=== PATIENT | female | born 1975 | race Caucasian/White ===

== ENCOUNTER 2016-09-06 11:06 | Inpatient (IN) | payer OTHER ==
[2016-09-06] MEDS ORDERED: LORazepam 2 MG/ML SYRINGE IV STA ×2 (11:22→14:00)
[2016-09-06] MEDS ORDERED: SODIUM CHLORIDE 0.9% 500 ML IV STA (11:22)
[2016-09-06 11:51] LABS: Anisocytosis Slight; Basophils % (A) 0 %; CH 38.4; CHCM 36.6; Eosinophils % (A) 0 %; HCT 31.4 % (34.0-46.0); HDW 2.92; HGB 11.4 gm/dL (11.4-16.0); Luc # (Auto) 0.18; Luc % (Auto) 2; Lymphocytes # (A) 0.7 k/uL (1.0-4.8); Lymphocytes % (A) 8 %; MCH 38.1 pg (25.0-35.0); MCHC 36.3 g/dL (31.0-37.0); MCV 104.9 fL (80.0-100.0); Macrocytosis Moderate; Mean Platelet Volume 8.6; Monocytes # (A) 0.4 k/uL (0-1.0); Monocytes % (A) 5 %; Neutrophils # (A) 7.7 k/uL (1.3-7.7); Neutrophils % (A) 85 %; RBC 2.99 m/uL (3.80-5.40); WBC 9.1 k/uL (3.8-10.6)
[2016-09-06 11:54] LABS: ALT 62 U/L (9-52); AST 155 U/L (14-36); Alcohol <10 mg/dL; Alkaline Phosphatase 138 U/L (38-126); Anion Gap 11 mmol/L; Blood Urea Nitrogen 8 mg/dL (7-17); Calcium 8.8 mg/dL (8.4-10.2); Carbon Dioxide 24 mmol/L (22-30); Chloride 96 mmol/L (98-107); Glucose 100 mg/dL (74-99); Non-African American GFR(MDRD) >60 (>60 ml/min/1.73 sqM); Sodium 131 mmol/L (137-145); Total Bilirubin 1.7 mg/dL (0.2-1.3); Total Protein 6.5 g/dL (6.3-8.2)
[2016-09-06 12:01] LABS: Appearance,Urine Cloudy (Clear); Bacteria,Urine Rare /hpf; Bilirubin,Urine Negative (Negative); Glucose,Urine (UA) Negative (Negative); Ketones,Urine 1+ (Negative); Leukocyte Esterase,Urine Trace (Negative); Mucus,Urine Occasional /hpf; Nitrite,Urine Negative (Negative); PH, Urine 8.5 (5.0-8.0); Particle Count 8775; Protein,Urine 2+ (Negative); Specific Gravity,Urine 1.018 (1.001-1.035); Squamous Epithelial Cell,Urine 13 /hpf (0-4); UA Billing (MACRO vs. MICRO) MICRO; WBC,Urine 8 /hpf (0-5)
[2016-09-06 12:03] LABS: Manual Review Performed
[2016-09-06 12:17] LABS: Potassium 2.8 mmol/L (3.5-5.1)
[2016-09-06] MEDS ORDERED: POTASSIUM CHLORIDE ER 20 MEQ TAB.ER PO STA (12:17)
--- NOTE | 2016-09-06 12:18 | XR ---
EXAMINATION TYPE: XR chest 2V DATE OF EXAM ORDERED: 09/06/2016 HISTORY: Pain. REFERENCE: None. FINDINGS: The lungs are clear. Pleural spaces are clear. Heart size is normal. IMPRESSION: NORMAL CHEST.
--- NOTE | 2016-09-06 12:34 | ED ---
Seizure HPI - General Source: patient, family, EMS, RN notes reviewed Mode of arrival: EMS Limitations: no limitations <Davidson Velasco - Last Filed: 09/06/16 13:06> <Manuel Serna - Last Filed: 09/06/16 13:43> - General Chief Complaint: Seizure Stated Complaint: Seizure, alcohol withdrawls Time Seen by Provider: 09/06/16 11:17 - History of Present Illness Initial Comments: This a 41-year-old female presents emergency Department chief complaint: Withdrawal, seizure. Patient reportedly had 2 seizures last 2 days. Patient states that she used to drink 1/5 daily. Family states that she stopped drinking 2 days ago. Patient is trying to detox at home by herself. Patient also states that she is out of her pain medication. Patient states that she does have a mild headache at this time. Patient seems to be slightly confused she states that she has been seen people another things at this time. Patient has a suicidal homicidal ideations. She is complaining of abdominal pain and states that she has known liver disease. Patient's had some nausea vomiting no diarrhea no constipation time. Patient has no chest pain or shortness breath ( Davidson Velasco) - Related Data Home Medications Medication Instructions Recorded Confirmed ALPRAZolam [Xanax] 1 mg PO TID 09/06/16 09/06/16 HYDROcodone/APAP 10-325MG [[place] 1 tab PO Q4HR PRN 09/06/16 09/06/16 10-325] Methocarbamol [Robaxin] 750 mg PO TID 09/06/16 09/06/16 Morphine Sulfate ER [Ms Contin 15 mg PO Q12HR 09/06/16 09/06/16 15Mg] Omeprazole 20 mg PO DAILY 09/06/16 09/06/16 Polyethylene Glycol 3350 [Miralax] 17 gm PO DAILY 09/06/16 09/06/16 Allergies Allergy/AdvReac Type Severity Reaction Status Date / Time No Known Allergies Allergy Verified 09/06/16 11:28 Review of Systems ROS Other: All systems not noted in ROS Statement are negative. <Davidson Velasco - Last Filed: 09/06/16 13:06> ROS Other: All systems not noted in ROS Statement are negative. <Manuel Serna - Last Filed: 09/06/16 13:43> ROS Statement: Those systems with pertinent positive or pertinent negative responses have been documented in the HPI. Past Medical History Past Medical History: Seizure Disorder Additional Past Medical History / Comment(s): Alcohol dependence, History of Any Multi-Drug Resistant Organisms: None Reported Past Surgical History: No Surgical Hx Reported Past Psychological History: Anxiety, Bipolar, Depression Smoking Status: Current every day smoker Past Alcohol Use History: Daily Past Drug Use History: None Reported <Davidson Velasco - Last Filed: 09/06/16 13:06> General Exam Limitations: no limitations General appearance: alert, in no apparent distress Head exam: Present: atraumatic, normocephalic, normal inspection Neck exam: Present: normal inspection, full ROM. Absent: tenderness, meningismus, lymphadenopathy Respiratory exam: Present: normal lung sounds bilaterally. Absent: respiratory distress, wheezes, rales, rhonchi, stridor Cardiovascular Exam: Present: normal rhythm, tachycardia, normal heart sounds. Absent: systolic murmur, diastolic murmur, rubs, gallop, clicks GI/Abdominal exam: Present: soft, tenderness (Mid abdominal tenderness), normal bowel sounds. Absent: distended, guarding, rebound, rigid Neurological exam: Present: alert, oriented X3, CN II-XII intact Skin exam: Present: warm, dry, intact, normal color. Absent: rash <Davidson Velasco - Last Filed: 09/06/16 13:06> Course <Davidson Velasco - Last Filed: 09/06/16 13:06> <Manuel Serna - Last Filed: 09/06/16 13:43> Vital Signs 09/06/16 09/06/16 11:07 13:13 Temperature 99.5 F 100.6 F H Pulse Rate 115 H 110 H Respiratory 22 18 Rate Blood Pressure 147/85 131/85 O2 Sat by Pulse 95 99 Oximetry - Reevaluation(s) Reevaluation #1: 09/06/16 13:42 I did personally do a [id number] evaluation the patient did discuss the findings with her and her family. Patient will be admitted for treatment of acute pancreatitis and alcohol withdrawal. Her last regular within the last 2 days per her family. I did discuss the case with the hospitalist. (Manuel Serna ) Medical Decision Making - Lab Data Result diagrams: 09/06/16 11:20 09/06/16 11:20 <Davidson Velasco - Last Filed: 09/06/16 13:06> - Lab Data Result diagrams: 09/06/16 11:20 09/06/16 11:20 <Manuel Serna - Last Filed: 09/06/16 13:43> - Lab Data Lab Results 09/06/16 09/06/16 09/06/16 Range/Units 10:55 10:55 11:20 WBC (3.8-10.6) k/uL RBC (3.80-5.40) m/uL Hgb (11.4-16.0) gm/dL Hct (34.0-46.0) % MCV (80.0-100.0) fL MCH (25.0-35.0) pg MCHC (31.0-37.0) g/dL RDW (11.5-15.5) % Plt Count (150-450) k/uL Neutrophils % % Lymphocytes % % Monocytes % % Eosinophils % % Basophils % % Neutrophils # (1.3-7.7) k/uL Lymphocytes # (1.0-4.8) k/uL Monocytes # (0-1.0) k/uL Eosinophils # (0-0.7) k/uL Basophils # (0-0.2) k/uL Manual Slide Review Anisocytosis Macrocytosis Sodium 131 L (137-145) mmol/L Potassium 2.8 L* (3.5-5.1) mmol/L Chloride 96 L (98-107) mmol/L Carbon Dioxide 24 (22-30) mmol/L Anion Gap 11 mmol/L BUN 8 (7-17) mg/dL Creatinine 0.73 (0.52-1.04) mg/dL Est GFR (MDRD) Af Amer >60 (>60 ml/min/1.73 sqM) Est GFR (MDRD) Non-Af >60 (>60 ml/min/1.73 sqM) Glucose 100 H (74-99) mg/dL Calcium 8.8 (8.4-10.2) mg/dL Total Bilirubin 1.7 H (0.2-1.3) mg/dL AST 155 H (14-36) U/L ALT 62 H (9-52) U/L Alkaline Phosphatase 138 H (38-126) U/L Total Protein 6.5 (6.3-8.2) g/dL Albumin 4.0 (3.5-5.0) g/dL Lipase 3753 H (23-300) U/L Urine Color Yellow Urine Appearance Cloudy H (Clear) Urine pH 8.5 H (5.0-8.0) Ur Specific [place] 1.018 (1.001-1.035) Urine Protein 2+ H (Negative) Urine Glucose (UA) Negative (Negative) Urine Ketones 1+ H (Negative) Urine Blood Negative (Negative) Urine Nitrite Negative (Negative) Urine Bilirubin Negative (Negative) Urine Urobilinogen 2.0 (<2.0) mg/dL Ur Leukocyte Esterase Trace H (Negative) Urine WBC 8 H (0-5) /hpf Ur Squamous Epith Cells 13 H (0-4) /hpf Urine Bacteria Rare H (None) /hpf Hyaline Casts 7 H (0-2) /lpf Urine Mucus Occasional H (None) /hpf Urine Opiates Screen Not Detected (NotDetected) Ur Oxycodone Screen Not Detected (NotDetected) Urine Methadone Screen Not Detected (NotDetected) Ur Propoxyphene Screen Not Detected (NotDetected) Ur Barbiturates Screen Not Detected (NotDetected) U Tricyclic Antidepress Not Detected (NotDetected) Ur Phencyclidine Scrn Not Detected (NotDetected) Ur Amphetamines Screen Not Detected (NotDetected) U Methamphetamines Scrn Not Detected (NotDetected) U Benzodiazepines Scrn Detected H (NotDetected) Urine Cocaine Screen Not Detected (NotDetected) U Marijuana (THC) Screen Detected H (NotDetected) Serum Alcohol <10 mg/dL 09/06/16 Range/Units 11:20 WBC 9.1 (3.8-10.6) k/uL RBC 2.99 L (3.80-5.40) m/uL Hgb 11.4 (11.4-16.0) gm/dL Hct 31.4 L (34.0-46.0) % MCV 104.9 H (80.0-100.0) fL MCH 38.1 H (25.0-35.0) pg MCHC 36.3 (31.0-37.0) g/dL RDW 18.0 H (11.5-15.5) % Plt Count 90 L (150-450) k/uL Neutrophils % 85 % Lymphocytes % 8 % Monocytes % 5 % Eosinophils % 0 % Basophils % 0 % Neutrophils # 7.7 (1.3-7.7) k/uL Lymphocytes # 0.7 L (1.0-4.8) k/uL Monocytes # 0.4 (0-1.0) k/uL Eosinophils # 0.0 (0-0.7) k/uL Basophils # 0.0 (0-0.2) k/uL Manual Slide Review Performed Anisocytosis Slight Macrocytosis Moderate Sodium (137-145) mmol/L Potassium (3.5-5.1) mmol/L Chloride (98-107) mmol/L Carbon Dioxide (22-30) mmol/L Anion Gap mmol/L BUN (7-17) mg/dL Creatinine (0.52-1.04) mg/dL Est GFR (MDRD) Af Amer (>60 ml/min/1.73 sqM) Est GFR (MDRD) Non-Af (>60 ml/min/1.73 sqM) Glucose (74-99) mg/dL Calcium (8.4-10.2) mg/dL Total Bilirubin (0.2-1.3) mg/dL AST (14-36) U/L ALT (9-52) U/L Alkaline Phosphatase (38-126) U/L Total Protein (6.3-8.2) g/dL Albumin (3.5-5.0) g/dL Lipase (23-300) U/L Urine Color Urine Appearance (Clear) Urine pH (5.0-8.0) Ur Specific [place] (1.001-1.035) Urine Protein (Negative) Urine Glucose (UA) (Negative) Urine Ketones (Negative) Urine Blood (Negative) Urine Nitrite (Negative) Urine Bilirubin (Negative) Urine Urobilinogen (<2.0) mg/dL Ur Leukocyte Esterase (Negative) Urine WBC (0-5) /hpf Ur Squamous Epith Cells (0-4) /hpf Urine Bacteria (None) /hpf Hyaline Casts (0-2) /lpf Urine Mucus (None) /hpf Urine Opiates Screen (NotDetected) Ur Oxycodone Screen (NotDetected) Urine Methadone Screen (NotDetected) Ur Propoxyphene Screen (NotDetected) Ur Barbiturates Screen (NotDetected) U Tricyclic Antidepress (NotDetected) Ur Phencyclidine Scrn (NotDetected) Ur Amphetamines Screen (NotDetected) U Methamphetamines Scrn (NotDetected) U Benzodiazepines Scrn (NotDetected) Urine Cocaine Screen (NotDetected) U Marijuana (THC) Screen (NotDetected) Serum Alcohol mg/dL Disposition <Davidson Velasco - Last Filed: 09/06/16 13:06> <Manuel Serna - Last Filed: 09/06/16 13:43> Clinical Impression: Hypokalemia, Alcohol withdrawal seizure, Acute pancreatitis Disposition: ADMITTED IP TO THIS [facility] Condition: Fair Referrals: Nonstaff,Physician [Primary Care Provider] - 1-2 days Addendum entered and electronically signed by Davidson Velasco PA-C 09/06/16 13: 07: EKG performed at 12:44 sinus tachycardia with a rate of 109 GA interval 148 QRS duration 84 QT/QTC 364/490 Addendum entered and electronically signed by Davidson Velasco PA-C 09/06/16 13: 20: Patient has no suicidal or homicidal ideations
[2016-09-06] MEDS ORDERED: SODIUM CHLORIDE 0.9% 1,000 ML with MVI, ADULT NO.4 WITH VIT K 10 ML, THIAMINE 100 MG, F... IV ONE ×4 (12:45)
--- NOTE | 2016-09-06 12:54 | CT ---
EXAMINATION TYPE: CT brain wo con DATE OF EXAM: 09/06/2016 COMPARISON: NONE HISTORY: Confused/seizure/alcohol withdrawls CT DLP: 935.[address] of the brain was performed. The ventricles, basal cisterns and sulci overlying the cerebral convexities demonstrate a normal appe arance. There is no evidence for intracranial hemorrhage or sulcal effacement. No mass effects are seen. Osseous calvarium is intact. If symptoms persist consider MRI as clinically warranted. IMPRESSION: 1. No acute intracranial process is seen at this time.
[2016-09-06] MEDS ORDERED: ONDANSETRON 4 MG/2 ML VIAL IVP PRN (13:08)
[2016-09-06] MEDS ORDERED: MORPHINE SULFATE 4 MG/ML SYRINGE IV PRN (13:08)
[2016-09-06] MEDS ORDERED: NALOXONE 0.4 MG/ML 1 ML VIAL IV PRN (13:08)
[2016-09-06] MEDS: LORazepam 2 MG/ML SYRINGE IV PRN ×6 (13:21→23:19)
[2016-09-06] MEDS ORDERED: ZIPRASIDONE 20 MG VIAL IM STA (13:59)
[2016-09-06] MEDS ORDERED: ACETAMINOPHEN IV (For NPO) 1,000 MG in EMPTY BAG 1 BAG IVPB STA (14:29)
[2016-09-06] MEDS: NICOTINE 21MG/24HR PATCH TRANSDERM SCH (14:39)
[2016-09-06] MEDS ORDERED: HALOPERIDOL LACTATE 5 MG/ML 1 ML VIAL IVP PRN (14:44)
[2016-09-06] MEDS ORDERED: HALOPERIDOL LACTATE 5 MG/ML 1 ML VIAL IM PRN (14:45)
[2016-09-06] MEDS ORDERED: HALOPERIDOL LACTATE 5 MG/ML 1 ML VIAL IM STA (14:46)
[2016-09-06] MEDS: THIAMINE 100 MG TAB PO SCH (20:11)
[2016-09-06] MEDS: MORPHINE SULFATE ER 15 MG TABLET PO SCH (21:18)
[2016-09-06] MEDS: METHOCARBAMOL 750 MG TAB PO SCH (21:20)
[2016-09-06] MEDS ORDERED: POTASSIUM CHLORIDE ORAL LIQUID 40 MEQ/30 ML CUP PO ONE (22:45)
[2016-09-06] MEDS ORDERED: Potassium Replacement Protocol 1 EACH MISC MISCELLANE PRN (22:46)
[2016-09-06] MEDS: HYDROcodone/APAP 10-325MG 1 EACH TAB PO PRN (23:18)
--- NOTE | 2016-09-06 23:27 | P.CNNES ---
History of Present Illness Consult date: 09/06/16 History of Present Illness: The patient is a 41-year-old woman with history of alcohol abuse. She states she has been drinking a fifth a day for 15-20 years. She states that 2 weeks ago she decided to stop drinking. She has been going through withdrawal symptoms last 2 weeks. She states she's had about 4 seizures during that timeframe. She did not come to the emergency room to today when her boyfriend called EMS. Today she had a seizure and presented to the emergency room still slightly post ictal. Kaitlin the pain patient is trying to detox herself at home by herself. 3 in the emergency room reports that she had 2 seizures in the last 2 days and that she stopped drinking 2 days ago. She was admitted to the hospital with alcohol withdrawal seizure hypokalemia and acute pancreatitis. 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, lynn disorder, carsinoid syndrome, enlarge liver History of Any Multi-Drug Resistant Organisms: None Reported Past Surgical History: No Surgical Hx Reported Smoking Status: Current every day smoker - Past Family History Father Family Medical History: No Reported History Medications and Allergies Home Medications Medication Instructions Recorded Confirmed Type ALPRAZolam [Xanax] 1 mg PO TID 09/06/16 09/06/16 History HYDROcodone/APAP 10-325MG [[place] 1 tab PO Q4HR PRN 09/06/16 09/06/16 History 10-325] Methocarbamol [Robaxin] 750 mg PO TID 09/06/16 09/06/16 History Morphine Sulfate ER [Ms Contin 15 mg PO Q12HR 09/06/16 09/06/16 History 15Mg] Omeprazole 20 mg PO DAILY 09/06/16 09/06/16 History Polyethylene Glycol 3350 [Miralax] 17 gm PO DAILY 09/06/16 09/06/16 History Allergies Allergy/AdvReac Type Severity Reaction Status Date / Time No Known Allergies Allergy Verified 09/06/16 11:28 Physical Examination - Vital Signs Vital Signs: Vital Signs Temp Pulse Pulse Resp BP BP Pulse Ox 09/06/16 16:55 99.1 F 72 16 102/68 95 09/06/16 16:01 110 H 18 155/76 99 09/06/16 15:40 101.3 F H 115 H 18 171/89 98 09/06/16 15:07 122 H 18 166/93 98 09/06/16 14:25 101.9 F H 117 H 18 174/77 98 09/06/16 13:13 100.6 F H 110 H 18 131/85 99 09/06/16 11:07 99.5 F 115 H 22 147/85 95 Intake and Output 09/06/16 09/06/16 09/07/16 14:59 22:59 06:59 Other: Voiding Method Diaper # Voids 1 Weight 65.771 kg Patient Weight 09/07/16 06:59 Weight 65.771 kg - Constitutional General appearance: average body habitus, disheveled - EENT EENT: PERRL, hearing intact, vision intact - Respiratory Respiratory: lungs clear - Cardiovascular Cardiovascular: regular rate - Neurologic Mental status she was drowsy but able to answer questions slowly. There was no a aphasia or dysarthria. Cranial nerve examination: PERRL, EOMI, VFF, face symmetric, tongue midline Speech examination: intact Detailed motor examination: grossly full strength in all extremities Motor examination - right side: 5/5: biceps, triceps, wrist flexion, wrist extension, air operations manager, hip flexors, knee extensors, dorsiflexion, toe extension (EHL) , plantarflexion Motor examination - left side: 5/5: biceps, triceps, wrist flexion, wrist extension, air operations manager, hip flexors, knee extensors, dorsiflexion, toe extension (EHL) , plantarflexion - Psychiatric Psychiatric: cooperative Results - Laboratory Findings CBC and BMP: 09/06/16 11:20 09/06/16 22:00 Abnormal Lab Findings: Abnormal Labs 09/06/16 09/06/16 09/06/16 10:55 10:55 11:20 RBC Hct MCV MCH RDW Plt Count Lymphocytes # Sodium 131 L Potassium 2.8 L* Chloride 96 L Glucose 100 H Total Bilirubin 1.7 H AST 155 H ALT 62 H Alkaline Phosphatase 138 H Lipase 3753 H Urine Appearance Cloudy H Urine pH 8.5 H Urine Protein 2+ H Urine Ketones 1+ H Ur Leukocyte Esterase Trace H Urine WBC 8 H Ur Squamous Epith Cells 13 H Urine Bacteria Rare H Hyaline Casts 7 H Urine Mucus Occasional H U Benzodiazepines Scrn Detected H U Marijuana (THC) Screen Detected H 09/06/16 09/06/16 11:20 22:00 RBC 2.99 L Hct 31.4 L MCV 104.9 H MCH 38.1 H RDW 18.0 H Plt Count 90 L Lymphocytes # 0.7 L Sodium Potassium 2.6 L* Chloride Glucose Total Bilirubin AST ALT Alkaline Phosphatase Lipase Urine Appearance Urine pH Urine Protein Urine Ketones Ur Leukocyte Esterase Urine WBC Ur Squamous Epith Cells Urine Bacteria Hyaline Casts Urine Mucus U Benzodiazepines Scrn U Marijuana (THC) Screen Assessment and Plan (1) Alcohol withdrawal seizure Status: Acute Code(s): F10.239 - ALCOHOL DEPENDENCE WITH WITHDRAWAL, UNSPECIFIED; R56.9 - UNSPECIFIED CONVULSIONS (2) Acute pancreatitis Status: Acute Code(s): K85.90 - ACUTE PANCREATITIS WITHOUT NECROSIS OR INFECTION, UNSP (3) Hypokalemia Status: Acute Code(s): E87.6 - HYPOKALEMIA Plan: The patient is a 41-year-old woman who is admitted to the hospital with alcohol withdrawal seizure. He had a CT of the brain which did not show any acute intracranial process. He is admitted with acute pancreatitis and hypokalemia. Seizure precautions are in place and patient will be on alcohol withdrawal protocol. She was made aware of the [place] law regarding driving and seizures and told she cannot operate a motorized vehicle until spell free for 6 months.
[2016-09-07] MEDS: POTASSIUM CHLORIDE 20 MEQ, LIDOCAINE 2% INJ 20 MG in SODIUM CHLORIDE 0.9% 100 ML IVPB SCH ×2 (00:31→03:59)
[2016-09-07] MEDS: SODIUM CHLORIDE 0.9% 1,000 ML IV SCH ×3 (00:32→18:09)
[2016-09-07] MEDS: LORazepam 2 MG/ML SYRINGE IV PRN ×14 (02:30→18:08)
[2016-09-07 03:31] LABS: Anisocytosis Slight; Basophils % (A) 0 %; CH 38.6; CHCM 35.3; Eosinophils % (A) 1 %; HCT 30.4 % (34.0-46.0); HDW 2.91; HGB 10.5 gm/dL (11.4-16.0); Luc # (Auto) 0.15; Luc % (Auto) 2; Lymphocytes # (A) 1.8 k/uL (1.0-4.8); Lymphocytes % (A) 28 %; MCH 37.8 pg (25.0-35.0); MCHC 34.6 g/dL (31.0-37.0); MCV 109.3 fL (80.0-100.0); Macrocytosis Marked; Mean Platelet Volume 8.5; Monocytes # (A) 0.3 k/uL (0-1.0); Monocytes % (A) 4 %; Neutrophils # (A) 4.3 k/uL (1.3-7.7); Neutrophils % (A) 65 %; RBC 2.78 m/uL (3.80-5.40); RDW 17.9 % (11.5-15.5); WBC 6.6 k/uL (3.8-10.6); WBC (Perox) 6.69
[2016-09-07 03:49] LABS: ALT 57 U/L (9-52); AST 110 U/L (14-36); Alkaline Phosphatase 111 U/L (38-126); Anion Gap 9 mmol/L; Blood Urea Nitrogen 5 mg/dL (7-17); Calcium 8.4 mg/dL (8.4-10.2); Carbon Dioxide 23 mmol/L (22-30); Chloride 103 mmol/L (98-107); Glucose 111 mg/dL (74-99); Magnesium 1.3 mg/dL (1.6-2.3); Non-African American GFR(MDRD) >60 (>60 ml/min/1.73 sqM); Potassium 3.2 mmol/L (3.5-5.1); Sodium 135 mmol/L (137-145); Total Bilirubin 1.2 mg/dL (0.2-1.3); Total Protein 5.8 g/dL (6.3-8.2)
[2016-09-07] MEDS: HYDROcodone/APAP 10-325MG 1 EACH TAB PO PRN ×4 (03:50→16:47)
[2016-09-07] MEDS ORDERED: Magnesium Replacement Protocol 1 EACH MISC MISCELLANE PRN (06:38)
[2016-09-07] MEDS: MORPHINE SULFATE ER 15 MG TABLET PO SCH (08:12)
[2016-09-07] MEDS: NICOTINE 21MG/24HR PATCH TRANSDERM SCH (08:14)
[2016-09-07] MEDS: METHOCARBAMOL 750 MG TAB PO SCH ×2 (08:14→15:03)
[2016-09-07] MEDS: MAGNESIUM SULFATE-D5W PMX 1 GM in DEXTROSE/WATER 1 100ML.BAG IVPB SCH ×2 (08:21→09:25)
--- NOTE | 2016-09-07 08:42 | HP ---
DATE OF SERVICE: 09/06/2016 CHIEF COMPLAINT: Change in mental status and alcohol intoxication and seizures. HISTORY OF PRESENT ILLNESS: This 41-year-old woman with a past medical history significant for EtOH, fibromyalgia, rheumatoid arthritis, history of alcohol dependence, anxiety, bipolar depression, being followed by no primary physician in the outpatient setting so apparently drinking heavily according to the history. The patient apparently drinks at least a fifth, last drink was about 2 days ago. The patient was complaining of seizures, possibly withdrawal seizure. The patient is confused. The patient is combative. further evaluation and treatment. The patient has received and Geodon and Ativan with minimal change in the restlessness. The patient will be closely monitored. A detailed history cannot be taken from the patient because the patient is confused. Most of the history is taken and my discussion with the staff and review of the chart at this time. PAST MEDICAL HISTORY: History of fibromyalgia, rheumatoid arthritis, seizure disorder. Medications are: 1. Omeprazole 20 mg p.o. daily. 2. Robaxin 750 p.o. t.i.d. 3. Hydrocodone 10 mg q.4 p.r.n. 4. MiraLAX 17 grams daily. 5. MS Contin 15 mg b.i.d. 6. Xanax 1 mg t.i.d. Allergies are none. Family history, social, review of systems could not be taken. Otherwise, the patient has significant history of alcohol and history of smoking. PHYSICAL EXAM: The patient is conscious, combative, disoriented. Pulse 115, blood pressure 171/89, respirations 18, temperature 101.3, pulse ox 98% on room air. HEENT: Conjunctivae normal. NECK: No jugular venous distention. CARDIOVASCULAR: S1 and S2 muffled. RESPIRATORY: Breath sounds diminished at the bases. Bilateral scattered rhonchi and crackles. ABDOMEN: Soft, nontender. No mass palpable. LEGS: No edema, no swelling. NERVOUS SYSTEM: Higher function as mentioned. Moves all 4 limbs. No focal deficits. LYMPHATICS: No lymphadenopathy of the neck, axillae or groin. SKIN: No ulcers, rashes, bleeding. LABS: WBC 9.1, hemoglobin 11.4 and MCV 104.9. Sodium 139, potassium 2.8. AST and ALT noted. ASSESSMENT: 1. Change in mental status, acute delirium tremens. 2. History of EtOH and EtOH withdrawal. 3. Possible alcohol withdrawal seizures. 5. History of nicotine dependence. 6. Urinary tract infection. 7. Hyponatremia. 8. Hypokalemia. 9. Increased AST, ALT with alcoholic hepatitis. 10. Fibromyalgia. 11. Seizure disorder. 12. Anxiety, bipolar depression. RECOMMENDATIONS AND DISCUSSION: This 41-year-old woman who presented with multiple complex medical issues, will monitor the patient closely. Continue the current medications. Continue symptomatic treatment. Otherwise, at this time I would recommend empiric antibiotics. I will follow the cultures. Otherwise, [facility] protocol, Giulia p.r.n., psych consultation. CAT scan of the brain showed no acute abnormality. Chest x-ray showed normal chest also. Further recommendations to follow. Repeat labs have been ordered. See orders for further details. Continue to monitor. I will also recommend neurology consultation as well because of seizures as well. Once again, overall prognosis extremely guarded because of multiple complex medical issues, which I discussed at length. Further recommendations to follow. MTDD
[2016-09-07] MEDS ORDERED: POLYETHYLENE GLYCOL 3350 17 GM POWD.PACK PO SCH (09:00)
[2016-09-07] MEDS ORDERED: PANTOPRAZOLE 40 MG TABLET PO SCH (09:00)
[2016-09-07] MEDS: THIAMINE 100 MG TAB PO SCH ×2 (11:51→18:08)
[2016-09-07] MEDS ORDERED: POTASSIUM CHLORIDE ER 20 MEQ TAB.ER PO SCH (12:15)
[2016-09-07 12:39] LABS: Amylase 287 U/L (30-110)
--- NOTE | 2016-09-07 15:07 | PN ---
DATE OF SERVICE: 09/07/16 This 41-year-old woman was admitted with alcohol intoxication and seizures, also had a tongue injury also. No chest pain. No palpitations. No fever. The patient still has feature of DTs. The patient is jittery and tremulous. Past medical history reviewed. REVIEW OF SYSTEMS: Cardiovascular: No angina. Respiratory: As mentioned earlier. : No dysuria. Nervous system: No numbness. Weakness. Current medications are reviewed and include: 1. [place] 10 mg q4h prn. 2. Rocephin 1 gm daily. 3. Haldol 0.5 b.i.d. 4. Ativan 1 mg q8 prn. 5. Robaxin 750 mg po t.i.d. 6. Magnesium. 7. Morphine sulfate 4 mg. 8. MS Contin 15 mg b.i.d. 9. Protonix. 10. K-Dur. 11. Vitamin B1. PHYSICAL EXAMINATION: The patient is alert and oriented times three. Pulse 119. Blood pressure 125/98. Respiratory rate 18. Temperature 98.8. Pulse ox 98 % on room air. HEENT: Conjunctivae normal. NECK: No JVD. Cardiovascular: S1, S2 muffled. Respiratory: Breath sounds diminished at the bases. A few scattered rhonchi. Abdomen soft. Nontender. No mass palpable. Legs, no edema. No swelling. Nervous system: Diffusely weak and tremulous also. Labs: At this time shows WBC 6.6, hemoglobin 10.5. Potassium 3.2. Other labs are noted. ASSESSMENT: 1. Change in mental status, acute delirium tremens. 2. Alcohol withdrawal syndrome. 3. History of ETOH. 4. History of alcohol withdrawal seizures. 5. History of nicotine dependence. 6. Urinary tract infection. 7. Hyponatremia. 8. Hypokalemia. 9. Increase AST/ALT. 10. Alcoholic hepatitis. 11. Fibromyalgia. 12. History of seizure disorder. 13. Anxiety/bipolar depression. 14. Mild acute pancreatitis. RECOMMENDATIONS AND DISCUSSION: Recommend to continue the current medications. Continue with monitoring and symptomatic treatment. Further recommendations to follow. MTDD
[2016-09-07 16:51] VITALS: BP 144/100; PULSE 119; RESP 20; TEMP 97.5
--- NOTE | 2016-09-08 12:11 | EEG ---
DATE OF EE09/07/2016 REFERRING PHYSICIAN: Dr. Dao CONSULTING INTERPRETING PHYSICIAN: Dr. Dheeraj Woodruff ELECTROENCEPHALOGRAPHIC EXAMINATION REPORT: INDICATIONS FOR EXAMINATION: This patient is a 41-year-old female being evaluated for alcohol withdrawal seizures. Patient had two seizures on admission in the ER. AGE: 41 EEG FINDINGS: A routine 21-channel, awake digital EEG recording was accomplished utilizing the 10- 20 International System with bipolar and referential montages. The background activity in the most alert, resting state consists of a low to medium amplitude, fairly well developed and well sustained 7-8 Hz activity over the posterior head regions. This posterior rhythm attenuates to eye opening. There is a small amount of low amplitude 18-20 Hz beta activity seen maximally over the anterior head regions. Muscle and movement artifact was observed on a few occasions during the tracing. Hyperventilation was not performed. Photic stimulation of flash frequencies of 2 to 30 Hz produced a good symmetrical occipital driving response. No epileptiform discharges were seen. IMPRESSION: This EEG is within normal limits for the patient's age. The EEG failed to reveal any focal, lateralized, or epileptiform abnormalities. Clinical correlation is recommended. MTDD
== END 2016-09-07 19:30 | disposition left against medical advice (07) | DRG 100 ==
LOC: EC 11:06 → 6SEL 13:43 → 4MS4W 09-07 16:16
PROVIDERS: ADMIT Hospitalist; ATTEND Hospitalist
DX: G40.909 Epilepsy, unspecified, not intractable, without status epilepticus (principal); K85.90 Acute pancreatitis without necrosis or infection, unspecified; F10.231 Alcohol dependence with withdrawal delirium; K70.10 Alcoholic hepatitis without ascites; N39.0 Urinary tract infection, site not specified; E87.1 Hypo-osmolality and hyponatremia; M06.9 Rheumatoid arthritis, unspecified; M79.7 Fibromyalgia; R45.850 Homicidal ideations; Z79.899 Other long term (current) drug therapy; F41.9 Anxiety disorder, unspecified; F31.9 Bipolar disorder, unspecified; F17.200 Nicotine dependence, unspecified, uncomplicated; E87.6 Hypokalemia
CPT/HCPCS: 36415; 70450; 71020; 80053; 80306; 80320; 81001; 82150; 83690; 83735; 84132; 85025; 87040; 87086; 93005; 95816; 96365; 96366; 96372; 96375; 96376; 99285

== ENCOUNTER 2016-09-14 23:09 | Inpatient (IN) | payer OTHER ==
[2016-09-14] MEDS ORDERED: LORazepam 2 MG/ML SYRINGE IV PRN (23:56)
[2016-09-14] MEDS ORDERED: SODIUM CHLORIDE 0.9% 1,000 ML IV ONE (23:58)
--- NOTE | 2016-09-15 00:01 | ED ---
Alcohol HPI - General Chief Complaint: Alcohol Stated Complaint: poss seizure/detox-revisit Time Seen by Provider: 09/14/16 23:17 Source: patient, RN notes reviewed Mode of arrival: wheelchair Limitations: no limitations - History of Present Illness Initial Comments: Patient is a 41-year-old female presents to the emergency room for evaluation of alcohol intoxication. Patient states that she's been drinking daily for the past 10 months. Patient states she drinks a fifth of rum per day. Patient states she is here for detox. Patient states she was admitted a few days ago but left AGAINST MEDICAL ADVICE. Patient states that she had a fifth of rum earlier today. Patient denies headache, dizziness, nausea, vomiting, abdominal pain, fevers, chills, chest pain, shortness of breath. Patient states she has a history of seizures while withdrawing from alcohol. - Related Data Home Medications Medication Instructions Recorded Confirmed ALPRAZolam [Xanax] 1 mg PO TID 09/06/16 09/14/16 HYDROcodone/APAP 10-325MG [[place] 1 tab PO Q4HR PRN 09/06/16 09/14/16 10-325] Methocarbamol [Robaxin] 750 mg PO TID 09/06/16 09/14/16 Morphine Sulfate ER [Ms Contin 15 mg PO Q12HR 09/06/16 09/14/16 15Mg] Omeprazole 20 mg PO DAILY 09/06/16 09/14/16 Polyethylene Glycol 3350 [Miralax] 17 gm PO DAILY 09/06/16 09/14/16 Allergies Allergy/AdvReac Type Severity Reaction Status Date / Time No Known Allergies Allergy Verified 09/14/16 23:15 Review of Systems ROS Statement: Those systems with pertinent positive or pertinent negative responses have been documented in the HPI. ROS Other: All systems not noted in ROS Statement are negative. 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 Limitations: no limitations General appearance: alert, appears intoxicated Head exam: Present: atraumatic, normocephalic, normal inspection Eye exam: Present: normal appearance ENT exam: Present: normal exam Neck exam: Present: normal inspection Respiratory exam: Present: normal lung sounds bilaterally. Absent: respiratory distress Cardiovascular Exam: Present: normal rhythm, tachycardia, normal heart sounds GI/Abdominal exam: Present: soft, normal bowel sounds. Absent: distended, tenderness, guarding, rebound, rigid Extremities exam: Present: normal inspection Back exam: Present: normal inspection Neurological exam: Present: alert, oriented X3, CN II-XII intact, normal gait Psychiatric exam: Present: normal affect, normal mood Skin exam: Present: warm, dry, intact, normal color. Absent: rash Course Vital Signs 09/14/16 09/15/16 09/15/16 23:11 01:44 02:36 Temperature 98.5 F 97.8 F 97.8 F Pulse Rate 120 H 107 H 107 H Respiratory 20 18 18 Rate Blood Pressure 153/97 147/92 147/92 O2 Sat by Pulse 98 98 98 Oximetry Medical Decision Making - Medical Decision Making patient is a 41-year-old female presents to emergency room for evaluation of alcohol intoxication. Patient's serum alcohol level 275. Patient does state she has a history of seizures from alcohol withdrawal. Patient appeared to have a pseudoseizure while she was here. The patient was not post ictal and appeared to answer questions while having her seizure and immediately after having her "seizure". Patient does appear to have acute pancreatitis at this time. [facility]. - Lab Data Result diagrams: 09/15/16 00:00 09/15/16 00:00 Lab Results 09/15/16 09/15/16 09/15/16 Range/Units 00:00 00:00 00:00 WBC 3.8 (3.8-10.6) k/uL RBC 3.29 L (3.80-5.40) m/uL Hgb 12.3 (11.4-16.0) gm/dL Hct 36.4 (34.0-46.0) % MCV 110.5 H (80.0-100.0) fL MCH 37.4 H (25.0-35.0) pg MCHC 33.8 (31.0-37.0) g/dL RDW 17.3 H (11.5-15.5) % Plt Count 475 H D (150-450) k/uL Neutrophils % (Manual) 48.0 % Lymphocytes % (Manual) 40.0 % Monocytes % (Manual) 12.0 % Neutrophils # (Manual) 1.8 (1.3-7.7) k/uL Lymphocytes # (Manual) 1.5 (1.0-4.8) k/uL Monocytes # (Manual) 0.5 (0-1.0) k/uL Nucleated RBCs 0 (0-0) /100 WBC Manual Slide Review Performed Polychromasia Present Anisocytosis Slight Macrocytosis Marked Sodium 140 (137-145) mmol/L Potassium 4.3 (3.5-5.1) mmol/L Chloride 105 (98-107) mmol/L Carbon Dioxide 20 L (22-30) mmol/L Anion Gap 15 mmol/L BUN 5 L (7-17) mg/dL Creatinine 0.60 (0.52-1.04) mg/dL Est GFR (MDRD) Af Amer >60 (>60 ml/min/1.73 sqM) Est GFR (MDRD) Non-Af >60 (>60 ml/min/1.73 sqM) Glucose 105 H (74-99) mg/dL Calcium 8.7 (8.4-10.2) mg/dL Magnesium 2.0 (1.6-2.3) mg/dL Total Bilirubin 0.6 (0.2-1.3) mg/dL AST 421 H (14-36) U/L ALT 237 H (9-52) U/L Alkaline Phosphatase 168 H (38-126) U/L Total Protein 6.6 (6.3-8.2) g/dL Albumin 3.9 (3.5-5.0) g/dL Amylase 686 H* (30-110) U/L Lipase 1148 H (23-300) U/L Urine Color Light Yellow Urine Appearance Clear (Clear) Urine pH 5.5 (5.0-8.0) Ur Specific [place] 1.004 (1.001-1.035) Urine Protein Negative (Negative) Urine Glucose (UA) Negative (Negative) Urine Ketones 1+ H (Negative) Urine Blood Negative (Negative) Urine Nitrite Negative (Negative) Urine Bilirubin Negative (Negative) Urine Urobilinogen <2.0 (<2.0) mg/dL Ur Leukocyte Esterase Negative (Negative) Urine HCG, Qual (Not Detectd) Urine Opiates Screen Detected H (NotDetected) Ur Oxycodone Screen Not Detected (NotDetected) Urine Methadone Screen Not Detected (NotDetected) Ur Propoxyphene Screen Not Detected (NotDetected) Ur Barbiturates Screen Not Detected (NotDetected) U Tricyclic Antidepress Not Detected (NotDetected) Ur Phencyclidine Scrn Not Detected (NotDetected) Ur Amphetamines Screen Not Detected (NotDetected) U Methamphetamines Scrn Not Detected (NotDetected) U Benzodiazepines Scrn Not Detected (NotDetected) Urine Cocaine Screen Not Detected (NotDetected) U Marijuana (THC) Screen Not Detected (NotDetected) Serum Alcohol 275 mg/dL 09/15/16 Range/Units 00:00 WBC (3.8-10.6) k/uL RBC (3.80-5.40) m/uL Hgb (11.4-16.0) gm/dL Hct (34.0-46.0) % MCV (80.0-100.0) fL MCH (25.0-35.0) pg MCHC (31.0-37.0) g/dL RDW (11.5-15.5) % Plt Count (150-450) k/uL Neutrophils % (Manual) % Lymphocytes % (Manual) % Monocytes % (Manual) % Neutrophils # (Manual) (1.3-7.7) k/uL Lymphocytes # (Manual) (1.0-4.8) k/uL Monocytes # (Manual) (0-1.0) k/uL Nucleated RBCs (0-0) /100 WBC Manual Slide Review Polychromasia Anisocytosis Macrocytosis Sodium (137-145) mmol/L Potassium (3.5-5.1) mmol/L Chloride (98-107) mmol/L Carbon Dioxide (22-30) mmol/L Anion Gap mmol/L BUN (7-17) mg/dL Creatinine (0.52-1.04) mg/dL Est GFR (MDRD) Af Amer (>60 ml/min/1.73 sqM) Est GFR (MDRD) Non-Af (>60 ml/min/1.73 sqM) Glucose (74-99) mg/dL Calcium (8.4-10.2) mg/dL Magnesium (1.6-2.3) mg/dL Total Bilirubin (0.2-1.3) mg/dL AST (14-36) U/L ALT (9-52) U/L Alkaline Phosphatase (38-126) U/L Total Protein (6.3-8.2) g/dL Albumin (3.5-5.0) g/dL Amylase (30-110) U/L Lipase (23-300) U/L Urine Color Urine Appearance (Clear) Urine pH (5.0-8.0) Ur Specific [place] (1.001-1.035) Urine Protein (Negative) Urine Glucose (UA) (Negative) Urine Ketones (Negative) Urine Blood (Negative) Urine Nitrite (Negative) Urine Bilirubin (Negative) Urine Urobilinogen (<2.0) mg/dL Ur Leukocyte Esterase (Negative) Urine HCG, Qual Not Detected (Not Detectd) Urine Opiates Screen (NotDetected) Ur Oxycodone Screen (NotDetected) Urine Methadone Screen (NotDetected) Ur Propoxyphene Screen (NotDetected) Ur Barbiturates Screen (NotDetected) U Tricyclic Antidepress (NotDetected) Ur Phencyclidine Scrn (NotDetected) Ur Amphetamines Screen (NotDetected) U Methamphetamines Scrn (NotDetected) U Benzodiazepines Scrn (NotDetected) Urine Cocaine Screen (NotDetected) U Marijuana (THC) Screen (NotDetected) Serum Alcohol mg/dL Disposition Clinical Impression: Acute pancreatitis, Alcoholic intoxication Disposition: ADMITTED IP TO THIS [facility] Condition: Stable Decision Date: 09/15/16
[2016-09-15 00:15] LABS: Anisocytosis Slight; CH 38.6; HCT 36.4 % (34.0-46.0); HDW 2.74; HGB 12.3 gm/dL (11.4-16.0); MCH 37.4 pg (25.0-35.0); MCHC 33.8 g/dL (31.0-37.0); MCV 110.5 fL (80.0-100.0); Macrocytosis Marked; Mean Platelet Volume 7.3; RBC 3.29 m/uL (3.80-5.40); RDW 17.3 % (11.5-15.5); WBC 3.8 k/uL (3.8-10.6); WBC (Perox) 4.08
[2016-09-15 00:24] LABS: Appearance,Urine Clear (Clear); Bilirubin,Urine Negative (Negative); Glucose,Urine (UA) Negative (Negative); Ketones,Urine 1+ (Negative); Leukocyte Esterase,Urine Negative (Negative); Nitrite,Urine Negative (Negative); PH, Urine 5.5 (5.0-8.0); Protein,Urine Negative (Negative); Specific Gravity,Urine 1.004 (1.001-1.035); UA Billing (MACRO vs. MICRO) CHEM; Urobilinogen,Urine <2.0 mg/dL (<2.0)
[2016-09-15 00:28] LABS: ALT 237 U/L (9-52); AST 421 U/L (14-36); Alkaline Phosphatase 168 U/L (38-126); Anion Gap 15 mmol/L; Blood Urea Nitrogen 5 mg/dL (7-17); Calcium 8.7 mg/dL (8.4-10.2); Carbon Dioxide 20 mmol/L (22-30); Chloride 105 mmol/L (98-107); Glucose 105 mg/dL (74-99); Non-African American GFR(MDRD) >60 (>60 ml/min/1.73 sqM); Potassium 4.3 mmol/L (3.5-5.1); Sodium 140 mmol/L (137-145); Total Bilirubin 0.6 mg/dL (0.2-1.3); Total Protein 6.6 g/dL (6.3-8.2)
[2016-09-15 00:31] LABS: Amylase 686 U/L (30-110)
[2016-09-15 00:32] LABS: Alcohol 275 mg/dL
[2016-09-15 00:42] LABS: Add Differential Manual Differential
[2016-09-15 00:52] LABS: Manual Review Performed; Nucleated Red Blood Cells 0 /100 WBC (0-0); Polychromasia Present; Total Cells Counted 100
[2016-09-15] MEDS ORDERED: ONDANSETRON 4 MG/2 ML VIAL IVP STA (01:03)
[2016-09-15] MEDS ORDERED: THIAMINE 100 MG/ML 2 ML VIAL IM STA (01:07)
[2016-09-15] MEDS ORDERED: LORazepam 2 MG/ML SYRINGE IV PRN ×2 (01:07)
[2016-09-15] MEDS ORDERED: NALOXONE 0.4 MG/ML 1 ML VIAL IV PRN (01:08)
[2016-09-15] MEDS ORDERED: ONDANSETRON 4 MG/2 ML VIAL IVP PRN (01:08)
[2016-09-15] MEDS: SODIUM CHLORIDE 0.9% 1,000 ML IV SCH ×3 (01:31→17:14)
[2016-09-15] MEDS ORDERED: MORPHINE SULFATE 2 MG/ML SYRINGE IVP ONE (01:34)
[2016-09-15] MEDS: LORazepam 2 MG/ML SYRINGE IV PRN ×6 (03:06→13:43)
[2016-09-15] MEDS: HYDROmorphone 1 MG/ML 1 ML SYRINGE IVP PRN ×5 (04:26→23:47)
[2016-09-15] MEDS: NICOTINE 21MG/24HR PATCH TRANSDERM SCH ×2 (05:12→07:45)
[2016-09-15 10:14] LABS: ALT 202 U/L (9-52); AST 325 U/L (14-36); Alkaline Phosphatase 131 U/L (38-126); Anion Gap 10 mmol/L; Blood Urea Nitrogen 3 mg/dL (7-17); Calcium 7.7 mg/dL (8.4-10.2); Carbon Dioxide 21 mmol/L (22-30); Chloride 108 mmol/L (98-107); Glucose 58 mg/dL (74-99); Non-African American GFR(MDRD) >60 (>60 ml/min/1.73 sqM); Potassium 4.1 mmol/L (3.5-5.1); Sodium 139 mmol/L (137-145); Total Bilirubin 0.8 mg/dL (0.2-1.3); Total Protein 5.6 g/dL (6.3-8.2)
[2016-09-15 10:17] LABS: Amylase 399 U/L (30-110)
[2016-09-15 10:26] LABS: Anisocytosis Slight; Basophils % (A) 0 %; CH 38.2; CHCM 33.6; Eosinophils % (A) 0 %; HCT 34.1 % (34.0-46.0); Luc # (Auto) 0.08; Luc % (Auto) 2; Lymphocytes # (A) 1.3 k/uL (1.0-4.8); Lymphocytes % (A) 33 %; MCH 36.6 pg (25.0-35.0); MCHC 32.2 g/dL (31.0-37.0); MCV 113.9 fL (80.0-100.0); Macrocytosis Marked; Mean Platelet Volume 7.6; Monocytes # (A) 0.3 k/uL (0-1.0); Monocytes % (A) 8 %; Neutrophils # (A) 2.2 k/uL (1.3-7.7); Neutrophils % (A) 57 %; RBC 2.99 m/uL (3.80-5.40); RDW 17.4 % (11.5-15.5); WBC 3.8 k/uL (3.8-10.6); WBC (Perox) 4.05
[2016-09-15 11:44] VITALS: BMI 21.1
[2016-09-15] MEDS: THIAMINE 100 MG TAB PO SCH (17:14)
[2016-09-15] MEDS: PANTOPRAZOLE 40 MG/10 ML VIAL IVP SCH (23:47)
[2016-09-16] MEDS: LORazepam 2 MG/ML SYRINGE IV PRN (01:57)
[2016-09-16] MEDS: SODIUM CHLORIDE 0.9% 1,000 ML IV SCH ×4 (02:11→17:02)
[2016-09-16] MEDS: HYDROmorphone 1 MG/ML 1 ML SYRINGE IVP PRN ×7 (02:55→22:57)
[2016-09-16] MEDS: HEPARIN SODIUM,PORCINE 5,000 UNIT/ML 1 ML VIAL SQ SCH ×2 (07:50→22:16)
[2016-09-16] MEDS: PANTOPRAZOLE 40 MG/10 ML VIAL IVP SCH (07:50)
[2016-09-16] MEDS: NICOTINE 21MG/24HR PATCH TRANSDERM SCH (07:51)
[2016-09-16 09:05] LABS: Anisocytosis Slight; Basophils % (A) 1 %; CH 37.9; CHCM 33.5; Eosinophils % (A) 0 %; HCT 38.3 % (34.0-46.0); HDW 2.72; HGB 12.7 gm/dL (11.4-16.0); Luc # (Auto) 0.06; Luc % (Auto) 1; Lymphocytes # (A) 1.7 k/uL (1.0-4.8); Lymphocytes % (A) 39 %; MCH 37.6 pg (25.0-35.0); MCHC 33.2 g/dL (31.0-37.0); MCV 113.1 fL (80.0-100.0); Macrocytosis Marked; Mean Platelet Volume 6.6; Monocytes # (A) 0.2 k/uL (0-1.0); Monocytes % (A) 6 %; Neutrophils # (A) 2.2 k/uL (1.3-7.7); Neutrophils % (A) 53 %; RBC 3.39 m/uL (3.80-5.40); WBC 4.2 k/uL (3.8-10.6); WBC (Perox) 4.34
[2016-09-16 09:15] LABS: Amylase 149 U/L (30-110); Anion Gap 10 mmol/L; Blood Urea Nitrogen 2 mg/dL (7-17); Calcium 8.5 mg/dL (8.4-10.2); Carbon Dioxide 25 mmol/L (22-30); Chloride 104 mmol/L (98-107); Glucose 58 mg/dL (74-99); Non-African American GFR(MDRD) >60 (>60 ml/min/1.73 sqM); Potassium 4.5 mmol/L (3.5-5.1); Sodium 139 mmol/L (137-145)
--- NOTE | 2016-09-16 12:19 | HP ---
DATE OF ADMISSION: 09/15/16 CHIEF COMPLAINT: Possible seizure and alcohol intoxication. HISTORY OF PRESENT ILLNESS: This 41-year-old woman with past medical history of multiple medical problems including significant alcohol intake, history of rheumatoid arthritis, fibromyalgia, seizure disorder and anxiety disorder, is being followed by primary care physician elsewhere, was recently admitted to [facility] with complaints of features of delirium tremens and the patient left the hospital AGAINST MEDICAL ADVICE and apparently the patient is drinking again and was drinking a fifth of Rum a day. The patient also complaining of tiredness, weakness, and was admitted for possible seizures and being closely monitored. CIWA protocol has been initiated. There is no history of fever, rigors or chills. No history of headaches. Past medical history of fibromyalgia, seizure disorder, history of rheumatoid arthritis, anxiety, bipolar, ETOH. Medications prior to admission are: Home medications are: 1. Miralax 17 gm daily. 2. Omeprazole 20 mg daily. 3. MS Contin 15 mg b.i.d. 4. Robaxin 750 mg po t.i.d. 6. Xanax 1 mg t.i.d. ALLERGIES: NONE. FAMILY HISTORY: No history of heart disease or strokes in the family. SOCIAL HISTORY: History of smoking and alcohol as mentioned earlier. REVIEW OF SYSTEMS: HEENT: No diminished vision. No diminished hearing. Cardiovascular system: No angina or palpitations. Respiratory: As mentioned earlier. GI: As mentioned earlier. : No dysuria. Nervous system: No numbness or weakness. Allergy/Immunology: No asthma or hayfever. Musculoskeletal: As mentioned earlier. Hematology/oncology: No history of anemia. Endocrine: No history of diabetes or hypothyroidism. Constitutional : As mentioned earlier. Dermatology: Negative. Rheumatology: Negative. Psychiatry: As mentioned earlier. PHYSICAL EXAMINATION: Alert and oriented times three. Pulse 107. Blood pressure 138/80. Respiratory rate 20, temperature 98.7. Pulse ox 97% on room air. HEENT: Conjunctivae normal. NECK: No JVD. Cardiovascular: S1, S2 normal. Respiratory: Breath sounds diminished at the bases. Scattered rhonchi and no crackles. Abdomen is soft. Nontender. No mass palpable. Legs : No edema. No swelling. Nervous system: No focal deficits. LABS: WBC 3.8, hemoglobin 11. LFTs noted. ASSESSMENT: 1. Alcohol intoxication, acute. 2. Acute delirium tremens. 3. cute pancreatitis secondary to alcohol. 4. Acute alcoholic hepatitis. 5. History of noncompliance. 6. Increased MCV. 7. History of fibromyalgia. 8. History of seizure disorder. 9. History of rheumatoid arthritis. 10. History of degenerative joint disease. 11. Anxiety, bipolar depression. 12. History of continued ongoing nicotine dependence. RECOMMENDATIONS AND DISCUSSION: In this 41 -year-old woman who presented with multiple complex medical issues, we will monitor the patient closely. CIWA protocol. Proton pump inhibitors. Otherwise, pain medications. Deep venous thrombosis prophylaxis. Guarded prognosis because of multiple medical problems. Further recommendations to follow. See orders for further details. MTDD
[2016-09-16] MEDS: THIAMINE 100 MG TAB PO SCH ×2 (12:36→16:05)
[2016-09-17] MEDS: HYDROmorphone 1 MG/ML 1 ML SYRINGE IVP PRN ×3 (02:18→09:20)
[2016-09-17 07:53] VITALS: BP 140/105; PULSE 72; RESP 16; TEMP 97.4
[2016-09-17] MEDS: PANTOPRAZOLE 40 MG/10 ML VIAL IVP SCH (08:26)
[2016-09-17] MEDS: HEPARIN SODIUM,PORCINE 5,000 UNIT/ML 1 ML VIAL SQ SCH (08:26)
[2016-09-17] MEDS: SODIUM CHLORIDE 0.9% 1,000 ML IV SCH (08:27)
[2016-09-17] MEDS: NICOTINE 21MG/24HR PATCH TRANSDERM SCH (09:15)
[2016-09-17] MEDS: THIAMINE 100 MG TAB PO SCH (12:49)
--- NOTE | 2016-09-17 13:08 | PN ---
DATE OF SERVICE: 09/16/16 This 41-year-old woman who was admitted with alcohol intoxication and possible alcoholic seizures is being closely monitored. No chest pain. No palpitations. The patient also has acute pancreatitis. No fever. No cough. PHYSICAL EXAMINATION: On exam, alert and oriented times three. Pulse 73. Blood pressure 149/56. Respiratory rate 16. Temperature 98.1. Pulse ox 97% on room air. HEENT: Conjunctivae normal. NECK: No JVD. CARDIOVASCULAR: S1, S2 muffled. RESPIRATORY: Breath sounds diminished at the bases. No rhonchi and no crackles. ABDOMEN: Soft. Mild diffuse discomfort. LEGS: No edema. No swelling. NERVOUS SYSTEM: No focal deficits. LABS: WBC 4.9, hemoglobin 12.7. Otherwise, amylase 114. Lipase 489. ASSESSMENT: 1. Acute alcohol intoxication. 2. Acute delirium tremens. 3. Acute pancreatitis secondary to alcohol. 4. Acute alcoholic hepatitis. 5. History of noncompliance. RECOMMENDATIONS AND DISCUSSION: Continue the current medications, continue symptomatic treatment. Continue to monitor. Otherwise, advance diet. Repeat labs in the morning. Guarded prognosis. Further recommendations to follow. MTDD
--- NOTE | 2016-09-17 15:51 | P.DS ---
Providers Date of admission: 09/15/16 01:48 Attending physician: Omer Dao Primary care physician: Physician Nonstaff Hospital Course: This 41-year-old woman was admitted with alcohol intoxication also features of acute pancreatitis patient was treated symptomatically. Improved significantly. On exam this is stable cardio S1 and S2 normal abdomen soft no system no focal deficit. Patient be discharged recommended the patient to follow up closely with the primary physician. attend aa. Alcohol rehab. Assessment 1. Acute alcohol intoxication 2. Acute delirium tremens Acute pancreatitis secondary to alcohol Patient Condition at Discharge: Stable Plan - Discharge Summary New Discharge Prescriptions: New Famotidine [Pepcid] 20 mg PO DAILY #30 tablet Folic Acid 1 mg PO DAILY #30 tablet LORazepam [Ativan] 1 mg PO TID PRN #40 tab PRN Reason: Anxiety Multivitamins, Thera [Multivitamin] 1 tab PO DAILY #30 tablet Nicotine 21Mg/24Hr Patch [Habitrol] 1 patch TRANSDERM DAILY #30 patch Thiamine [Vitamin B-1] 100 mg PO DAILY #30 tablet Continue HYDROcodone/APAP 10-325MG [[place] 10-325] 1 tab PO Q4HR PRN PRN Reason: Pain Polyethylene Glycol 3350 [Miralax] 17 gm PO DAILY Morphine Sulfate ER [Ms Contin] 15 mg PO Q12HR ALPRAZolam [Xanax] 1 mg PO TID Methocarbamol [Robaxin] 750 mg PO TID Omeprazole 20 mg PO DAILY Discharge Medication List ALPRAZolam [Xanax] 1 mg PO TID 09/06/16 [History] HYDROcodone/APAP 10-325MG [[place] 10-325] 1 tab PO Q4HR PRN 09/06/16 [History] Methocarbamol [Robaxin] 750 mg PO TID 09/06/16 [History] Morphine Sulfate ER [Ms Contin] 15 mg PO Q12HR 09/06/16 [History] Omeprazole 20 mg PO DAILY 09/06/16 [History] Polyethylene Glycol 3350 [Miralax] 17 gm PO DAILY 09/06/16 [History] Famotidine [Pepcid] 20 mg PO DAILY #30 tablet 09/17/16 [Rx] Folic Acid 1 mg PO DAILY #30 tablet 09/17/16 [Rx] LORazepam [Ativan] 1 mg PO TID PRN #40 tab 09/17/16 [Rx] Multivitamins, Thera [Multivitamin] 1 tab PO DAILY #30 tablet 09/17/16 [Rx] Nicotine 21Mg/24Hr Patch [Habitrol] 1 patch TRANSDERM DAILY #30 patch 09/17/16 [ Rx] Thiamine [Vitamin B-1] 100 mg PO DAILY #30 tablet 09/17/16 [Rx] Follow up Appointment(s)/Referral(s): [facility], [NON-STAFF] - Nonstaff,Physician [Primary Care Provider] - 1-2 days Ambulatory/Diagnostic Orders: Complete Blood Count w/diff [LAB.AMB] Location: Determined By Patient Patient Instructions/Handouts: How to Stop Smoking (DC), Pancreatitis (DC), Abuse of Alcohol (DC) Activity/Diet/Wound Care/Special Instructions: diet reg no etoh act limited till f/u to attend rehab and aa Discharge Disposition: HOME SELF-CARE
== END 2016-09-17 14:00 | disposition home or self-care (01) | DRG 896 ==
LOC: EC 23:09 → 4MS4W 09-15 01:48
PROVIDERS: ADMIT Hospitalist; ATTEND Hospitalist
DX: F10.231 Alcohol dependence with withdrawal delirium (principal); K85.20 Alcohol induced acute pancreatitis without necrosis or infection; K70.10 Alcoholic hepatitis without ascites; F17.200 Nicotine dependence, unspecified, uncomplicated; F31.9 Bipolar disorder, unspecified; F41.9 Anxiety disorder, unspecified; M06.9 Rheumatoid arthritis, unspecified; M79.7 Fibromyalgia; Y90.8 Blood alcohol level of 240 mg/100 ml or more; Z79.899 Other long term (current) drug therapy; Z91.19 Patient's noncompliance with other medical treatment and regimen
CPT/HCPCS: 36415; 80048; 80053; 80306; 80320; 81003; 81025; 82150; 83690; 83735; 85025; 87086; 96361; 96374; 96375; 99285

== ENCOUNTER → 2016-10-03 | Outpatient (CLI) | payer OTHER | END | disposition home or self-care (01) | LOC: LAB 14:47 | PROVIDERS: ATTEND Hospitalist | DX: Z53.9 Procedure and treatment not carried out, unspecified reason (principal) ==

== ENCOUNTER → 2016-10-03 | Outpatient (CLI) | payer OTHER ==
[2016-10-03 15:54] LABS: Basophils # (A) 0.1 k/uL (0-0.2); Basophils % (A) 1 %; CH 36.1; CHCM 33.3; Eosinophils % (A) 0 %; HCT 38.3 % (34.0-46.0); HDW 2.69; HGB 12.8 gm/dL (11.4-16.0); Luc # (Auto) 0.22; Luc % (Auto) 4; Lymphocytes # (A) 2.2 k/uL (1.0-4.8); Lymphocytes % (A) 37 %; MCH 36.4 pg (25.0-35.0); MCHC 33.4 g/dL (31.0-37.0); MCV 108.7 fL (80.0-100.0); Macrocytosis Marked; Mean Platelet Volume 6.9; Monocytes # (A) 0.3 k/uL (0-1.0); Monocytes % (A) 5 %; Neutrophils # (A) 3.2 k/uL (1.3-7.7); Neutrophils % (A) 53 %; RBC 3.53 m/uL (3.80-5.40); RDW 15.8 % (11.5-15.5); WBC 6.1 k/uL (3.8-10.6); WBC (Perox) 6.25
[2016-10-03 16:42] LABS: Manual Review Performed; RBC Morphology Normal
--- NOTE | 2016-10-03 16:43 | CT ---
EXAMINATION TYPE: CT ChestAbdPelvis wo/w con DATE OF EXAM: 10/03/2016 INDICATION: Generalized chest and Abdominal pain COMPARISON: NONE CT DLP: 1000.2 mGycm CONTRAST: Performed with Oral Contrast and with IV Contrast, patient injected with 100 mL of Omnipaque 300. TECHNIQUE: Axial images at 5 mm thick sections. Reconstructed images in the coronal plane. Delayed images through the kidneys. FINDINGS: CT CHEST: Portion of the thyroid visualized is normal. There is a 0.7 cm nodule in the anterior right middle lobe. Series 7 image 37. No enlarged mediastinal or hilar adenopathy is evident. The ascending aorta diameter at the level of the main pulmonary artery is 3.2 cm. The main pulmonary artery diameter at the bifurcation is 2.[address] ABDOMEN: Liver: Normal Spleen: Normal Pancreas: Normal Adrenal glands: The adrenal glands are normal. Gallbladder: Normal Kidneys: No masses are evident. No hydronephrosis is present. No cysts are present. Delayed images were obtained through the kidneys, which remain unremarkable. Aorta: Vascular calcification is within the aorta. Inferior vena cava: Normal. CT PELVIS: Loops of bowel within the abdomen and pelvis are normal. There are loops of bowel which are incom pletely distended or lack oral contrast limiting their evaluation. Appendix: Not visualized. No suspicious inflammatory changes are identified. Urinary bladder: Normal. Genitourinary structures: Uterus and ovaries are unremarkable. Couple small follicles are on the righ t ovary the largest measures 1.1 cm. Osseous structures: No suspicious lytic or sclerotic lesions. IMPRESSIONS: 1. No suspicious changes to account for patient's pain
[2016-10-03 16:50] LABS: ALT 47 U/L (9-52); AST 26 U/L (14-36); Alkaline Phosphatase 83 U/L (38-126); Amylase 62 U/L (30-110); Anion Gap 12 mmol/L; Blood Urea Nitrogen 13 mg/dL (7-17); Calcium 9.7 mg/dL (8.4-10.2); Carbon Dioxide 20 mmol/L (22-30); Chloride 105 mmol/L (98-107); Glucose 84 mg/dL (74-99); Non-African American GFR(MDRD) >60 (>60 ml/min/1.73 sqM); Potassium 4.2 mmol/L (3.5-5.1); Sodium 137 mmol/L (137-145); Total Bilirubin 0.4 mg/dL (0.2-1.3); Total Protein 6.5 g/dL (6.3-8.2)
== END | disposition home or self-care (01) ==
LOC: RADCTMAIN 13:33
PROVIDERS: ATTEND Internal Medicine
DX: E34.0 Carcinoid syndrome (principal)
CPT/HCPCS: 80053; 82150; 83690; 85025; 71270; 74178; Q9967

== ENCOUNTER 2017-07-23 20:14 | Emergency (ER) | payer OTHER ==
[2017-07-23 20:44] VITALS: PULSE 87; RESP 18
--- NOTE | 2017-07-23 22:05 | ED ---
Alcohol HPI - General Chief Complaint: Alcohol Stated Complaint: detox Time Seen by Provider: 07/23/17 21:38 Source: patient, RN notes reviewed Mode of arrival: ambulatory Limitations: no limitations - History of Present Illness Initial Comments: This is a 42-year-old female who presented to the emergency department with chief complaint of alcohol withdrawal. Patient states that she has been binge drinking for the past 9 days. She states that her last drink was a few hours ago. She states that she tried to stop drinking last night and when she woke up this morning she was nauseous and her heart was racing. She states that she started to drink again. Patient states that she wants to stop drinking. She denies fevers or chills, chest pain or shortness of breath, abdominal pain, vomiting, headache or dizziness. Patient states that she has been hospitalized before from complications of alcohol withdrawal. She states she is not at that point now but she feels it coming on. - Related Data Home Medications Medication Instructions Recorded Confirmed ALPRAZolam [Xanax] 1 mg PO TID 09/06/16 07/23/17 HYDROcodone/APAP 10-325MG [Noti 1 tab PO Q4HR PRN 09/06/16 07/23/17 10-325] Methocarbamol [Robaxin] 750 mg PO TID 09/06/16 07/23/17 Morphine Sulfate ER [Ms Contin] 15 mg PO Q12HR 09/06/16 07/23/17 Omeprazole 20 mg PO DAILY 09/06/16 07/23/17 Polyethylene Glycol 3350 [Miralax] 17 gm PO DAILY 09/06/16 07/23/17 Hydroxychloroquine Sulfate 200 mg PO BID 07/23/17 07/23/17 [Plaquenil] Previous Rx's Medication Instructions Recorded Famotidine [Pepcid] 20 mg PO DAILY #30 tablet 09/17/16 Folic Acid 1 mg PO DAILY #30 tablet 09/17/16 Multivitamins, Thera [Multivitamin] 1 tab PO DAILY #30 tablet 09/17/16 Nicotine 21Mg/24Hr Patch [Habitrol] 1 patch TRANSDERM DAILY #30 patch 09/17/16 Thiamine [Vitamin B-1] 100 mg PO DAILY #30 tablet 09/17/16 chlordiazePOXIDE HCl [Librium] 25 mg PO BID #6 capsule 07/23/17 Allergies Allergy/AdvReac Type Severity Reaction Status Date / Time NSAIDS (Non-Steroidal Allergy Unknown Verified 07/23/17 21:50 Anti-Inflamma quetiapine [From Seroquel] Allergy Unknown Verified 07/23/17 21:50 Review of Systems ROS Statement: Those systems with pertinent positive or pertinent negative responses have been documented in the HPI. ROS Other: All systems not noted in ROS Statement are negative. 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, lynn disorder, carsinoid syndrome, enlarge liver History of Any Multi-Drug Resistant Organisms: None Reported Past Surgical History: No Surgical Hx Reported Additional Past Surgical History / Comment(s): Left hand surgery Past Anesthesia/Blood Transfusion Reactions: No Reported Reaction Past Psychological History: Anxiety, Bipolar, Depression Smoking Status: Current every day smoker Past Alcohol Use History: Abuse, Daily, Heavy Past Drug Use History: None Reported - Past Family History Father Family Medical History: No Reported History General Exam - General Exam Comments Initial Comments: General: Awake and alert, well-developed; in no apparent distress. Lying comfortably on ED stretcher, with at bedside. HEENT: Head atraumatic, normocephalic. Pupils are equal, round and reactive to light. Extraocular movements intact. Oropharynx moist without erythema or exudate. Neck: Supple. Normal ROM. Cardiovascular: Regular rate and rhythm. No murmurs, rubs or gallops. Chest symmetrical. Respiratory: Lungs clear to auscultation bilaterally. No wheezes, rales or rhonchi. Normal respiratory effort with no use of accessory muscles. Abdomen: Soft, non-tender, non-distended. No rigidity, rebound or guarding. Normal bowel sounds in all 4 quadrants. Musculoskeletal: Normal ROM, no tenderness bilateral upper and lower extremities. Ambulating normally. Skin: [place], warm and dry without rashes or lesions. Neurological: Alert and oriented x3. CN II-XII grossly intact. Speech is fluent and answers are appropriate. No focal neuro deficits. Psychiatric: Normal mood and affect. No overt signs of depression or anxiety noted. Limitations: no limitations Course Vital Signs 07/23/17 20:43 Temperature 98.2 F Pulse Rate 87 Respiratory 18 Rate Blood Pressure 152/102 O2 Sat by Pulse 96 Oximetry Medical Decision Making - Medical Decision Making This is a 42-year-old female who presents to the emergency department with chief complaint of alcohol withdrawal. Patient has been binge drinking for the past 9 days. She states that she wants to stop drinking. Her last drink was 1- 3 hours ago. Patient states that when she stopped drinking last evening and woke up this morning and felt nauseous and her heart was racing. On examination , patient is awake and alert. She does not appear to be in any acute distress. Speech is clear and answers are appropriate. No tremors or psychomotor agitation noted. Recommended prescription for Librium and outpatient detox follow-up. Patient is in agreement with this plan. Return parameters were discussed. Patient will be discharged home at this time. All questions answered. Disposition Clinical Impression: Alcohol abuse Disposition: HOME SELF-CARE Condition: Fair Instructions: Abuse of Alcohol (ED), Alcohol Withdrawal (ED) Additional Instructions: Please follow-up with outpatient detox center. Please take medications as prescribed. Please follow up with primary care provider within 1-2 days. Return to emergency department if symptoms should worsen or any concerns arise. Prescriptions: chlordiazePOXIDE HCl [Librium] 25 mg PO BID #6 capsule Is patient prescribed a controlled substance at d/c from ED?: Yes When asked, does pt state using other controlled substances?: Yes If prescribed controlled substance>3 days was MAPS reviewed?: Prescribed <3 Days Referrals: Yogesh Sun MD [Primary Care Provider] - 1-2 days Time of Disposition: 22:05
[2017-07-23 22:16] VITALS: BP 144/79; TEMP 97
== END 2017-07-23 22:16 | disposition home or self-care (01) ==
LOC: SUPCPDRO 20:14 → EC 20:14
DX: F10.10 Alcohol abuse, uncomplicated (principal); R11.0 Nausea; M79.7 Fibromyalgia; R06.9 Unspecified abnormalities of breathing; G40.909 Epilepsy, unspecified, not intractable, without status epilepticus; F31.9 Bipolar disorder, unspecified; F41.9 Anxiety disorder, unspecified; F17.200 Nicotine dependence, unspecified, uncomplicated; Z79.891 Long term (current) use of opiate analgesic; Z79.899 Other long term (current) drug therapy; Z88.6 Allergy status to analgesic agent; Z88.8 Allergy status to other drugs, medicaments and biological substances
CPT/HCPCS: 99284

== ENCOUNTER 2017-12-29 09:31 | Inpatient (IN) | payer OTHER ==
[2017-12-29] MEDS ORDERED: SODIUM CHLORIDE 0.9% 1,000 ML IV STA (10:17)
[2017-12-29] MEDS ORDERED: SODIUM CHLORIDE 0.9% 1,000 ML with MVI, ADULT NO.4 WITH VIT K 10 ML, THIAMINE 100 MG, F... IV ONE ×4 (10:20)
[2017-12-29] MEDS ORDERED: ONDANSETRON 4 MG/2 ML VIAL IVP STA (10:20)
[2017-12-29 10:44] LABS: Basophils % (A) 0 %; Eosinophils # (A) 0.1 k/uL (0-0.7); Eosinophils % (A) 1 %; HCT 38.1 % (34.0-46.0); HGB 13.2 gm/dL (11.4-16.0); Lymphocytes # (A) 0.9 k/uL (1.0-4.8); Lymphocytes % (A) 22 %; MCH 35.8 pg (25.0-35.0); MCHC 34.6 g/dL (31.0-37.0); MCV 103.5 fL (80.0-100.0); Macrocytosis Slight; Mean Platelet Volume 7.6; Monocytes # (A) 0.2 k/uL (0-1.0); Monocytes % (A) 4 %; Neutrophils # (A) 2.9 k/uL (1.3-7.7); Neutrophils % (A) 71 %; Platelet Count 103 k/uL (150-450); RBC 3.68 m/uL (3.80-5.40); RDW 14.4 % (11.5-15.5); WBC 4.1 k/uL (3.8-10.6)
[2017-12-29 10:54] LABS: ALT 261 U/L (9-52); AST 452 U/L (14-36); Albumin 4.4 g/dL (3.5-5.0); Alkaline Phosphatase 177 U/L (38-126); Amylase 209 U/L (30-110); Anion Gap 27 mmol/L; Blood Urea Nitrogen 16 mg/dL (7-17); Calcium 8.5 mg/dL (8.4-10.2); Chloride 95 mmol/L (98-107); Magnesium 2.2 mg/dL (1.6-2.3); Potassium 4.9 mmol/L (3.5-5.1); Sodium 129 mmol/L (137-145); Total Bilirubin 1.6 mg/dL (0.2-1.3); Total Protein 7.6 g/dL (6.3-8.2)
[2017-12-29 11:01] LABS: Lipase 2819 U/L (23-300)
[2017-12-29] MEDS: ACETAMINOPHEN TAB 325 MG TAB PO STA ×2 (11:07→11:08)
[2017-12-29 11:09] LABS: Alcohol 283 mg/dL; Carbon Dioxide 7 mmol/L (22-30); Glucose 48 mg/dL (74-99)
[2017-12-29] MEDS ORDERED: DEXTROSE 50%-WATER 50 ML SYRINGE IVP STA (11:11)
--- NOTE | 2017-12-29 11:25 | CT ---
EXAMINATION TYPE: CT brain wo con DATE OF EXAM: 12/29/2017 COMPARISON: Previous study dated 09/06/2016. HISTORY: seizure CT DLP: 872.7 mGycm Automated exposure control for dose reduction was used. FINDINGS: Central structures are midline. There is no evidence of hydrocephalus. No acute focal lesion, mass ef fect or midline shift is seen. I do not see evidence of intracranial blood. Visualized portions of the paranasal sinuses and mastoids are clear. The bony calvarium is intact. IMPRESSION: NO ACUTE INTRACRANIAL ABNORMALITY.
--- NOTE | 2017-12-29 11:27 | XR ---
EXAMINATION TYPE: XR chest 2V DATE OF EXAM: 12/29/2017 HISTORY: cough. REFERENCE: Previous study dated 09/06/2016. FINDINGS: Lung volumes are prominent. The lungs are clear. Pleural space are clear. The heart is not enlarged. IMPRESSION: PLEASE CORRELATE FOR COPD.
--- NOTE | 2017-12-29 11:27 | XR ---
EXAMINATION TYPE: XR KUB , 2 VIEWS DATE OF EXAM ORDERED: 12/29/2017 HISTORY: Pain. COMPARISON: None. FINDINGS: The lung bases are clear. Within the abdomen, the abdominal gas pattern is within normal limits. There is no evidence of obstru ction or free air. There are phleboliths within the pelvis. IMPRESSION: NO ACUTE INTRA-ABDOMINAL ABNORMALITY.
--- NOTE | 2017-12-29 11:34 | ED ---
Seizure HPI - General Chief Complaint: Seizure Stated Complaint: vomiting Time Seen by Provider: 12/29/17 09:50 Source: patient, RN notes reviewed Mode of arrival: wheelchair Limitations: no limitations - History of Present Illness Initial Comments: This is a 42-year-old female history of alcoholism history of pancreatitis in the past who presents with complaints of having seizures every day for the past 2 weeks she feels bloated in her abdomen he states she's having swelling to her fingers and toes. She states she's not been eating well. She's been having palpitations and just generally doesn't feel well. She does admit to drinking alcohol daily. She states she is only been drinking about a 68 ounce cup full every day. Denies any fevers chills sweats no cough or phlegm production. She is a smoker. MD Complaint: seizure, other - Related Data Home Medications Medication Instructions Recorded Confirmed Acetaminophen Tab [Tylenol Tab] 325 mg PO Q4H PRN 12/29/17 12/29/17 Previous Rx's Medication Instructions Recorded Multivitamins, Thera [Multivitamin] 1 tab PO DAILY #30 tablet 09/17/16 Allergies Allergy/AdvReac Type Severity Reaction Status Date / Time NSAIDS (Non-Steroidal Allergy Unknown Verified 12/29/17 10:43 Anti-Inflamma quetiapine [From Seroquel] Allergy Unknown Verified 12/29/17 10:43 Review of Systems ROS Statement: Those systems with pertinent positive or pertinent negative responses have been documented in the HPI. ROS Other: All systems not noted in ROS Statement are negative. 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, lynn disorder, carsinoid syndrome, enlarge liver History of Any Multi-Drug Resistant Organisms: None Reported Past Surgical History: No Surgical Hx Reported Additional Past Surgical History / Comment(s): Left hand surgery Past Anesthesia/Blood Transfusion Reactions: No Reported Reaction Past Psychological History: Anxiety, Bipolar, Depression Smoking Status: Current every day smoker Past Alcohol Use History: Abuse, Daily, Heavy Past Drug Use History: None Reported - Past Family History Father Family Medical History: No Reported History General Exam - General Exam Comments Initial Comments: This a well-developed asthenic appearing female who does have the smell of alcohol and cigarettes on her breath Limitations: no limitations General appearance: alert, in no apparent distress Head exam: Present: atraumatic, normocephalic, normal inspection Eye exam: Present: normal appearance, PERRL, EOMI. Absent: scleral icterus, conjunctival injection, periorbital swelling ENT exam: Present: mucous membranes dry Neck exam: Present: normal inspection. Absent: tenderness, meningismus, lymphadenopathy Respiratory exam: Present: normal lung sounds bilaterally. Absent: respiratory distress, wheezes, rales, rhonchi, stridor Cardiovascular Exam: Present: regular rate, normal rhythm, normal heart sounds. Absent: systolic murmur, diastolic murmur, rubs, gallop, clicks GI/Abdominal exam: Present: soft, tenderness (Mild tenderness palpation of the entire abdomen no guarding or rebound), normal bowel sounds, organomegaly ( Hepatomegaly). Absent: distended, guarding, rebound, rigid Rectal exam: Present: deferred Extremities exam: Present: normal inspection, full ROM, normal capillary refill , other (No obvious edema seen at this time.). Absent: tenderness, pedal edema , joint swelling, calf tenderness Back exam: Present: normal inspection Neurological exam: Present: alert, oriented X3, CN II-XII intact Psychiatric exam: Present: normal affect, normal mood Skin exam: Present: warm, dry, intact, normal color. Absent: rash Course Vital Signs 12/29/17 12/29/17 12/29/17 09:40 10:14 11:23 Temperature 97.8 F Pulse Rate 72 73 73 Respiratory 16 16 16 Rate Blood Pressure 130/91 128/91 104/76 O2 Sat by Pulse 97 97 98 Oximetry - Reevaluation(s) Reevaluation #1: 12/29/17 12:17 Patient have recurring nausea vomiting. Additional medication was ordered. 12/29/17 12:17 We did discuss smoking cessation and the benefits thereof as well as the risks of smoking her conversations lasting 3.1 minutes Medical Decision Making - Medical Decision Making I did a long discussion regarding the findings with the patient and her . Patient will be admitted for treatment of acute pancreatitis alcohol intoxication with withdrawal H Elizabeth nausea vomiting likely secondary to alcoholic gastritis - Lab Data Result diagrams: 12/29/17 10:20 12/29/17 10:20 Lab Results 11/17/18 11/17/18 11/17/18 Range/Units 10:20 10:20 10:55 WBC 4.1 (3.8-10.6) k/uL RBC 3.68 L (3.80-5.40) m/uL Hgb 13.2 (11.4-16.0) gm/dL Hct 38.1 (34.0-46.0) % MCV 103.5 H (80.0-100.0) fL MCH 35.8 H (25.0-35.0) pg MCHC 34.6 (31.0-37.0) g/dL RDW 14.4 (11.5-15.5) % Plt Count 103 L (150-450) k/uL Neutrophils % 71 % Lymphocytes % 22 % Monocytes % 4 % Eosinophils % 1 % Basophils % 0 % Neutrophils # 2.9 (1.3-7.7) k/uL Lymphocytes # 0.9 L (1.0-4.8) k/uL Monocytes # 0.2 (0-1.0) k/uL Eosinophils # 0.1 (0-0.7) k/uL Basophils # 0.0 (0-0.2) k/uL Macrocytosis Slight Sodium 129 L (137-145) mmol/L Potassium 4.9 (3.5-5.1) mmol/L Chloride 95 L (98-107) mmol/L Carbon Dioxide 7 L* (22-30) mmol/L Anion Gap 27 mmol/L BUN 16 (7-17) mg/dL Creatinine 0.88 (0.52-1.04) mg/dL Est GFR (CKD-EPI)AfAm >90 (>60 ml/min/1.73 sqM) Est GFR (CKD-EPI)NonAf 82 (>60 ml/min/1.73 sqM) Glucose 48 L* (74-99) mg/dL Calcium 8.5 (8.4-10.2) mg/dL Magnesium 2.2 (1.6-2.3) mg/dL Total Bilirubin 1.6 H (0.2-1.3) mg/dL AST 452 H (14-36) U/L ALT 261 H (9-52) U/L Alkaline Phosphatase 177 H (38-126) U/L Total Protein 7.6 (6.3-8.2) g/dL Albumin 4.4 (3.5-5.0) g/dL Amylase 209 H (30-110) U/L Lipase 2819 H (23-300) U/L Urine Color Yellow Urine Appearance Cloudy H (Clear) Urine pH 6.0 (5.0-8.0) Ur Specific [place] 1.022 (1.001-1.035) Urine Protein 1+ H (Negative) Urine Glucose (UA) Negative (Negative) Urine Ketones 3+ H (Negative) Urine Blood Negative (Negative) Urine Nitrite Negative (Negative) Urine Bilirubin Negative (Negative) Urine Urobilinogen <2.0 (<2.0) mg/dL Ur Leukocyte Esterase Negative (Negative) Urine RBC 2 (0-5) /hpf Urine WBC 6 H (0-5) /hpf Ur Squamous Epith Cells 22 H (0-4) /hpf Urine Bacteria Few H (None) /hpf Hyaline Casts 2 (0-2) /lpf Urine Mucus Rare H (None) /hpf Urine Opiates Screen Not Detected (NotDetected) Ur Oxycodone Screen Not Detected (NotDetected) Urine Methadone Screen Not Detected (NotDetected) Ur Propoxyphene Screen Not Detected (NotDetected) Ur Barbiturates Screen Not Detected (NotDetected) U Tricyclic Antidepress Not Detected (NotDetected) Ur Phencyclidine Scrn Not Detected (NotDetected) Ur Amphetamines Screen Not Detected (NotDetected) U Methamphetamines Scrn Not Detected (NotDetected) U Benzodiazepines Scrn Not Detected (NotDetected) Urine Cocaine Screen Not Detected (NotDetected) U Marijuana (THC) Screen Not Detected (NotDetected) Serum Alcohol 283 H* mg/dL - Radiology Data Radiology results: report reviewed (Imaging was reviewed no evidence of findings.), image reviewed Disposition Clinical Impression: Alcohol withdrawal seizure, Acute pancreatitis, Alcoholic intoxication, Dehydration, Alcoholic gastritis, Intractable vomiting with nausea, Tobacco abuse Disposition: ADMITTED IP TO THIS [facility] Condition: Serious Referrals: None,Stated [Primary Care Provider] - 1-2 days
[2017-12-29 11:44] LABS: Appearance,Urine Cloudy (Clear); Bacteria,Urine Few /hpf; Bilirubin,Urine Negative (Negative); Blood,Urine Negative (Negative); Color,Urine Yellow; Glucose,Urine (UA) Negative (Negative); Hyaline Casts,Urine 2 /lpf (0-2); Ketones,Urine 3+ (Negative); Leukocyte Esterase,Urine Negative (Negative); Mucus,Urine Rare /hpf; Nitrite,Urine Negative (Negative); Protein,Urine 1+ (Negative); RBC,Urine 2 /hpf (0-5); Specific Gravity,Urine 1.022 (1.001-1.035); Squamous Epithelial Cell,Urine 22 /hpf (0-4); Urobilinogen,Urine <2.0 mg/dL (<2.0); WBC,Urine 6 /hpf (0-5)
[2017-12-29 11:56] LABS: Amphetamine Screen,Urine Not Detected (NotDetected); Barbiturate Screen,Urine Not Detected (NotDetected); Benzodiazepines Screen,Urine Not Detected (NotDetected); Cocaine Screen,Urine Not Detected (NotDetected); Methadone Screen, Urine Not Detected (NotDetected); Opiate Screen,Urine Not Detected (NotDetected); Oxycodone Screen, Urine Not Detected (NotDetected); Phencyclidine Screen,Urine Not Detected (NotDetected); Tricyclic Antidepressant,Urine Not Detected (NotDetected); Urn Cannabinoid Scrn Not Detected (NotDetected)
[2017-12-29] MEDS ORDERED: LORazepam 2 MG/ML INJ IV STA (12:02)
[2017-12-29] MEDS ORDERED: METOCLOPRAMIDE 5 MG/ML 2 ML VIAL IVP STA (12:03)
[2017-12-29] MEDS ORDERED: NALOXONE 0.4 MG/ML 1 ML VIAL IV PRN (12:19)
[2017-12-29] MEDS ORDERED: LORazepam 2 MG/ML INJ IV PRN ×2 (12:23)
[2017-12-29] MEDS ORDERED: THIAMINE 100 MG/ML 2 ML VIAL IM STA (12:23)
--- NOTE | 2017-12-29 12:24 | ED ---
Medical Decision Making - Lab Data Result diagrams: 12/29/17 10:20 12/29/17 10:20 Lab Results 12/29/17 12/29/17 12/29/17 Range/Units 10:20 10:20 10:55 WBC 4.1 (3.8-10.6) k/uL RBC 3.68 L (3.80-5.40) m/uL Hgb 13.2 (11.4-16.0) gm/dL Hct 38.1 (34.0-46.0) % MCV 103.5 H (80.0-100.0) fL MCH 35.8 H (25.0-35.0) pg MCHC 34.6 (31.0-37.0) g/dL RDW 14.4 (11.5-15.5) % Plt Count 103 L (150-450) k/uL Neutrophils % 71 % Lymphocytes % 22 % Monocytes % 4 % Eosinophils % 1 % Basophils % 0 % Neutrophils # 2.9 (1.3-7.7) k/uL Lymphocytes # 0.9 L (1.0-4.8) k/uL Monocytes # 0.2 (0-1.0) k/uL Eosinophils # 0.1 (0-0.7) k/uL Basophils # 0.0 (0-0.2) k/uL Macrocytosis Slight Sodium 129 L (137-145) mmol/L Potassium 4.9 (3.5-5.1) mmol/L Chloride 95 L (98-107) mmol/L Carbon Dioxide 7 L* (22-30) mmol/L Anion Gap 27 mmol/L BUN 16 (7-17) mg/dL Creatinine 0.88 (0.52-1.04) mg/dL Est GFR (CKD-EPI)AfAm >90 (>60 ml/min/1.73 sqM) Est GFR (CKD-EPI)NonAf 82 (>60 ml/min/1.73 sqM) Glucose 48 L* (74-99) mg/dL Calcium 8.5 (8.4-10.2) mg/dL Magnesium 2.2 (1.6-2.3) mg/dL Total Bilirubin 1.6 H (0.2-1.3) mg/dL AST 452 H (14-36) U/L ALT 261 H (9-52) U/L Alkaline Phosphatase 177 H (38-126) U/L Total Protein 7.6 (6.3-8.2) g/dL Albumin 4.4 (3.5-5.0) g/dL Amylase 209 H (30-110) U/L Lipase 2819 H (23-300) U/L Urine Color Yellow Urine Appearance Cloudy H (Clear) Urine pH 6.0 (5.0-8.0) Ur Specific [place] 1.022 (1.001-1.035) Urine Protein 1+ H (Negative) Urine Glucose (UA) Negative (Negative) Urine Ketones 3+ H (Negative) Urine Blood Negative (Negative) Urine Nitrite Negative (Negative) Urine Bilirubin Negative (Negative) Urine Urobilinogen <2.0 (<2.0) mg/dL Ur Leukocyte Esterase Negative (Negative) Urine RBC 2 (0-5) /hpf Urine WBC 6 H (0-5) /hpf Ur Squamous Epith Cells 22 H (0-4) /hpf Urine Bacteria Few H (None) /hpf Hyaline Casts 2 (0-2) /lpf Urine Mucus Rare H (None) /hpf Urine Opiates Screen Not Detected (NotDetected) Ur Oxycodone Screen Not Detected (NotDetected) Urine Methadone Screen Not Detected (NotDetected) Ur Propoxyphene Screen Not Detected (NotDetected) Ur Barbiturates Screen Not Detected (NotDetected) U Tricyclic Antidepress Not Detected (NotDetected) Ur Phencyclidine Scrn Not Detected (NotDetected) Ur Amphetamines Screen Not Detected (NotDetected) U Methamphetamines Scrn Not Detected (NotDetected) U Benzodiazepines Scrn Not Detected (NotDetected) Urine Cocaine Screen Not Detected (NotDetected) U Marijuana (THC) Screen Not Detected (NotDetected) Serum Alcohol 283 H* mg/dL Disposition Clinical Impression: Alcohol withdrawal seizure, Acute pancreatitis, Alcoholic intoxication, Dehydration, Alcoholic gastritis, Intractable vomiting with nausea, Tobacco abuse, Multiple episodes of hypoglycemia Disposition: ADMITTED IP TO THIS [facility] Condition: Serious Referrals: None,Stated [Primary Care Provider] - 1-2 days
[2017-12-29 16:06] VITALS: BMI 25.8
[2017-12-29] MEDS: THIAMINE 100 MG TAB PO SCH (16:24)
[2017-12-29] MEDS: LORazepam 2 MG/ML INJ IV PRN (16:32)
[2017-12-29] MEDS: SODIUM CHLORIDE 0.9% 1,000 ML IV SCH ×2 (16:34→22:06)
[2017-12-29] MEDS ORDERED: HYDROcodone/APAP 7.5-325MG 1 EACH TAB PO PRN (16:49)
[2017-12-29 17:27] LABS: Glucose,Whole Blood 60 mg/dL (75-99)
[2017-12-29 17:54] LABS: Glucose,Whole Blood 70 mg/dL (75-99)
--- NOTE | 2017-12-29 18:22 | US ---
EXAMINATION TYPE: US abdomen complete DATE OF EXAM: 12/29/2017 COMPARISON: NONE CLINICAL HISTORY: lft elevation. EXAM MEASUREMENTS: Liver Length: 19.5 cm Gallbladder Wall: 0.2 cm CBD: 0.6 cm Spleen: 9.9 cm Right Kidney: 12.2 x 5.2 x 5.5 cm Left Kidney: 11.8 x 4.8 x 4.6 cm Pancreas: small in size, wnl as seen Liver: hepatomegaly, coarsened echotexture. Gallbladder: wnl Evidence for sonographic Vizcaino's sign: no CBD: wnl Spleen: wnl Right Kidney: wnl Left Kidney: wnl Upper IVC: wnl Abd Aorta: Obscured by overlying bowel gas The intrahepatic portion of the IVC and proximal abdominal aorta are within normal limits. There is no evidence of cholelithiasis. Common bile duct is unremarkable. The visualized portions of the dill creas are homogenous. The spleen is unremarkable. Kidneys are symmetric and free of hydronephrosis. No renal lesions are seen. IMPRESSION: Coarsened echotexture of the liver could relate to hepatic steatosis or other hepatocellu lar disease. Correlate with liver function tests. No focal hepatic masses seen. No sonographic eviden ce of acute cholecystitis.
[2017-12-29 20:35] LABS: Glucose,Whole Blood 71 mg/dL (75-99)
[2017-12-29] MEDS: ONDANSETRON 4 MG/2 ML VIAL IVP PRN (20:47)
[2017-12-29] MEDS: MORPHINE SULFATE 2 MG/ML SYRINGE IVP PRN (23:10)
[2017-12-30] MEDS: LORazepam 2 MG/ML INJ IV PRN ×5 (00:10→12:37)
[2017-12-30 02:24] LABS: Glucose,Whole Blood 212 mg/dL (75-99)
[2017-12-30] MEDS: MORPHINE SULFATE 2 MG/ML SYRINGE IVP PRN ×3 (02:56→11:00)
[2017-12-30] MEDS: ONDANSETRON 4 MG/2 ML VIAL IVP PRN (05:10)
[2017-12-30] MEDS: SODIUM CHLORIDE 0.9% 1,000 ML IV SCH ×2 (05:45→12:38)
[2017-12-30 06:35] LABS: Glucose,Whole Blood 107 mg/dL (75-99)
[2017-12-30 07:17] LABS: Basophils % (A) 0 %; Eosinophils % (A) 1 %; HCT 34.8 % (34.0-46.0); Lymphocytes # (A) 0.9 k/uL (1.0-4.8); Lymphocytes % (A) 25 %; MCH 35.3 pg (25.0-35.0); MCHC 34.5 g/dL (31.0-37.0); MCV 102.5 fL (80.0-100.0); Macrocytosis Slight; Mean Platelet Volume 7.4; Monocytes # (A) 0.2 k/uL (0-1.0); Monocytes % (A) 6 %; Neutrophils # (A) 2.5 k/uL (1.3-7.7); Neutrophils % (A) 67 %; RBC 3.39 m/uL (3.80-5.40); RDW 14.8 % (11.5-15.5); WBC 3.8 k/uL (3.8-10.6)
[2017-12-30 07:24] LABS: ALT 207 U/L (9-52); AST 225 U/L (14-36); Albumin 3.9 g/dL (3.5-5.0); Alkaline Phosphatase 154 U/L (38-126); Anion Gap 14 mmol/L; Blood Urea Nitrogen 8 mg/dL (7-17); Calcium 8.8 mg/dL (8.4-10.2); Carbon Dioxide 20 mmol/L (22-30); Chloride 102 mmol/L (98-107); Glucose 101 mg/dL (74-99); Potassium 3.9 mmol/L (3.5-5.1); Sodium 136 mmol/L (137-145); Total Bilirubin 1.9 mg/dL (0.2-1.3); Total Protein 6.6 g/dL (6.3-8.2)
[2017-12-30 07:39] LABS: Platelet Count 74 k/uL (150-450)
[2017-12-30 07:53] VITALS: TEMP 98.2
--- NOTE | 2017-12-30 08:17 | HP ---
HISTORY AND PHYSICAL SUBJECTIVE: This is a 42-year-old white female with alcohol withdrawal, seizure, acute pancreatitis due to alcohol intoxication, dehydration, gastritis, nausea, vomiting, and hypoglycemia. Serum alcohol is 283 on admission, liver enzymes are high at 452, 261, and alkaline phosphatase 177. Amylase 209, lipase 2819, sodium 129, potassium 4.9, platelets 48. PAST MEDICAL HISTORY: Alcoholism, bipolar, carcinoid syndrome, disorder. PAST SURGICAL HISTORY: Left hand surgery, anxiety and bipolar depression. ALLERGIES: NSAIDS, SEROQUEL. PHYSICAL EXAMINATION: Cardiovascular S1-S2. Lungs transmitted upper sounds. GI soft. Hematology negative Homans. She is thin, cachectic. Neurologic: She has a moderate tremor in extremities in her arms. Pulse rate is 70s. Respiratory 16 to 18, blood pressure is 104 to 130s over 70s. O2 97 to 98% on room air. HEENT: She is thin cachectic. Lungs clear. Back nontender. ASSESSMENT: 1. Alcohol withdrawal seizure. 2. Acute pancreatitis. 3. Alcohol intoxication. 4. Dehydration. 5. Alcoholic gastritis. 6. Irretractable nausea, vomiting. 7. Nicotine addiction. 8. EKG revealed sinus rhythm. Continue with alcohol CIWA protocol. Clear liquid diet. Dehydration and alcoholic gastritis, nausea, vomiting, nicotine addiction. Please see further orders. MMODL / IJN: [id number] /
[2017-12-30] MEDS: THIAMINE 100 MG TAB PO SCH (11:01)
[2017-12-30 11:06] VITALS: BP 135/80; PULSE 85; RESP 16
[2017-12-30 12:05] LABS: Glucose,Whole Blood 141 mg/dL (75-99)
--- NOTE | 2017-12-30 14:48 | P.GSCN ---
History of Present Illness Consult date: 12/30/17 History of present illness: CHIEF COMPLAINT: Abdominal pain HISTORY OF PRESENT ILLNESS: The patient is a 42-year-old female with known history of alcohol abuse. She was admitted with elevated lipase over 5600. She reports having similar attacks in the past from pancreatitis alcohol induced. She reports recent moderate drinking hence alcohol induced pancreatitis. She reports that her moderate epigastric sharp abdominal pain is moderately improved from yesterday. She is resting comfortably. PAST MEDICAL HISTORY: See list. PAST SURGICAL HISTORY: See list. MEDICATIONS: See list. ALLERGIES: See list. SOCIAL HISTORY: Illicit drug use. Tobacco abuse FAMILY HISTORY: No reports of Crohn's disease or inflammatory bowel disease REVIEW OF ORGAN SYSTEMS: CONSTITUTIONAL: No fevers or chills HEENT: No troubles with vision or hearing. No reports of dysphagia. ENDOCRINE: No reports of thyroid disorders. No diabetes. CARDIOVASCULAR: No heart attack. No chest pain. RESPIRATORY: No shortness of breath or pneumonia. GASTROINTESTINAL: No reports of recent blood in stools. NEURO: No reports of stroke. His seizure disorder. Has fibromyalgia PSYCH: Has anxiety, depression, bipolar disorder HEMATOLOGIC: No easy bruising or bleeding LYMPHATIC: The patient denies any lumps and bumps around the neck. GENITOURINARY: Denies any blood in urine or increased urinary frequency. MUSCULOSKELETAL: Has back pain, stiffness or joint arthritis. SKIN: No skin cancer or rash. PHYSICAL EXAM: VITAL SIGNS: Vital Signs Temp 98.2 F 12/30/17 07:52 Pulse 85 12/30/17 11:05 Resp 16 12/30/17 11:05 BP 135/80 12/30/17 11:05 Pulse Ox 98 12/30/17 11:05 Intake & Output 12/29/17 12/30/17 12/30/17 18:59 06:59 18:59 Weight 74.843 kg 68.8 kg Other: Voiding Method Toilet Toilet # Voids 2 GENERAL: Well-developed in no acute distress. HEENT: No sclera icterus. Extraocular movements grossly intact. Moist buccal mucosa. Head is atraumatic, normocephalic. Hears conversational speech. No nasal drainage. NECK: Supple without lymphadenopathy. CHEST: Non-labored respirations and equal bilateral excursions. CARDIOVASCULAR: Regular rate with regular rhythm. Palpable 2+ radial pulses. ABDOMEN: Soft. Nondistended. No peritonitis. Minimal epigastric tenderness to deep palpation. MUSCULOSKELETAL: No clubbing, cyanosis or edema. NEUROLOGIC: No focal or lateralizing signs. Cranial nerves II through XII grossly intact. PSYCH: Appropriate affect. Alert and oriented to person, place and time. SKIN: Well perfused. Good skin turgor. LABS: Reviewed ASSESSMENT: 1. Elevated lipase for acute pancreatitis 2. History of alcoholism PLAN: 1. Abdominal pain has improved. No surgical intervention 2. Ultrasound of the abdomen also negative for acute gallstones 3. Alcohol abstinence education advised Thank you for this kind consultation. 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, kairi disorder, carsinoid syndrome, enlarge liver History of Any Multi-Drug Resistant Organisms: None Reported Past Surgical History: No Surgical Hx Reported Additional Past Surgical History / Comment(s): Left hand surgery Past Anesthesia/Blood Transfusion Reactions: No Reported Reaction Past Psychological History: Anxiety, Bipolar, Depression Smoking Status: Current every day smoker Past Alcohol Use History: Abuse, Daily, Heavy Past Drug Use History: None Reported - Past Family History Father Family Medical History: No Reported History Medications and Allergies Home Medications Medication Instructions Recorded Confirmed Type Multivitamins, Thera [Multivitamin] 1 tab PO DAILY #30 tablet 09/17/16 12/29/17 Rx Acetaminophen Tab [Tylenol Tab] 325 mg PO Q4H PRN 12/29/17 12/29/17 History Allergies Allergy/AdvReac Type Severity Reaction Status Date / Time NSAIDS (Non-Steroidal Allergy Unknown Verified 12/29/17 10:43 Anti-Inflamma quetiapine [From Seroquel] Allergy Unknown Verified 12/29/17 10:43 Surgical - Exam Vital Signs Temp Pulse Resp BP Pulse Ox 97.8 F 72 16 130/91 97 12/29/17 09:40 12/29/17 09:40 12/29/17 09:40 12/29/17 09:40 12/29/17 09:40 Results - Labs 12/30/17 06:13 12/30/17 06:13 Abnormal Lab Results - Last 24 Hours (Table) 12/29/17 12/29/17 12/29/17 Range/Units 17:24 17:52 18:40 RBC (3.80-5.40) m/uL MCV (80.0-100.0) fL MCH (25.0-35.0) pg Plt Count (150-450) k/uL Lymphocytes # (1.0-4.8) k/uL Sodium (137-145) mmol/L Carbon Dioxide (22-30) mmol/L Glucose (74-99) mg/dL POC Glucose (mg/dL) 60 L 70 L (75-99) mg/dL Total Bilirubin (0.2-1.3) mg/dL AST (14-36) U/L ALT (9-52) U/L Alkaline Phosphatase (38-126) U/L Lipase 5641 H (23-300) U/L 12/29/17 12/30/17 12/30/17 Range/Units 20:32 02:10 06:13 RBC 3.39 L (3.80-5.40) m/uL MCV 102.5 H (80.0-100.0) fL MCH 35.3 H (25.0-35.0) pg Plt Count 74 L (150-450) k/uL Lymphocytes # 0.9 L (1.0-4.8) k/uL Sodium (137-145) mmol/L Carbon Dioxide (22-30) mmol/L Glucose (74-99) mg/dL POC Glucose (mg/dL) 71 L 212 H (75-99) mg/dL Total Bilirubin (0.2-1.3) mg/dL AST (14-36) U/L ALT (9-52) U/L Alkaline Phosphatase (38-126) U/L Lipase (23-300) U/L 12/30/17 12/30/17 12/30/17 Range/Units 06:13 06:25 11:45 RBC (3.80-5.40) m/uL MCV (80.0-100.0) fL MCH (25.0-35.0) pg Plt Count (150-450) k/uL Lymphocytes # (1.0-4.8) k/uL Sodium 136 L (137-145) mmol/L Carbon Dioxide 20 L (22-30) mmol/L Glucose 101 H (74-99) mg/dL POC Glucose (mg/dL) 107 H 141 H (75-99) mg/dL Total Bilirubin 1.9 H (0.2-1.3) mg/dL AST 225 H (14-36) U/L ALT 207 H (9-52) U/L Alkaline Phosphatase 154 H (38-126) U/L Lipase (23-300) U/L Diabetes panel 12/30/17 Range/Units 06:13 Sodium 136 L (137-145) mmol/L Potassium 3.9 (3.5-5.1) mmol/L Chloride 102 (98-107) mmol/L Carbon Dioxide 20 L (22-30) mmol/L BUN 8 (7-17) mg/dL Creatinine 0.59 (0.52-1.04) mg/dL Glucose 101 H (74-99) mg/dL Calcium 8.8 (8.4-10.2) mg/dL AST 225 H (14-36) U/L ALT 207 H (9-52) U/L Alkaline Phosphatase 154 H (38-126) U/L Total Protein 6.6 (6.3-8.2) g/dL Albumin 3.9 (3.5-5.0) g/dL Calcium panel 12/30/17 Range/Units 06:13 Calcium 8.8 (8.4-10.2) mg/dL Albumin 3.9 (3.5-5.0) g/dL Pituitary panel 12/30/17 Range/Units 06:13 Sodium 136 L (137-145) mmol/L Potassium 3.9 (3.5-5.1) mmol/L Chloride 102 (98-107) mmol/L Carbon Dioxide 20 L (22-30) mmol/L BUN 8 (7-17) mg/dL Creatinine 0.59 (0.52-1.04) mg/dL Glucose 101 H (74-99) mg/dL Calcium 8.8 (8.4-10.2) mg/dL Adrenal panel 12/30/17 Range/Units 06:13 Sodium 136 L (137-145) mmol/L Potassium 3.9 (3.5-5.1) mmol/L Chloride 102 (98-107) mmol/L Carbon Dioxide 20 L (22-30) mmol/L BUN 8 (7-17) mg/dL Creatinine 0.59 (0.52-1.04) mg/dL Glucose 101 H (74-99) mg/dL Calcium 8.8 (8.4-10.2) mg/dL Total Bilirubin 1.9 H (0.2-1.3) mg/dL AST 225 H (14-36) U/L ALT 207 H (9-52) U/L Alkaline Phosphatase 154 H (38-126) U/L Total Protein 6.6 (6.3-8.2) g/dL Albumin 3.9 (3.5-5.0) g/dL - Imaging US - abdomen: report reviewed, image reviewed (No evidence of cholecystitis or gallstones) Assessment and Plan (1) Pancreatitis, alcoholic, acute Current Visit: Yes Status: Acute Code(s): K85.20 - ALCOHOL INDUCED ACUTE PANCREATITIS WITHOUT NECROSIS OR INFCT SNOMED Code(s): 271359938 (2) Elevated lipase Current Visit: Yes Status: Acute Code(s): R74.8 - ABNORMAL LEVELS OF OTHER SERUM ENZYMES SNOMED Code(s): 502028699 (3) Dehydration Current Visit: Yes Status: Acute Code(s): E86.0 - DEHYDRATION SNOMED Code( s): 02792174 (4) Intractable vomiting with nausea Current Visit: Yes Status: Acute Code(s): R11.2 - NAUSEA WITH VOMITING, UNSPECIFIED SNOMED Code(s): 989564131 (5) Tobacco abuse Current Visit: Yes Status: Acute Code(s): Z72.0 - TOBACCO USE SNOMED Code( s): 925375317
== END 2017-12-30 14:55 | disposition left against medical advice (07) | DRG 439 ==
LOC: EC 09:31 → 3SCARD 12:20
PROVIDERS: ADMIT Family Medicine; ATTEND Family Medicine
DX: K85.20 Alcohol induced acute pancreatitis without necrosis or infection (principal); F10.239 Alcohol dependence with withdrawal, unspecified; R64 Cachexia; E16.2 Hypoglycemia, unspecified; E86.0 Dehydration; F10.229 Alcohol dependence with intoxication, unspecified; F17.200 Nicotine dependence, unspecified, uncomplicated; F31.9 Bipolar disorder, unspecified; G40.909 Epilepsy, unspecified, not intractable, without status epilepticus; K29.20 Alcoholic gastritis without bleeding; M06.9 Rheumatoid arthritis, unspecified; M79.7 Fibromyalgia; Y90.8 Blood alcohol level of 240 mg/100 ml or more; Z68.23 Body mass index [BMI] 23.0-23.9, adult; Z88.6 Allergy status to analgesic agent; Z88.8 Allergy status to other drugs, medicaments and biological substances; F41.9 Anxiety disorder, unspecified; Z79.899 Other long term (current) drug therapy
CPT/HCPCS: 36415; 70450; 71046; 74018; 76700; 80053; 80306; 80320; 81001; 82140; 82150; 83690; 83735; 85025; 93005

== ENCOUNTER 2018-05-17 23:39 | Inpatient (IN) | payer OTHER ==
--- NOTE | 2018-05-18 00:11 | ED ---
General Adult HPI - General Chief complaint: Recheck/Abnormal Lab/Rx Stated complaint: Abdominal Pain Time Seen by Provider: 05/18/18 00:02 Source: patient, EMS Mode of arrival: EMS - History of Present Illness Initial comments: Rebecca is a 43-year-old female with a history of alcohol abuse recurrent episodes of pancreatitis who was transferred to our facility from an outside facility after resenting there for evaluation of chest and abdominal pain. Evaluation at outside facility revealed multiple significant lab abnormalities including hyponatremia, hypokalemia, hypomagnesemia, elevated bilirubin but normal lipase. Due to their limited diagnostic capability she was transferred to our facility for further evaluation. Patient reports she just hasn't been feeling well lately. She reports her last alcoholic drink was approximately 10 days ago. She reports that she is just feeling run down and feels like she is getting more yellow. She does report pain in her right upper quadrant which is been present for a couple of days but is worsening. - Related Data Home Medications Medication Instructions Recorded Confirmed ALPRAZolam [Xanax] 1 mg PO DIRECTED PRN 03/01/18 03/01/18 Ascorbic Acid [Vitamin C] 500 mg PO DAILY 03/01/18 03/01/18 Cholecalciferol [Vitamin D3] 1,000 unit PO DAILY 03/01/18 03/01/18 DULoxetine HCL [Cymbalta] 60 mg PO DAILY 03/01/18 03/01/18 Ferrous Sulfate [Iron] 325 mg PO DAILY 03/01/18 03/01/18 Folic Acid 0.4 mg PO DAILY 03/01/18 03/01/18 Gabapentin [Neurontin] 400 mg PO TID 03/01/18 03/01/18 HYDROcodone/APAP 10-325MG [[place] 1 tab PO DIRECTED PRN 03/01/18 03/01/18 10-325] Multivitamin,Therapeutic [Thera] 1 tab PO DAILY 03/01/18 03/01/18 Vitamin B Complex 1 cap PO DAILY 03/01/18 03/01/18 Zinc 50 mg PO DAILY 03/01/18 03/01/18 Previous Rx's Medication Instructions Recorded Cephalexin [Keflex] 500 mg PO Q12HR #6 cap 03/04/18 Pantoprazole Sodium [Protonix] 40 mg PO BID #60 tablet. 03/04/18 Allergies Allergy/AdvReac Type Severity Reaction Status Date / Time ibuprofen [From Motrin] Allergy Unknown Verified 03/01/18 18:51 NSAIDS (Non-Steroidal Allergy Unknown Verified 03/01/18 18:51 Anti-Inflamma quetiapine [From Seroquel] Allergy Unknown Verified 03/01/18 18:51 Review of Systems ROS Statement: Those systems with pertinent positive or pertinent negative responses have been documented in the HPI. ROS Other: All systems not noted in ROS Statement are negative. 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, carsinoid syndrome, enlarge liver Last Myocardial Infarction Date:: 01/2017 History of Any Multi-Drug Resistant Organisms: None Reported Past Surgical History: No Surgical Hx Reported Additional Past Surgical History / Comment(s): Left hand surgery Past Anesthesia/Blood Transfusion Reactions: No Reported Reaction Past Psychological History: Anxiety, Bipolar, Depression Smoking Status: Current every day smoker Past Alcohol Use History: Abuse, Daily, Heavy Past Drug Use History: None Reported - Past Family History Father Family Medical History: No Reported History General Exam - General Exam Comments Initial Comments: Physical Exam GENERAL: Chronically ill-appearing jaundiced female HENT: Normocephalic, Atraumatic. EYES: PERRL, EOMI Scleral icterus PULMONARY: Unlabored respirations CARDIOVASCULAR: Tachycardic, regular Warm and well perfused extremities ABDOMEN: Distended, ascities noted RUQ tenderness SKIN: Jaundice : Deferred NEUROLOGIC: Patient is alert and oriented x3. Moving all extremities spontaneously MUSCULOSKELETAL: Normal extremities with adequate strength and full range of motion. No lower extremity swelling or edema. No calf tenderness. PSYCHIATRIC: Normal psychiatric evaluation. Limitations: no limitations Course Vital Signs 05/17/18 23:54 Temperature 97.9 F Pulse Rate 104 H Respiratory 18 Rate Blood Pressure 98/69 O2 Sat by Pulse 99 Oximetry Medical Decision Making - Medical Decision Making Patient care was discussed with transferring physicians is a chronically ill 43-year-old alcoholic female presenting with worsening hyperbilirubinemia and jaundice [place] in our hospital patient continues to complain of mild abdominal pain worse in the right upper quadrant Ultrasound was ordered of the abdomen Ultrasound reveals a normal gallbladder and dilated common bile duct with no evidence of stone Patient's electrolytes are improving from previous at outside hospital Urinalysis is suggestive of urinary tract infection and Rocephin was ordered Patient is admitted to the hospital with gastroenterology consult for hyperbilirubinemia and alcoholic liver disease - Lab Data Result diagrams: 05/18/18 00:30 05/18/18 00:30 Lab Results 05/18/18 05/18/18 05/18/18 Range/Units 00:30 00:30 00:30 WBC 9.0 (3.8-10.6) k/uL RBC 2.22 L (3.80-5.40) m/uL Hgb 7.8 L (11.4-16.0) gm/dL Hct 22.3 L (34.0-46.0) % MCV 100.4 H (80.0-100.0) fL MCH 35.1 H (25.0-35.0) pg MCHC 34.9 (31.0-37.0) g/dL RDW 19.6 H (11.5-15.5) % Plt Count 263 (150-450) k/uL Neutrophils % 74 % Lymphocytes % 20 % Monocytes % 4 % Eosinophils % 1 % Basophils % 1 % Neutrophils # 6.6 (1.3-7.7) k/uL Lymphocytes # 1.8 (1.0-4.8) k/uL Monocytes # 0.4 (0-1.0) k/uL Eosinophils # 0.1 (0-0.7) k/uL Basophils # 0.1 (0-0.2) k/uL Hypochromasia Slight Poikilocytosis Slight Anisocytosis Slight Macrocytosis Moderate PT (9.0-12.0) sec INR (<1.2) APTT (22.0-30.0) sec Sodium 133 L (137-145) mmol/L Potassium 3.2 L (3.5-5.1) mmol/L Chloride 104 (98-107) mmol/L Carbon Dioxide 22 (22-30) mmol/L Anion Gap 7 mmol/L BUN 2 L (7-17) mg/dL Creatinine 0.30 L (0.52-1.04) mg/dL Est GFR (CKD-EPI)AfAm >90 (>60 ml/min/1.73 sqM) Est GFR (CKD-EPI)NonAf >90 (>60 ml/min/1.73 sqM) Glucose 89 (74-99) mg/dL Plasma Lactic Acid Nilo 1.2 (0.7-2.0) mmol/L Calcium 7.9 L (8.4-10.2) mg/dL Magnesium 2.4 H (1.6-2.3) mg/dL Total Bilirubin 12.0 H (0.2-1.3) mg/dL AST 128 H (14-36) U/L ALT 70 H (9-52) U/L Alkaline Phosphatase 198 H (38-126) U/L Troponin I (0.000-0.034) ng/mL Total Protein 5.4 L (6.3-8.2) g/dL Albumin 2.7 L (3.5-5.0) g/dL Amylase 84 (30-110) U/L Lipase 165 (23-300) U/L Urine Color Urine Appearance (Clear) Urine pH (5.0-8.0) Ur Specific [place] (1.001-1.035) Urine Protein (Negative) Urine Glucose (UA) (Negative) Urine Ketones (Negative) Urine Blood (Negative) Urine Nitrite (Negative) Urine Bilirubin (Negative) Urine Urobilinogen (<2.0) mg/dL Ur Leukocyte Esterase (Negative) Urine RBC (0-5) /hpf Urine WBC (0-5) /hpf Ur Squamous Epith Cells (0-4) /hpf Urine Bacteria (None) /hpf Hyaline Casts (0-2) /lpf Urine Mucus (None) /hpf Blood Type Blood Type Recheck Antibody Screen Spec Expiration Date 05/18/18 05/18/18 05/18/18 Range/Units 00:30 00:30 00:30 WBC (3.8-10.6) k/uL RBC (3.80-5.40) m/uL Hgb (11.4-16.0) gm/dL Hct (34.0-46.0) % MCV (80.0-100.0) fL MCH (25.0-35.0) pg MCHC (31.0-37.0) g/dL RDW (11.5-15.5) % Plt Count (150-450) k/uL Neutrophils % % Lymphocytes % % Monocytes % % Eosinophils % % Basophils % % Neutrophils # (1.3-7.7) k/uL Lymphocytes # (1.0-4.8) k/uL Monocytes # (0-1.0) k/uL Eosinophils # (0-0.7) k/uL Basophils # (0-0.2) k/uL Hypochromasia Poikilocytosis Anisocytosis Macrocytosis PT 10.8 (9.0-12.0) sec INR 1.0 (<1.2) APTT 23.2 (22.0-30.0) sec Sodium (137-145) mmol/L Potassium (3.5-5.1) mmol/L Chloride (98-107) mmol/L Carbon Dioxide (22-30) mmol/L Anion Gap mmol/L BUN (7-17) mg/dL Creatinine (0.52-1.04) mg/dL Est GFR (CKD-EPI)AfAm (>60 ml/min/1.73 sqM) Est GFR (CKD-EPI)NonAf (>60 ml/min/1.73 sqM) Glucose (74-99) mg/dL Plasma Lactic Acid Nilo (0.7-2.0) mmol/L Calcium (8.4-10.2) mg/dL Magnesium (1.6-2.3) mg/dL Total Bilirubin (0.2-1.3) mg/dL AST (14-36) U/L ALT (9-52) U/L Alkaline Phosphatase (38-126) U/L Troponin I <0.012 (0.000-0.034) ng/mL Total Protein (6.3-8.2) g/dL Albumin (3.5-5.0) g/dL Amylase (30-110) U/L Lipase (23-300) U/L Urine Color Urine Appearance (Clear) Urine pH (5.0-8.0) Ur Specific [place] (1.001-1.035) Urine Protein (Negative) Urine Glucose (UA) (Negative) Urine Ketones (Negative) Urine Blood (Negative) Urine Nitrite (Negative) Urine Bilirubin (Negative) Urine Urobilinogen (<2.0) mg/dL Ur Leukocyte Esterase (Negative) Urine RBC (0-5) /hpf Urine WBC (0-5) /hpf Ur Squamous Epith Cells (0-4) /hpf Urine Bacteria (None) /hpf Hyaline Casts (0-2) /lpf Urine Mucus (None) /hpf Blood Type O Positive Blood Type Recheck CABO Indicated Antibody Screen NEGATIVE Spec Expiration Date 05/21/2018232905/18/18 Range/Units 02:15 WBC (3.8-10.6) k/uL RBC (3.80-5.40) m/uL Hgb (11.4-16.0) gm/dL Hct (34.0-46.0) % MCV (80.0-100.0) fL MCH (25.0-35.0) pg MCHC (31.0-37.0) g/dL RDW (11.5-15.5) % Plt Count (150-450) k/uL Neutrophils % % Lymphocytes % % Monocytes % % Eosinophils % % Basophils % % Neutrophils # (1.3-7.7) k/uL Lymphocytes # (1.0-4.8) k/uL Monocytes # (0-1.0) k/uL Eosinophils # (0-0.7) k/uL Basophils # (0-0.2) k/uL Hypochromasia Poikilocytosis Anisocytosis Macrocytosis PT (9.0-12.0) sec INR (<1.2) APTT (22.0-30.0) sec Sodium (137-145) mmol/L Potassium (3.5-5.1) mmol/L Chloride (98-107) mmol/L Carbon Dioxide (22-30) mmol/L Anion Gap mmol/L BUN (7-17) mg/dL Creatinine (0.52-1.04) mg/dL Est GFR (CKD-EPI)AfAm (>60 ml/min/1.73 sqM) Est GFR (CKD-EPI)NonAf (>60 ml/min/1.73 sqM) Glucose (74-99) mg/dL Plasma Lactic Acid Nilo (0.7-2.0) mmol/L Calcium (8.4-10.2) mg/dL Magnesium (1.6-2.3) mg/dL Total Bilirubin (0.2-1.3) mg/dL AST (14-36) U/L ALT (9-52) U/L Alkaline Phosphatase (38-126) U/L Troponin I (0.000-0.034) ng/mL Total Protein (6.3-8.2) g/dL Albumin (3.5-5.0) g/dL Amylase (30-110) U/L Lipase (23-300) U/L Urine Color Dark Yellow Urine Appearance Cloudy H (Clear) Urine pH 7.0 (5.0-8.0) Ur Specific [place] 1.008 (1.001-1.035) Urine Protein Negative (Negative) Urine Glucose (UA) Negative (Negative) Urine Ketones Negative (Negative) Urine Blood Negative (Negative) Urine Nitrite Negative (Negative) Urine Bilirubin 2+ H (Negative) Urine Urobilinogen 12.0 (<2.0) mg/dL Ur Leukocyte Esterase Large H (Negative) Urine RBC 5 (0-5) /hpf Urine WBC 52 H (0-5) /hpf Ur Squamous Epith Cells 3 (0-4) /hpf Urine Bacteria Rare H (None) /hpf Hyaline Casts 4 H (0-2) /lpf Urine Mucus Moderate H (None) /hpf Blood Type Blood Type Recheck Antibody Screen Spec Expiration Date Disposition Clinical Impression: Hyperbilirubinemia, Alcoholic liver disease, Chronic anemia, Hypokalemia, Hypo natremia, Hypomagnesemia, UTI (urinary tract infection) Disposition: ADMITTED IP TO THIS [facility] Condition: Serious Is patient prescribed a controlled substance at d/c from ED?: No
[2018-05-18] MEDS ORDERED: MORPHINE SULFATE 4 MG/ML SYRINGE IVP STA (01:11)
[2018-05-18 01:25] LABS: Anisocytosis Slight; Basophils # (A) 0.1 k/uL (0-0.2); Basophils % (A) 1 %; Eosinophils # (A) 0.1 k/uL (0-0.7); Eosinophils % (A) 1 %; HCT 22.3 % (34.0-46.0); HGB 7.8 gm/dL (11.4-16.0); Hypochromasia Slight; Lymphocytes # (A) 1.8 k/uL (1.0-4.8); Lymphocytes % (A) 20 %; MCH 35.1 pg (25.0-35.0); MCHC 34.9 g/dL (31.0-37.0); MCV 100.4 fL (80.0-100.0); Macrocytosis Moderate; Mean Platelet Volume 7.5; Monocytes # (A) 0.4 k/uL (0-1.0); Monocytes % (A) 4 %; Neutrophils # (A) 6.6 k/uL (1.3-7.7); Neutrophils % (A) 74 %; Platelet Count 263 k/uL (150-450); Poikilocytosis Slight; RBC 2.22 m/uL (3.80-5.40); RDW 19.6 % (11.5-15.5)
[2018-05-18 01:33] LABS: Partial Thromboplastin Time 23.2 sec (22.0-30.0); Prothrombin Time 10.8 sec (9.0-12.0)
[2018-05-18 01:51] LABS: ALT 70 U/L (9-52); AST 128 U/L (14-36); Albumin 2.7 g/dL (3.5-5.0); Alkaline Phosphatase 198 U/L (38-126); Amylase 84 U/L (30-110); Anion Gap 7 mmol/L; Blood Urea Nitrogen 2 mg/dL (7-17); Calcium 7.9 mg/dL (8.4-10.2); Carbon Dioxide 22 mmol/L (22-30); Chloride 104 mmol/L (98-107); Glucose 89 mg/dL (74-99); Lipase 165 U/L (23-300); Magnesium 2.4 mg/dL (1.6-2.3); Potassium 3.2 mmol/L (3.5-5.1); Sodium 133 mmol/L (137-145); Total Protein 5.4 g/dL (6.3-8.2)
[2018-05-18 02:57] LABS: Appearance,Urine Cloudy (Clear); Bacteria,Urine Rare /hpf; Bilirubin,Urine 2+ (Negative); Blood,Urine Negative (Negative); Color,Urine Dark Yellow; Glucose,Urine (UA) Negative (Negative); Hyaline Casts,Urine 4 /lpf (0-2); Ketones,Urine Negative (Negative); Leukocyte Esterase,Urine Large (Negative); Mucus,Urine Moderate /hpf; Nitrite,Urine Negative (Negative); Protein,Urine Negative (Negative); RBC,Urine 5 /hpf (0-5); Specific Gravity,Urine 1.008 (1.001-1.035); Squamous Epithelial Cell,Urine 3 /hpf (0-4); WBC,Urine 52 /hpf (0-5)
[2018-05-18] MEDS ORDERED: NALOXONE 0.4 MG/ML 1 ML VIAL IV PRN (03:37)
[2018-05-18] MEDS ORDERED: ONDANSETRON 4 MG/2 ML VIAL IVP PRN (03:37)
--- NOTE | 2018-05-18 03:40 | US ---
EXAM: US Abdomen Complete CLINICAL HISTORY: Pain TECHNIQUE: Real-time ultrasound of the abdomen (complete) with image documentation. COMPARISON: No relevant prior studies available. FINDINGS: Liver: Mild hepatomegaly with coarse echotexture which is unchanged the prior study no mass. No intrahepatic bile duct dilation. Gallbladder: Unremarkable. No gallstones. Gallbladder wall measures 2 mm. There is a reported positive ultrasonographic Vizcaino sign. Common bile duct: Unremarkable as visualized. No stones. 8 mm which is minimally dilated. No filling defect Pancreas: Unremarkable as visualized. Kidneys: Unremarkable. No stones. No solid mass. No hydronephrosis. Spleen: Unremarkable. No splenomegaly. Aorta: Unremarkable. No aneurysm. Inferior vena cava: Unremarkable. IMPRESSION: Unremarkable ultrasound the abdomen.
[2018-05-18] MEDS ORDERED: SODIUM CHLORIDE 0.9% 1,000 ML IV SCH (03:45)
[2018-05-18] MEDS ORDERED: Potassium Replacement Protocol 1 EACH MISC MISCELLANE PRN (04:35)
[2018-05-18] MEDS: POTASSIUM CHLORIDE ER 20 MEQ TAB.ER PO SCH ×2 (05:15→06:31)
[2018-05-18 06:27] VITALS: BMI 21.9
[2018-05-18] MEDS: MORPHINE SULFATE 4 MG/ML SYRINGE IV PRN ×4 (06:31→20:45)
[2018-05-18 07:41] LABS: Glucose,Whole Blood 114 mg/dL (75-99)
[2018-05-18] MEDS: PANTOPRAZOLE 40 MG/10 ML VIAL IV SCH (08:05)
[2018-05-18 11:29] LABS: Glucose,Whole Blood 102 mg/dL (75-99)
[2018-05-18] MEDS ORDERED: SODIUM CHLORIDE 0.9% 1,000 ML with POTASSIUM CHLORIDE 40 MEQ IV SCH ×2 (16:13)
[2018-05-18] MEDS: IOPAMIDOL-300 CONTRAST 30 ML VIAL (ORAL USE) PO PRN ×2 (16:30→17:25)
--- NOTE | 2018-05-18 16:38 | HP ---
HISTORY AND PHYSICAL DATE OF SERVICE: 05/18/2018 CHIEF COMPLAINTS: Abdominal pain. HISTORY OF PRESENT ILLNESS: This is a 43-year-old woman with a past medical history of significant alcohol abuse with recurrent history of fibromyalgia, rheumatoid, seizures, alcohol dependence, history of carcinoid syndrome, enlarged liver, history of anxiety, bipolar depression, being followed by in the outpatient setting is complaining of abdominal pain. Abdominal pain is considered in the right upper part of the abdomen. The patient admitted for further evaluation and treatment. Patient is evaluated in [facility] and the patient had significant abnormalities including hyponatremia, hypokalemia, hypomagnesemia, elevated bilirubin and normal lipase. Patient admitted for further evaluation and treatment. There is no history of fever, chills or rigors. No history of headache, loss of consciousness or seizures. No CAT scan noted. PAST MEDICAL HISTORY: Fibromyalgia, rheumatoid, seizures, including DJD, anxiety, bipolar depression. MEDICATIONS: Home medications are: 1. Turmeric 500 mg p.o. daily. 2. [place]-3 fatty acids p.o. daily. 3. Multivitamin 1 p.o. daily. 4. Magnesium 200 mg p.o. daily. 5. Pepcid AC 10 mg p.o. b.i.d. 6. Vitamin B12 one thousand mcg p.o. daily. 7. Vitamin C 500 mg p.o. daily. ALLERGIES: IBUPROFEN, NSAIDS and SEROQUEL. FAMILY HISTORY: No history of heart disease or strokes in the family. SOCIAL HISTORY: Previous alcohol and smoking. REVIEW OF SYSTEMS: ENT: No diminished hearing or vision. CARDIOVASCULAR: No angina. RESPIRATION: No cough. GI: As mentioned earlier. : No dysuria. NERVOUS SYSTEM: No numbness or weakness. ALLERGY/IMMUNOLOGY: No asthma or hay fever. MUSCULOSKELETAL: As mentioned earlier. HEMATOLOGY: No history of anemia. ENDOCRINE: As mentioned earlier. CONSTITUTIONAL: As mentioned earlier. DERMATOLOGY: Negative. RHEUMATOLOGY: Negative. PSYCHIATRY: As mentioned earlier. PHYSICAL EXAMINATION: Patient is alert and oriented x3. Pulse is 103. Blood pressure 103/60, respiration 18, temperature 97.9, pulse ox 98% on room air. HEENT: Conjunctivae normal, oral mucosa moist. Neck is no jugular venous distention. CARDIOVASCULAR: S1, S2. Not tachycardic. RESPIRATORY: Breath sounds diminished at the bases, no rhonchi, no crackles. ABDOMEN: Soft, obese. Hepatomegaly present, slightly tender. No ascites. Bowel sounds present. No bruit. LEGS: No edema, no swelling. NERVOUS SYSTEM: Higher functions as mentioned earlier, moves all 4 limbs, no focal deficits. LYMPHATICS: No lymph node enlargement in the neck or axillae. SKIN: No rash, no bleeding, no rashes. JOINTS: No active arthropathy. LABS: WBC 19.1, hemoglobin 7.2, MCV 100.4, sodium 130, potassium 3.2, and calcium is 7.9. Total bilirubin is 12, AST is 128 and ALT is 70. Amylase and lipase normal. Albumin is 2.7, UA noted, possibly UTI. ASSESSMENT: 1. Abdominal pain, possibly acute hepatitis. 2. Hyperbilirubinemia. 3. Increased AST ALT. 4. Carcinoid syndrome. 5. Hyponatremia. 6. Hypokalemia. 7. Acute urinary tract infection present on admission. 8. Anemia macrocytic, possibly secondary to nutrition or alcohol. 9. History of ETOH. 10.History of rheumatoid arthritis. 11.History of fibromyalgia. 12.History of seizure disorder. 13.History of degenerative joint disease. 14.History of carcinoid syndrome. 15.History of hepatomegaly. 16.History of anxiety, bipolar depression. 17.History of PTSD. 18.History nicotine dependence. 19.FULL CODE. RECOMMENDATION: In this 43-year-old woman who presented with multiple medical issues, will monitor the patient closely, continue with the current management and symptomatic treatment. I would recommend empiric antibiotics for UTI. Otherwise, continue to monitor. Symptomatic treatment for the pain. Gastroenterology and Hematology;Oncology will be consulted for abdominal symptoms, jaundice and carcinoid syndrome respectively. Otherwise, resume the home medications. Prognosis guarded because of multiple complex medical conditions: Further recommendations to follow. MMODL / IJN: [id number] / WILDER
[2018-05-18 16:57] LABS: Glucose,Whole Blood 112 mg/dL (75-99)
[2018-05-18] MEDS: 0.9% NACL WITH KCL 40 MEQ/L 1,000 ML IV SCH (17:10)
--- NOTE | 2018-05-18 19:15 | CT ---
EXAMINATION TYPE: CT abdomen pelvis wo con DATE OF EXAM: 05/18/2018 COMPARISON: 03/01/2018 INDICATION: Jaundice, cirrhosis. DLP: 448.1 mGycm, Automated exposure control for dose reduction was used. CONTRAST: 0 mL of Isovue 300. Study performed with Oral Contrast TECHNIQUE: Axial images were obtained from above the diaphragm to the pubic rami in the axial plane a t 5 mm thick sections. Reconstructed images are reviewed on the computer in the coronal plane. FINDINGS: Limited CT sections are obtained the lung bases. The lung bases are clear. CT ABDOMEN: Liver: There is moderate to marked fatty infiltration to the liver. No discrete masses are identified . No cysts are present. Spleen: Normal Pancreas: Normal Adrenal glands: The adrenal glands are normal. Gallbladder: Normal Kidneys: No masses are evident. No hydronephrosis is present. No cysts are present. No renal stone s are evident. Aorta: Vascular calcification is within the aorta. Inferior vena cava: Normal. CT PELVIS: No suspicious inflammatory change or desmoplastic reaction is identified within the abdome n or pelvis. Loops of bowel within the abdomen and pelvis are normal. There are loops of bowel which are incom pletely distended or lack oral contrast limiting their evaluation. Appendix: Normal as visualized. Urinary bladder: Partially decompressed. Genitourinary structures: Uterus is unremarkable. Adnexal regions are clear. Osseous structures: No suspicious lytic or sclerotic lesions. IMPRESSIONS: 1. Moderate to marked fatty infiltration to the liver. 2. No suspicious areas suspicious for carcinoid tumor by CT.
[2018-05-18 20:10] LABS: Glucose,Whole Blood 132 mg/dL (75-99)
[2018-05-18] MEDS: HEPARIN SODIUM,PORCINE 5,000 UNIT/ML 1 ML VIAL SQ SCH (20:45)
[2018-05-18] MEDS: FAMOTIDINE 20 MG TAB PO SCH (20:45)
[2018-05-18] MEDS: LORazepam 0.5 MG TAB PO PRN (23:18)
[2018-05-19] MEDS: MORPHINE SULFATE 4 MG/ML SYRINGE IV PRN ×6 (01:05→22:37)
[2018-05-19] MEDS: TEMAZEPAM 15 MG CAP PO PRN ×2 (02:17→23:28)
[2018-05-19 06:54] LABS: Glucose,Whole Blood 99 mg/dL (75-99)
[2018-05-19] MEDS: 0.9% NACL WITH KCL 40 MEQ/L 1,000 ML IV SCH ×2 (07:38→21:29)
[2018-05-19] MEDS: FAMOTIDINE 20 MG TAB PO SCH ×2 (07:39→21:14)
[2018-05-19] MEDS: CYANOCOBALAMIN 500 MCG TAB PO SCH (07:40)
[2018-05-19] MEDS: MULTIVITAMINS, THERA 1 EACH TAB PO SCH (07:40)
[2018-05-19] MEDS: PANTOPRAZOLE 40 MG/10 ML VIAL IV SCH (07:40)
[2018-05-19] MEDS: MAGNESIUM OXIDE 400 MG TAB PO SCH (07:40)
[2018-05-19] MEDS: ASCORBIC ACID 500 MG TAB PO SCH (07:40)
[2018-05-19] MEDS: HEPARIN SODIUM,PORCINE 5,000 UNIT/ML 1 ML VIAL SQ SCH ×2 (07:43→21:14)
[2018-05-19 08:20] LABS: Anisocytosis Moderate; Basophils % (A) 0 %; Eosinophils # (A) 0.1 k/uL (0-0.7); Eosinophils % (A) 2 %; HCT 20.9 % (34.0-46.0); Hypochromasia Moderate; Lymphocytes % (A) 26 %; MCH 35.1 pg (25.0-35.0); MCHC 32.9 g/dL (31.0-37.0); Macrocytosis Marked; Mean Platelet Volume 7.7; Monocytes # (A) 0.3 k/uL (0-1.0); Monocytes % (A) 4 %; Neutrophils # (A) 5.1 k/uL (1.3-7.7); Neutrophils % (A) 67 %; Platelet Count 225 k/uL (150-450); Poikilocytosis Slight; RBC 1.96 m/uL (3.80-5.40); RDW 20.5 % (11.5-15.5); WBC 7.6 k/uL (3.8-10.6)
[2018-05-19 08:21] LABS: ALT 64 U/L (9-52); AST 122 U/L (14-36); Albumin 2.6 g/dL (3.5-5.0); Alkaline Phosphatase 158 U/L (38-126); Anion Gap 5 mmol/L; Blood Urea Nitrogen 2 mg/dL (7-17); Calcium 7.8 mg/dL (8.4-10.2); Carbon Dioxide 20 mmol/L (22-30); Chloride 111 mmol/L (98-107); Glucose 73 mg/dL (74-99); Potassium 4.3 mmol/L (3.5-5.1); Sodium 136 mmol/L (137-145); Total Bilirubin 10.6 mg/dL (0.2-1.3); Total Protein 5.4 g/dL (6.3-8.2)
[2018-05-19 08:23] LABS: MCV 106.7 fL (80.0-100.0)
[2018-05-19 08:26] LABS: HGB 6.9 gm/dL (11.4-16.0)
[2018-05-19] MEDS ORDERED: NON-FORMULARY DRUG (Omega-3 Fatty Acids/Fish Oil [Fish Oil 1,000 Mg Softgel] 1 CAP) PO SCH (09:00)
[2018-05-19 11:09] LABS: Glucose,Whole Blood 117 mg/dL (75-99)
[2018-05-19 14:23] LABS: Polychromasia Present
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
[2018-05-19 17:05] LABS: Glucose,Whole Blood 107 mg/dL (75-99)
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
--- NOTE | 2018-05-19 19:47 | PN ---
PROGRESS NOTE DATE OF SERVICE: 05/19/2018 This 43-year-old woman was admitted with severe abdominal pain, also had features of hyperbilirubinemia with possible acute hepatitis. Patient also has history of carcinoid syndrome. Repeat CT scan showed no evidence of carcinoid apparently. The patient is complaining of severe abdominal pain. Gastrology following the patient closely. Hemoglobin dropped to 6.9, sodium 133. LFTs elevated. Gastroenterology following the patient closely. PAST MEDICAL HISTORY: Reviewed. REVIEW OF SYSTEMS: Cardiovascular: No angina or palpitations. Respirations: No cough, hemoptysis. GI as mentioned earlier. no dysuria. Nervous system: No numbness or weakness. CURRENT MEDICATIONS: Reviewed and include: 1. Vitamin C 500 mg daily. 2. Rocephin 1 g daily. 3. Vitamin B12 1000 mcg daily. 4. Pepcid 10 mg b.i.d. 5. Heparin 5000 subcu b.i.d. 6. Ativan. 7. Magnesium oxide. 8. Multivitamins. 9. Zofran. 10.Protonix 40 mg IV daily. 11.Restoril 50 mg q.h.s. PHYSICAL EXAMINATION: The patient is alert and oriented times three. Pulse is 95. Blood pressure 110/72, respiratory rate 16. Temperature 97.2, pulse ox 98% on room air. HEENT: Conjunctivae normal. Oral mucosa moist. NECK: No jugular venous distention. No carotid bruit. No lymph node enlargement. Cardiovascular system: S1, S2. RESPIRATORY: Breath sounds diminished in the bases. A few scattered rhonchi and crackles. Abdomen is soft, nontender. No mass palpable. Legs: No edema. No swelling. CENTRAL NERVOUS SYSTEM: Higher functions as mentioned earlier. Moves all four extremities. No focal deficits. Lymphatics: No lymph nodes palpable in the neck, axillae or groin. Skin: No ulcer. No rash and no bleeding. JOINTS: No active deforming arthropathy. LAB STUDIES: WBC ntd, hemoglobin ntd, MCV 106, sodium 136 and calcium 7.8, and total bilirubin is 10.6. AST, ALT elevated, alkaline phosphatase 158, albumin is 2.6. Yesterday the total bilirubin was 12. ASSESSMENT: 1. Abdominal pain with possible acute hepatitis. 2. Acute blood loss anemia, possibly gastrointestinal blood loss, acute on chronic. 3. Hyperbilirubinemia with possible acute alcoholic hepatitis. 4. Increased AST/ALT. 5. History of carcinoid syndrome. 6. Hyponatremia. 7. Hypokalemia. 8. Acute urinary tract infection present on admission. 9. Anemia macrocytic, possibly secondary to nutritional and alcohol. 10.History of EtOH. 11.History of rheumatoid arthritis. 12.History of fibromyalgia. 13.History of seizure disorder. 14.History of degenerative joint disease. 15.History of carcinoid syndrome. 16.Hepatomegaly. 17.History of anxiety, bipolar depression. 18.History of PTSD. 19.History of nicotine dependence. 20.FULL CODE. RECOMMENDATIONS AND DISCUSSION: Recommend to continue current medications, continue with monitoring, symptomatic treatment. Otherwise, at this time, I would recommend continue to monitor. Transfuse one unit cautiously. Otherwise, the CT scan showed moderate to marked fatty infiltration. Gastroenterology evaluation for possible endoscopies. Guarded prognosis. Further recommendations to follow. See orders for details. DVT prophylaxis. MMODL / IJN: [id number] / MTDD
[2018-05-19 21:00] LABS: Glucose,Whole Blood 129 mg/dL (75-99)
[2018-05-19] MEDS: LORazepam 0.5 MG TAB PO PRN (21:14)
[2018-05-20] MEDS: MORPHINE SULFATE 4 MG/ML SYRINGE IV PRN ×4 (02:59→16:18)
[2018-05-20 06:53] LABS: Glucose,Whole Blood 105 mg/dL (75-99)
[2018-05-20 07:35] LABS: Anisocytosis Moderate; Basophils % (A) 0 %; Eosinophils # (A) 0.1 k/uL (0-0.7); Eosinophils % (A) 1 %; HCT 26.2 % (34.0-46.0); HGB 8.2 gm/dL (11.4-16.0); Hypochromasia Moderate; Lymphocytes # (A) 1.9 k/uL (1.0-4.8); Lymphocytes % (A) 29 %; MCH 32.6 pg (25.0-35.0); MCHC 31.4 g/dL (31.0-37.0); MCV 103.8 fL (80.0-100.0); Macrocytosis Marked; Mean Platelet Volume 7.1; Monocytes # (A) 0.3 k/uL (0-1.0); Monocytes % (A) 5 %; Neutrophils # (A) 4.2 k/uL (1.3-7.7); Neutrophils % (A) 63 %; Platelet Count 188 k/uL (150-450); Poikilocytosis Slight; RBC 2.52 m/uL (3.80-5.40); RDW 22.9 % (11.5-15.5); WBC 6.7 k/uL (3.8-10.6)
[2018-05-20 07:51] LABS: ALT 65 U/L (9-52); AST 132 U/L (14-36); Albumin 2.5 g/dL (3.5-5.0); Alkaline Phosphatase 162 U/L (38-126); Anion Gap 5 mmol/L; Blood Urea Nitrogen 2 mg/dL (7-17); Carbon Dioxide 19 mmol/L (22-30); Chloride 112 mmol/L (98-107); Glucose 83 mg/dL (74-99); Potassium 4.6 mmol/L (3.5-5.1); Sodium 136 mmol/L (137-145); Total Bilirubin 10.3 mg/dL (0.2-1.3); Total Protein 5.4 g/dL (6.3-8.2)
[2018-05-20] MEDS: FAMOTIDINE 20 MG TAB PO SCH (07:55)
[2018-05-20] MEDS: PANTOPRAZOLE 40 MG/10 ML VIAL IV SCH (07:55)
[2018-05-20] MEDS: HEPARIN SODIUM,PORCINE 5,000 UNIT/ML 1 ML VIAL SQ SCH (07:55)
[2018-05-20] MEDS: MAGNESIUM OXIDE 400 MG TAB PO SCH (07:56)
[2018-05-20] MEDS: CYANOCOBALAMIN 500 MCG TAB PO SCH (07:57)
[2018-05-20] MEDS: ASCORBIC ACID 500 MG TAB PO SCH (07:58)
[2018-05-20] MEDS: MULTIVITAMINS, THERA 1 EACH TAB PO SCH (07:59)
[2018-05-20] MEDS: 0.9% NACL WITH KCL 40 MEQ/L 1,000 ML IV SCH (08:00)
[2018-05-20 09:13] LABS: Reticulocyte % 10.9 % (0.5-2.0)
[2018-05-20 10:58] LABS: Glucose,Whole Blood 107 mg/dL (75-99)
[2018-05-20 11:51] VITALS: BP 128/86; PULSE 105; RESP 17; TEMP 97.4
[2018-05-20 16:28] LABS: Protein, Total 4.8 g/dL (6.2-8.2)
--- NOTE | 2018-05-20 20:48 | P.PN ---
Objective - Vital Signs Vital signs: Vital Signs Temp 97.4 F L 05/20/18 11:50 Pulse 105 H 05/20/18 11:50 Resp 17 05/20/18 11:50 BP 128/86 05/20/18 11:50 Pulse Ox 97 05/20/18 11:50 Intake & Output 05/20/18 05/20/18 05/21/18 06:59 18:59 06:59 Intake Total 3060 600 Balance 3060 600 Intake: Intake, IV Titration 350 600 Amount 0.9% NaCl with KCl 40 Meq 350 600 /l 1,000 ml @ 75 mls/hr IV .[id number] MONIKA Rx#: [id number] Oral 2710 Other: Voiding Method Toilet Toilet # Voids 3 - Labs CBC & Chem 7: 05/20/18 07:03 05/20/18 07:03 Labs: Abnormal Lab Results - Last 24 Hours (Table) 05/19/18 05/20/18 05/20/18 Range/Units 20:19 06:52 07:03 RBC (3.80-5.40) m/uL Hgb (11.4-16.0) gm/dL Hct (34.0-46.0) % MCV (80.0-100.0) fL RDW (11.5-15.5) % Retic Count (0.5-2.0) % Sodium (137-145) mmol/L Chloride (98-107) mmol/L Carbon Dioxide (22-30) mmol/L BUN (7-17) mg/dL Creatinine (0.52-1.04) mg/dL POC Glucose (mg/dL) 129 H 105 H (75-99) mg/dL Calcium (8.4-10.2) mg/dL TIBC 196 L (228-460) ug/dL Ferritin 630.3 H (10.0-291.0) ng/mL Total Bilirubin (0.2-1.3) mg/dL AST (14-36) U/L ALT (9-52) U/L Alkaline Phosphatase (38-126) U/L Total Protein (6.3-8.2) g/dL Total Protein (PEP) 4.8 L (6.2-8.2) g/dL Albumin (3.5-5.0) g/dL Vitamin B12 1383.0 H (200.0-944.0) pg/mL 05/20/18 05/20/18 05/20/18 Range/Units 07:03 07:03 10:56 RBC 2.52 L (3.80-5.40) m/uL Hgb 8.2 L (11.4-16.0) gm/dL Hct 26.2 L (34.0-46.0) % MCV 103.8 H (80.0-100.0) fL RDW 22.9 H (11.5-15.5) % Retic Count 10.9 H (0.5-2.0) % Sodium 136 L (137-145) mmol/L Chloride 112 H (98-107) mmol/L Carbon Dioxide 19 L (22-30) mmol/L BUN 2 L (7-17) mg/dL Creatinine 0.31 L (0.52-1.04) mg/dL POC Glucose (mg/dL) 107 H (75-99) mg/dL Calcium 8.0 L (8.4-10.2) mg/dL TIBC (228-460) ug/dL Ferritin (10.0-291.0) ng/mL Total Bilirubin 10.3 H (0.2-1.3) mg/dL AST 132 H (14-36) U/L ALT 65 H (9-52) U/L Alkaline Phosphatase 162 H (38-126) U/L Total Protein 5.4 L (6.3-8.2) g/dL Total Protein (PEP) (6.2-8.2) g/dL Albumin 2.5 L (3.5-5.0) g/dL Vitamin B12 (200.0-944.0) pg/mL Microbiology - Last 24 Hours (Table) 05/18/18 03:40 Blood Culture - Preliminary Blood No Growth after 48 hours 05/18/18 04:02 Blood Culture - Preliminary Blood No Growth after 48 hours 05/18/18 18:00 Urine Culture - Final Urine,Voided Assessment and Plan (1) Alcoholic liver disease Narrative/Plan: Elevation in liver enzymes in both a hepatocellular and cholestatic pattern consistent with known history of alcohol abuse and active alcohol consumption. Status: Acute Code(s): K70.9 - ALCOHOLIC LIVER DISEASE, UNSPECIFIED SNOMED Code(s): 54378185 (2) Anemia Narrative/Plan: Patient with a macrocytic anemia with normal iron studies, likely related to nutritional deficiencies and myelotoxicity of alcohol. No signs or symptoms of GI bleeding on this admission. She also had an upper endoscopy for evaluation of anemia in February which was significant only for gastritis with no varices of the esophagus or stomach seen. However if further fall in hemoglobin can consider repeat endoscopic evaluation. Status: Acute Code(s): D64.9 - ANEMIA, UNSPECIFIED SNOMED Code(s): 603747999 (3) Gastritis Status: Acute Code(s): K29.70 - GASTRITIS, UNSPECIFIED, WITHOUT BLEEDING SNOMED Code(s): 7138436 (4) Hyperbilirubinemia Status: Acute Code(s): E80.6 - OTHER DISORDERS OF BILIRUBIN METABOLISM SNOMED Code(s): 82970270 Plan: Supportive care Okay for low-sodium diet Continue to monitor liver enzymes Continue to monitor hemoglobin and transfuse as needed Continue Protonix therapy No plans for endoscopic evaluation at this time, however if the patient has signs or symptoms of GI bleeding or fall in hemoglobin we'll consider further valuation Alcohol abstinence Monitor for symptoms of alcohol withdrawal Thank you for allowing us to participate in the care of the patient we will continue to follow
--- NOTE | 2018-05-21 05:16 | DS ---
DISCHARGE SUMMARY DATE OF SERVICE: 05/20/2018 FINAL DIAGNOSES: 1. Abdominal pain with possible acute hepatitis. 2. Acute blood loss anemia, possibly gastrointestinal blood loss, acute on chronic. 3. Hyperbilirubinemia with possible acute alcoholic hepatitis. 4. Increased AST, ALT. 5. History of carcinoid syndrome with no evidence of any current activity per Dr. Kay. 6. Hyponatremia. 7. Hypokalemia. 8. Acute urinary tract infection, present on admission. 9. Acute anemia, microcytic possibly secondary to nutrition and alcohol. 10.History of EtOH. 11.History of rheumatoid arthritis. 12.History of fibromyalgia. 13.History of seizure disorder. 14.History of degenerative joint disease. 15.History of hepatomegaly. 16.History of anxiety, bipolar depression. 17.History of posttraumatic stress disorder. 18.History of nicotine dependence. 19.FULL CODE. DISCHARGE DISPOSITION: The patient will be discharged in stable condition with guarded prognosis. Total time taken 35 minutes HISTORY OF PRESENT ILLNESS: This 43-year-old woman who admitted with abdominal pain as well as acute hepatitis C treated symptomatically. Dr. Kay saw the as well as GI. The patient improved significantly, treatment symptomatically. Alcohol cessation has been advised. On exam, vitals are stable. CARDIOVASCULAR: S1, S2. ABDOMEN: Soft. NERVOUS SYSTEM: No focal deficits. Lab lopez, the bilirubin is stable around 10.3. The patient is keen on going home at this time. I recommend the patient go home, but with recommendation to follow with rehab and alcohol rehab and continue to monitor. DISCHARGE ADVICE: 1. Diet is cardiac. 2. Activity limited until followup. 3. Follow up with primary physician as recommended. Medications are: 1. [place]-3 fatty acids 1 p.o. daily. 2. Magnesium 200 mg p.o. daily. 3. Multivitamins one p.o. daily. 4. Pepcid AC 10 mg p.o. b.i.d. 5. Vitamin B12, 1000 p.o. daily. 6. Ceftin 500 p.o. b.i.d. for 3 days. 7. Protonix 40 mg p.o. daily. CBC and CMP. Follow up with Dr. Shay. MMODL / IJN: [id number] / [facility]
[2018-05-21] MEDS ORDERED: PANTOPRAZOLE 40 MG TABLET PO SCH (07:30)
[2018-05-21 14:48] LABS: Albumin 2.82 g/dL (3.80-4.90)
== END 2018-05-20 19:05 | disposition home or self-care (01) | DRG 433 ==
LOC: EC 23:39 → 3NMEDONC 05-18 03:44
PROVIDERS: ADMIT Internal Medicine; ATTEND Internal Medicine
DX: K70.10 Alcoholic hepatitis without ascites (principal); B17.10 Acute hepatitis C without hepatic coma; D62 Acute posthemorrhagic anemia; E87.1 Hypo-osmolality and hyponatremia; N39.0 Urinary tract infection, site not specified; K92.2 Gastrointestinal hemorrhage, unspecified; F10.10 Alcohol abuse, uncomplicated; D53.9 Nutritional anemia, unspecified; E83.42 Hypomagnesemia; E87.6 Hypokalemia; F17.210 Nicotine dependence, cigarettes, uncomplicated; E80.7 Disorder of bilirubin metabolism, unspecified; F31.9 Bipolar disorder, unspecified; F43.10 Post-traumatic stress disorder, unspecified; G40.909 Epilepsy, unspecified, not intractable, without status epilepticus; I25.2 Old myocardial infarction; K76.0 Fatty (change of) liver, not elsewhere classified; K83.8 Other specified diseases of biliary tract; M06.9 Rheumatoid arthritis, unspecified; M79.7 Fibromyalgia; Z95.1 Presence of aortocoronary bypass graft; Z62.819 Personal history of unspecified abuse in childhood; M19.90 Unspecified osteoarthritis, unspecified site; Z71.41 Alcohol abuse counseling and surveillance of alcoholic; Z88.6 Allergy status to analgesic agent; Z88.8 Allergy status to other drugs, medicaments and biological substances
CPT/HCPCS: 36415; 74176; 76700; 80053; 81001; 82150; 82607; 82728; 83540; 83550; 83605; 83690; 83735; 83883; 83921; 84132; 84165; 84484; 85025; 85045; 85610; 85730; 86334; 86850; 86900; 86901; 86920; 87040; 87086; 96365; 96375; 99285

== ENCOUNTER 2018-10-08 16:18 | Emergency (ER) | payer OTHER ==
[2018-10-08 16:47] VITALS: RESP 18
[2018-10-08] MEDS ORDERED: ONDANSETRON 4 MG/2 ML VIAL IVP STA (17:43)
[2018-10-08] MEDS ORDERED: SODIUM CHLORIDE 0.9% 1,000 ML IV STA (17:43)
[2018-10-08] MEDS ORDERED: DIAZEPAM 5 MG/ML 2 ML INJ IVP STA (18:06)
--- NOTE | 2018-10-08 18:28 | ED ---
Abdominal Pain HPI - General Source: patient Mode of arrival: ambulatory Limitations: no limitations <Janusz Vu - Last Filed: 10/08/18 20:48> <Nav Georges - Last Filed: 10/08/18 22:06> - General Chief Complaint: Abdominal Pain Stated Complaint: vomiting, nausea, liver problem Time Seen by Provider: 10/08/18 17:37 - History of Present Illness Initial Comments: Patient is a 42-year-old female with history of lupus, hepatic cirrhosis, chronic pancreatitis and alcoholism is presenting to emergency Department with a chief complaint of abdominal pain, nausea vomiting diarrhea 3 days. Patient reports she has been constantly drinking rum over the past week. Patient reports drinking approximately a fifth to a half a gallon of alcohol daily. Patient reports her last drink was today at 1300. Patient reports an onset of right upper quadrant epigastric pain that is constant and sharp. Patient also reports right lower quadrant pain. Patient also reports a history of epilepsy is concerned for possible seizures. Patient denies hemoptysis, hematuria, hematochezia or melena. Patient denies any urinary or bowel symptoms. (Janusz Vu) - Related Data Home Medications Medication Instructions Recorded Confirmed ALPRAZolam [Xanax] 0.5 mg PO DAILY PRN 10/08/18 10/08/18 Albuterol Inhaler [Ventolin Hfa 1 - 2 puff INHALATION RT-Q6H PRN 10/08/18 10/08/18 Inhaler] Atorvastatin Calcium [Lipitor] 20 mg PO DAILY 10/08/18 10/08/18 DULoxetine HCL [Cymbalta] 30 mg PO DAILY 10/08/18 10/08/18 Gabapentin [Neurontin] 300 mg PO QID 10/08/18 10/08/18 Melatonin 5 mg PO HS 10/08/18 10/08/18 Methocarbamol [Robaxin-750] 750 mg PO BID 10/08/18 10/08/18 Metoprolol Tartrate [Lopressor] 50 mg PO BID 10/08/18 10/08/18 Potassium 99 mg PO DAILY 10/08/18 10/08/18 Triamcinolone 0.1% Cream [Kenalog 1 applicatio TOPICAL TID 10/08/18 10/08/18 0.1% Cream] Previous Rx's Medication Instructions Recorded Pantoprazole Sodium [Protonix] 40 mg PO DAILY #30 tablet. 05/20/18 Allergies Allergy/AdvReac Type Severity Reaction Status Date / Time ibuprofen [From Motrin] Allergy Unknown Verified 10/08/18 18:37 NSAIDS (Non-Steroidal Allergy Unknown Verified 10/08/18 18:37 Anti-Inflamma quetiapine [From Seroquel] Allergy Unknown Verified 10/08/18 18:37 Review of Systems ROS Other: All systems not noted in ROS Statement are negative. <Janusz Vu - Last Filed: 10/08/18 20:48> ROS Other: All systems not noted in ROS Statement are negative. <Nav Georges - Last Filed: 10/08/18 22:06> ROS Statement: Those systems with pertinent positive or pertinent negative responses have been documented in the HPI. 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, carsinoid syndrome, enlarge liver, lupus, chronic pancreatitis, pancreatic tumor Last Myocardial Infarction Date:: 01/2017 History of Any Multi-Drug Resistant Organisms: None Reported Past Surgical History: No Surgical Hx Reported Additional Past Surgical History / Comment(s): Left hand surgery Past Anesthesia/Blood Transfusion Reactions: No Reported Reaction Past Psychological History: Anxiety, Bipolar, Depression Smoking Status: Current every day smoker Past Alcohol Use History: Abuse, Daily, Heavy Past Drug Use History: Marijuana - Past Family History Father Family Medical History: No Reported History <Janusz Vu - Last Filed: 10/08/18 20:48> General Exam Limitations: no limitations General appearance: alert, in no apparent distress, anxious Head exam: Present: atraumatic, normocephalic, normal inspection, other (Butterfly Maller rash noted on face) Eye exam: Present: normal appearance, PERRL, EOMI. Absent: conjunctival injection Pupils: Present: normal accommodation ENT exam: Present: normal exam, normal oropharynx (Multiple oral lesions), m ucous membranes moist, TM's normal bilaterally, normal external ear exam Neck exam: Present: normal inspection, full ROM Respiratory exam: Present: normal lung sounds bilaterally Cardiovascular Exam: Present: regular rate, normal rhythm, normal heart sounds GI/Abdominal exam: Present: soft, tenderness (Right upper quadrant epigastric. Right lower quadrant. McBurney point tenderness. Negative Rovsing, negative psoas, negative obturator. Positive Vizcaino), normal bowel sounds. Absent: distended, guarding, rebound Extremities exam: Present: normal inspection, full ROM, normal capillary refill, other (Bilateral upper extremities tremors). Absent: tenderness, calf te nderness Back exam: Present: normal inspection, full ROM. Absent: CVA tenderness (R), CVA tenderness (L) Neurological exam: Present: alert, oriented X3 Psychiatric exam: Present: normal affect, normal mood Skin exam: Present: warm, intact, normal color, rash (Facial Mallar rash.) <Janusz Vu - Last Filed: 10/08/18 20:48> Course Vital Signs 10/08/18 10/08/18 10/08/18 16:42 18:40 20:12 Temperature 98.2 F Pulse Rate 136 H 122 H 113 H Respiratory 18 18 18 Rate Blood Pressure 171/104 145/105 136/83 O2 Sat by Pulse 98 98 96 Oximetry Medical Decision Making - Lab Data Result diagrams: 10/08/18 18:20 10/08/18 18:20 <Janusz Vu - Last Filed: 10/08/18 20:48> - Lab Data Result diagrams: 10/08/18 18:20 10/08/18 18:20 - Radiology Data Radiology results: report reviewed (Computed tomography scan of the abdomen pelvis does show pseudocyst formation.), image reviewed (Chest and abdominal x- ray shows no acute process) <Nav Georges - Last Filed: 10/08/18 22:06> - Medical Decision Making Patient is a 42-year-old female with history of chronic pancreatitis, hepatic cirrhosis and alcoholism is presenting to emergency Department with chief complaint nausea vomiting and diarrhea 3 days. Patient reports drinking excessive amounts of alcohol for the past week and has quit about 8 hours ago. Patient also reports an exacerbation of her lupus symptoms which consist of a malar rash and lesions in the oral cavity. Patient has a CIWA score of 15. P atient was placed on CIWA protocol. Patient was given thiamine and fluids. Patient was given oxycodone for pain. CBC does not indicate leukocytosis. Patient appears to be hypokalemic based on CMP. Patient was given 30 mg of k- dur. Patient also given 30 mg of study measurable to alleviate the lupus exacerbations. Patient reports the nausea has resolved after Zofran. CT of abdomen and pelvis pending. Case signed out to Dr. Georges. (Janusz Vu) Patient reevaluated and requesting discharge home. Abdomen soft and nontender. Patient states she is aware of pseudocyst from previous computed tomography scan by her meat stringer and states she will follow-up. (Nav Georges) - Lab Data Lab Results 10/08/18 10/08/18 10/08/18 Range/Units 18:20 18:20 18:30 WBC 7.1 (3.8-10.6) k/uL RBC 3.98 (3.80-5.40) m/uL Hgb 12.5 (11.4-16.0) gm/dL Hct 35.5 (34.0-46.0) % MCV 89.3 (80.0-100.0) fL MCH 31.4 (25.0-35.0) pg MCHC 35.2 (31.0-37.0) g/dL RDW 15.0 (11.5-15.5) % Plt Count 120 L (150-450) k/uL Neutrophils % 58 % Lymphocytes % 36 % Monocytes % 3 % Eosinophils % 1 % Basophils % 1 % Neutrophils # 4.1 (1.3-7.7) k/uL Lymphocytes # 2.6 (1.0-4.8) k/uL Monocytes # 0.2 (0-1.0) k/uL Eosinophils # 0.0 (0-0.7) k/uL Basophils # 0.0 (0-0.2) k/uL Sodium 132 L (137-145) mmol/L Potassium 3.0 L (3.5-5.1) mmol/L Chloride 93 L (98-107) mmol/L Carbon Dioxide 17 L (22-30) mmol/L Anion Gap 22 mmol/L BUN 9 (7-17) mg/dL Creatinine 0.74 (0.52-1.04) mg/dL Est GFR (CKD-EPI)AfAm >90 (>60 ml/min/1.73 sqM) Est GFR (CKD-EPI)NonAf >90 (>60 ml/min/1.73 sqM) Glucose 98 (74-99) mg/dL Calcium 9.3 (8.4-10.2) mg/dL Magnesium 1.4 L (1.6-2.3) mg/dL Total Bilirubin 1.3 (0.2-1.3) mg/dL AST 32 (14-36) U/L ALT 23 (9-52) U/L Alkaline Phosphatase 170 H (38-126) U/L Total Protein 8.6 H (6.3-8.2) g/dL Albumin 5.0 (3.5-5.0) g/dL Amylase 129 H (30-110) U/L Lipase 145 (23-300) U/L Urine Color Yellow Urine Appearance Cloudy H (Clear) Urine pH 5.5 (5.0-8.0) Ur Specific [place] 1.028 (1.001-1.035) Urine Protein 1+ H (Negative) Urine Glucose (UA) Negative (Negative) Urine Ketones 1+ H (Negative) Urine Blood Negative (Negative) Urine Nitrite Negative (Negative) Urine Bilirubin Negative (Negative) Urine Urobilinogen 2.0 (<2.0) mg/dL Ur Leukocyte Esterase Small H (Negative) Urine RBC 2 (0-5) /hpf Urine WBC 21 H (0-5) /hpf Ur Squamous Epith Cells 11 H (0-4) /hpf Urine Bacteria Many H (None) /hpf Hyaline Casts 5 H (0-2) /lpf Urine Mucus Few H (None) /hpf Urine HCG, Qual (Not Detectd) 10/08/18 Range/Units 18:30 WBC (3.8-10.6) k/uL RBC (3.80-5.40) m/uL Hgb (11.4-16.0) gm/dL Hct (34.0-46.0) % MCV (80.0-100.0) fL MCH (25.0-35.0) pg MCHC (31.0-37.0) g/dL RDW (11.5-15.5) % Plt Count (150-450) k/uL Neutrophils % % Lymphocytes % % Monocytes % % Eosinophils % % Basophils % % Neutrophils # (1.3-7.7) k/uL Lymphocytes # (1.0-4.8) k/uL Monocytes # (0-1.0) k/uL Eosinophils # (0-0.7) k/uL Basophils # (0-0.2) k/uL Sodium (137-145) mmol/L Potassium (3.5-5.1) mmol/L Chloride (98-107) mmol/L Carbon Dioxide (22-30) mmol/L Anion Gap mmol/L BUN (7-17) mg/dL Creatinine (0.52-1.04) mg/dL Est GFR (CKD-EPI)AfAm (>60 ml/min/1.73 sqM) Est GFR (CKD-EPI)NonAf (>60 ml/min/1.73 sqM) Glucose (74-99) mg/dL Calcium (8.4-10.2) mg/dL Magnesium (1.6-2.3) mg/dL Total Bilirubin (0.2-1.3) mg/dL AST (14-36) U/L ALT (9-52) U/L Alkaline Phosphatase (38-126) U/L Total Protein (6.3-8.2) g/dL Albumin (3.5-5.0) g/dL Amylase (30-110) U/L Lipase (23-300) U/L Urine Color Urine Appearance (Clear) Urine pH (5.0-8.0) Ur Specific [place] (1.001-1.035) Urine Protein (Negative) Urine Glucose (UA) (Negative) Urine Ketones (Negative) Urine Blood (Negative) Urine Nitrite (Negative) Urine Bilirubin (Negative) Urine Urobilinogen (<2.0) mg/dL Ur Leukocyte Esterase (Negative) Urine RBC (0-5) /hpf Urine WBC (0-5) /hpf Ur Squamous Epith Cells (0-4) /hpf Urine Bacteria (None) /hpf Hyaline Casts (0-2) /lpf Urine Mucus (None) /hpf Urine HCG, Qual Not Detected (Not Detectd) Disposition <Janusz Vu - Last Filed: 10/08/18 20:48> Is patient prescribed a controlled substance at d/c from ED?: No Time of Disposition: 22:05 <Nav Georges - Last Filed: 10/08/18 22:06> Clinical Impression: Abdominal pain, Vomiting, Pancreatic pseudocyst Disposition: HOME SELF-CARE Condition: Stable Instructions (If sedation given, give patient instructions): Abdominal Pain (ED), Pancreatic Pseudocyst ([place]) Additional Instructions: Discontinue alcohol use. Please follow-up with primary care physician in the next day or 2 for recheck. Please also follow-up with your meat stringer in the next day or 2 for recheck. Return for increased pain, uncontrolled vomiting, fevers, worsening symptoms or other concerns. Referrals: Julia Land MD [STAFF PHYSICIAN] - 1-2 days Deni Shay MD [STAFF PHYSICIAN] - 1-2 days
[2018-10-08 18:50] LABS: Basophils % (A) 1 %; Eosinophils % (A) 1 %; HCT 35.5 % (34.0-46.0); HGB 12.5 gm/dL (11.4-16.0); Lymphocytes # (A) 2.6 k/uL (1.0-4.8); Lymphocytes % (A) 36 %; MCH 31.4 pg (25.0-35.0); MCHC 35.2 g/dL (31.0-37.0); MCV 89.3 fL (80.0-100.0); Mean Platelet Volume 7.2; Monocytes # (A) 0.2 k/uL (0-1.0); Monocytes % (A) 3 %; Neutrophils # (A) 4.1 k/uL (1.3-7.7); Neutrophils % (A) 58 %; Platelet Count 120 k/uL (150-450); RBC 3.98 m/uL (3.80-5.40); WBC 7.1 k/uL (3.8-10.6)
[2018-10-08 18:54] LABS: Appearance,Urine Cloudy (Clear); Bacteria,Urine Many /hpf; Bilirubin,Urine Negative (Negative); Blood,Urine Negative (Negative); Color,Urine Yellow; Glucose,Urine (UA) Negative (Negative); Hyaline Casts,Urine 5 /lpf (0-2); Ketones,Urine 1+ (Negative); Leukocyte Esterase,Urine Small (Negative); Mucus,Urine Few /hpf; Nitrite,Urine Negative (Negative); PH, Urine 5.5 (5.0-8.0); Protein,Urine 1+ (Negative); RBC,Urine 2 /hpf (0-5); Specific Gravity,Urine 1.028 (1.001-1.035); Squamous Epithelial Cell,Urine 11 /hpf (0-4); WBC,Urine 21 /hpf (0-5)
[2018-10-08] MEDS ORDERED: LORazepam 2 MG/ML INJ IV PRN ×3 (18:58)
[2018-10-08 19:04] LABS: ALT 23 U/L (9-52); AST 32 U/L (14-36); African American GFR (CKD) >90 (>60 ml/min/1.73 sqM); Alkaline Phosphatase 170 U/L (38-126); Amylase 129 U/L (30-110); Anion Gap 22 mmol/L; Blood Urea Nitrogen 9 mg/dL (7-17); Calcium 9.3 mg/dL (8.4-10.2); Carbon Dioxide 17 mmol/L (22-30); Chloride 93 mmol/L (98-107); Glucose 98 mg/dL (74-99); Magnesium 1.4 mg/dL (1.6-2.3); Sodium 132 mmol/L (137-145); Total Bilirubin 1.3 mg/dL (0.2-1.3); Total Protein 8.6 g/dL (6.3-8.2)
--- NOTE | 2018-10-08 19:11 | XR ---
EXAMINATION: XR chest 2V DATE AND TIME: 10/08/2018 6:06 PM CLINICAL INDICATION: PHH; abdominal pain TECHNIQUE: Departmental protocol COMPARISON: 03/01/2018 FINDINGS: The lungs are clear. The pleural spaces are negative. The cardiac silhouette is not enlarged. The remainder of the mediastinal silhouette is unremarkable. The skeletal structures and soft tissues are negative for acute findings. IMPRESSION: NO ACUTE PROCESS.
--- NOTE | 2018-10-08 19:13 | XR ---
EXAMINATION TYPE: XR KUB DATE OF EXAM: 10/08/2018 6:06 PM CLINICAL HISTORY: Pain and nausea and vomiting TECHNIQUE: 2 upright views COMPARISON: 12/29/2017 FINDINGS: Scattered gas is seen in non-distended small bowel loops. Gas and fecal material is seen in non-distended colon. There is no visceromegaly, pneumoperitoneum, or abnormal calcification apprecia alexandre. The lung bases are clear and the osseous structures are intact. IMPRESSION: No acute radiographic process.
[2018-10-08] MEDS ORDERED: THIAMINE 100 MG/ML 2 ML VIAL IVP ONE (19:30)
[2018-10-08] MEDS ORDERED: oxyCODONE ER 10 MG TAB.ER.12H PO STA (19:56)
[2018-10-08] MEDS ORDERED: POTASSIUM CHLORIDE ER 10 MEQ TAB.ER.PRT PO STA (20:50)
[2018-10-08] MEDS ORDERED: methylPREDNISolone SOD SUCCI 40 MG/ML 1 ML VIAL IV STA (20:50)
--- NOTE | 2018-10-08 21:26 | CT ---
EXAMINATION TYPE: CT abdomen pelvis w con DATE OF EXAM: 10/08/2018 COMPARISON: CT 05/18/2018 HISTORY: Abdominal pain CT DLP: 707 mGycm Automated exposure control for dose reduction was used. TECHNIQUE: Helical acquisition of images was performed from the lung bases through the pelvis. CONTRAST: Performed without Oral Contrast and with IV Contrast, patient injected with 100 mL of Isovu e 300. FINDINGS: LUNG BASES: No significant abnormality is appreciated. LIVER/GB: No significant abnormality is appreciated. PANCREAS: There is smoothly delineated cystlike homogeneous masses within the pancreas, new since the previous study. These are located within the uncinate process and extend upward into the pancreatic neck, measuring approximately 5 cm CC x 2.5 x 2.0 cm. There is a similar appearing 3 x 2 x 1.5 cm dill creatic tail cyst like smoothly marginated mass, also new since the previous study. The pancreatic du ct appears to be displaced anteriorly by these new findings, but not dilated. The gallbladder is mild ly distended and the common duct is prominent in caliber, but there is no cruz extrahepatic or intra hepatic biliary dilation. The pancreatic findings presumably represent interval development moment of pseudocysts. Further catheterization with MRCP/MRI without and with contrast is recommended, but for now and follow-up. There is subtle indistinctness of the pancreatic parenchyma and, so, clinical exclusion of a componen t of mild pancreatitis is suggested. SPLEEN: No significant abnormality is seen. ADRENALS: No significant abnormality is seen. KIDNEYS: No significant abnormality is seen. FREE AIR: No free air is visualized. RETROPERITONEAL ADENOPATHY: None visualized REPRODUCTIVE ORGANS: No significant abnormality is seen URINARY BLADDER: No significant abnormality is seen. PELVIC ADENOPATHY: None visualized. OSSEOUS STRUCTURES: No significant abnormality is seen. BOWEL: No significant abnormality is seen. OTHER: No acute vascular findings. No herniation. IMPRESSION: INTERVAL DEVELOPMENT OF WHAT APPEARS TO BE PSEUDOCYSTS IN THE HEAD AND TAIL OF THE PANCREAS.
[2018-10-08] MEDS ORDERED: MAGNESIUM OXIDE 400 MG TAB PO STA (22:01)
[2018-10-08] MEDS ORDERED: LORazepam 1 MG TAB PO STA (22:02)
[2018-10-08 22:44] VITALS: BP 139/99; PULSE 112; TEMP 98.7
[2018-10-09] MEDS ORDERED: THIAMINE 100 MG in SODIUM CHLORIDE 0.9% 50 ML IVPB SCH (09:00)
== END 2018-10-08 22:44 | disposition home or self-care (01) ==
LOC: EC 16:18
DX: K86.3 Pseudocyst of pancreas (principal); K86.1 Other chronic pancreatitis; K74.60 Unspecified cirrhosis of liver; F10.20 Alcohol dependence, uncomplicated; R19.7 Diarrhea, unspecified; M32.9 Systemic lupus erythematosus, unspecified; G40.909 Epilepsy, unspecified, not intractable, without status epilepticus; F17.200 Nicotine dependence, unspecified, uncomplicated; E34.0 Carcinoid syndrome; I25.2 Old myocardial infarction; M79.7 Fibromyalgia; F41.9 Anxiety disorder, unspecified; F31.9 Bipolar disorder, unspecified; M06.9 Rheumatoid arthritis, unspecified; Z79.899 Other long term (current) drug therapy; Z88.6 Allergy status to analgesic agent; Z88.8 Allergy status to other drugs, medicaments and biological substances
CPT/HCPCS: 36415; 80053; 82150; 83690; 83735; 85025; 81001; 81025; 87086; 71046; 74018; 74177; 99284; 96374; 96375 ×4; 96376; 96361 ×3; J2060; J2920; J3411; J3360; J2405; Q9967; 87077; 87186

== ENCOUNTER 2019-06-20 14:56 | Inpatient (IN) | payer OTHER ==
[2019-06-20] MEDS ORDERED: SODIUM CHLORIDE 0.9% 1,000 ML IV STA (15:12)
[2019-06-20] MEDS ORDERED: ONDANSETRON 4 MG/2 ML VIAL IVP STA (15:19)
[2019-06-20] MEDS ORDERED: MORPHINE SULFATE 4 MG/ML SYRINGE IVP STA (15:19)
[2019-06-20] MEDS ORDERED: PANTOPRAZOLE 40 MG/10 ML VIAL IVP STA (15:19)
[2019-06-20] MEDS ORDERED: SODIUM CHLORIDE 0.9% 1,000 ML IV ONE (15:19)
--- NOTE | 2019-06-20 15:29 | ED ---
General Adult HPI - General Chief complaint: Abdominal Pain Stated complaint: pancreatitis, chest pain, hard to swallow Time Seen by Provider: 06/20/19 15:06 Source: patient, RN notes reviewed, old records reviewed Mode of arrival: ambulatory Limitations: no limitations - History of Present Illness Initial comments: 44-year-old female presenting for evaluation of epigastric abdominal pain and vomiting. She has a history of recurrent pancreatitis and liver disease secondary to alcoholism. She denies alcohol consumption today but she states she has been drinking. She states her pain is similar to previous episodes of pancreatitis. She denies fever or chills. Denies lower abdominal pain. Describes this as a constant burning pain moderate in the epigastrium and lower chest. - Related Data Home Medications Medication Instructions Recorded Confirmed ALPRAZolam [Xanax] 0.5 mg PO DAILY PRN 10/08/18 10/08/18 Albuterol Inhaler (Mhu) [Ventolin 1 - 2 puff INHALATION RT-Q6H PRN 10/08/18 10/08/18 Hfa Inhaler] Atorvastatin Calcium [Lipitor] 20 mg PO DAILY 10/08/18 10/08/18 DULoxetine HCL [Cymbalta] 30 mg PO DAILY 10/08/18 10/08/18 Gabapentin [Neurontin] 300 mg PO QID 10/08/18 10/08/18 Melatonin 5 mg PO HS 10/08/18 10/08/18 Methocarbamol [Robaxin-750] 750 mg PO BID 10/08/18 10/08/18 Metoprolol Tartrate [Lopressor] 50 mg PO BID 10/08/18 10/08/18 Potassium 99 mg PO DAILY 10/08/18 10/08/18 Triamcinolone 0.1% Cream [Kenalog 1 applicatio TOPICAL TID 10/08/18 10/08/18 0.1% Cream] Previous Rx's Medication Instructions Recorded Pantoprazole Sodium [Protonix] 40 mg PO DAILY #30 tablet. 05/20/18 Allergies Allergy/AdvReac Type Severity Reaction Status Date / Time ibuprofen [From Motrin] Allergy Unknown Verified 06/20/19 15:06 NSAIDS (Non-Steroidal Allergy Unknown Verified 06/20/19 15:06 Anti-Inflamma quetiapine [From Seroquel] Allergy Unknown Verified 06/20/19 15:06 Review of Systems ROS Statement: Those systems with pertinent positive or pertinent negative responses have been documented in the HPI. ROS Other: All systems not noted in ROS Statement are negative. 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, carsinoid syndrome, enlarge liver, lupus, chronic pancreatitis, pancreatic tumor Last Myocardial Infarction Date:: 01/2017 History of Any Multi-Drug Resistant Organisms: None Reported Past Surgical History: No Surgical Hx Reported Additional Past Surgical History / Comment(s): Left hand surgery Past Anesthesia/Blood Transfusion Reactions: No Reported Reaction Past Psychological History: Anxiety, Bipolar, Depression Smoking Status: Current every day smoker Past Alcohol Use History: Abuse, Daily, Heavy Past Drug Use History: Marijuana - Past Family History Father Family Medical History: No Reported History General Exam Limitations: no limitations General appearance: alert, in no apparent distress Head exam: Present: atraumatic, normocephalic Eye exam: Present: normal appearance, PERRL ENT exam: Present: mucous membranes dry Neck exam: Present: normal inspection. Absent: tenderness, meningismus Respiratory exam: Present: normal lung sounds bilaterally. Absent: respiratory distress, wheezes Cardiovascular Exam: Present: normal rhythm, tachycardia GI/Abdominal exam: Present: soft, distended, tenderness (Epigastric tenderness palpation) Extremities exam: Present: normal inspection, normal capillary refill. Absent: pedal edema, calf tenderness Neurological exam: Present: alert, oriented X3, CN II-XII intact. Absent: motor sensory deficit Psychiatric exam: Present: normal affect, normal mood Skin exam: Present: warm, dry, intact. Absent: cyanosis, diaphoretic Course Vital Signs 06/20/19 15:01 Temperature 97.6 F Pulse Rate 112 H Respiratory 18 Rate Blood Pressure 130/87 O2 Sat by Pulse 98 Oximetry Medical Decision Making - Medical Decision Making 44 yo female presenting with abdominal pain, dehydration, alcohol abuse. Patient has normal CBC, significant left foot abdomen is with a sodium 127, potassium 2.8. She's given IV hydration and potassium replacement. She's given symptomatic management for pain in the emergency department. I suspect this is likely chronic in nature. Given Maalox with abnormalities in the degree of dehydration she will be admitted for further evaluation and treatment. Patient is admitted to [facility]. - Lab Data Result diagrams: 06/20/19 15:29 06/20/19 15:29 Lab Results 06/20/19 06/20/19 06/20/19 Range/Units 15:29 15:29 15:29 WBC 8.6 (3.8-10.6) k/uL RBC 4.03 (3.80-5.40) m/uL Hgb 13.2 (11.4-16.0) gm/dL Hct 38.8 (34.0-46.0) % MCV 96.4 (80.0-100.0) fL MCH 32.7 (25.0-35.0) pg MCHC 34.0 (31.0-37.0) g/dL RDW 15.0 (11.5-15.5) % Plt Count 234 (150-450) k/uL Neutrophils % 75 % Lymphocytes % 18 % Monocytes % 4 % Eosinophils % 0 % Basophils % 0 % Neutrophils # 6.5 (1.3-7.7) k/uL Lymphocytes # 1.6 (1.0-4.8) k/uL Monocytes # 0.4 (0-1.0) k/uL Eosinophils # 0.0 (0-0.7) k/uL Basophils # 0.0 (0-0.2) k/uL PT 10.5 (9.0-12.0) sec INR 1.0 (<1.2) APTT 23.7 (22.0-30.0) sec Sodium 127 L (137-145) mmol/L Potassium 2.8 L (3.5-5.1) mmol/L Chloride 86 L (98-107) mmol/L Carbon Dioxide 20 L (22-30) mmol/L Anion Gap 21 mmol/L BUN 15 (7-17) mg/dL Creatinine 0.70 (0.52-1.04) mg/dL Est GFR (CKD-EPI)AfAm >90 (>60 ml/min/1.73 sqM) Est GFR (CKD-EPI)NonAf >90 (>60 ml/min/1.73 sqM) Glucose 122 H (74-99) mg/dL Plasma Lactic Acid Nilo (0.7-2.0) mmol/L Calcium 10.1 (8.4-10.2) mg/dL Total Bilirubin 2.0 H (0.2-1.3) mg/dL AST 185 H (14-36) U/L ALT 80 H (4-34) U/L Alkaline Phosphatase 316 H (38-126) U/L Troponin I (0.000-0.034) ng/mL Total Protein 8.0 (6.3-8.2) g/dL Albumin 4.9 (3.5-5.0) g/dL Amylase 63 (30-110) U/L Lipase 69 (23-300) U/L Urine Color Urine Appearance (Clear) Urine pH (5.0-8.0) Ur Specific [place] (1.001-1.035) Urine Protein (Negative) Urine Glucose (UA) (Negative) Urine Ketones (Negative) Urine Blood (Negative) Urine Nitrite (Negative) Urine Bilirubin (Negative) Urine Urobilinogen (<2.0) mg/dL Ur Leukocyte Esterase (Negative) Urine RBC (0-5) /hpf Urine WBC (0-5) /hpf Ur Squamous Epith Cells (0-4) /hpf Urine Bacteria (None) /hpf Hyaline Casts (0-2) /lpf Urine Mucus (None) /hpf Urine HCG, Qual (Not Detectd) Serum Alcohol <10 mg/dL 06/20/19 06/20/19 06/20/19 Range/Units 15:29 15:29 15:35 WBC (3.8-10.6) k/uL RBC (3.80-5.40) m/uL Hgb (11.4-16.0) gm/dL Hct (34.0-46.0) % MCV (80.0-100.0) fL MCH (25.0-35.0) pg MCHC (31.0-37.0) g/dL RDW (11.5-15.5) % Plt Count (150-450) k/uL Neutrophils % % Lymphocytes % % Monocytes % % Eosinophils % % Basophils % % Neutrophils # (1.3-7.7) k/uL Lymphocytes # (1.0-4.8) k/uL Monocytes # (0-1.0) k/uL Eosinophils # (0-0.7) k/uL Basophils # (0-0.2) k/uL PT (9.0-12.0) sec INR (<1.2) APTT (22.0-30.0) sec Sodium (137-145) mmol/L Potassium (3.5-5.1) mmol/L Chloride (98-107) mmol/L Carbon Dioxide (22-30) mmol/L Anion Gap mmol/L BUN (7-17) mg/dL Creatinine (0.52-1.04) mg/dL Est GFR (CKD-EPI)AfAm (>60 ml/min/1.73 sqM) Est GFR (CKD-EPI)NonAf (>60 ml/min/1.73 sqM) Glucose (74-99) mg/dL Plasma Lactic Acid Nilo 1.5 (0.7-2.0) mmol/L Calcium (8.4-10.2) mg/dL Total Bilirubin (0.2-1.3) mg/dL AST (14-36) U/L ALT (4-34) U/L Alkaline Phosphatase (38-126) U/L Troponin I <0.012 (0.000-0.034) ng/mL Total Protein (6.3-8.2) g/dL Albumin (3.5-5.0) g/dL Amylase (30-110) U/L Lipase (23-300) U/L Urine Color Yellow Urine Appearance Cloudy H (Clear) Urine pH 6.0 (5.0-8.0) Ur Specific [place] 1.028 (1.001-1.035) Urine Protein 1+ H (Negative) Urine Glucose (UA) Negative (Negative) Urine Ketones 1+ H (Negative) Urine Blood Moderate H (Negative) Urine Nitrite Negative (Negative) Urine Bilirubin 1+ H (Negative) Urine Urobilinogen 3.0 (<2.0) mg/dL Ur Leukocyte Esterase Moderate H (Negative) Urine RBC 2 (0-5) /hpf Urine WBC 13 H (0-5) /hpf Ur Squamous Epith Cells 2 (0-4) /hpf Urine Bacteria Many H (None) /hpf Hyaline Casts 64 H (0-2) /lpf Urine Mucus Occasional H (None) /hpf Urine HCG, Qual (Not Detectd) Serum Alcohol mg/dL 06/20/19 Range/Units 15:35 WBC (3.8-10.6) k/uL RBC (3.80-5.40) m/uL Hgb (11.4-16.0) gm/dL Hct (34.0-46.0) % MCV (80.0-100.0) fL MCH (25.0-35.0) pg MCHC (31.0-37.0) g/dL RDW (11.5-15.5) % Plt Count (150-450) k/uL Neutrophils % % Lymphocytes % % Monocytes % % Eosinophils % % Basophils % % Neutrophils # (1.3-7.7) k/uL Lymphocytes # (1.0-4.8) k/uL Monocytes # (0-1.0) k/uL Eosinophils # (0-0.7) k/uL Basophils # (0-0.2) k/uL PT (9.0-12.0) sec INR (<1.2) APTT (22.0-30.0) sec Sodium (137-145) mmol/L Potassium (3.5-5.1) mmol/L Chloride (98-107) mmol/L Carbon Dioxide (22-30) mmol/L Anion Gap mmol/L BUN (7-17) mg/dL Creatinine (0.52-1.04) mg/dL Est GFR (CKD-EPI)AfAm (>60 ml/min/1.73 sqM) Est GFR (CKD-EPI)NonAf (>60 ml/min/1.73 sqM) Glucose (74-99) mg/dL Plasma Lactic Acid Nilo (0.7-2.0) mmol/L Calcium (8.4-10.2) mg/dL Total Bilirubin (0.2-1.3) mg/dL AST (14-36) U/L ALT (4-34) U/L Alkaline Phosphatase (38-126) U/L Troponin I (0.000-0.034) ng/mL Total Protein (6.3-8.2) g/dL Albumin (3.5-5.0) g/dL Amylase (30-110) U/L Lipase (23-300) U/L Urine Color Urine Appearance (Clear) Urine pH (5.0-8.0) Ur Specific [place] (1.001-1.035) Urine Protein (Negative) Urine Glucose (UA) (Negative) Urine Ketones (Negative) Urine Blood (Negative) Urine Nitrite (Negative) Urine Bilirubin (Negative) Urine Urobilinogen (<2.0) mg/dL Ur Leukocyte Esterase (Negative) Urine RBC (0-5) /hpf Urine WBC (0-5) /hpf Ur Squamous Epith Cells (0-4) /hpf Urine Bacteria (None) /hpf Hyaline Casts (0-2) /lpf Urine Mucus (None) /hpf Urine HCG, Qual Not Detected (Not Detectd) Serum Alcohol mg/dL Disposition Clinical Impression: Hypokalemia, Pancreatitis, alcoholic, acute, Abdominal pain, Hyponatremia Disposition: ADMITTED IP TO THIS HOSP Condition: Stable Is patient prescribed a controlled substance at d/c from ED?: No Referrals: None,Stated [Primary Care Provider] - 1-2 days Decision to Admit Reason: Admit from EC Decision Date: 06/20/19 Decision Time: 17:13
[2019-06-20 15:53] LABS: ALT 80 U/L (4-34); AST 185 U/L (14-36); African American GFR (CKD) >90 (>60 ml/min/1.73 sqM); Albumin 4.9 g/dL (3.5-5.0); Alcohol <10 mg/dL; Alkaline Phosphatase 316 U/L (38-126); Amylase 63 U/L (30-110); Anion Gap 21 mmol/L; Blood Urea Nitrogen 15 mg/dL (7-17); Calcium 10.1 mg/dL (8.4-10.2); Carbon Dioxide 20 mmol/L (22-30); Chloride 86 mmol/L (98-107); Glucose 122 mg/dL (74-99); Non-African American GFR(CKD) >90 (>60 ml/min/1.73 sqM); Potassium 2.8 mmol/L (3.5-5.1); Sodium 127 mmol/L (137-145)
[2019-06-20 15:54] LABS: Basophils % (A) 0 %; Eosinophils % (A) 0 %; HCT 38.8 % (34.0-46.0); HGB 13.2 gm/dL (11.4-16.0); Lymphocytes # (A) 1.6 k/uL (1.0-4.8); Lymphocytes % (A) 18 %; MCH 32.7 pg (25.0-35.0); MCV 96.4 fL (80.0-100.0); Mean Platelet Volume 8.2; Monocytes # (A) 0.4 k/uL (0-1.0); Monocytes % (A) 4 %; Neutrophils # (A) 6.5 k/uL (1.3-7.7); Neutrophils % (A) 75 %; Platelet Count 234 k/uL (150-450); RBC 4.03 m/uL (3.80-5.40); WBC 8.6 k/uL (3.8-10.6)
[2019-06-20 15:56] LABS: Appearance,Urine Cloudy (Clear); Bacteria,Urine Many /hpf; Bilirubin,Urine 1+ (Negative); Blood,Urine Moderate (Negative); Color,Urine Yellow; Glucose,Urine (UA) Negative (Negative); Hyaline Casts,Urine 64 /lpf (0-2); Ketones,Urine 1+ (Negative); Leukocyte Esterase,Urine Moderate (Negative); Mucus,Urine Occasional /hpf; Nitrite,Urine Negative (Negative); Protein,Urine 1+ (Negative); RBC,Urine 2 /hpf (0-5); Specific Gravity,Urine 1.028 (1.001-1.035); Squamous Epithelial Cell,Urine 2 /hpf (0-4); WBC,Urine 13 /hpf (0-5)
[2019-06-20 15:59] LABS: Partial Thromboplastin Time 23.7 sec (22.0-30.0); Prothrombin Time 10.5 sec (9.0-12.0)
[2019-06-20] MEDS ORDERED: POTASSIUM CHLORIDE ER 20 MEQ TAB.ER PO STA (16:33)
[2019-06-20] MEDS ORDERED: THIAMINE 100 MG/ML 2 ML VIAL IM STA (17:10)
[2019-06-20] MEDS ORDERED: LORazepam 2 MG/ML INJ IV PRN (17:10)
[2019-06-20] MEDS ORDERED: NALOXONE 0.4 MG/ML 1 ML VIAL IV PRN (17:11)
[2019-06-20] MEDS: POTASSIUM CHLORIDE 10 MEQ in WATER FOR INJECTION 1 100ML.BAG IVPB SCH ×4 (17:19→21:37)
[2019-06-20] MEDS: SODIUM CHLORIDE 0.9% 1,000 ML IV SCH (17:23)
[2019-06-20] MEDS ORDERED: MORPHINE SULFATE 2 MG/ML SYRINGE IV PRN (18:05)
[2019-06-20] MEDS ORDERED: HYDROcodone/APAP 5-325MG 1 EACH TAB PO PRN (18:05)
--- NOTE | 2019-06-20 18:45 | P.HPIM ---
History of Present Illness H&P Date: 06/20/19 Chief Complaint: Abdominal pain 44-year-old female with PMH of lupus, carcinoid syndrome, fibromyalgia, psoriatic arthritis, migraines, cirrhosis presents the ED for epigastric discomfort. Patient reports two-year history of binge drinking. Patient states that she binge drinks hard liquor usually 2 weekends out of the month. She does endorse withdrawal symptoms when she does not drink. She doesn't endorse seizures and her last seizure was 2 days ago. Patient reports epigastric discomfort and severe nausea and dry heaving for the past 4-5 days. Patient also reports the sensation in her throat where she feels as if fluid is stuck when she takes a sip. She has not been able to tolerate oral intake. Her last drink was yesterday. Her symptoms did not resolve which prompted her to come to the ED. She denies any headache, lower extremity edema, fever or chills, cough, shortness of breath, changes in urination or bowel habits. No changes in appetite or weight. She denies any dizziness, numbness/weakness/tingling of the extremities. Review of Systems Pertinent positives and negatives as discussed in HPI, a complete review of systems was performed and all other systems are negative. 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, carsinoid syndrome, enlarge liver, lupus, chronic pancreatitis, pancreatic tumor Last Myocardial Infarction Date:: 01/2017 History of Any Multi-Drug Resistant Organisms: None Reported Past Surgical History: No Surgical Hx Reported Additional Past Surgical History / Comment(s): Left hand surgery Past Anesthesia/Blood Transfusion Reactions: No Reported Reaction Past Psychological History: Anxiety, Bipolar, Depression Smoking Status: Current every day smoker Past Alcohol Use History: Abuse, Daily, Heavy Past Drug Use History: Marijuana - Past Family History Father Family Medical History: No Reported History Medications and Allergies Home Medications Medication Instructions Recorded Confirmed Type Pantoprazole Sodium [Protonix] 40 mg PO DAILY #30 tablet. 05/20/18 10/08/18 Rx ALPRAZolam [Xanax] 0.5 mg PO DAILY PRN 10/08/18 10/08/18 History Albuterol Inhaler (Mhu) [Ventolin 1 - 2 puff INHALATION RT-Q6H PRN 10/08/18 10/08/18 History Hfa Inhaler] Atorvastatin Calcium [Lipitor] 20 mg PO DAILY 10/08/18 10/08/18 History DULoxetine HCL [Cymbalta] 30 mg PO DAILY 10/08/18 10/08/18 History Gabapentin [Neurontin] 300 mg PO QID 10/08/18 10/08/18 History Melatonin 5 mg PO HS 10/08/18 10/08/18 History Methocarbamol [Robaxin-750] 750 mg PO BID 10/08/18 10/08/18 History Metoprolol Tartrate [Lopressor] 50 mg PO BID 10/08/18 10/08/18 History Potassium 99 mg PO DAILY 10/08/18 10/08/18 History Triamcinolone 0.1% Cream [Kenalog 1 applicatio TOPICAL TID 10/08/18 10/08/18 History 0.1% Cream] Allergies Allergy/AdvReac Type Severity Reaction Status Date / Time ibuprofen [From Motrin] Allergy Unknown Verified 06/20/19 15:06 NSAIDS (Non-Steroidal Allergy Unknown Verified 06/20/19 15:06 Anti-Inflamma quetiapine [From Seroquel] Allergy Unknown Verified 06/20/19 15:06 Physical Exam Vitals: Vital Signs Temp Pulse Resp BP Pulse Ox 06/20/19 17:27 107 H 22 142/114 100 06/20/19 15:01 97.6 F 112 H 18 130/87 98 Intake and Output 06/20/19 06/20/19 06/20/19 06:59 14:59 22:59 Other: Weight 73.482 kg General: [non toxic], [mild distress], [appears at stated age] Derm: [warm], [dry] Head: [atraumatic], [normocephalic], [symmetric] Eyes: [EOMI], [no lid lag], [anicteric sclera] Mouth: [no lip lesion], [mucus membranes moist] Cardiovascular: [S1S2 reg], [tachycardic], [positive DP pulse bilateral], Lungs: [CTA bilateral], [no rhonchi, no rales] , [no accessory muscle use] Abdominal: [soft], [tenderness to palpation of epigastric area], [no guarding], [no appreciable organomegaly] Ext: [no gross muscle atrophy], [no edema], [no contractures] Neuro: [ CN II-XI grossly intact], [no focal neuro deficits] Psych: [Alert], [oriented], [appropriate affect] Results CBC & Chem 7: 06/20/19 15:29 06/20/19 15:29 Labs: Abnormal Lab Results - Last 24 Hours (Table) 06/20/19 06/20/19 Range/Units 15:29 15:35 Sodium 127 L (137-145) mmol/L Potassium 2.8 L (3.5-5.1) mmol/L Chloride 86 L (98-107) mmol/L Carbon Dioxide 20 L (22-30) mmol/L Glucose 122 H (74-99) mg/dL Total Bilirubin 2.0 H (0.2-1.3) mg/dL AST 185 H (14-36) U/L ALT 80 H (4-34) U/L Alkaline Phosphatase 316 H (38-126) U/L Urine Appearance Cloudy H (Clear) Urine Protein 1+ H (Negative) Urine Ketones 1+ H (Negative) Urine Blood Moderate H (Negative) Urine Bilirubin 1+ H (Negative) Ur Leukocyte Esterase Moderate H (Negative) Urine WBC 13 H (0-5) /hpf Urine Bacteria Many H (None) /hpf Hyaline Casts 64 H (0-2) /lpf Urine Mucus Occasional H (None) /hpf Assessment and Plan Assessment: Acute on chronic pancreatitis Alcohol withdrawal Starvation ketoacidosis Hypokalemia Hyponatremia History of cirrhosis and Budd Chiari Dysphagia with concerns for Meagan-Sierra tear Fibromyalgia Patient has normal amylase and lipase. Her symptoms are consistent with gastritis and/or pancreatitis. Plans: Clear liquid diet and advance as tolerated. Dilaudid as needed for pain. Continue normal saline at 100 mL/h. Protonix IV. Zofran for nausea or vomiting. Stat KUB and chest x-ray now. Plans: CIWA protocol. Ativan as needed for withdrawal symptoms. Telemetry monitoring. Fall and seizure precautions. Bicarbonate 20. Ketonuria. Plans: Hydration as above. Repeat BMP tomorrow morning. Potassium 2.8. Likely from vomiting. Plans: Replace via protocol. Repeat BMP tomorrow morning. Sodium 127. Possible SIADH from cirrhosis versus dehydration. Plans: Patient asymptomatic. Hydration as above. Repeat BMP tomorrow morning. Total bilirubin of 2, AST 185, ALT 80, alkaline phosphatase 316. Likely related to alcohol abuse. Plans: Follow liver ultrasound with Doppler. Follow-up GI consultation. Plans: Follow KUB. Patient would benefit from barium swallow versus upper endoscopy. Will wait for GI input. Plans: Continue gabapentin and Cymbalta. DVT prophylaxis: [SCD] Discussed with: [Patient] Anticipated discharge: [2-3 days] Anticipated discharge place: [Home] A total of [45] minutes was spent on the care of this complex patient more than 50% of the time was spent in counseling and care coordination. Patient names her mother Laure decision maker if she can't make decisions for herself. Patient would like to be full code.
[2019-06-20] MEDS: HYDROmorphone 1 MG/ML 1 ML SYRINGE IVP PRN ×2 (18:55→23:29)
--- NOTE | 2019-06-20 19:19 | XR ---
EXAMINATION TYPE: XR chest 2V DATE OF EXAM: 06/20/2019 COMPARISON: chest x-ray 10/08/2018 HISTORY: Chest pain, abdomen pain and vomiting TECHNIQUE: Frontal and lateral views of the chest are obtained. FINDINGS: There is no focal air space opacity, pleural effusion, or pneumothorax seen. The cardiac silhouette size is within normal limits. The osseous structures are intact. IMPRESSION: No acute cardiopulmonary process.
--- NOTE | 2019-06-20 19:21 | XR ---
KUB HISTORY: Epigastric pain, vomiting Frontal KUB and 2 images There is dense material within the descending colon and possibly related to ingested radiodense medic ation. Lung bases are clear. Degenerative disc changes, spinal curvature again noted in the lumbar sp ine. Bone mineralization is maintained. Probable phleboliths are present within the pelvis. IMPRESSION: No acute abnormalities evident. Additional findings above.
[2019-06-20] MEDS: METOPROLOL TARTRATE 50 MG TAB PO SCH (21:36)
[2019-06-21] MEDS: LORazepam 2 MG/ML INJ IV PRN ×4 (00:54→20:05)
[2019-06-21] MEDS: GABAPENTIN 300 MG CAP PO SCH ×5 (01:59→21:34)
[2019-06-21] MEDS: HYDROmorphone 1 MG/ML 1 ML SYRINGE IVP PRN ×7 (02:39→21:41)
[2019-06-21 06:35] LABS: Basophils % (A) 0 %; Eosinophils # (A) 0.1 k/uL (0-0.7); Eosinophils % (A) 1 %; HCT 32.6 % (34.0-46.0); HGB 10.8 gm/dL (11.4-16.0); Lymphocytes # (A) 1.8 k/uL (1.0-4.8); Lymphocytes % (A) 35 %; MCH 32.9 pg (25.0-35.0); MCHC 33.2 g/dL (31.0-37.0); MCV 98.8 fL (80.0-100.0); Macrocytosis Slight; Monocytes # (A) 0.2 k/uL (0-1.0); Monocytes % (A) 4 %; Neutrophils # (A) 3.1 k/uL (1.3-7.7); Neutrophils % (A) 58 %; Platelet Count 142 k/uL (150-450); RDW 15.1 % (11.5-15.5); WBC 5.3 k/uL (3.8-10.6)
[2019-06-21 06:46] LABS: ALT 56 U/L (4-34); AST 90 U/L (14-36); African American GFR (CKD) >90 (>60 ml/min/1.73 sqM); Albumin 3.3 g/dL (3.5-5.0); Alkaline Phosphatase 190 U/L (38-126); Amylase 49 U/L (30-110); Anion Gap 9 mmol/L; Blood Urea Nitrogen 8 mg/dL (7-17); Calcium 8.6 mg/dL (8.4-10.2); Carbon Dioxide 23 mmol/L (22-30); Chloride 101 mmol/L (98-107); Glucose 94 mg/dL (74-99); Non-African American GFR(CKD) >90 (>60 ml/min/1.73 sqM); Sodium 133 mmol/L (137-145); Total Bilirubin 0.9 mg/dL (0.2-1.3); Total Protein 6.1 g/dL (6.3-8.2)
--- NOTE | 2019-06-21 08:18 | US ---
EXAMINATION TYPE: US liver DATE OF EXAM: 06/21/2019 COMPARISON: CT 10/08/2018, US 05/18/2018 CLINICAL HISTORY: Elevated liver enzymes, known liver disease and pancreatitis per patient. Abd pain, ETOH EXAM MEASUREMENTS: Liver Length: 17.7 cm Gallbladder Wall: 0.2 cm CBD: 0.8 cm Right Kidney: 11.4 x 4.9 x 5.5 cm Pancreas: Tail obscured by overlying bowel gas, complex cystic area visualized at pancreatic head me asuring 4.4 x 2.2 x 2.2 cm. Duct visualized measuring 0.4 cm Liver: Enlarged, heterogeneous, attenuating Gallbladder: Hydropic. Sludge visualized Evidence for sonographic Vizcaino's sign: No CBD: Dilated. Distal portion obscured by bowel gas Right Kidney: No hydronephrosis or masses seen There is a slightly irregular 4.4 cm cyst in the head of the pancreas. The pancreatic duct is dilated measuring 4 mm. The liver is upper limits of normal in size. It is mildly attenuating and may be fatty infiltrated. The gallbladder is mildly prominent. There is some sludge within the gallbladder. The gallbladder wal l measures 2 mm. The distal common hepatic duct is enlarged and measures 8 mm.. The right kidney is u nremarkable. IMPRESSION: 1. 4.4 CM IRREGULAR CYST IN THE HEAD OF THE PANCREAS. CYSTIC NEOPLASM WOULD NEED TO BX EXCLUDED. 2. DILATATION OF BOTH THE PANCREATIC DUCT AND THE DISTAL COMMON HEPATIC DUCT. 3. HYDROPIC GALLBLADDER WITH SLUDGE WITHIN IT.
[2019-06-21] MEDS ORDERED: POTASSIUM CHLORIDE ER 20 MEQ TAB.ER PO STA (08:41)
[2019-06-21] MEDS ORDERED: POTASSIUM CHLORIDE 10 MEQ in WATER FOR INJECTION 1 100ML.BAG IVPB STA (08:41)
[2019-06-21] MEDS: DULoxetine HCL 30 MG CAPSULE.DR PO SCH (09:06)
[2019-06-21] MEDS: ATORVASTATIN 20 MG TAB PO SCH (09:06)
[2019-06-21] MEDS: METOPROLOL TARTRATE 50 MG TAB PO SCH ×2 (09:06→21:34)
[2019-06-21] MEDS: THIAMINE 100 MG TAB PO SCH ×2 (09:06→16:03)
[2019-06-21] MEDS: PANTOPRAZOLE 40 MG/10 ML VIAL IVP SCH (10:15)
[2019-06-21] MEDS: SODIUM CHLORIDE 0.9% 1,000 ML IV SCH ×2 (10:23→21:41)
[2019-06-21] MEDS: MAG HYDROX/AL HYDROX/SIMETH 30 ML CUP PO PRN (13:00)
--- NOTE | 2019-06-21 14:19 | P.PN ---
Subjective Progress Note Date: 06/21/19 Principal diagnosis: abdominal pain Patient still having abdominal pain and burning, ball sensation behind her throat. No chest pain or sob. Still having significant anxiety. Objective - Vital Signs Vital signs: Vital Signs Temp 97.4 F L 06/21/19 13:09 Pulse 64 06/21/19 13:09 Resp 17 06/21/19 13:09 BP 110/76 06/21/19 13:09 Pulse Ox 97 06/21/19 13:09 Intake & Output 06/20/19 06/21/19 06/21/19 18:59 06:59 18:59 Weight 73.482 kg 73.482 kg Other: # Voids 2 - Labs CBC & Chem 7: 06/21/19 06:16 06/21/19 06:16 Labs: Abnormal Lab Results - Last 24 Hours (Table) 06/20/19 06/20/19 06/21/19 Range/Units 15:29 15:35 06:16 RBC 3.30 L (3.80-5.40) m/uL Hgb 10.8 L (11.4-16.0) gm/dL Hct 32.6 L (34.0-46.0) % Plt Count 142 L (150-450) k/uL Sodium 127 L (137-145) mmol/L Potassium 2.8 L (3.5-5.1) mmol/L Chloride 86 L (98-107) mmol/L Carbon Dioxide 20 L (22-30) mmol/L Creatinine (0.52-1.04) mg/dL Glucose 122 H (74-99) mg/dL Total Bilirubin 2.0 H (0.2-1.3) mg/dL AST 185 H (14-36) U/L ALT 80 H (4-34) U/L Alkaline Phosphatase 316 H (38-126) U/L Total Protein (6.3-8.2) g/dL Albumin (3.5-5.0) g/dL Urine Appearance Cloudy H (Clear) Urine Protein 1+ H (Negative) Urine Ketones 1+ H (Negative) Urine Blood Moderate H (Negative) Urine Bilirubin 1+ H (Negative) Ur Leukocyte Esterase Moderate H (Negative) Urine WBC 13 H (0-5) /hpf Urine Bacteria Many H (None) /hpf Hyaline Casts 64 H (0-2) /lpf Urine Mucus Occasional H (None) /hpf 06/21/19 Range/Units 06:16 RBC (3.80-5.40) m/uL Hgb (11.4-16.0) gm/dL Hct (34.0-46.0) % Plt Count (150-450) k/uL Sodium 133 L (137-145) mmol/L Potassium 3.0 L (3.5-5.1) mmol/L Chloride (98-107) mmol/L Carbon Dioxide (22-30) mmol/L Creatinine 0.46 L (0.52-1.04) mg/dL Glucose (74-99) mg/dL Total Bilirubin (0.2-1.3) mg/dL AST 90 H (14-36) U/L ALT 56 H (4-34) U/L Alkaline Phosphatase 190 H (38-126) U/L Total Protein 6.1 L (6.3-8.2) g/dL Albumin 3.3 L (3.5-5.0) g/dL Urine Appearance (Clear) Urine Protein (Negative) Urine Ketones (Negative) Urine Blood (Negative) Urine Bilirubin (Negative) Ur Leukocyte Esterase (Negative) Urine WBC (0-5) /hpf Urine Bacteria (None) /hpf Hyaline Casts (0-2) /lpf Urine Mucus (None) /hpf Microbiology - Last 24 Hours (Table) 06/20/19 15:35 Urine Culture - Preliminary Urine,Voided Assessment and Plan Plan: Acute on chronic pancreatitis Peptic ulcer disease Alcohol withdrawal Starvation ketoacidosis Hypokalemia Hyponatremia likely sec to dehydration History of cirrhosis and Budd Chiari Complex pancreatic cyst on US Biliary ductal dilatation. Dysphagia with concerns for Meagan-Sierra tear Fibromyalgia MRCP to look into above U/S findings. On PPI, add mylanta Clear liquid diet Dilaudid as needed for pain. Continue normal saline at 100 mL/h. Zofran for nausea or vomiting. CIWA protocol. Ativan as needed for withdrawal symptoms. Telemetry monitoring. Fall and seizure precautions. Repeat BMP tomorrow morning. Will wait for GI input.
[2019-06-22] MEDS: HYDROmorphone 1 MG/ML 1 ML SYRINGE IVP PRN ×5 (03:47→21:44)
[2019-06-22] MEDS: LORazepam 2 MG/ML INJ IV PRN ×5 (04:40→22:37)
[2019-06-22 06:26] LABS: Basophils % (A) 0 %; Eosinophils # (A) 0.1 k/uL (0-0.7); Eosinophils % (A) 2 %; HCT 31.7 % (34.0-46.0); HGB 10.5 gm/dL (11.4-16.0); Hypochromasia Slight; Lymphocytes % (A) 35 %; MCH 33.4 pg (25.0-35.0); MCHC 33.2 g/dL (31.0-37.0); MCV 100.6 fL (80.0-100.0); Macrocytosis Slight; Mean Platelet Volume 8.1; Monocytes # (A) 0.2 k/uL (0-1.0); Monocytes % (A) 6 %; Neutrophils # (A) 1.5 k/uL (1.3-7.7); Neutrophils % (A) 54 %; Platelet Count 124 k/uL (150-450); RBC 3.15 m/uL (3.80-5.40); RDW 15.3 % (11.5-15.5); WBC 2.7 k/uL (3.8-10.6)
[2019-06-22 06:34] LABS: ALT 56 U/L (4-34); AST 175 U/L (14-36); African American GFR (CKD) >90 (>60 ml/min/1.73 sqM); Albumin 3.1 g/dL (3.5-5.0); Alkaline Phosphatase 219 U/L (38-126); Anion Gap 5 mmol/L; Blood Urea Nitrogen 5 mg/dL (7-17); Calcium 8.3 mg/dL (8.4-10.2); Carbon Dioxide 24 mmol/L (22-30); Chloride 103 mmol/L (98-107); Glucose 159 mg/dL (74-99); Magnesium 1.9 mg/dL (1.6-2.3); Non-African American GFR(CKD) >90 (>60 ml/min/1.73 sqM); Phosphorus 1.1 mg/dL (2.5-4.5); Potassium 3.2 mmol/L (3.5-5.1); Sodium 132 mmol/L (137-145); Total Bilirubin 0.6 mg/dL (0.2-1.3); Total Protein 5.6 g/dL (6.3-8.2)
[2019-06-22] MEDS: DULoxetine HCL 30 MG CAPSULE.DR PO SCH (07:24)
[2019-06-22] MEDS: GABAPENTIN 300 MG CAP PO SCH ×4 (07:24→22:37)
[2019-06-22] MEDS: ATORVASTATIN 20 MG TAB PO SCH (07:24)
[2019-06-22] MEDS: THIAMINE 100 MG TAB PO SCH ×2 (07:24→17:16)
[2019-06-22] MEDS: METOPROLOL TARTRATE 50 MG TAB PO SCH ×2 (07:25→21:44)
[2019-06-22] MEDS: PANTOPRAZOLE 40 MG/10 ML VIAL IVP SCH ×2 (07:25→21:44)
[2019-06-22] MEDS ORDERED: POTASSIUM CHLORIDE ER 20 MEQ TAB.ER PO STA (08:40)
[2019-06-22] MEDS ORDERED: POTASSIUM CHLORIDE 10 MEQ in WATER FOR INJECTION 1 100ML.BAG IVPB STA (08:40)
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
[2019-06-22] MEDS: POTAS-SOD-PHOS 278-164-250 MG 1 EACH PACKET PO SCH ×3 (13:00→22:37)
[2019-06-22] MEDS: MAG HYDROX/AL HYDROX/SIMETH 30 ML CUP PO PRN ×2 (13:15→22:42)
--- NOTE | 2019-06-22 13:24 | P.PN ---
Subjective Progress Note Date: 06/22/19 Principal diagnosis: abdominal pain Patient is feeling much better today, he is feeling very hungry and asking for food. Still having a little stomach upset but improved. Objective - Vital Signs Vital signs: Vital Signs Temp 98.1 F 06/22/19 04:56 Pulse 92 06/22/19 08:00 Resp 16 06/22/19 08:00 BP 124/81 06/22/19 04:56 Pulse Ox 98 06/22/19 04:56 Intake & Output 06/21/19 06/22/19 06/22/19 18:59 06:59 18:59 Intake Total 540 2990 Balance 540 2990 Intake: Intake, IV Titration 900 Amount Sodium Chloride 0.9% 1, 900 000 ml @ 75 mls/hr IV . [id number] [facility] Rx#:[id number] Oral 540 2090 Other: Voiding Method Toilet Toilet # Voids 3 2 - Exam Constitutional: No acute distress, conversant, pleasant Eyes:Anicteric sclerae, moist conjunctiva, no lid-lag, PERRLA, ENMT: Oropharynx clear, no erythema, exudates Neck: Supple, FROM, no masses, or JVD, No carotid bruits, No thyromegaly Lungs: Clear to auscultation, Clear to percussion, Normal respiratory effort, no accessory muscle use Cardiovascular: Heart regular in rate and rhythm, No murmurs, gallops, or rubs, No peripheral edema Abdominal: Soft, Nontender, no guarding, rebound or rigidity, Normoactive bowel sounds, No hepatomegaly, No splenomegaly, No palpable mass Skin: Normal temperature, tone, texture, turgor, no induration, No subcutaneous nodules, No rash, lesions, No ulcers Extremities: No digital cyanosis, No clubbing, Pedal pulses intact and symmetrical, Radial pulses intact and symmetrical, No calf tenderness Psychiatric: Alert and oriented to person, place and time, appropriate affect, intact judgement Neuro: Muscles Strength 5/5 in all 4 extremities, Sensation to light touch grossly present throughout, Cranial nerves II-XII grossly intact, no focal sensory deficits - Labs CBC & Chem 7: 06/22/19 05:40 06/22/19 05:40 Labs: Abnormal Lab Results - Last 24 Hours (Table) 06/22/19 06/22/19 Range/Units 05:40 05:40 WBC 2.7 L (3.8-10.6) k/uL RBC 3.15 L (3.80-5.40) m/uL Hgb 10.5 L (11.4-16.0) gm/dL Hct 31.7 L (34.0-46.0) % MCV 100.6 H (80.0-100.0) fL Plt Count 124 L (150-450) k/uL Sodium 132 L (137-145) mmol/L Potassium 3.2 L (3.5-5.1) mmol/L BUN 5 L (7-17) mg/dL Creatinine 0.44 L (0.52-1.04) mg/dL Glucose 159 H (74-99) mg/dL Calcium 8.3 L (8.4-10.2) mg/dL Phosphorus 1.1 L (2.5-4.5) mg/dL AST 175 H (14-36) U/L ALT 56 H (4-34) U/L Alkaline Phosphatase 219 H (38-126) U/L Total Protein 5.6 L (6.3-8.2) g/dL Albumin 3.1 L (3.5-5.0) g/dL Microbiology - Last 24 Hours (Table) 06/20/19 15:35 Urine Culture - Final Urine,Voided Assessment and Plan Plan: Acute on chronic pancreatitis Peptic ulcer disease Alcohol withdrawal Starvation ketoacidosis Hypokalemia Hyponatremia likely sec to dehydration Hypophosphatemia History of cirrhosis and Budd Chiari Complex pancreatic cyst on US Biliary ductal dilatation. Dysphagia with concerns for Meagan-Sierra tear Fibromyalgia Further history taking from patient revealed that she already had workup for the pancreatic findings. Including endoscopic ultrasound. Seems like she already knows about it and she follows Dr. Kumar from GI. On PPI, add mylanta Replace electrolytes and recheck in a.m. Advance diet Dilaudid as needed for pain. Continue normal saline at 100 mL/h. Zofran for nausea or vomiting. CIWA protocol. GI input appreciated.
[2019-06-22] MEDS: SODIUM CHLORIDE 0.9% 1,000 ML IV SCH (17:17)
[2019-06-22] MEDS: NICOTINE 21MG/24HR PATCH TRANSDERM SCH (18:17)
--- NOTE | 2019-06-22 19:53 | P.PN ---
Subjective Progress Note Date: 06/22/19 Principal diagnosis: GERD, dysphagia, cirrhosis, pancreatic cyst Patient seen lying in bed still reporting reflux and difficulty swallowing. Objective - Vital Signs Vital signs: Vital Signs Temp 98.1 F 06/22/19 04:56 Pulse 92 06/22/19 04:56 Resp 16 06/22/19 04:56 BP 124/81 06/22/19 04:56 Pulse Ox 98 06/22/19 04:56 Intake & Output 06/21/19 06/22/19 06/22/19 18:59 06:59 18:59 Intake Total 540 2990 Balance 540 2990 Intake: Intake, IV Titration 900 Amount Sodium Chloride 0.9% 1, 900 000 ml @ 75 mls/hr IV . [id number] [facility] Rx#:[id number] Oral 540 2090 Other: Voiding Method Toilet # Voids 3 2 - Exam On physical examination, patient appears comfortable in no apparent distress. HEAD: Normocephalic, atraumatic. EYES: No scleral icterus. No conjunctival injection. MOUTH: No lesions, tongue midline. NECK: Trachea midline, no gross abnormalities. ABDOMEN: Soft, nontender to palpation. Bowel sounds are positive. No organomegaly. No guarding or rigidity. EXTREMITIES: No pedal edema. SKIN: No rashes, no jaundice. NEUROLOGIC: Alert and oriented x3. No focal deficits. - Labs CBC & Chem 7: 06/22/19 05:40 06/22/19 05:40 Labs: Abnormal Lab Results - Last 24 Hours (Table) 06/22/19 06/22/19 Range/Units 05:40 05:40 WBC 2.7 L (3.8-10.6) k/uL RBC 3.15 L (3.80-5.40) m/uL Hgb 10.5 L (11.4-16.0) gm/dL Hct 31.7 L (34.0-46.0) % MCV 100.6 H (80.0-100.0) fL Plt Count 124 L (150-450) k/uL Sodium 132 L (137-145) mmol/L Potassium 3.2 L (3.5-5.1) mmol/L BUN 5 L (7-17) mg/dL Creatinine 0.44 L (0.52-1.04) mg/dL Glucose 159 H (74-99) mg/dL Calcium 8.3 L (8.4-10.2) mg/dL Phosphorus 1.1 L (2.5-4.5) mg/dL AST 175 H (14-36) U/L ALT 56 H (4-34) U/L Alkaline Phosphatase 219 H (38-126) U/L Total Protein 5.6 L (6.3-8.2) g/dL Albumin 3.1 L (3.5-5.0) g/dL Microbiology - Last 24 Hours (Table) 06/20/19 15:35 Urine Culture - Final Urine,Voided Assessment and Plan (1) Abdominal pain Narrative/Plan: 44-year-old patient with multiple medical comorbidities including stated history of alcoholic liver disease, recurrent pancreatitis related to alcohol use, GERD who presented with complaints of epigastric abdominal burning and globus sensation. Patient has a long-standing history of GERD for which she has previously been on omeprazole therapy until a few months ago. Likely that her symptoms of heartburn and globus are related to uncontrolled reflux disease and she has been restarted on PPI therapy. She does report EGD and colonoscopy in 2019 with negative EGD and polypectomy on colonoscopy. Continues to report persistent symptoms of difficulty swallowing, reflux and abdominal pain. Current Visit: Yes Status: Acute Code(s): R10.9 - UNSPECIFIED ABDOMINAL PAIN SNOMED Code(s): 31511632 (2) Pancreatic cyst Narrative/Plan: Patient has a history of alcohol abuse and recurrent pancreatitis with findings of a pancreatic cyst on ultrasound of the abdomen. MRI has been ordered for further investigation, patient is reporting that she had evaluation with en doscopic ultrasound in the past. Current Visit: Yes Status: Acute Code(s): K86.2 - CYST OF PANCREAS SNOMED Code(s): 32888521 (3) Alcoholic gastritis Current Visit: No Status: Acute Code(s): K29.20 - ALCOHOLIC GASTRITIS WITHOUT BLEEDING SNOMED Code(s): 4067844 (4) Alcoholic liver disease Current Visit: No Status: Acute Code(s): K70.9 - ALCOHOLIC LIVER DISEASE, UNSPECIFIED SNOMED Code(s): 39440275 Plan: Supportive care Okay for diet as tolerated Protonix increased to twice daily Maalox as needed for breakthrough reflux/indigestion Alcohol abstinence Monitor for symptoms will call withdrawal Continue to monitor CBC and CMP Nothing by mouth after midnight for EGD tomorrow for evaluation of abdominal pain, reflux and dysphagia Thank you for allowing us to participate in the care of the patient
[2019-06-23] MEDS: HYDROmorphone 1 MG/ML 1 ML SYRINGE IVP PRN ×6 (01:21→21:24)
[2019-06-23] MEDS: LORazepam 2 MG/ML INJ IV PRN ×5 (02:35→23:45)
[2019-06-23] MEDS: SODIUM CHLORIDE 0.9% 1,000 ML IV SCH ×2 (03:00→13:03)
[2019-06-23 06:20] LABS: Anisocytosis Slight; Basophils % (A) 0 %; Eosinophils # (A) 0.1 k/uL (0-0.7); Eosinophils % (A) 2 %; HCT 28.4 % (34.0-46.0); HGB 9.4 gm/dL (11.4-16.0); Hypochromasia Slight; Lymphocytes # (A) 1.2 k/uL (1.0-4.8); Lymphocytes % (A) 46 %; MCH 33.7 pg (25.0-35.0); MCHC 33.1 g/dL (31.0-37.0); MCV 101.8 fL (80.0-100.0); Macrocytosis Slight; Mean Platelet Volume 8.4; Monocytes # (A) 0.2 k/uL (0-1.0); Monocytes % (A) 6 %; Neutrophils # (A) 1.1 k/uL (1.3-7.7); Neutrophils % (A) 44 %; Platelet Count 130 k/uL (150-450); RBC 2.79 m/uL (3.80-5.40); RDW 16.1 % (11.5-15.5); WBC 2.6 k/uL (3.8-10.6)
[2019-06-23 06:24] LABS: ALT 78 U/L (4-34); AST 241 U/L (14-36); African American GFR (CKD) >90 (>60 ml/min/1.73 sqM); Albumin 2.6 g/dL (3.5-5.0); Alkaline Phosphatase 220 U/L (38-126); Anion Gap 3 mmol/L; Blood Urea Nitrogen 4 mg/dL (7-17); Calcium 8.2 mg/dL (8.4-10.2); Carbon Dioxide 24 mmol/L (22-30); Chloride 109 mmol/L (98-107); Glucose 104 mg/dL (74-99); Magnesium 1.9 mg/dL (1.6-2.3); Non-African American GFR(CKD) >90 (>60 ml/min/1.73 sqM); Phosphorus 1.6 mg/dL (2.5-4.5); Potassium 3.6 mmol/L (3.5-5.1); Sodium 136 mmol/L (137-145); Total Bilirubin 0.3 mg/dL (0.2-1.3); Total Protein 5.2 g/dL (6.3-8.2)
[2019-06-23] MEDS: POTAS-SOD-PHOS 278-164-250 MG 1 EACH PACKET PO SCH ×3 (08:45→23:26)
[2019-06-23] MEDS: DULoxetine HCL 30 MG CAPSULE.DR PO SCH (08:49)
[2019-06-23] MEDS: GABAPENTIN 300 MG CAP PO SCH ×4 (08:49→23:26)
[2019-06-23] MEDS: THIAMINE 100 MG TAB PO SCH ×2 (08:49→17:31)
[2019-06-23] MEDS: ATORVASTATIN 20 MG TAB PO SCH (08:49)
[2019-06-23] MEDS: METOPROLOL TARTRATE 50 MG TAB PO SCH ×2 (08:49→21:24)
[2019-06-23] MEDS: NICOTINE 21MG/24HR PATCH TRANSDERM SCH (08:50)
[2019-06-23] MEDS: PANTOPRAZOLE 40 MG/10 ML VIAL IVP SCH ×2 (08:50→21:23)
[2019-06-23] MEDS ORDERED: IV FLUID CONTINUATION 1,000 ML IV ONE (15:50)
--- NOTE | 2019-06-23 15:53 | P.PN ---
Subjective Progress Note Date: 06/23/19 Principal diagnosis: abdominal pain Patient is currently feeling better, minimal nausea, no vomiting. No overnight events. Objective - Vital Signs Vital signs: Vital Signs Temp 98.7 F 06/23/19 11:53 Pulse 68 06/23/19 11:53 Resp 17 06/23/19 11:53 BP 126/87 06/23/19 11:53 Pulse Ox 98 06/23/19 11:53 Intake & Output 06/22/19 06/23/19 06/23/19 18:59 06:59 18:59 Intake Total 100 1190 Balance 100 1190 Intake: Intake, IV Titration 100 600 Amount Potassium Chloride 10 meq 100 In Water For Injection 1 100ml.bag @ 100 mls/hr IVPB ONCE [facility] Rx#: [id number] Sodium Chloride 0.9% 1, 600 000 ml @ 75 mls/hr IV . [id number] [facility] Rx#:[id number] Oral 590 Other: Voiding Method Toilet Toilet Toilet # Voids 2 1 - Exam Constitutional: No acute distress, conversant, pleasant Eyes:Anicteric sclerae, moist conjunctiva, no lid-lag, PERRLA, ENMT: Oropharynx clear, no erythema, exudates Neck: Supple, FROM, no masses, or JVD, No carotid bruits, No thyromegaly Lungs: Clear to auscultation, Clear to percussion, Normal respiratory effort, no accessory muscle use Cardiovascular: Heart regular in rate and rhythm, No murmurs, gallops, or rubs, No peripheral edema Abdominal: Soft, Nontender, no guarding, rebound or rigidity, Normoactive bowel sounds, No hepatomegaly, No splenomegaly, No palpable mass Skin: Normal temperature, tone, texture, turgor, no induration, No subcutaneous nodules, No rash, lesions, No ulcers Extremities: No digital cyanosis, No clubbing, Pedal pulses intact and symmetrical, Radial pulses intact and symmetrical, No calf tenderness Psychiatric: Alert and oriented to person, place and time, appropriate affect, intact judgement Neuro: Muscles Strength 5/5 in all 4 extremities, Sensation to light touch grossly present throughout, Cranial nerves II-XII grossly intact, no focal sensory deficits - Labs CBC & Chem 7: 06/23/19 05:54 06/23/19 05:54 Labs: Abnormal Lab Results - Last 24 Hours (Table) 06/23/19 06/23/19 Range/Units 05:54 05:54 WBC 2.6 L (3.8-10.6) k/uL RBC 2.79 L (3.80-5.40) m/uL Hgb 9.4 L (11.4-16.0) gm/dL Hct 28.4 L (34.0-46.0) % MCV 101.8 H (80.0-100.0) fL RDW 16.1 H (11.5-15.5) % Plt Count 130 L (150-450) k/uL Neutrophils # 1.1 L (1.3-7.7) k/uL Sodium 136 L (137-145) mmol/L Chloride 109 H (98-107) mmol/L BUN 4 L (7-17) mg/dL Creatinine 0.41 L (0.52-1.04) mg/dL Glucose 104 H (74-99) mg/dL Calcium 8.2 L (8.4-10.2) mg/dL Phosphorus 1.6 L (2.5-4.5) mg/dL AST 241 H (14-36) U/L ALT 78 H (4-34) U/L Alkaline Phosphatase 220 H (38-126) U/L Total Protein 5.2 L (6.3-8.2) g/dL Albumin 2.6 L (3.5-5.0) g/dL Assessment and Plan Plan: Acute on chronic pancreatitis Peptic ulcer disease Alcohol withdrawal Starvation ketoacidosis Hypokalemia Hyponatremia likely sec to dehydration Hypophosphatemia Elevated LFTs consistent with etoh induced injury. 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 Dysphagia GERD Fibromyalgia Further history taking from patient revealed that she already had workup for the pancreatic findings. Including endoscopic ultrasound. Seems like she already knows about it and she follows Dr. Kumar from GI. On PPI, add mylanta Going for EGD today to be done by GI Recheck electrolytes in a.m. Dilaudid as needed for pain. Continue normal saline at 100 mL/h. Zofran for nausea or vomiting. CIWA protocol. GI input appreciated.
[2019-06-23] MEDS ORDERED: PROPOFOL 10 MG/ML 20 ML VIAL IV ONE (16:20)
--- NOTE | 2019-06-23 16:29 | P.PCN ---
Date of Procedure: 06/23/19 Procedure(s) Performed: BRIEF HISTORY: Patient is a 44-year-old, pleasant, white female scheduled for an upper endoscopy to evaluate epigastric pain associated with intermittent nausea vomiting for the last few days duration.. PROCEDURE PERFORMED: EGD With biopsy. PREOPERATIVE DIAGNOSIS: Severe epigastric pain/intermittent nausea vomiting. IV sedation per anesthesia. PROCEDURE: After informed consent was obtained, the patient was brought into the endoscopy unit. IV sedation was administered by Anesthesia under continuous monitoring. Initially the Olympus GIF-140 video endoscope was inserted into the mouth. Esophagus intubated without any difficulty. It was gradually advanced into the stomach and duodenum and carefully examined. The bulb and the second part of the duodenum appeared normal. The scope at this time was withdrawn to the stomach, adequately insufflated with air, and upon careful examination, mucosa of the antrum, had mild gastritis and biopsies were done from this area. The body, cardia and the fundus appeared normal. The scope was then withdrawn into the esophagus. The GE junction was located at 39 cm from the incisors. There were linear erosions/distal esophageal ulcerations with exudates in the distal esophagus consistent with LA grade C reflux esophagitis. Rest of esophagus appeared normal and the patient tolerated the procedure well. IMPRESSION: 1. Erosions/ulcerations with exudates involving the distal esophagus consistent with LA grade C reflux esophagitis. 2. Mild antral gastritis. RECOMMENDATIONS: The findings of this examination were discussed with the patient. She will continue with Protonix 40 mg twice daily and follow antireflux measures. Diet will be advanced as tolerated..
[2019-06-23] MEDS: MAG HYDROX/AL HYDROX/SIMETH 30 ML CUP PO PRN (20:05)
[2019-06-24] MEDS: HYDROmorphone 1 MG/ML 1 ML SYRINGE IVP PRN ×6 (01:28→20:46)
[2019-06-24] MEDS: SODIUM CHLORIDE 0.9% 1,000 ML IV SCH ×2 (03:43→14:47)
[2019-06-24] MEDS: NICOTINE 21MG/24HR PATCH TRANSDERM SCH (09:09)
[2019-06-24] MEDS: PANTOPRAZOLE 40 MG/10 ML VIAL IVP SCH ×2 (09:09→20:52)
[2019-06-24] MEDS: ATORVASTATIN 20 MG TAB PO SCH (09:10)
[2019-06-24] MEDS: METOPROLOL TARTRATE 50 MG TAB PO SCH ×2 (09:10→20:52)
[2019-06-24] MEDS: GABAPENTIN 300 MG CAP PO SCH ×4 (09:10→20:52)
[2019-06-24] MEDS: THIAMINE 100 MG TAB PO SCH ×2 (09:10→17:14)
[2019-06-24] MEDS: DULoxetine HCL 30 MG CAPSULE.DR PO SCH (09:10)
[2019-06-24] MEDS: POTAS-SOD-PHOS 278-164-250 MG 1 EACH PACKET PO SCH ×3 (09:11→20:53)
[2019-06-24] MEDS: LORazepam 2 MG/ML INJ IV PRN ×2 (10:40→22:45)
--- NOTE | 2019-06-24 13:16 | MR ---
EXAMINATION TYPE: MR pancreas / mrcp wo/w con DATE OF EXAM: 06/24/2019 COMPARISON: CT abdomen and pelvis October 08, 2018 and older CTs. Recent liver ultrasound 3 days earli er. HISTORY: Abdominal pain, pancreatic cyst CONTRAST: Standard multiplanar, multisequence MRI departmental protocol utilizing 7 mL intravenous Gadavist rachel olinium contrast. Thin and thick slice MRCP imaging performed on MRI scanner. FINDINGS: Pancreas: Pancreas overall redemonstrated normal in size. Correlating with CT there is a thin-walled cyst or cystic lesion in the distal body and tail without enhancement measuring 2.6 cm AP diameter by 1.8 cm transversely image 338 series 1001 with suggestion of some internal debris on the T2-weighted images. Pancreatic duct is visualized in the body and portions are mildly dilated up to 5 mm with ma ss effect due to the thin-walled cystic lesion in the pancreatic head/uncinate process measuring 2.9 x 2.7 cm transversely by 4.0 cm craniocaudal dimension axial image 14 and coronal image 19. MRCP imag es failed to show direct continuation of the main pancreatic duct to the thin-walled cystic lesions. Pancreatic duct not well seen deviated to the right at level of the cystic lesion/proximal with ranulfo r visualization of the near the ampulla on the MRCP images. Indistinct fat planes or Margins from adjacent pancreatic tissue noted in both lesions. Other: Lung bases remain clear. There is 7 mm left hepatic lobe T2 hyperintense lesion axial image 26 likely corresponding to subtle hypodense areas CT image 57 series 6 from 2017 too small to character ize presumed benign. Liver shows diffuse signal dropout consistent with diffuse fatty infiltration. M ild hepatomegaly remains present. Is improved from March 01, 2018. No intraluminal gallstones. Mild central extrahepatic biliary dilatation near virgen hepatis up to 10 mm with gradual tapering towards the ampulla. No obstructing stone or mass clearly seen. No significant intrahepatic biliary dilatati on. Spleen size is stable and within normal limits. No concerning adrenal masses or hydronephrosis. N o suspicious bowel dilatation. No concerning abdominal fluid collection. Prominent disc space narrowi ng L3-L4 level with some ossific fusion, right positioning of L3 on L4 redemonstrated. IMPRESSION: 1. Stable thin-walled cyst or cystic lesions from CT abdomen and pelvis October 08, 2018 would favor p seudocysts over other etiology given new since May 18, 2018 and history of pancreatitis. No direct c ommunication to pancreatic duct identified. Local mass effect in the head/uncinate process lesion is believed to be causing area of mild pancreatic ductal dilatation and mild central intrahepatic biliar y ductal dilatation. There is background of improving hepatomegaly and fatty infiltration of liver pr esumed product of alcoholic cirrhosis. Correlation with pancreatic tumor markers advised to help excl ude cystic neoplasm though felt unlikely.
--- NOTE | 2019-06-24 16:46 | P.PN ---
Subjective Progress Note Date: 06/24/19 Principal diagnosis: Pancreatitis Patient was seen and examined. No acute events overnight. She was quite tearful during this encounter. Patient complains of intense nausea but no vomiting this morning. Patient reports pain better controlled than admission but continues to complain of epigastric discomfort, 7 out of 10 in severity. She denies any chest pain, shortness of breath or palpitations. No fever or chills. States that she takes [place] 10 4 times a day under pain management for neck and back pain. Objective - Vital Signs Vital signs: Vital Signs Temp 98.6 F 06/24/19 05:00 Pulse 78 06/24/19 05:00 Resp 16 06/24/19 05:00 BP 118/85 06/24/19 05:00 Pulse Ox 97 06/24/19 05:00 Intake & Output 06/23/19 06/24/19 06/24/19 18:59 06:59 18:59 Intake Total 100 1180 1200 Balance 100 1180 1200 Intake: IV 100 Intake, IV Titration 600 Amount Sodium Chloride 0.9% 1, 600 000 ml @ 75 mls/hr IV . [id number] [facility] Rx#:[id number] Oral 1180 600 Other: Voiding Method Toilet Toilet Toilet # Voids 5 2 3 - Exam General: [non toxic], [mild distress], [appears at stated age] Derm: [warm], [dry] Head: [atraumatic], [normocephalic], [symmetric] Eyes: [EOMI], [no lid lag], [anicteric sclera] Mouth: [no lip lesion], [mucus membranes moist] Cardiovascular: [S1S2 reg], [tachycardic], [positive DP pulse bilateral], Lungs: [CTA bilateral], [no rhonchi, no rales] , [no accessory muscle use] Abdominal: [soft], [tenderness to palpation of epigastric area], [no guarding], [no appreciable organomegaly] Ext: [no gross muscle atrophy], [no edema], [no contractures] Neuro: [no focal neuro deficits] Psych: [Alert], [oriented], [appropriate affect] - Labs CBC & Chem 7: 06/23/19 05:54 06/23/19 05:54 Assessment and Plan Assessment: Acute on chronic pancreatitis with erosive gastritis Alcohol withdrawal History of cirrhosis and Budd Chiari Dysphagia Fibromyalgia Resolved: Starvation ketoacidosis Patient has normal amylase and lipase. Her symptoms are consistent with gastritis and/or pancreatitis. EGD showing erosive gastritis. Plans: Clear liquid diet and advance as tolerated. Dilaudid frequency decreased and [place] changed to schedule. Protonix IV twice a day. Normal saline at 75 mL per hour. Plans: CIWA protocol. Ativan as needed for withdrawal symptoms. Telemetry monitoring. Fall and seizure precautions. Total bilirubin of 2, AST 185, ALT 80, alkaline phosphatase 316. Likely related to alcohol abuse. Gallbladder ultrasound shows 4.4 cm irregular cyst in the head of the pancreas, dilation of the pancreatic duct and the common distal hepatic duct with hydropic gallbladder. Plans: Follow MRCP to evaluate for obstruction and mass. Follow-up GI consultation. Plans: EGD shows erosive gastritis. Management as above. Plans: Continue gabapentin and Cymbalta. [Patient continues to complain of intense nausea. MRCP could be obtained today. Decreased frequency of IV narcotics, increase frequency of oral narcotics. She is pending clinical improvement. Likely DC in 1-2 days.]
[2019-06-24] MEDS: MAG HYDROX/AL HYDROX/SIMETH 30 ML CUP PO PRN (17:09)
[2019-06-24] MEDS: HYDROcodone/APAP 10-325MG 1 EACH TAB PO SCH ×2 (17:12→22:46)
--- NOTE | 2019-06-24 18:42 | PN ---
PROGRESS NOTE DATE OF DICTATION: 06/24/2019 This patient is a 44-year-old pleasant white female admitted to the hospital with abdominal pain, nausea and vomiting. As a part of evaluation she underwent an upper endoscopy yesterday that revealed severe reflux esophagitis with circumferential ulcerations of the GE junction and multiple erosions with exudates involving the entire esophagus. The patient is on Protonix 40 mg twice daily. She is feeling somewhat better today. Still has some epigastric pain, occasional nausea and vomiting. PHYSICAL EXAMINATION: She appears comfortable. No apparent distress. Vital signs are stable. Blood pressure 112/86, pulse rate 78, temperature 98.2. HEENT examination unremarkable. Conjunctivae pink. Sclerae anicteric. Oral cavity no lesions. NECK: No JVD or lymph node enlargement. CHEST: Clear to auscultation. HEART: Regular rate and rhythm. ABDOMEN: Soft. Bowel sounds are positive. Mild tenderness in the epigastric area. EXTREMITIES: No pedal edema. SKIN: No rashes. NEUROLOGIC: Alert and oriented x3. No focal deficits. LABS/IMAGING: WBC 2.6, hemoglobin 9.4, platelets 130. Basic metabolic panel showed AST of 241, ALT 78, alkaline phosphatase 220. T-bilirubin is 0.3. MRI of the pancreas done this morning showed a stable thin-walled cystic lesion measuring 2.6 x 1.8 cm in diameter, suspicious for a pseudocyst. Duct was slightly dilated at 5 mm. There was another cyst measuring 2.9 x 2.7 cm in the body of the pancreas. IMPRESSION: 1. Epigastric pain/nausea and vomiting, status post EGD yesterday that showed LA grade C reflux esophagitis. Remains on Protonix 40 mg twice daily. 2. History of heavy alcohol abuse. 3. Pancreatic pseudocyst. MRI of the abdomen showed a 4 x 2 cm pseudocyst and there was another 2 cm pseudocyst in the head of the pancreas which appears to be stable from the CT scan compared in September of 2018. 4. Alcoholic hepatitis with elevated serum transaminases. RECOMMENDATIONS: 1. Continue with Protonix 40 mg twice daily. 2. Advance diet as tolerated. 3. Abstinence from alcohol. 4. Will plan on repeat MRI of the pancreas in 6 weeks to monitor the pancreatic pseudocyst. 5. Repeat labs in the morning. Will follow with you closely. Thank you for this consultation. MMODL / IJN: [id number] /
[2019-06-24 21:30] VITALS: RESP 18
[2019-06-25] MEDS: SODIUM CHLORIDE 0.9% 1,000 ML IV SCH (04:07)
[2019-06-25 05:35] VITALS: BP 120/82; PULSE 77; TEMP 96.9
[2019-06-25] MEDS: HYDROcodone/APAP 10-325MG 1 EACH TAB PO SCH ×2 (07:00→11:38)
[2019-06-25] MEDS: GABAPENTIN 300 MG CAP PO SCH (07:08)
[2019-06-25] MEDS: DULoxetine HCL 30 MG CAPSULE.DR PO SCH (07:09)
[2019-06-25] MEDS: POTAS-SOD-PHOS 278-164-250 MG 1 EACH PACKET PO SCH (07:09)
[2019-06-25] MEDS: PANTOPRAZOLE 40 MG/10 ML VIAL IVP SCH (07:09)
[2019-06-25] MEDS: THIAMINE 100 MG TAB PO SCH (07:09)
[2019-06-25] MEDS: NICOTINE 21MG/24HR PATCH TRANSDERM SCH (07:09)
[2019-06-25] MEDS: ATORVASTATIN 20 MG TAB PO SCH (07:09)
[2019-06-25] MEDS: METOPROLOL TARTRATE 50 MG TAB PO SCH (07:09)
[2019-06-25] MEDS: HYDROmorphone 1 MG/ML 1 ML SYRINGE IVP PRN (07:10)
[2019-06-25] MEDS: MAG HYDROX/AL HYDROX/SIMETH 30 ML CUP PO PRN (07:22)
[2019-06-25] MEDS ORDERED: SUCRALFATE 1 GM TAB PO STA (09:23)
[2019-06-25] MEDS ORDERED: ONDANSETRON 4 MG/2 ML VIAL IVP STA (09:23)
--- NOTE | 2019-06-25 09:34 | P.DS ---
Providers Date of admission: 06/20/19 17:11 Expected date of discharge: 06/25/19 Attending physician: Jayda Navarrete MD Consults: 06/20/19 18:32 Consult Physician Routine Consulting Provider: Deni Shay Consult Reason/Comments: etoh possible manolo oconnor Do you want consulting provider notified?: Yes Primary care physician: Stated None Hospital Course: 44-year-old female with PMH of lupus, carcinoid syndrome, fibromyalgia, psoriatic arthritis, migraines, cirrhosis presents the ED for epigastric discomfort. Patient reports two-year history of binge drinking. Patient states that she binge drinks hard liquor usually 2 weekends out of the month. She does endorse withdrawal symptoms when she does not drink. She doesn't endorse seizures and her last seizure was 2 days ago. Patient reports epigastric discomfort and severe nausea and dry heaving for the past 4-5 days. Patient also reports the sensation in her throat where she feels as if fluid is stuck when she takes a sip. She has not been able to tolerate oral intake. Her last drink was yesterday. Her symptoms did not resolve which prompted her to come to the ED. She denies any headache, lower extremity edema, fever or chills, cough, shortness of breath, changes in urination or bowel habits. No changes in appetite or weight. She denies any dizziness, numbness/weakness/tingling of the extremities. Her abdominal pain was thought to be related to acute on chronic pancreatitis along with possible gastroenteritis or esophagitis. Her amylase and lipase were within normal limits. Her initial CMP showed total bilirubin of 2, AST of 185, ALT of 80 and alkaline phosphatase of 316. This was thought to be related to cirrhosis rather than obstruction. Her CMP also showed a sodium of 127, thought to be related to dehydration. Her potassium was 2.8, thought to be related to her vomiting. Her initial bicarb was 20 thought to be related to starvation ketoacidosis. She received aggressive IV hydration with normal saline at 100 mL per hour. She was given Protonix IV and Zofran as needed for nausea or vomiting. KUB and chest x-ray was within normal limits. She was placed on CIWA protocol for alcohol abuse. Her electrolyte derangements resolved with IV fluids. GI was consulted and recommended EGD. EGD showed erosions and ulcerations with exudates in the distal esophagus consistent with grade C reflux esophagitis. MRI pancreas protocol was obtained which showed a stable thin- walled cyst from September 2018 favoring pseudocyst over other etiologies with no direct communication to the pancreatic duct. There was some local mass effect in the head of the pancreas causing mild pancreatic ductal dilation and intrahepatic biliary ductal dilation. She did have some fatty infiltration of the liver presumed to be a product of alcohol cirrhosis. GI recommended repeat MRCP in 6 weeks to re-evaluate pseudocyst. Patient was seen and examined. No acute events overnight. Patient reports improvement in her epigastric discomfort. She continues to complain of nausea but no vomiting. Tolerating regular diet well. Patient turning down her scheduled dose of [place] for Dilaudid. General: [non toxic], [no distress], [appears at stated age] Derm: [warm], [dry] Head: [atraumatic], [normocephalic], [symmetric] Eyes: [EOMI], [no lid lag], [anicteric sclera] Mouth: [no lip lesion], [mucus membranes moist] Cardiovascular: [S1S2 reg], [no murmur], [positive DP pulse bilateral], Lungs: [CTA bilateral], [no rhonchi, no rales] , [no accessory muscle use] Abdominal: [soft], [tenderness to palpation of epigastric area], [no guarding], [no appreciable organomegaly] Ext: [no gross muscle atrophy], [no edema], [no contractures] Neuro: [no focal neuro deficits] Psych: [Alert], [oriented], [appropriate affect] Acute on chronic pancreatitis with erosive gastritis Pancreatic mass, possible pseudocyst Alcohol withdrawal Alcoholic hepatitis Globus sensation Fibromyalgia EGD showing erosive gastritis. Plans: Continue [place] at home. Abstain from alcohol. Continue Protonix by mouth twice a day. Sulcrafate for home. Plans: Follow GI in the outpatient setting to repeat MRCP in 6 weeks to evaluate pseudocyst Plans: Patient advised to refrain from drinking alcohol Total bilirubin of 2, AST 185, ALT 80, alkaline phosphatase 316. Likely related to alcohol abuse. Her liver enzymes have improved. Plans: MRCP shows no obstruction. This is likely a result of chronic alcohol abuse. Plans: EGD shows erosive gastritis. Management as above. Plans: Continue gabapentin and Cymbalta. [Pain well-controlled. GI recommendations appreciated. Plans on DC home today if able to tolerate diet on oral pain medication. This complex discharge took about 35 minutes to complete. ] Pertinent Studies: CXR, KUB, MRCP Procedures: EGD Patient Condition at Discharge: Stable Plan - Discharge Summary Discharge Rx Participant: Yes New Discharge Prescriptions: New Sucralfate [Carafate] 1 gm PO BID #120 ml DULoxetine HCL [Cymbalta] 30 mg PO DAILY #30 capsule. Atorvastatin [Lipitor] 20 mg PO DAILY #30 tab Metoprolol Tartrate [Lopressor] 50 mg PO BID #60 tab Gabapentin [Neurontin] 300 mg PO QID #120 cap Continue Methocarbamol [Robaxin-750] 750 mg PO BID Magnesium 250 mg PO DAILY Hydrocodone/Acetaminophen [[place] 10-325] 1 tab PO QID Thiamine HCl [Vitamin B-1] 100 mg PO DAILY Cyanocobalamin [Vitamin B-12] 500 mcg PO DAILY Changed Pantoprazole Sodium [Protonix] 40 mg PO BID-W/MEALS #60 tablet.dr Discharge Medication List Methocarbamol [Robaxin-750] 750 mg PO BID 10/08/18 [History] Cyanocobalamin [Vitamin B-12] 500 mcg PO DAILY 06/20/19 [History] Hydrocodone/Acetaminophen [[place] 10-325] 1 tab PO QID 06/20/19 [History] Magnesium 250 mg PO DAILY 06/20/19 [History] Thiamine HCl [Vitamin B-1] 100 mg PO DAILY 06/20/19 [History] Atorvastatin [Lipitor] 20 mg PO DAILY #30 tab 06/25/19 [Rx] DULoxetine HCL [Cymbalta] 30 mg PO DAILY #30 capsule. 06/25/19 [Rx] Gabapentin [Neurontin] 300 mg PO QID #120 cap 06/25/19 [Rx] Metoprolol Tartrate [Lopressor] 50 mg PO BID #60 tab 06/25/19 [Rx] Pantoprazole Sodium [Protonix] 40 mg PO BID-W/MEALS #60 tablet. 06/25/19 [Rx] Sucralfate [Carafate] 1 gm PO BID #120 ml 06/25/19 [Rx] Follow up Appointment(s)/Referral(s): Michelle Kumar MD [STAFF PHYSICIAN] - 1 Week None,Stated [Primary Care Provider] - 1-2 days Activity/Diet/Wound Care/Special Instructions: Diet: Low-fat Follow-up PCP within 3 days of discharge. Follow-up with GI within 1 week of discharge. Repeat MRCP in 6 weeks. Please abstain from alcohol. Discharge Disposition: HOME SELF-CARE
--- NOTE | 2019-06-25 14:55 | PN ---
PROGRESS NOTE DATE OF SERVICE: 06/25/2019 Patient is a 44-year-old white female with history of alcohol abuse, admitted to the hospital with severe epigastric pain associated with nausea, vomiting, and mild elevation of lipase. EGD two days ago revealed severe LA grade C reflux esophagitis presently on Protonix 40 mg twice daily. She is feeling better. She still has some epigastric pain and heartburn. She also had MRI of the pancreas yesterday which revealed a 4 cm pseudocyst in the body of the pancreas and 2 cm pseudocyst in the head of the pancreas, all stable compared to the CAT scan done in December of 2018. She continues to drink alcohol regularly. PHYSICAL EXAMINATION: Appears comfortable, in no apparent distress. Vital signs are stable. Blood pressure is 120/82, pulse rate 77, temperature 96.9. HEENT: Examination unremarkable. Conjunctivae are pink, sclerae nonicteric. Oral cavity no lesions. NECK: No JVD or lymph node enlargement. CHEST: Clear to auscultation. HEART: Regular rate and rhythm. ABDOMEN: Soft. Bowel sounds are positive. Minimal tenderness in the epigastric area. EXTREMITIES: No pedal edema. SKIN: No rashes. NEUROLOGIC: Alert and oriented x3. No focal deficits. LABS: Done today WBC 2.6, hemoglobin 9.4, platelets normal. The rest of the labs is 130. AST and ALT are 241 and 78 respectively. Alkaline phosphatase 220, and T- bilirubin 0.3. IMPRESSION: 1. Severe reflux esophagitis causing epigastric pain, nausea, vomiting, status post EGD done 2 days ago that showed LA grade C reflux esophagitis. 2. Heavy alcohol abuse. 3. Elevated serum transaminases secondary to chronic liver disease from alcohol use. 4. Pancreatic pseudocyst. MRI of the pancreas showed stable lesion of 4 cm cyst in the body of the pancreas, stable compared to the CAT scan in December of 2018. RECOMMENDATIONS: 1. Continue Protonix 40 mg twice daily. 2. Abstinence from alcohol. 3. Anti-reflux measures and diet modification were explained to the patient. 4. Will plan on repeat MRI of the pancreas in 6 months. 5. Follow up in office in 2 weeks following discharge from the hospital. Thank you for this consultation. MMODL / IJN: [id number] /
== END 2019-06-25 12:21 | disposition home or self-care (01) | DRG 439 ==
LOC: EC 14:56 → 5NMEDONC 17:11
PROVIDERS: ADMIT Family Medicine; ATTEND Family Medicine
PROC: 0DB78ZX Excision of Stomach, Pylorus, Via Natural or Artificial Opening Endoscopic, Diagnostic (ICD-10-PCS; principal; 2019-06-23 10:05)
DX: K85.20 Alcohol induced acute pancreatitis without necrosis or infection (principal); F10.239 Alcohol dependence with withdrawal, unspecified; E34.0 Carcinoid syndrome; E87.1 Hypo-osmolality and hyponatremia; E87.2 Acidosis; K22.10 Ulcer of esophagus without bleeding; K82.1 Hydrops of gallbladder; K86.3 Pseudocyst of pancreas; L40.50 Arthropathic psoriasis, unspecified; K86.0 Alcohol-induced chronic pancreatitis; K70.30 Alcoholic cirrhosis of liver without ascites; E83.39 Other disorders of phosphorus metabolism; K70.10 Alcoholic hepatitis without ascites; G40.909 Epilepsy, unspecified, not intractable, without status epilepticus; M06.9 Rheumatoid arthritis, unspecified; F31.9 Bipolar disorder, unspecified; Z20.828 Contact with and (suspected) exposure to other viral communicable diseases; K76.0 Fatty (change of) liver, not elsewhere classified; K25.9 Gastric ulcer, unspecified as acute or chronic, without hemorrhage or perforation; K29.20 Alcoholic gastritis without bleeding; K29.60 Other gastritis without bleeding; K21.0 Gastro-esophageal reflux disease with esophagitis; E86.0 Dehydration; E87.6 Hypokalemia; Y90.0 Blood alcohol level of less than 20 mg/100 ml; F45.8 Other somatoform disorders; M54.2 Cervicalgia; M54.9 Dorsalgia, unspecified; M79.7 Fibromyalgia; F43.10 Post-traumatic stress disorder, unspecified; I25.2 Old myocardial infarction; F17.210 Nicotine dependence, cigarettes, uncomplicated; Z71.6 Tobacco abuse counseling; Z79.891 Long term (current) use of opiate analgesic; Z79.899 Other long term (current) drug therapy; Z62.810 Personal history of physical and sexual abuse in childhood; Z86.14 Personal history of Methicillin resistant Staphylococcus aureus infection; Z86.19 Personal history of other infectious and parasitic diseases; Z86.69 Personal history of other diseases of the nervous system and sense organs; Z86.010 Personal history of colon polyps; Z87.798 Personal history of other (corrected) congenital malformations; Z88.6 Allergy status to analgesic agent; Z88.8 Allergy status to other drugs, medicaments and biological substances
CPT/HCPCS: 36415; 43239; 71046; 74018; 74183; 76705; 80053; 80320; 81001; 81025; 82150; 83605; 83690; 83735; 84100; 84484; 85025; 85610; 85730; 87086; 87635; 88305; 96361; 96365; 96366; 96372; 96375; 99285

== ENCOUNTER 2019-08-02 11:23 | Inpatient (IN) | payer OTHER ==
[2019-08-02] MEDS ORDERED: LORazepam 2 MG/ML INJ IV STA ×2 (11:49→13:19)
[2019-08-02] MEDS ORDERED: SODIUM CHLORIDE 0.9% 1,000 ML IV STA (11:49)
[2019-08-02] MEDS ORDERED: ONDANSETRON 4 MG/2 ML VIAL IVP STA (11:50)
[2019-08-02] MEDS ORDERED: MORPHINE SULFATE 2 MG/ML SYRINGE IVP ONE (11:51)
--- NOTE | 2019-08-02 11:56 | ED ---
Alcohol HPI - General Chief Complaint: Alcohol Stated Complaint: withdrawals Time Seen by Provider: 08/02/19 11:41 Source: patient, family Mode of arrival: wheelchair Limitations: no limitations - History of Present Illness Initial Comments: Patient is a 44-year-old female with history of alcoholism, presenting to the emergency department for alcohol detox. Patient states she normally drinks about a fifth of liquor a day. Patient states she did have some liquor before they left [place] today. Patient states she has history of chronic pancrea titis, liver disease and is having some abdominal pain as well as nausea and muscle aches. She states she is trying to detox from alcohol before and she often gets this same way. She denies any chest pain or shortness of breath. She denies any recent fever or chills. She denies any suicidal or homicidal thoughts today. She has her fianc with her at this time. She denies any further complaints at this time. Upon arrival to the ER, her vital signs are stable. - Related Data Home Medications Medication Instructions Recorded Confirmed Methocarbamol [Robaxin-750] 750 mg PO BID 10/08/18 08/02/19 Cyanocobalamin [Vitamin B-12] 500 mcg PO DAILY 06/20/19 08/02/19 Hydrocodone/Acetaminophen [[place] 1 tab PO QID 06/20/19 08/02/19 10-325] Magnesium 250 mg PO DAILY 06/20/19 08/02/19 Thiamine HCl [Vitamin B-1] 100 mg PO DAILY 06/20/19 08/02/19 Cholecalciferol [Vitamin D3 (25 1,000 unit PO DAILY 08/02/19 08/02/19 Mcg = 1000 Iu)] Multivitamins, Thera [Multivitamin 1 tab PO DAILY 08/02/19 08/02/19 (formulary)] Previous Rx's Medication Instructions Recorded Atorvastatin [Lipitor] 20 mg PO DAILY #30 tab 06/25/19 Gabapentin [Neurontin] 300 mg PO QID #120 cap 06/25/19 Metoprolol Tartrate [Lopressor] 50 mg PO BID #60 tab 06/25/19 Pantoprazole Sodium [Protonix] 40 mg PO BID-W/MEALS #60 tablet. 06/25/19 Allergies Allergy/AdvReac Type Severity Reaction Status Date / Time ibuprofen [From Motrin] Allergy Unknown Verified 08/02/19 14:05 NSAIDS (Non-Steroidal Allergy Unknown Verified 08/02/19 14:05 Anti-Inflamma quetiapine [From Seroquel] Allergy Unknown Verified 08/02/19 14:05 Review of Systems ROS Statement: Those systems with pertinent positive or pertinent negative responses have been documented in the HPI. ROS Other: All systems not noted in ROS Statement are negative. 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, carsinoid syndrome, enlarge liver, lupus, chronic pancreatitis, pancreatic tumor,osteomyelitis Last Myocardial Infarction Date:: 01/2017 History of Any Multi-Drug Resistant Organisms: MRSA Date of last positivie culture/infection: 2009 MDRO Source:: finger Past Surgical History: No Surgical Hx Reported Additional Past Surgical History / Comment(s): Left hand surgery Past Anesthesia/Blood Transfusion Reactions: No Reported Reaction Past Psychological History: Anxiety, Bipolar, Depression, PTSD Smoking Status: Current every day smoker Past Alcohol Use History: Abuse, Daily, Heavy Past Drug Use History: None Reported, Marijuana - Past Family History Father Family Medical History: No Reported History General Exam - General Exam Comments Initial Comments: GENERAL: Patient is teary-eyed, anxious, in no acute distress. HEAD: Atraumatic, normocephalic. EYES: Pupils equal round and reactive to light, extraocular movements intact, sclera anicteric, conjunctiva are normal. ENT: TMs normal, nares patent, oropharynx clear without exudates. Moist mucous membranes. NECK: Normal range of motion, supple without lymphadenopathy or JVD. LUNGS: Breath sounds clear to auscultation bilaterally and equal. No wheezes rales or rhonchi. HEART: Regular rate and rhythm without murmurs, rubs or gallops. ABDOMEN: Generalized abdominal tenderness. Soft, normoactive bowel sounds. No guarding, no rebound. No masses appreciated. : Deferred EXTREMITIES: Normal range of motion, no pitting or edema. No clubbing or cyanosis. NEUROLOGICAL: Cranial nerves II through XII grossly intact. Normal speech. PSYCH: Patient appears anxious, teary-eyed. SKIN: Warm, Dry, normal turgor, no rashes or lesions noted. Limitations: no limitations Course Vital Signs 08/02/19 08/02/19 11:37 12:13 Temperature 99.4 F Pulse Rate 81 133 H Respiratory 18 18 Rate Blood Pressure 118/82 116/77 O2 Sat by Pulse 99 94 L Oximetry Medical Decision Making - Medical Decision Making Patient is a 44-year-old female here for alcohol detox. She normally drinks a fifth of liquor a day, she did have some liquor today prior to arrival. She denies any suicidal or homicidal thoughts at this time. Patient's alcohol returned at 259, rest of labs show no acute findings, lipase is normal. Urine is still pending at this time. Patient will be admitted for alcohol intoxication. Patient is agreement with this plan of care. Patient was given fluids, ativan, banana bag, CWIA protocol. Patient was accepted by Dr. Boykin. Case discussed with Dr. Robb. - Lab Data Result diagrams: 08/02/19 12:15 08/02/19 12:15 Lab Results 08/02/19 08/02/19 Range/Units 12:15 12:15 WBC 10.9 H (3.8-10.6) k/uL RBC 4.32 (3.80-5.40) m/uL Hgb 14.3 D (11.4-16.0) gm/dL Hct 41.5 (34.0-46.0) % MCV 96.0 D (80.0-100.0) fL MCH 33.2 (25.0-35.0) pg MCHC 34.5 (31.0-37.0) g/dL RDW 15.2 (11.5-15.5) % Plt Count 418 D (150-450) k/uL Neutrophils % 66 % Lymphocytes % 26 % Monocytes % 5 % Eosinophils % 1 % Basophils % 1 % Neutrophils # 7.2 (1.3-7.7) k/uL Lymphocytes # 2.8 (1.0-4.8) k/uL Monocytes # 0.5 (0-1.0) k/uL Eosinophils # 0.1 (0-0.7) k/uL Basophils # 0.1 (0-0.2) k/uL Sodium 131 L (137-145) mmol/L Potassium 4.1 (3.5-5.1) mmol/L Chloride 91 L (98-107) mmol/L Carbon Dioxide 18 L (22-30) mmol/L Anion Gap 22 mmol/L BUN 11 (7-17) mg/dL Creatinine 0.76 (0.52-1.04) mg/dL Est GFR (CKD-EPI)AfAm >90 (>60 ml/min/1.73 sqM) Est GFR (CKD-EPI)NonAf >90 (>60 ml/min/1.73 sqM) Glucose 96 (74-99) mg/dL Calcium 9.3 (8.4-10.2) mg/dL Total Bilirubin 0.7 (0.2-1.3) mg/dL AST 34 (14-36) U/L ALT 20 (4-34) U/L Alkaline Phosphatase 144 H (38-126) U/L Total Protein 8.1 (6.3-8.2) g/dL Albumin 4.9 (3.5-5.0) g/dL Amylase 104 (30-110) U/L Lipase 92 (23-300) U/L Serum Alcohol 259 H* mg/dL Disposition Clinical Impression: Alcohol intoxication, Hyponatremia Disposition: ADMITTED IP TO THIS [facility] Condition: Good Decision Date: 08/02/19 Decision Time: 13:24
[2019-08-02 12:45] LABS: Basophils # (A) 0.1 k/uL (0-0.2); Basophils % (A) 1 %; Eosinophils # (A) 0.1 k/uL (0-0.7); Eosinophils % (A) 1 %; HCT 41.5 % (34.0-46.0); Lymphocytes # (A) 2.8 k/uL (1.0-4.8); Lymphocytes % (A) 26 %; MCH 33.2 pg (25.0-35.0); MCHC 34.5 g/dL (31.0-37.0); Mean Platelet Volume 6.8; Monocytes # (A) 0.5 k/uL (0-1.0); Monocytes % (A) 5 %; Neutrophils # (A) 7.2 k/uL (1.3-7.7); Neutrophils % (A) 66 %; RBC 4.32 m/uL (3.80-5.40); RDW 15.2 % (11.5-15.5); WBC 10.9 k/uL (3.8-10.6)
[2019-08-02 12:49] LABS: ALT 20 U/L (4-34); AST 34 U/L (14-36); African American GFR (CKD) >90 (>60 ml/min/1.73 sqM); Albumin 4.9 g/dL (3.5-5.0); Alkaline Phosphatase 144 U/L (38-126); Amylase 104 U/L (30-110); Anion Gap 22 mmol/L; Blood Urea Nitrogen 11 mg/dL (7-17); Calcium 9.3 mg/dL (8.4-10.2); Carbon Dioxide 18 mmol/L (22-30); Chloride 91 mmol/L (98-107); Glucose 96 mg/dL (74-99); Non-African American GFR(CKD) >90 (>60 ml/min/1.73 sqM); Potassium 4.1 mmol/L (3.5-5.1); Sodium 131 mmol/L (137-145); Total Bilirubin 0.7 mg/dL (0.2-1.3); Total Protein 8.1 g/dL (6.3-8.2)
[2019-08-02 12:58] LABS: Alcohol 259 mg/dL
[2019-08-02] MEDS ORDERED: NALOXONE 0.4 MG/ML 1 ML VIAL IV PRN (13:19)
[2019-08-02] MEDS ORDERED: ONDANSETRON 4 MG/2 ML VIAL IVP PRN (13:19)
[2019-08-02] MEDS ORDERED: ACETAMINOPHEN TAB 325 MG TAB PO PRN (13:19)
[2019-08-02] MEDS ORDERED: THIAMINE 100 MG/ML 2 ML VIAL IM STA (13:21)
[2019-08-02] MEDS ORDERED: LORazepam 2 MG/ML INJ IV PRN (13:21)
[2019-08-02] MEDS ORDERED: SODIUM CHLORIDE 0.9% 1,000 ML with MVI, ADULT NO.4 WITH VIT K 10 ML, THIAMINE 100 MG, F... IV ONE ×4 (13:23)
[2019-08-02 13:33] LABS: HGB 14.3 gm/dL (11.4-16.0); Platelet Count 418 k/uL (150-450)
[2019-08-02 14:58] LABS: Bacteria,Urine Rare /hpf; Hyaline Casts,Urine 25 /lpf (0-2); Mucus,Urine Rare /hpf; RBC,Urine 2 /hpf (0-5); Squamous Epithelial Cell,Urine 11 /hpf (0-4); WBC,Urine 6 /hpf (0-5)
[2019-08-02 14:59] LABS: Appearance,Urine Clear (Clear); Color,Urine Amber
[2019-08-02 15:00] LABS: Bilirubin,Urine Negative (Negative); Blood,Urine Negative (Negative); Glucose,Urine (UA) Negative (Negative); Ketones,Urine 2+ (Negative); Leukocyte Esterase,Urine Small (Negative); Nitrite,Urine Negative (Negative); Protein,Urine 1+ (Negative); Urobilinogen,Urine <2.0 mg/dL (<2.0)
[2019-08-02 15:02] LABS: Amphetamine Screen,Urine Not Detected (NotDetected); Barbiturate Screen,Urine Not Detected (NotDetected); Benzodiazepines Screen,Urine Not Detected (NotDetected); Cocaine Screen,Urine Not Detected (NotDetected); Methadone Screen, Urine Not Detected (NotDetected); Opiate Screen,Urine Detected (NotDetected); Oxycodone Screen, Urine Not Detected (NotDetected); Phencyclidine Screen,Urine Not Detected (NotDetected); Tricyclic Antidepressant,Urine Not Detected (NotDetected); Urn Cannabinoid Scrn Not Detected (NotDetected)
[2019-08-02] MEDS: MORPHINE SULFATE 4 MG/ML SYRINGE IV PRN ×2 (18:08→22:21)
[2019-08-02] MEDS: THIAMINE 100 MG TAB PO SCH (18:10)
[2019-08-02] MEDS ORDERED: HYDROcodone/APAP 5-325MG 1 EACH TAB PO PRN (18:58)
[2019-08-02] MEDS ORDERED: TEMAZEPAM 15 MG CAP PO PRN (18:58)
[2019-08-02] MEDS ORDERED: cloNIDine HCL 0.1 MG TAB PO PRN (18:59)
[2019-08-02 19:27] LABS: Prothrombin Time 10.7 sec (9.0-12.0)
--- NOTE | 2019-08-02 19:47 | HP ---
HISTORY AND PHYSICAL DATE OF SERVICE: 08/02/2019 CHIEF COMPLAINTS: Shakes, tremors, and alcohol withdrawal. HISTORY OF PRESENT ILLNESS: This 44-year-old woman with a past medical history of multiple medical problems including myocardial infarction, fibromyalgia, rheumatoid arthritis, seizure disorder, alcohol dependence, anxiety, depression, bipolar, PTSD, was drinking about a fifth of alcohol. The patient was recently moved to [place] from [facility]. The patient complaining of shakes and weakness, difficulty walking, nausea, muscle aches and patient came to [facility] and admitted for evaluation. Patient says she is trying to detox from alcohol. There is no history of fever, rigors. No headache, loss of consciousness, seizures. PAST MEDICAL HISTORY: Fibromyalgia, myocardial infarction, seizure disorder, rheumatoid arthritis, history of MRSA, history of anxiety, bipolar depression, PTSD. MEDICATIONS: Prior to admission: Home medications are: 1. Multivitamins 1 p.o. daily. 2. Thiamine 100 mg. 3. Protonix 40 mg with meals. 4. Lopressor 50 mg p.o. b.i.d. 5. Robaxin 750 mg p.o. b.i.d. 6. Magnesium oxide 250 mg p.o. daily. 7. Hydrocodone 1 tablet p.o. q.i.d. 8. Gabapentin 300 mg p.o. q.i.d. 9. Vitamin B12 500 mcg p.o. daily. 10.Vitamin D3 1000 daily. 11.Lipitor 20 mg daily. ALLERGIES: IBUPROFEN, NSAIDs, and SEROQUEL. FAMILY HISTORY: No history of heart disease or strokes in the family. SOCIAL HISTORY: History of alcohol, history of smoking on a daily basis. REVIEW OF SYSTEMS: ENT: No diminished vision/hearing. Cardio system: No angina. Respiratory: No cough. GI no nausea. no dysuria. Nervous System as mentioned earlier. Allergy/Immunology: No asthma or hayfever. Musculoskeletal as mentioned earlier. Hematology/Oncology: No history of anemia. Endocrine: No history of diabetes or hypothyroidism. Constitutional: As mentioned earlier. DERMATOLOGY: Negative. RHEUMATOLOGY negative. PSYCHIATRY as mentioned earlier. PHYSICAL EXAMINATION: Alert and oriented times three. Pulse 129, respirations 16, temperature 98.2, pulse ox 98% on room air. Blood pressure is 133/81. Respiratory rate 18. HEENT: Conjunctivae normal. Oral mucosa moist. NECK is no jugular venous distention. No carotid bruit. No lymph node enlargement. Cardiovascular S1, S2 muffled. No S3, no S4. Respirations: Breath sounds diminished in the bases. No rhonchi. No crackles. ABDOMEN: Soft, nontender. No mass palpable. LEGS: No edema. No swelling. NERVOUS SYSTEM: Higher functions as mentioned earlier. Moves all 4 limbs. Mild diffuse weakness. Mild diffuse tremors also present. SKIN: No ulcer, rash or bleeding. JOINTS: No active deforming arthropathy. LYMPHATICS: No lymph nodes palpable in the neck, axillae or groin. LAB: Investigations at this time WBC 7.2, hemoglobin 14.2, sodium 131. UA possible UTI. Serum alcohol 215. ASSESSMENT: 1. Acute alcohol intoxication as well as acute delirium tremens. 2. Gait dysfunction secondary to #1. 3. Hyponatremia secondary to alcohol. 4. Increased WBC. 5. Possible acute urinary tract infection present on admission. 6. Fibromyalgia. 7. History of myocardial infarction. 8. History of rheumatoid arthritis. 9. History of seizure disorder. 10.History of alcohol dependence. 11.History of degenerative joint disease. 12.History of carcinoid syndrome. 13.History of enlarged liver. 14.History of lupus. 15.History of chronic pancreatitis. 16.History of pancreatic tumor. 17.History of osteomyelitis. 18.History of MRSA. 19.Anxiety/bipolar depression, PTSD. 20.History of continued ongoing nicotine dependence. RECOMMENDATIONS AND DISCUSSION: This 44-year-old woman who presented with multiple complex medical issues, at this time I recommend to continue the current medications. Continue symptomatic treatment. Continue CIWA protocol. I would also recommend a short course of antibiotics empirically as well. Otherwise clonidine. Continue with Ativan. DVT prophylaxis. Supplement vitamins. Monitor blood pressure closely. Resume the home medications. Guarded prognosis because of multiple complex medical issues. Further recommendations to follow. Recommend close followup with primary physician in the outpatient setting after discharge. I would also recommend alcohol detox and rehab pertaining to permitting insurance coverage and to be followed by Case Management and social security benefits interviewer team. ARANZA / PHILOMENA: [id number] /
[2019-08-02] MEDS: LORazepam 2 MG/ML INJ IV PRN (19:53)
[2019-08-02] MEDS: NICOTINE 14MG/24HR PATCH TRANSDERM SCH (19:56)
[2019-08-02] MEDS: cloNIDine HCL 0.1 MG TAB PO SCH (22:10)
[2019-08-02] MEDS: HYDROcodone/APAP 10-325MG 1 EACH TAB PO SCH (22:13)
[2019-08-02] MEDS: METOPROLOL TARTRATE 50 MG TAB PO SCH (22:13)
[2019-08-02] MEDS: GABAPENTIN 300 MG CAP PO SCH (22:13)
[2019-08-02] MEDS: METHOCARBAMOL 750 MG TAB PO SCH (22:14)
[2019-08-02] MEDS: HEPARIN SODIUM,PORCINE 5,000 UNIT/ML 1 ML VIAL SQ SCH (22:14)
[2019-08-02] MEDS: SODIUM CHLORIDE 0.9% 1,000 ML with MVI, ADULT NO.4 WITH VIT K 10 ML, THIAMINE 100 MG, F... IV SCH ×4 (23:27)
[2019-08-03] MEDS: LORazepam 2 MG/ML INJ IV PRN ×6 (01:36→23:14)
[2019-08-03] MEDS: MORPHINE SULFATE 4 MG/ML SYRINGE IV PRN ×5 (02:19→19:29)
[2019-08-03 08:03] LABS: Basophils % (A) 1 %; Eosinophils # (A) 0.1 k/uL (0-0.7); Eosinophils % (A) 1 %; HCT 34.2 % (34.0-46.0); HGB 11.6 gm/dL (11.4-16.0); Lymphocytes # (A) 2.4 k/uL (1.0-4.8); Lymphocytes % (A) 41 %; MCH 33.2 pg (25.0-35.0); MCHC 33.8 g/dL (31.0-37.0); Mean Platelet Volume 6.8; Monocytes # (A) 0.4 k/uL (0-1.0); Monocytes % (A) 6 %; Neutrophils % (A) 50 %; Platelet Count 274 k/uL (150-450); RBC 3.49 m/uL (3.80-5.40); RDW 14.9 % (11.5-15.5); WBC 5.9 k/uL (3.8-10.6)
[2019-08-03 08:06] LABS: African American GFR (CKD) >90 (>60 ml/min/1.73 sqM); Anion Gap 7 mmol/L; Blood Urea Nitrogen 12 mg/dL (7-17); Calcium 8.2 mg/dL (8.4-10.2); Carbon Dioxide 28 mmol/L (22-30); Chloride 95 mmol/L (98-107); Glucose 95 mg/dL (74-99); Non-African American GFR(CKD) >90 (>60 ml/min/1.73 sqM); Potassium 3.5 mmol/L (3.5-5.1); Sodium 130 mmol/L (137-145)
[2019-08-03] MEDS: METOPROLOL TARTRATE 50 MG TAB PO SCH (08:42)
[2019-08-03] MEDS: MULTIVITAMINS, THERA 1 EACH TAB PO SCH (08:42)
[2019-08-03] MEDS: ATORVASTATIN 20 MG TAB PO SCH (08:42)
[2019-08-03] MEDS: GABAPENTIN 300 MG CAP PO SCH ×4 (08:42→21:47)
[2019-08-03] MEDS: HYDROcodone/APAP 10-325MG 1 EACH TAB PO SCH ×4 (08:43→21:47)
[2019-08-03] MEDS: METHOCARBAMOL 750 MG TAB PO SCH ×2 (08:43→21:47)
[2019-08-03] MEDS: MAGNESIUM OXIDE 400 MG TAB PO SCH (08:43)
[2019-08-03] MEDS: CYANOCOBALAMIN 500 MCG TAB PO SCH (08:44)
[2019-08-03] MEDS: CHOLECALCIFEROL 1,000 UNIT TAB PO SCH (08:44)
[2019-08-03] MEDS: PANTOPRAZOLE 40 MG TABLET PO SCH (08:44)
[2019-08-03] MEDS: cloNIDine HCL 0.1 MG TAB PO SCH ×2 (08:44→21:35)
[2019-08-03] MEDS: THIAMINE 100 MG TAB PO SCH ×3 (08:45→17:48)
[2019-08-03] MEDS: HEPARIN SODIUM,PORCINE 5,000 UNIT/ML 1 ML VIAL SQ SCH ×2 (08:48→21:48)
[2019-08-03] MEDS: NICOTINE 14MG/24HR PATCH TRANSDERM SCH ×2 (08:50→23:15)
[2019-08-03] MEDS: SODIUM CHLORIDE 0.9% 1,000 ML with MVI, ADULT NO.4 WITH VIT K 10 ML, THIAMINE 100 MG, F... IV SCH ×4 (11:04)
[2019-08-03 20:47] VITALS: RESP 20; TEMP 97
[2019-08-04] MEDS: MORPHINE SULFATE 4 MG/ML SYRINGE IV PRN ×3 (00:50→11:38)
--- NOTE | 2019-08-04 01:54 | PN ---
PROGRESS NOTE DATE OF SERVICE: 08/03/2019 This 44-year-old woman was admitted with alcohol withdrawal is being closely monitored. Patient has some features of DTs and some anxiety. No chest pain. No palpitations. No fever. PHYSICAL EXAMINATION: Alert and oriented x3. Pulse 85, blood pressure 104/66, respirations 16, temperature 97.6, pulse ox 95% on room air. HEENT: Conjunctivae normal. NECK: No jugular venous distention. CARDIOVASCULAR: S1, S2 muffled. RESPIRATORY: Breath sounds diminished at the bases. No rhonchi, no crackles. ABDOMEN: Soft, nontender. LEGS: No edema. No swelling. NERVOUS SYSTEM: No focal deficits. LABS: WBC 5.9, sodium 130. UA noted. ASSESSMENT: 1. Acute alcohol intoxication as well as acute delirium tremens. 2. Change in mental status, metabolic encephalopathy, multifactorial. 3. Gait dysfunction secondary to 1. 4. Hyponatremia secondary to alcohol. 5. Increased WBC. 6. Possible acute urinary tract infection, present on admission. 7. Fibromyalgia. 8. History of myocardial infarction. 9. History of rheumatoid arthritis. 10.History of seizure disorder. 11.History of alcohol dependence. 12.History of degenerative joint disease. 13.History of carcinoid syndrome. 14.History of enlarged liver. 15.History of lupus. 16.History of chronic pancreatitis. 17.History of pancreatic tumor. 18.History of osteomyelitis. 19.History of MRSA. 20.History of anxiety, bipolar depression, posttraumatic stress disorder. 21.History of continued ongoing nicotine dependence. RECOMMENDATIONS AND DISCUSSION: Recommend to continue current medications, continue symptomatic treatment and CIWA protocol. Otherwise empiric antibiotics because of the high risk factors. Follow the cultures. The prognosis guarded because of multiple complex medical issues. Further recommendations to follow. MMODL / IJN: [id number] /
[2019-08-04] MEDS: LORazepam 2 MG/ML INJ IV PRN ×2 (02:04→09:13)
[2019-08-04] MEDS: SODIUM CHLORIDE 0.9% 1,000 ML with MVI, ADULT NO.4 WITH VIT K 10 ML, THIAMINE 100 MG, F... IV SCH ×4 (04:10)
[2019-08-04 06:10] VITALS: BP 114/74; PULSE 104
[2019-08-04 06:13] LABS: Basophils % (A) 0 %; Eosinophils # (A) 0.1 k/uL (0-0.7); Eosinophils % (A) 2 %; HCT 31.5 % (34.0-46.0); HGB 10.4 gm/dL (11.4-16.0); Lymphocytes # (A) 1.2 k/uL (1.0-4.8); Lymphocytes % (A) 33 %; MCH 33.2 pg (25.0-35.0); MCHC 33.1 g/dL (31.0-37.0); MCV 100.3 fL (80.0-100.0); Macrocytosis Slight; Mean Platelet Volume 8.2; Monocytes # (A) 0.2 k/uL (0-1.0); Monocytes % (A) 5 %; Neutrophils # (A) 2.2 k/uL (1.3-7.7); Neutrophils % (A) 60 %; Platelet Count 202 k/uL (150-450); RBC 3.14 m/uL (3.80-5.40); RDW 14.6 % (11.5-15.5); WBC 3.6 k/uL (3.8-10.6)
[2019-08-04 06:27] LABS: African American GFR (CKD) >90 (>60 ml/min/1.73 sqM); Anion Gap 3 mmol/L; Blood Urea Nitrogen 12 mg/dL (7-17); Carbon Dioxide 28 mmol/L (22-30); Chloride 103 mmol/L (98-107); Glucose 120 mg/dL (74-99); Non-African American GFR(CKD) >90 (>60 ml/min/1.73 sqM); Potassium 3.7 mmol/L (3.5-5.1); Sodium 134 mmol/L (137-145)
[2019-08-04] MEDS: THIAMINE 100 MG TAB PO SCH ×2 (08:54→08:58)
[2019-08-04] MEDS: PANTOPRAZOLE 40 MG TABLET PO SCH (08:57)
[2019-08-04] MEDS: METHOCARBAMOL 750 MG TAB PO SCH (08:57)
[2019-08-04] MEDS: MAGNESIUM OXIDE 400 MG TAB PO SCH (08:58)
[2019-08-04] MEDS: cloNIDine HCL 0.1 MG TAB PO SCH (08:58)
[2019-08-04] MEDS: GABAPENTIN 300 MG CAP PO SCH (08:58)
[2019-08-04] MEDS: CYANOCOBALAMIN 500 MCG TAB PO SCH (08:58)
[2019-08-04] MEDS: MULTIVITAMINS, THERA 1 EACH TAB PO SCH (08:58)
[2019-08-04] MEDS: CHOLECALCIFEROL 1,000 UNIT TAB PO SCH (08:58)
[2019-08-04] MEDS: HYDROcodone/APAP 10-325MG 1 EACH TAB PO SCH (08:58)
[2019-08-04] MEDS: ATORVASTATIN 20 MG TAB PO SCH (08:58)
[2019-08-04] MEDS: NICOTINE 14MG/24HR PATCH TRANSDERM SCH (08:59)
[2019-08-04] MEDS: HEPARIN SODIUM,PORCINE 5,000 UNIT/ML 1 ML VIAL SQ SCH (08:59)
--- NOTE | 2019-08-04 13:02 | P.DS ---
Providers Date of admission: 08/04/19 08:01 Expected date of discharge: 08/04/19 Attending physician: Danyelle Boykin Primary care physician: Stated None Hospital Course: Final diagnosis Acute alcohol intoxication as well as acute delirium tremens, present on admission Change in mental status, metabolic encephalopathy, multifactorial Gait dysfunction secondary to acute alcohol intoxication Hyponatremia secondary to alcohol, improved Increased WBC Possible acute urinary tract infection, present on admission Fibromyalgia History of myocardial infarction history of rheumatoid arthritis History of seizure disorder history of alcohol dependence History of degenerative joint disease history of carcinoid syndrome History of enlarged liver History of lupus History of chronic pancreatitis History of pancreatic tumor History of osteomyelitis History of MRSA history of anxiety, bipolar depression, posttraumatic stress disorder History of continued ongoing nicotine dependence Discharge disposition Patient is being discharged in a stable condition with guarded prognosis to home. Patient will follow-up with her new primary care provider as scheduled on August 12 in the outpatient setting upon discharge. Patient will continue to fol low-up with her aircraft painter apprentice in the outpatient setting as well. Patient will continue on a short course of oral Ceftin 500 mg twice daily daily for the next 3 days and then may discontinue. Total time taken is 35 minutes. History of present illness This is a 44-year-old female who was recently admitted with alcohol withdrawal having some features of delirium tremens and anxiety and was being closely monitored. Patient was also treated empirically for a possible acute urinary tract infection that was present on admission. Patient showed some improvements and will continue on oral Ceftin 500 mg twice daily for the next 3 days to complete the course in the may discontinue. Patient states that she has a new primary care provider that is scheduled for August 12 and will be following up with them although she is unsure of their name at this time. Patient also follows with aircraft painter apprentice in the outpatient setting and will continue to do so. Patient was initiated on CIWA protocol and not experiencing any symptoms of alcohol withdrawal this morning. Discussed with the patient at length about continuing to refrain from any alcohol intake. Currently no reports of chest pain, shortness of breath, or palpitations. Patient is afebrile. No reports of nausea or vomiting noted in patient is tolerating diet. Patient will be discharged home today. On exam vital signs are stable. Temp is 97.0F, pulse is 100, respirations 20, blood pressure is 114/74, oxygen saturation is 99% on room air. Cardio S1, S2 are muffled. Respiratory shows diminished breath sounds at the bases with no wheezing or rhonchi noted. Abdomen is soft and nontender. Nervous system shows no focal deficits. Please refer to medication reconciliation sheet for a list of medications. Patient Condition at Discharge: Good Plan - Discharge Summary Discharge Rx Participant: No New Discharge Prescriptions: New Cefuroxime Axetil [Ceftin] 500 mg PO BID 3 Days #6 tab Continue Methocarbamol [Robaxin-750] 750 mg PO BID Magnesium 250 mg PO DAILY Hydrocodone/Acetaminophen [[place] 10-325] 1 tab PO QID Thiamine HCl [Vitamin B-1] 100 mg PO DAILY Cyanocobalamin [Vitamin B-12] 500 mcg PO DAILY Pantoprazole Sodium [Protonix] 40 mg PO BID-W/MEALS #60 tablet. Atorvastatin [Lipitor] 20 mg PO DAILY #30 tab Metoprolol Tartrate [Lopressor] 50 mg PO BID #60 tab Gabapentin [Neurontin] 300 mg PO QID #120 cap Multivitamins, Thera [Multivitamin (formulary)] 1 tab PO DAILY Cholecalciferol [Vitamin D3 (25 Mcg = 1000 Iu)] 1,000 unit PO DAILY Discharge Medication List Methocarbamol [Robaxin-750] 750 mg PO BID 10/08/18 [History] Cyanocobalamin [Vitamin B-12] 500 mcg PO DAILY 06/20/19 [History] Hydrocodone/Acetaminophen [[place] 10-325] 1 tab PO QID 06/20/19 [History] Magnesium 250 mg PO DAILY 06/20/19 [History] Thiamine HCl [Vitamin B-1] 100 mg PO DAILY 06/20/19 [History] Atorvastatin [Lipitor] 20 mg PO DAILY #30 tab 06/25/19 [Rx] Gabapentin [Neurontin] 300 mg PO QID #120 cap 06/25/19 [Rx] Metoprolol Tartrate [Lopressor] 50 mg PO BID #60 tab 06/25/19 [Rx] Pantoprazole Sodium [Protonix] 40 mg PO BID-W/MEALS #60 tablet. 06/25/19 [Rx] Cholecalciferol [Vitamin D3 (25 Mcg = 1000 Iu)] 1,000 unit PO DAILY 08/02/19 [History] Multivitamins, Thera [Multivitamin (formulary)] 1 tab PO DAILY 08/02/19 [History] Cefuroxime Axetil [Ceftin] 500 mg PO BID 3 Days #6 tab 08/04/19 [Rx] Follow up Appointment(s)/Referral(s): None,Stated [Primary Care Provider] - 1-2 days Patient Instructions/Handouts: Cefuroxime (By mouth), Alcohol Intoxication (DC), Abuse of Alcohol (DC) Activity/Diet/Wound Care/Special Instructions: Follow-up with primary care provider as discussed that is scheduled for August 12 Continue current diet Avoid alcohol intake Continue antibiotics for the next 3 days until finished Discharge Disposition: HOME SELF-CARE
== END 2019-08-04 12:26 | disposition home or self-care (01) | DRG 896 ==
LOC: EC 11:23 → 5NMEDONC 13:41 → OBSVTOIN 08-04 08:01
PROVIDERS: ADMIT Internal Medicine; ATTEND Internal Medicine
DX: F10.220 Alcohol dependence with intoxication, uncomplicated (principal); G93.41 Metabolic encephalopathy; E87.1 Hypo-osmolality and hyponatremia; K86.1 Other chronic pancreatitis; E34.0 Carcinoid syndrome; F31.30 Bipolar disorder, current episode depressed, mild or moderate severity, unspecified; N39.0 Urinary tract infection, site not specified; K76.9 Liver disease, unspecified; Z11.59 Encounter for screening for other viral diseases; M32.9 Systemic lupus erythematosus, unspecified; G40.909 Epilepsy, unspecified, not intractable, without status epilepticus; M06.9 Rheumatoid arthritis, unspecified; F10.231 Alcohol dependence with withdrawal delirium; M79.7 Fibromyalgia; M51.36 Other intervertebral disc degeneration, lumbar region; F43.10 Post-traumatic stress disorder, unspecified; F17.200 Nicotine dependence, unspecified, uncomplicated; M19.90 Unspecified osteoarthritis, unspecified site; Y90.8 Blood alcohol level of 240 mg/100 ml or more; I25.2 Old myocardial infarction; Z79.899 Other long term (current) drug therapy; Z87.19 Personal history of other diseases of the digestive system; Z86.14 Personal history of Methicillin resistant Staphylococcus aureus infection; Z98.890 Other specified postprocedural states; Z88.6 Allergy status to analgesic agent; Z88.8 Allergy status to other drugs, medicaments and biological substances
CPT/HCPCS: 36415; 80048; 80053; 80306; 80320; 81001; 82150; 83690; 85025; 85610; 96361; 96374; 96375; 96376; 99285

== ENCOUNTER 2019-09-06 11:12 | Emergency (ER) | payer OTHER ==
[2019-09-06 11:22] VITALS: RESP 16; TEMP 98.9
[2019-09-06] MEDS ORDERED: SODIUM CHLORIDE 0.9% 500 ML 500 ML IV STA (11:34)
[2019-09-06] MEDS ORDERED: LORazepam 2 MG/ML INJ IV STA (11:34)
[2019-09-06 12:03] LABS: Basophils # (A) 0.1 k/uL (0-0.2); Basophils % (A) 1 %; Eosinophils # (A) 0.1 k/uL (0-0.7); Eosinophils % (A) 1 %; HCT 38.6 % (34.0-46.0); HGB 12.4 gm/dL (11.4-16.0); Lymphocytes # (A) 2.2 k/uL (1.0-4.8); Lymphocytes % (A) 31 %; MCH 31.4 pg (25.0-35.0); MCHC 32.1 g/dL (31.0-37.0); MCV 97.7 fL (80.0-100.0); Monocytes # (A) 0.2 k/uL (0-1.0); Monocytes % (A) 3 %; Neutrophils # (A) 4.5 k/uL (1.3-7.7); Neutrophils % (A) 62 %; Platelet Count 279 k/uL (150-450); RBC 3.95 m/uL (3.80-5.40); RDW 14.3 % (11.5-15.5); WBC 7.2 k/uL (3.8-10.6)
[2019-09-06 12:20] LABS: Appearance,Urine Cloudy (Clear); Bacteria,Urine Many /hpf; Bilirubin,Urine Negative (Negative); Blood,Urine Moderate (Negative); Color,Urine Yellow; Glucose,Urine (UA) Negative (Negative); Ketones,Urine 1+ (Negative); Leukocyte Esterase,Urine Small (Negative); Mucus,Urine Few /hpf; Nitrite,Urine Negative (Negative); PH, Urine 6.5 (5.0-8.0); Protein,Urine 1+ (Negative); RBC,Urine 25 /hpf (0-5); Specific Gravity,Urine 1.017 (1.001-1.035); Squamous Epithelial Cell,Urine 1 /hpf (0-4); WBC,Urine 25 /hpf (0-5)
[2019-09-06 12:21] LABS: ALT 74 U/L (4-34); AST 114 U/L (14-36); African American GFR (CKD) >90 (>60 ml/min/1.73 sqM); Albumin 4.6 g/dL (3.5-5.0); Alkaline Phosphatase 103 U/L (38-126); Anion Gap 17 mmol/L; Bilirubin, Delta 0.2 mg/dL (0.0-0.2); Blood Urea Nitrogen 7 mg/dL (7-17); Calcium 8.7 mg/dL (8.4-10.2); Carbon Dioxide 18 mmol/L (22-30); Chloride 104 mmol/L (98-107); Glucose 90 mg/dL (74-99); Non-African American GFR(CKD) >90 (>60 ml/min/1.73 sqM); Potassium 3.7 mmol/L (3.5-5.1); Sodium 139 mmol/L (137-145); Total Bilirubin 1.2 mg/dL (0.2-1.3); Total Protein 7.2 g/dL (6.3-8.2)
[2019-09-06 12:23] LABS: Alcohol 293 mg/dL
[2019-09-06 12:33] LABS: Amphetamine Screen,Urine Not Detected (NotDetected); Barbiturate Screen,Urine Not Detected (NotDetected); Benzodiazepines Screen,Urine Not Detected (NotDetected); Cocaine Screen,Urine Not Detected (NotDetected); Methadone Screen, Urine Not Detected (NotDetected); Opiate Screen,Urine Not Detected (NotDetected); Oxycodone Screen, Urine Not Detected (NotDetected); Phencyclidine Screen,Urine Not Detected (NotDetected); Tricyclic Antidepressant,Urine Not Detected (NotDetected); Urn Cannabinoid Scrn Detected (NotDetected)
--- NOTE | 2019-09-06 12:33 | ED ---
Seizure HPI - General Chief Complaint: Seizure Stated Complaint: detoxing Time Seen by Provider: 09/06/19 11:20 Source: patient Mode of arrival: ambulatory - History of Present Illness Initial Comments: Patient is a 44-year-old female past medical history of alcohol abuse, and stage liver disease who presents emergency department with reported DTs. Patient states that she is a binge drinker. She drank 3-5th of alcohol yesterday. States her last drink was 13 hours ago. She has a history of alcohol abuse with liver disease. She drinks once a month. Reports that she fell yesterday after she had a seizure and hit her head. Also has a bruise to her left elbow. Patient states she's had some any seizures yesterday that she can no longer count. She denies any headaches or visual changes at this time. No confusion from the patient. Denies any fevers or chills. No abdominal pain. Denies dark-colored urine or dona colored stools. No concern for . No his tory of paracenteses. All other alleviating, precipitating or modifying factors - Related Data Home Medications Medication Instructions Recorded Confirmed Methocarbamol [Robaxin-750] 750 mg PO BID 10/08/18 08/02/19 Cyanocobalamin [Vitamin B-12] 500 mcg PO DAILY 06/20/19 08/02/19 Hydrocodone/Acetaminophen [[place] 1 tab PO QID 06/20/19 08/02/19 10-325] Magnesium 250 mg PO DAILY 06/20/19 08/02/19 Thiamine HCl [Vitamin B-1] 100 mg PO DAILY 06/20/19 08/02/19 Cholecalciferol [Vitamin D3 (25 1,000 unit PO DAILY 08/02/19 08/02/19 Mcg = 1000 Iu)] Multivitamins, Thera [Multivitamin 1 tab PO DAILY 08/02/19 08/02/19 (formulary)] Previous Rx's Medication Instructions Recorded Atorvastatin [Lipitor] 20 mg PO DAILY #30 tab 06/25/19 Gabapentin [Neurontin] 300 mg PO QID #120 cap 06/25/19 Metoprolol Tartrate [Lopressor] 50 mg PO BID #60 tab 06/25/19 Pantoprazole Sodium [Protonix] 40 mg PO BID-W/MEALS #60 tablet. 05/13/20 Cefuroxime Axetil [Ceftin] 500 mg PO BID 3 Days #6 tab 08/04/19 Cephalexin [Keflex] 500 mg PO BID #14 cap 09/06/19 LORazepam [Ativan] 0.5 mg PO TID PRN 3 Days #9 tab 09/06/19 Allergies Allergy/AdvReac Type Severity Reaction Status Date / Time ibuprofen [From Motrin] Allergy Unknown Verified 09/06/19 11:22 NSAIDS (Non-Steroidal Allergy Unknown Verified 09/06/19 11:22 Anti-Inflamma quetiapine [From Seroquel] Allergy Unknown Verified 09/06/19 11:22 Review of Systems ROS Statement: Those systems with pertinent positive or pertinent negative responses have been documented in the HPI. ROS Other: All systems not noted in ROS Statement are negative. 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, carsinoid syndrome, enlarge liver, lupus, chronic pancreatitis, pancreatic tumor,osteomyelitis Last Myocardial Infarction Date:: 01/2017 History of Any Multi-Drug Resistant Organisms: MRSA Date of last positivie culture/infection: 2009 MDRO Source:: finger Past Surgical History: No Surgical Hx Reported Additional Past Surgical History / Comment(s): Left hand surgery Past Anesthesia/Blood Transfusion Reactions: No Reported Reaction Past Psychological History: Anxiety, Bipolar, Depression, PTSD Smoking Status: Current every day smoker Past Alcohol Use History: Abuse, Daily, Heavy Past Drug Use History: None Reported, Marijuana - Past Family History Mother Family Medical History: Unable to Obtain Course Vital Signs 09/06/19 09/06/19 11:18 14:24 Temperature 98.9 F 98.9 F Pulse Rate 135 H 104 H Respiratory 16 16 Rate Blood Pressure 148/80 134/77 O2 Sat by Pulse 98 98 Oximetry Medical Decision Making - Medical Decision Making Upon arrival the patient is placed in room 17. A thorough history and physical exam is performed. Patient is tremulous and tachycardic. Peripheral IV is established and she is given 1 mg of Ativan. Laboratory studies were conducted. The patient is report hitting her head and therefore she is sent to CT of her head and neck. I also ordered an x-ray of the patient's left I will because she does have bruising in this area. Laboratory studies are remarkable for an AST of 114, a LT of 74. Lipase is 904. UA is positive for 25 red blood cells, 25 white blood cells and many bacteria. Patient was given a dose of Rocephin. Patient denies any abdominal pain. Urine is positive for marijuana. Blood alcohol level is 293. Patient is revalued and states she feels much improved at this time. I did recommend hospital admission for alcohol withdrawal as the patient is highly intoxicated and already reports to withdrawal symptoms. Patient refuses stating that she feels much better after that Ativan. I did requesting an x-ray of the patient's left shoulder however she refuses stating she just wanted to go home. She does have her significant other at bedside. He agrees to drive her home and knows her intoxicated state. Patient is alert, oriented 3 and has appropriate judgment even though she is significantly int oxicated. Patient is requesting Ativan at discharge. I did recommend treatment with Librium for withdrawal however the patient states she did not tolerate this in the past. I provided her with a 3 day prescription for Ativan to take only as needed. She is aware that this is a controlled substance and the risks with its use. I instructed the patient not to drink. She is notified that her CT of her brain does not demonstrate any acute findings however the patient does have an old previous lacunar infarcts. She is to follow-up with her primary care physician in regards to this. The patient was in agreement with this treatment plan and she was discharged home in stable condition - Lab Data Result diagrams: 09/06/19 11:48 09/06/19 11:48 Lab Results 09/06/19 09/06/19 09/06/19 Range/Units 11:48 11:48 11:48 WBC 7.2 (3.8-10.6) k/uL RBC 3.95 (3.80-5.40) m/uL Hgb 12.4 (11.4-16.0) gm/dL Hct 38.6 (34.0-46.0) % MCV 97.7 (80.0-100.0) fL MCH 31.4 (25.0-35.0) pg MCHC 32.1 (31.0-37.0) g/dL RDW 14.3 (11.5-15.5) % Plt Count 279 (150-450) k/uL Neutrophils % 62 % Lymphocytes % 31 % Monocytes % 3 % Eosinophils % 1 % Basophils % 1 % Neutrophils # 4.5 (1.3-7.7) k/uL Lymphocytes # 2.2 (1.0-4.8) k/uL Monocytes # 0.2 (0-1.0) k/uL Eosinophils # 0.1 (0-0.7) k/uL Basophils # 0.1 (0-0.2) k/uL Sodium 139 (137-145) mmol/L Potassium 3.7 (3.5-5.1) mmol/L Chloride 104 (98-107) mmol/L Carbon Dioxide 18 L (22-30) mmol/L Anion Gap 17 mmol/L BUN 7 (7-17) mg/dL Creatinine 0.68 (0.52-1.04) mg/dL Est GFR (CKD-EPI)AfAm >90 (>60 ml/min/1.73 sqM) Est GFR (CKD-EPI)NonAf >90 (>60 ml/min/1.73 sqM) Glucose 90 (74-99) mg/dL Calcium 8.7 (8.4-10.2) mg/dL Total Bilirubin 1.2 (0.2-1.3) mg/dL Conjugated Bilirubin 0.0 (0.0-0.3) mg/dL Unconjugated Bilirubin 1.0 (0.0-1.1) mg/dL Delta Bilirubin 0.2 (0.0-0.2) mg/dL AST 114 H (14-36) U/L ALT 74 H (4-34) U/L Alkaline Phosphatase 103 (38-126) U/L Ammonia 11 (<30) umol/L Total Protein 7.2 (6.3-8.2) g/dL Albumin 4.6 (3.5-5.0) g/dL Lipase 904 H (23-300) U/L Urine Color Urine Appearance (Clear) Urine pH (5.0-8.0) Ur Specific [place] (1.001-1.035) Urine Protein (Negative) Urine Glucose (UA) (Negative) Urine Ketones (Negative) Urine Blood (Negative) Urine Nitrite (Negative) Urine Bilirubin (Negative) Urine Urobilinogen (<2.0) mg/dL Ur Leukocyte Esterase (Negative) Urine RBC (0-5) /hpf Urine WBC (0-5) /hpf Ur Squamous Epith Cells (0-4) /hpf Urine Bacteria (None) /hpf Urine Mucus (None) /hpf Urine Opiates Screen (NotDetected) Ur Oxycodone Screen (NotDetected) Urine Methadone Screen (NotDetected) Ur Propoxyphene Screen (NotDetected) Ur Barbiturates Screen (NotDetected) U Tricyclic Antidepress (NotDetected) Ur Phencyclidine Scrn (NotDetected) Ur Amphetamines Screen (NotDetected) U Methamphetamines Scrn (NotDetected) U Benzodiazepines Scrn (NotDetected) Urine Cocaine Screen (NotDetected) U Marijuana (THC) Screen (NotDetected) Serum Alcohol 293 H* mg/dL 09/06/19 Range/Units 12:00 WBC (3.8-10.6) k/uL RBC (3.80-5.40) m/uL Hgb (11.4-16.0) gm/dL Hct (34.0-46.0) % MCV (80.0-100.0) fL MCH (25.0-35.0) pg MCHC (31.0-37.0) g/dL RDW (11.5-15.5) % Plt Count (150-450) k/uL Neutrophils % % Lymphocytes % % Monocytes % % Eosinophils % % Basophils % % Neutrophils # (1.3-7.7) k/uL Lymphocytes # (1.0-4.8) k/uL Monocytes # (0-1.0) k/uL Eosinophils # (0-0.7) k/uL Basophils # (0-0.2) k/uL Sodium (137-145) mmol/L Potassium (3.5-5.1) mmol/L Chloride (98-107) mmol/L Carbon Dioxide (22-30) mmol/L Anion Gap mmol/L BUN (7-17) mg/dL Creatinine (0.52-1.04) mg/dL Est GFR (CKD-EPI)AfAm (>60 ml/min/1.73 sqM) Est GFR (CKD-EPI)NonAf (>60 ml/min/1.73 sqM) Glucose (74-99) mg/dL Calcium (8.4-10.2) mg/dL Total Bilirubin (0.2-1.3) mg/dL Conjugated Bilirubin (0.0-0.3) mg/dL Unconjugated Bilirubin (0.0-1.1) mg/dL Delta Bilirubin (0.0-0.2) mg/dL AST (14-36) U/L ALT (4-34) U/L Alkaline Phosphatase (38-126) U/L Ammonia (<30) umol/L Total Protein (6.3-8.2) g/dL Albumin (3.5-5.0) g/dL Lipase (23-300) U/L Urine Color Yellow Urine Appearance Cloudy H (Clear) Urine pH 6.5 (5.0-8.0) Ur Specific [place] 1.017 (1.001-1.035) Urine Protein 1+ H (Negative) Urine Glucose (UA) Negative (Negative) Urine Ketones 1+ H (Negative) Urine Blood Moderate H (Negative) Urine Nitrite Negative (Negative) Urine Bilirubin Negative (Negative) Urine Urobilinogen 3.0 (<2.0) mg/dL Ur Leukocyte Esterase Small H (Negative) Urine RBC 25 H (0-5) /hpf Urine WBC 25 H (0-5) /hpf Ur Squamous Epith Cells 1 (0-4) /hpf Urine Bacteria Many H (None) /hpf Urine Mucus Few H (None) /hpf Urine Opiates Screen Not Detected (NotDetected) Ur Oxycodone Screen Not Detected (NotDetected) Urine Methadone Screen Not Detected (NotDetected) Ur Propoxyphene Screen Not Detected (NotDetected) Ur Barbiturates Screen Not Detected (NotDetected) U Tricyclic Antidepress Not Detected (NotDetected) Ur Phencyclidine Scrn Not Detected (NotDetected) Ur Amphetamines Screen Not Detected (NotDetected) U Methamphetamines Scrn Not Detected (NotDetected) U Benzodiazepines Scrn Not Detected (NotDetected) Urine Cocaine Screen Not Detected (NotDetected) U Marijuana (THC) Screen Detected H (NotDetected) Serum Alcohol mg/dL - EKG Data EKG Comments: EKG demonstrates a sinus tachycardia with a ventricular rate of 118. MA interval 142. QRS 72. QTC of 42. No acute ST segment elevations or depressions concerning for ischemic changes Disposition Clinical Impression: Alcohol intoxication, Alcohol abuse, UTI (urinary tract infection) Disposition: HOME SELF-CARE Condition: Stable Instructions (If sedation given, give patient instructions): Urinary Tract Infection in Women (DC), Abuse of Alcohol (ED) Additional Instructions: Please follow-up with your primary care physician in regards to your CT findings. Stop drinking alcohol. Return to the emergency room for any new or worsening symptoms Prescriptions: LORazepam [Ativan] 0.5 mg PO TID PRN 3 Days #9 tab PRN Reason: Alcohol Withdrawal Cephalexin [Keflex] 500 mg PO BID #14 cap Is patient prescribed a controlled substance at d/c from ED?: Yes When asked, does pt state using other controlled substances?: No If prescribed controlled substance>3 days was MAPS reviewed?: Prescribed <3 Days Referrals: None,Stated [Primary Care Provider] - 1-2 days Time of Disposition: 14:03
[2019-09-06] MEDS ORDERED: MORPHINE SULFATE 4 MG/ML SYRINGE IVP STA (12:39)
--- NOTE | 2019-09-06 12:42 | CT ---
EXAMINATION TYPE: CT brain [place] con DATE OF EXAM: 09/06/2019 COMPARISON: Previous CT scan of the brain dated 12/29/2017. HISTORY: Patient detoxing from etoh, seizures CT DLP: 1359.7 mGycm Automated exposure control for dose reduction was used. TECHNIQUE: CT scan of the head and cervical spine are performed without contrast. FINDINGS: BRAIN: Central structures are midline. There is no evidence of hydrocephalus. There is a small area o f encephalomalacia in these centrum semiovale on the right. This is likely a previous lacunar infarct . No other focal lesion is seen. There is no mass effect or midline shift identified. I do not see ev idence of intracranial blood. Visualized portions of the paranasal sinuses and mastoids are clear. The bony calvarium is intact. IMPRESSION: 1. EVIDENCE OF PREVIOUS LACUNAR INFARCT IN THE CENTRUM SEMIOVALE ON THE RIGHT. 2. NO ACUTE INTRACRANIAL ABNORMALITY. CERVICAL SPINE: Visualized portions of the lungs are clear. Prevertebral soft tissues are normal. There is a mild reversal of the normal cervical lordosis. Alignment is maintained. Vertebral body hei ght is maintained. Atlantoaxial relationships are normal. There is degenerative disc these and hypertrophic spondylosis both anteriorly and posteriorly most ma rked at C6-7 but also present at C4-5 and C5-6. There is uncovertebral joint disease present at these levels. No protrusion is identified. No fracture is identified. IMPRESSION: 1. NO ACUTE OSSEOUS LESION. 2. MODERATE DEGENERATIVE CHANGE.
[2019-09-06] MEDS ORDERED: cefTRIAXone IN SWFI 1,000 MG/10 ML SYRINGE IVP STA (13:05)
[2019-09-06 14:25] VITALS: BP 134/77; PULSE 104
== END 2019-09-06 14:24 | disposition home or self-care (01) ==
LOC: EC 11:12
DX: F10.129 Alcohol abuse with intoxication, unspecified (principal); S50.02XA Contusion of left elbow, initial encounter; N39.0 Urinary tract infection, site not specified; M06.9 Rheumatoid arthritis, unspecified; R00.0 Tachycardia, unspecified; I25.2 Old myocardial infarction; Y90.8 Blood alcohol level of 240 mg/100 ml or more; F17.200 Nicotine dependence, unspecified, uncomplicated; Z79.899 Other long term (current) drug therapy; Z88.8 Allergy status to other drugs, medicaments and biological substances; Z88.6 Allergy status to analgesic agent; Z86.73 Personal history of transient ischemic attack (TIA), and cerebral infarction without residual deficits; W18.39XA Other fall on same level, initial encounter
CPT/HCPCS: 36415; 93005; 80053; 82140; 82248; 83690; 85025; 81001; 80306; 72125; 70450; 99285; 96374; 96375 ×2; 96361 ×2; G0480; J2060; J2270; J0696; 80320

== ENCOUNTER 2019-10-05 08:02 | Inpatient (IN) | payer OTHER ==
[2019-10-05] MEDS ORDERED: ONDANSETRON 4 MG/2 ML VIAL IVP STA (08:27)
[2019-10-05] MEDS ORDERED: SODIUM CHLORIDE 0.9% 1,000 ML IV ONE ×2 (08:27→09:22)
[2019-10-05] MEDS ORDERED: SODIUM CHLORIDE 0.9% 500 ML 500 ML IV ONE (08:27)
[2019-10-05] MEDS ORDERED: LORazepam 2 MG/ML INJ IV STA ×2 (08:28→08:29)
--- NOTE | 2019-10-05 08:35 | ED ---
General Adult HPI - General Chief complaint: Abdominal Pain Stated complaint: pancreatitis, alcohol detoxing Time Seen by Provider: 10/05/19 08:05 Source: patient, RN notes reviewed, old records reviewed Mode of arrival: ambulatory Limitations: no limitations - History of Present Illness Initial comments: This is a 44-year-old female who presents emergency room complaining of abdominal pain in the epigastric region. Patient states she's heavy drinker has liver failure and has had pancreatitis multiple times. Patient states she is very nauseated and has vomited and she states this feels typical of her pancreatitis. Patient denies any chest pain or difficulty breathing patient denies any shortness of breath. Patient denies any fever chills. Patient denies any back pain. Patient denies any dysuria hematuria urinary frequency. Patient denies lightheadedness or dizziness. - Related Data Home Medications Medication Instructions Recorded Confirmed Methocarbamol [Robaxin-750] 750 mg PO BID 10/08/18 08/02/19 Cyanocobalamin [Vitamin B-12] 500 mcg PO DAILY 06/20/19 08/02/19 Hydrocodone/Acetaminophen [[place] 1 tab PO QID 06/20/19 08/02/19 10-325] Magnesium 250 mg PO DAILY 06/20/19 08/02/19 Thiamine HCl [Vitamin B-1] 100 mg PO DAILY 06/20/19 08/02/19 Cholecalciferol [Vitamin D3 (25 1,000 unit PO DAILY 08/02/19 08/02/19 Mcg = 1000 Iu)] Multivitamins, Thera [Multivitamin 1 tab PO DAILY 08/02/19 08/02/19 (formulary)] Previous Rx's Medication Instructions Recorded Atorvastatin [Lipitor] 20 mg PO DAILY #30 tab 06/25/19 Gabapentin [Neurontin] 300 mg PO QID #120 cap 06/25/19 Metoprolol Tartrate [Lopressor] 50 mg PO BID #60 tab 06/25/19 Pantoprazole Sodium [Protonix] 40 mg PO BID-W/MEALS #60 tablet. 06/25/19 Cefuroxime Axetil [Ceftin] 500 mg PO BID 3 Days #6 tab 08/04/19 Cephalexin [Keflex] 500 mg PO BID #14 cap 09/06/19 LORazepam [Ativan] 0.5 mg PO TID PRN 3 Days #9 tab 09/06/19 Allergies Allergy/AdvReac Type Severity Reaction Status Date / Time ibuprofen [From Motrin] Allergy Unknown Verified 10/05/19 08:09 NSAIDS (Non-Steroidal Allergy Unknown Verified 10/05/19 08:09 Anti-Inflamma quetiapine [From Seroquel] Allergy Unknown Verified 10/05/19 08:09 Review of Systems ROS Statement: Those systems with pertinent positive or pertinent negative responses have been documented in the HPI. ROS Other: All systems not noted in ROS Statement are negative. 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, carsinoid syndrome, enlarge liver, lupus, chronic pancreatitis, pancreatic tumor,osteomyelitis Last Myocardial Infarction Date:: 01/2017 History of Any Multi-Drug Resistant Organisms: MRSA Date of last positivie culture/infection: 2009 MDRO Source:: finger Past Surgical History: No Surgical Hx Reported Additional Past Surgical History / Comment(s): Left hand surgery Past Anesthesia/Blood Transfusion Reactions: No Reported Reaction Past Psychological History: Anxiety, Bipolar, Depression, PTSD Smoking Status: Current every day smoker Past Alcohol Use History: Abuse, Daily, Heavy Past Drug Use History: None Reported, Marijuana - Past Family History Mother Family Medical History: Unable to Obtain General Exam - General Exam Comments Initial Comments: GENERAL: Patient is well-developed and well-nourished. Patient is nontoxic and well- hydrated and is in mild distress. ENT: Neck is soft and supple. No significant lymphadenopathy is noted. Oropharynx is clear. Moist mucous membranes. Neck has full range of motion without eliciting any pain. EYES: The sclera were anicteric and conjunctiva were pink and moist. Extraocular movements were intact and pupils were equal round and reactive to light. Eyelids were unremarkable. PULMONARY: Unlabored respirations. Good breath sounds bilaterally. No audible rales rhonchi or wheezing was noted. CARDIOVASCULAR: There is a regular rate and rhythm without any murmurs gallops or rubs. ABDOMEN: Patient has epigastric abdominal tenderness SKIN: Skin is clear with no lesions or rashes and otherwise unremarkable. NEUROLOGIC: Patient is alert and oriented x3. Cranial nerves II through XII are grossly intact. Motor and sensory are also intact. Normal speech, volume and content. Symmetrical smile. MUSCULOSKELETAL: Normal extremities with adequate strength and full range of motion. LYMPHATICS: No significant lymphadenopathy is noted PSYCHIATRIC: Normal psychiatric evaluation. Limitations: no limitations Course Vital Signs 10/05/19 08:04 Temperature 98.2 F Pulse Rate 130 H Respiratory 18 Rate Blood Pressure 123/94 O2 Sat by Pulse 98 Oximetry Medical Decision Making - Medical Decision Making EKG shows sinus tachycardia at 133 bpm MA interval 132 QRS is 74 QT interval 316 QTC is 470. Patient's EKG shows no ST segment elevation or depression or T wave abnormalities are noted. Patient received Ativan and Zofran emergency department as well as IV fluids. Patient also started on banana bag for vitamins and thiamine. Patient felt considerably better and emergency department. Patient had acute pain. I spoke with [facility] hospitalist and they agreed to admit the patient admitted the patient wrote admitting orders. Patient was put on an alcohol withdrawal protocol - Lab Data Result diagrams: 10/05/19 08:35 10/05/19 08:35 Lab Results 10/05/19 10/05/19 10/05/19 Range/Units 08:29 08:35 08:35 WBC 7.2 (3.8-10.6) k/uL RBC 3.90 (3.80-5.40) m/uL Hgb 12.7 (11.4-16.0) gm/dL Hct 37.5 (34.0-46.0) % MCV 96.3 (80.0-100.0) fL MCH 32.6 (25.0-35.0) pg MCHC 33.9 (31.0-37.0) g/dL RDW 14.2 (11.5-15.5) % Plt Count 159 (150-450) k/uL Neutrophils % 74 % Lymphocytes % 15 % Monocytes % 7 % Eosinophils % 2 % Basophils % 1 % Neutrophils # 5.3 (1.3-7.7) k/uL Lymphocytes # 1.1 (1.0-4.8) k/uL Monocytes # 0.5 (0-1.0) k/uL Eosinophils # 0.1 (0-0.7) k/uL Basophils # 0.1 (0-0.2) k/uL Sodium 128 L (137-145) mmol/L Potassium 3.9 (3.5-5.1) mmol/L Chloride 89 L (98-107) mmol/L Carbon Dioxide 13 L (22-30) mmol/L Anion Gap 26 mmol/L BUN 18 H (7-17) mg/dL Creatinine 0.66 (0.52-1.04) mg/dL Est GFR (CKD-EPI)AfAm >90 (>60 ml/min/1.73 sqM) Est GFR (CKD-EPI)NonAf >90 (>60 ml/min/1.73 sqM) Glucose 102 H (74-99) mg/dL Calcium 8.9 (8.4-10.2) mg/dL Magnesium 2.1 (1.6-2.3) mg/dL Total Bilirubin 1.7 H (0.2-1.3) mg/dL AST 235 H (14-36) U/L ALT 150 H (4-34) U/L Alkaline Phosphatase 143 H (38-126) U/L Total Protein 8.4 H (6.3-8.2) g/dL Albumin 5.3 H (3.5-5.0) g/dL Amylase 356 H* (30-110) U/L Lipase 1750 H (23-300) U/L Urine Color Yellow Urine Appearance Cloudy H (Clear) Urine pH 6.5 (5.0-8.0) Ur Specific [place] 1.017 (1.001-1.035) Urine Protein 1+ H (Negative) Urine Glucose (UA) Negative (Negative) Urine Ketones 3+ H (Negative) Urine Blood Moderate H (Negative) Urine Nitrite Negative (Negative) Urine Bilirubin Negative (Negative) Urine Urobilinogen <2.0 (<2.0) mg/dL Ur Leukocyte Esterase Negative (Negative) Urine RBC 2 (0-5) /hpf Urine WBC 8 H (0-5) /hpf Ur Squamous Epith Cells 2 (0-4) /hpf Amorphous Sediment Occasional H (None) /hpf Urine Bacteria Rare H (None) /hpf Hyaline Casts 6 H (0-2) /lpf Urine Mucus Rare H (None) /hpf Serum Alcohol 70 mg/dL Disposition Clinical Impression: Alcohol withdrawal, Pancreatitis Disposition: ADMITTED IP TO THIS HOSP Referrals: None,Stated [Primary Care Provider] - 1-2 days Time of Disposition: 09:22
[2019-10-05 08:46] LABS: Amorphous Sediment,Urine Occasional /hpf; Appearance,Urine Cloudy (Clear); Bacteria,Urine Rare /hpf; Bilirubin,Urine Negative (Negative); Blood,Urine Moderate (Negative); Color,Urine Yellow; Glucose,Urine (UA) Negative (Negative); Hyaline Casts,Urine 6 /lpf (0-2); Ketones,Urine 3+ (Negative); Leukocyte Esterase,Urine Negative (Negative); Mucus,Urine Rare /hpf; Nitrite,Urine Negative (Negative); PH, Urine 6.5 (5.0-8.0); Protein,Urine 1+ (Negative); RBC,Urine 2 /hpf (0-5); Specific Gravity,Urine 1.017 (1.001-1.035); Squamous Epithelial Cell,Urine 2 /hpf (0-4); Urobilinogen,Urine <2.0 mg/dL (<2.0); WBC,Urine 8 /hpf (0-5)
[2019-10-05 09:00] LABS: Basophils # (A) 0.1 k/uL (0-0.2); Basophils % (A) 1 %; Eosinophils # (A) 0.1 k/uL (0-0.7); Eosinophils % (A) 2 %; HCT 37.5 % (34.0-46.0); HGB 12.7 gm/dL (11.4-16.0); Lymphocytes # (A) 1.1 k/uL (1.0-4.8); Lymphocytes % (A) 15 %; MCH 32.6 pg (25.0-35.0); MCHC 33.9 g/dL (31.0-37.0); MCV 96.3 fL (80.0-100.0); Mean Platelet Volume 7.7; Monocytes # (A) 0.5 k/uL (0-1.0); Monocytes % (A) 7 %; Neutrophils # (A) 5.3 k/uL (1.3-7.7); Neutrophils % (A) 74 %; Platelet Count 159 k/uL (150-450); RDW 14.2 % (11.5-15.5); WBC 7.2 k/uL (3.8-10.6)
[2019-10-05] MEDS ORDERED: SODIUM CHLORIDE 0.9% 1,000 ML with MVI, ADULT NO.4 WITH VIT K 10 ML, THIAMINE 100 MG, F... IV ONE ×4 (09:00)
[2019-10-05 09:10] LABS: ALT 150 U/L (4-34); AST 235 U/L (14-36); African American GFR (CKD) >90 (>60 ml/min/1.73 sqM); Albumin 5.3 g/dL (3.5-5.0); Alcohol 70 mg/dL; Alkaline Phosphatase 143 U/L (38-126); Anion Gap 26 mmol/L; Blood Urea Nitrogen 18 mg/dL (7-17); Calcium 8.9 mg/dL (8.4-10.2); Carbon Dioxide 13 mmol/L (22-30); Chloride 89 mmol/L (98-107); Glucose 102 mg/dL (74-99); Lipase 1750 U/L (23-300); Magnesium 2.1 mg/dL (1.6-2.3); Non-African American GFR(CKD) >90 (>60 ml/min/1.73 sqM); Potassium 3.9 mmol/L (3.5-5.1); Sodium 128 mmol/L (137-145); Total Bilirubin 1.7 mg/dL (0.2-1.3); Total Protein 8.4 g/dL (6.3-8.2)
[2019-10-05 09:17] LABS: Amylase 356 U/L (30-110)
[2019-10-05] MEDS ORDERED: LORazepam 2 MG/ML INJ IV PRN (09:23)
[2019-10-05] MEDS ORDERED: THIAMINE 100 MG/ML 2 ML VIAL IM STA (09:23)
[2019-10-05] MEDS ORDERED: ONDANSETRON 4 MG/2 ML VIAL IVP PRN (09:24)
[2019-10-05] MEDS ORDERED: MORPHINE SULFATE 2 MG/ML SYRINGE IVP STA (10:11)
[2019-10-05] MEDS: LORazepam 2 MG/ML INJ IV PRN ×4 (11:29→22:16)
[2019-10-05] MEDS: MORPHINE SULFATE 2 MG/ML SYRINGE IVP PRN ×2 (16:06→22:16)
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
[2019-10-05] MEDS: THIAMINE 100 MG TAB PO SCH (17:52)
[2019-10-06] MEDS: LORazepam 2 MG/ML INJ IV PRN ×10 (01:53→23:54)
[2019-10-06] MEDS: MORPHINE SULFATE 2 MG/ML SYRINGE IVP PRN ×4 (03:49→20:26)
[2019-10-06] MEDS: THIAMINE 100 MG TAB PO SCH ×2 (06:49→17:24)
[2019-10-06 08:08] LABS: Basophils % (A) 1 %; Eosinophils # (A) 0.3 k/uL (0-0.7); Eosinophils % (A) 5 %; HCT 34.6 % (34.0-46.0); HGB 11.3 gm/dL (11.4-16.0); Lymphocytes # (A) 1.8 k/uL (1.0-4.8); Lymphocytes % (A) 27 %; MCH 32.7 pg (25.0-35.0); MCHC 32.8 g/dL (31.0-37.0); MCV 99.9 fL (80.0-100.0); Macrocytosis Slight; Mean Platelet Volume 8.3; Monocytes # (A) 0.4 k/uL (0-1.0); Monocytes % (A) 6 %; Neutrophils # (A) 3.9 k/uL (1.3-7.7); Neutrophils % (A) 60 %; Platelet Count 112 k/uL (150-450); RBC 3.46 m/uL (3.80-5.40); RDW 14.2 % (11.5-15.5); WBC 6.6 k/uL (3.8-10.6)
[2019-10-06 08:09] LABS: ALT 109 U/L (4-34); AST 166 U/L (14-36); African American GFR (CKD) >90 (>60 ml/min/1.73 sqM); Albumin 4.1 g/dL (3.5-5.0); Alkaline Phosphatase 95 U/L (38-126); Anion Gap 11 mmol/L; Bilirubin, Delta 0.6 mg/dL (0.0-0.2); Bilirubin,Unconjugated 1.1 mg/dL (0.0-1.1); Blood Urea Nitrogen 9 mg/dL (7-17); Calcium 7.7 mg/dL (8.4-10.2); Carbon Dioxide 22 mmol/L (22-30); Chloride 101 mmol/L (98-107); Glucose 80 mg/dL (74-99); Lipase 544 U/L (23-300); Non-African American GFR(CKD) >90 (>60 ml/min/1.73 sqM); Sodium 134 mmol/L (137-145); Total Bilirubin 1.7 mg/dL (0.2-1.3); Total Protein 6.5 g/dL (6.3-8.2)
[2019-10-06] MEDS: PANTOPRAZOLE 40 MG/10 ML VIAL IVP SCH ×2 (10:20→19:44)
[2019-10-06] MEDS: SODIUM CHLORIDE 0.9% 1,000 ML IV SCH ×3 (10:22→23:54)
--- NOTE | 2019-10-06 14:54 | P.PN ---
Subjective Progress Note Date: 10/06/19 Principal diagnosis: Abdominal pain/alcohol detox 44-year-old female who presents emergency room complaining of abdominal pain in the epigastric region. Patient states she's heavy drinker has liver failure and has had pancreatitis multiple times. Patient states she is very nauseated and has vomited and she states this feels typical of her pancreatitis. Patient denies any chest pain or difficulty breathing patient denies any shortness of breath. Patient denies any fever chills. Patient denies any back pain. Patient denies any dysuria hematuria urinary frequency. Patient denies lightheadedness or dizziness. Workup in ED was significant for a sodium level of 128, BUN slightly elevated at 18, total bilirubin of 1.7, AST/ALT elevated at 235/153, amylase of 356, and lipase of 1750; patient was given IV Ativan and symptomatic treatment of nausea and vomiting started on banana bag and is admitted to the hospital for EtOH withdrawal and treatment of acute pancreatitis 10/06/2019 Patient is seen and evaluated and follow-up and is currently maintained on CISD protocol and will continue at this time. Patient also being seen and evaluated by GI and diet will be advanced to clear liquids and will monitor closely. Patient continues to have some extreme abdominal discomfort although is soft and nontender upon palpation. Lipase is trending down and is currently 544. Sodium is 134 with a potassium of 4.0. Will repeat a.m. labs and monitor closely. Review of systems: Constitutional: No reports of fatigue, fevers, or chills Cardiovascular: No reports of chest pain or palpitations Respiratory: No reports of shortness of breath, no reports of cough GI: Reports mild nausea, no reports of vomiting, or diarrhea, reports abdominal discomfort : No reports of dysuria or retention Neurovascular: No reports of weakness, no reports of numbness All medications have been reviewed. Objective - Vital Signs Vital signs: Vital Signs Temp 98.0 F 10/06/19 06:59 Pulse 104 H 10/06/19 06:59 Resp 16 10/06/19 07:30 BP 118/79 10/06/19 06:59 Pulse Ox 100 10/06/19 06:59 Intake & Output 10/05/19 10/06/19 10/06/19 18:59 06:59 18:59 Weight 68.039 kg Other: # Voids 2 - Exam Gen: This is a 44-year-old female lying in bed, awake, alert and oriented 3, well-developed, well-nourished. HEENT: Head is atraumatic, normocephalic. Pupils equal, round. Sclerae is anicteric. NECK: Supple. No JVD. No lymphadenopathy. No thyromegaly. LUNGS: Clear to auscultation. No wheezes or rhonchi. No intercostal retractions. HEART: Regular rate and rhythm. No murmur. ABDOMEN: Soft. Bowel sounds are present. No masses. No tenderness. EXTREMITIES: No pedal edema. No calf tenderness. NEUROLOGICAL: Patient is awake, alert and oriented x3. Cranial nerves 2 through 12 are grossly intact. - Labs CBC & Chem 7: 10/06/19 06:46 10/06/19 06:46 Labs: Abnormal Lab Results - Last 24 Hours (Table) 10/06/19 10/06/19 Range/Units 06:46 06:46 RBC 3.46 L (3.80-5.40) m/uL Hgb 11.3 L (11.4-16.0) gm/dL Plt Count 112 L (150-450) k/uL Sodium 134 L (137-145) mmol/L Creatinine 0.48 L (0.52-1.04) mg/dL Calcium 7.7 L (8.4-10.2) mg/dL Total Bilirubin 1.7 H (0.2-1.3) mg/dL Delta Bilirubin 0.6 H (0.0-0.2) mg/dL AST 166 H (14-36) U/L ALT 109 H (4-34) U/L Lipase 544 H (23-300) U/L Assessment and Plan Assessment: -EtOH intoxication with acute alcohol withdrawal, present on admission -Acute alcohol-induced pancreatitis -Hyponatremia, proving current sodium is 134. -mild acute renal injury. Improving BUN is 9 and creatinine is 0.48. -EtOH induced hepatitis/obstructive jaundice -DVT prophylaxis: Early ambulation -GI prophylaxis: Protonix -Full code Plan: Continue current medications, management, and symptomatic treatment. Patient is maintained on CIWA protocol and will continue at this time. Patient continues to have abdominal discomfort although denies any current nausea or vomiting and lipase has improved. Will advance diet to clear liquids and monitor for tolerance. GI following. Discussed with the patient about discontinuing alcohol intake. Will repeat a.m. labs and monitor amylase and lipase along with liver functions. Further recommendations to follow. Possible discharge in 24 hours.
[2019-10-07] MEDS: MORPHINE SULFATE 2 MG/ML SYRINGE IVP PRN ×2 (02:06→08:19)
[2019-10-07] MEDS: LORazepam 2 MG/ML INJ IV PRN ×2 (02:36→05:26)
[2019-10-07] MEDS: SODIUM CHLORIDE 0.9% 1,000 ML IV SCH (05:25)
[2019-10-07 06:53] VITALS: BP 125/84; PULSE 89; RESP 16; TEMP 98.3
[2019-10-07 08:19] LABS: ALT 110 U/L (4-34); AST 182 U/L (14-36); African American GFR (CKD) >90 (>60 ml/min/1.73 sqM); Alkaline Phosphatase 106 U/L (38-126); Amylase 107 U/L (30-110); Anion Gap 10 mmol/L; Blood Urea Nitrogen 2 mg/dL (7-17); Calcium 7.8 mg/dL (8.4-10.2); Carbon Dioxide 22 mmol/L (22-30); Chloride 104 mmol/L (98-107); Glucose 99 mg/dL (74-99); Lipase 373 U/L (23-300); Non-African American GFR(CKD) >90 (>60 ml/min/1.73 sqM); Potassium 3.2 mmol/L (3.5-5.1); Sodium 136 mmol/L (137-145); Total Bilirubin 1.5 mg/dL (0.2-1.3); Total Protein 6.5 g/dL (6.3-8.2)
[2019-10-07] MEDS: PANTOPRAZOLE 40 MG/10 ML VIAL IVP SCH (08:19)
[2019-10-07] MEDS: THIAMINE 100 MG TAB PO SCH (08:20)
[2019-10-07 08:21] LABS: HCT 33.3 % (34.0-46.0); MCH 33.1 pg (25.0-35.0); MCHC 33.1 g/dL (31.0-37.0); MCV 100.2 fL (80.0-100.0); Macrocytosis Slight; Mean Platelet Volume 9.6; RBC 3.33 m/uL (3.80-5.40); RDW 14.4 % (11.5-15.5); WBC 3.7 k/uL (3.8-10.6)
[2019-10-07 08:29] LABS: Prothrombin Time 10.4 sec (9.0-12.0)
[2019-10-07] MEDS ORDERED: Potassium Replacement Protocol 1 EACH MISC MISCELLANE PRN (08:36)
[2019-10-07] MEDS: POTASSIUM CHLORIDE ER 20 MEQ TAB.ER PO SCH ×2 (08:56→09:45)
[2019-10-07 09:23] LABS: Platelet Count 97 k/uL (150-450)
[2019-10-07] MEDS ORDERED: ONDANSETRON 4 MG/2 ML VIAL IVP PRN (09:34)
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
--- NOTE | 2019-10-07 13:05 | P.DS ---
Providers Date of admission: 10/05/19 09:22 Expected date of discharge: 10/07/19 Attending physician: Omer Dao Primary care physician: Stated None Hospital Course: Final diagnosis -EtOH intoxication with acute alcohol withdrawal, present on admission -Acute alcohol-induced pancreatitis -Hyponatremia, improved -mild acute renal injury. Improved -EtOH induced hepatitis/obstructive jaundice -DVT prophylaxis -GI prophylaxis -Full code Discharge disposition Patient is being discharged in a stable condition with guarded prognosis to home. Patient will follow-up with primary care provider upon discharge. Patient will also follow-up with GI Dr. Kumar in the outpatient setting. Total time taken is 35 minutes. History of present illness This is an 44-year-old female who was recently admitted with abdominal pain in the epigastric region and was being closely monitored. Patient does have a history of being a heavy drinker and has liver failure and also has had pancreatitis multiple times. Patient was seen and evaluated by GI recommending no surgical intervention at this time. Most recent EGD in June of this year showed some gastritis and esophagitis. Patient has been instructed and thoroughly educated on refraining from any alcohol intake. Patient states she was drinking up to 2 pints of liquor daily. Patient is abdominal pain has subsided and was maintained on CIWA protocol although scoring less than 4 with no signs of nausea or vomiting, weakness, shakiness noted. Patient was also found to have a steady gait. She would like to go home today. Patient will follow-up with GI in the outpatient setting. Currently no reports of chest pain, shortness of breath, or palpitations. Patient is afebrile. No reports of nausea or vomiting and patient is tolerating diet. Patient will be discharged home today. Guarded prognosis. On exam vital signs are stable. Temp is 98.3F, pulse is 89, respirations are 16, blood pressure is 125/84, oxygen saturation is 98% on room air. Cardio S1, S2 are muffled. Respiratory shows diminished breath sounds at the bases with no wheezing or rhonchi noted. Abdomen is soft and nontender. Nervous system shows no focal deficits. Please refer to medication reconciliation sheet for a list of medications. Patient Condition at Discharge: Stable Plan - Discharge Summary Discharge Rx Participant: Yes New Discharge Prescriptions: New Pantoprazole [Protonix] 40 mg PO DAILY 30 Days #30 tablet. Thiamine [Vitamin B-1] 100 mg PO BID-W/MEALS 30 Days #60 tab Discharge Medication List Pantoprazole [Protonix] 40 mg PO DAILY 30 Days #30 tablet. 10/07/19 [Rx] Thiamine [Vitamin B-1] 100 mg PO BID-W/MEALS 30 Days #60 tab 10/07/19 [Rx] Follow up Appointment(s)/Referral(s): Michelle Kumar MD [STAFF PHYSICIAN] - 11/06/19 8:45 am (With Tiffanie Arrive half hour early to fill out paperwork and bring insurance card and ID) None,Stated [Primary Care Provider] - 1-2 days Activity/Diet/Wound Care/Special Instructions: [facility]: [phone] - patient to call about a shower chair Activity Limited until follow-up Follow-up with primary care provider upon discharge Continue with full liquid diet and advance slowly to full liquid and advance as tolerated Continue with Protonix daily Follow-up with GI in the outpatient setting Continue to avoid alcohol intake Discharge Disposition: HOME SELF-CARE
== END 2019-10-07 09:52 | disposition home or self-care (01) | DRG 438 ==
LOC: EC 08:02 → 4SSUR 09:22
PROVIDERS: ADMIT Hospitalist; ATTEND Hospitalist
DX: K85.20 Alcohol induced acute pancreatitis without necrosis or infection (principal); K83.1 Obstruction of bile duct; E87.1 Hypo-osmolality and hyponatremia; N17.9 Acute kidney failure, unspecified; E34.0 Carcinoid syndrome; F10.239 Alcohol dependence with withdrawal, unspecified; K72.90 Hepatic failure, unspecified without coma; K70.10 Alcoholic hepatitis without ascites; F10.229 Alcohol dependence with intoxication, unspecified; M06.9 Rheumatoid arthritis, unspecified; K86.0 Alcohol-induced chronic pancreatitis; F31.9 Bipolar disorder, unspecified; G40.909 Epilepsy, unspecified, not intractable, without status epilepticus; K86.81 Exocrine pancreatic insufficiency; F43.10 Post-traumatic stress disorder, unspecified; K29.20 Alcoholic gastritis without bleeding; Y90.3 Blood alcohol level of 60-79 mg/100 ml; K20.9 Esophagitis, unspecified; M79.7 Fibromyalgia; D49.0 Neoplasm of unspecified behavior of digestive system; I25.2 Old myocardial infarction; F17.210 Nicotine dependence, cigarettes, uncomplicated; Z79.899 Other long term (current) drug therapy; Z71.41 Alcohol abuse counseling and surveillance of alcoholic; Z86.14 Personal history of Methicillin resistant Staphylococcus aureus infection; Z86.19 Personal history of other infectious and parasitic diseases; Z87.39 Personal history of other diseases of the musculoskeletal system and connective tissue; Z88.6 Allergy status to analgesic agent; Z88.8 Allergy status to other drugs, medicaments and biological substances
CPT/HCPCS: 36415; 80048; 80053; 80076; 80320; 81001; 82150; 83690; 83735; 84484; 85025; 85027; 85610; 93005; 96361; 96372; 96374; 96375; 99285

== ENCOUNTER 2019-12-10 00:32 | Inpatient (IN) | payer OTHER ==
[2019-12-10] MEDS ORDERED: MORPHINE SULFATE 4 MG/ML SYRINGE IVP STA (00:54)
--- NOTE | 2019-12-10 00:59 | ED ---
Fall HPI - General Source: patient, EMS Mode of arrival: EMS <Janusz Vu - Last Filed: 12/10/19 05:09> <Rodger Reaves - Last Filed: 12/18/19 23:54> - General Chief Complaint: Fall Stated Complaint: Abd Pain Time Seen by Provider: 12/10/19 00:37 - History of Present Illness Initial Comments: Patient is a 44-year-old female with history of alcohol abuse, recurrent pancreatitis and stage IV liver disease presenting to the emergency department with a chief complaint of fall and abdominal pain. Patient reports she has been drinking heavily and is jaundiced at baseline. States there is no itching at this time. States today she fell and was down for approximately "45 minutes". Unaware of any loss of consciousness. States that now she is also having some right upper quadrant and epigastric abdominal pain. She does report nausea or vomiting. Denies any chest pain shortness of breath. States this feels like her pancreatitis is flaring up. There is no headaches, one-sided weakness or paresthesias. Denies hematuria, hematochezia or melena. (Janusz Vu) - Related Data Previous Rx's Medication Instructions Recorded Acamprosate Calcium [Campral] 666 mg PO TID 20 Days #60 tablet. 12/17/19 Amoxic-Pot Clav 500-125 mg 1 tab PO Q12HR 7 Days #14 tab 12/17/19 [Augmentin 500-125 mg] LORazepam [Ativan] 0.5 mg PO DAILY PRN 3 Days #3 tab 12/17/19 Melatonin 10 mg PO HS PRN #60 tablet 12/17/19 Pantoprazole [Protonix] 40 mg PO BID #60 tablet. 12/17/19 Sertraline [Zoloft] 50 mg PO DAILY #30 tab 12/17/19 Sodium Bicarbonate Tab 650 mg PO BID #60 tab 12/17/19 Thiamine [Vitamin B-1] 100 mg PO BID-W/MEALS #60 tab 12/17/19 busPIRone HCl [Buspar] 15 mg PO BID #180 tab 12/17/19 traMADol HCl [Ultram] 100 mg PO QID PRN 7 Days #28 tab 12/17/19 Allergies Allergy/AdvReac Type Severity Reaction Status Date / Time ibuprofen [From Motrin] Allergy Unknown Verified 12/10/19 06:37 NSAIDS (Non-Steroidal Allergy Unknown Verified 12/10/19 06:37 Anti-Inflamma quetiapine [From Seroquel] Allergy Unknown Verified 12/10/19 06:37 Review of Systems ROS Other: All systems not noted in ROS Statement are negative. <MirellaJanusz - Last Filed: 12/10/19 05:09> ROS Other: All systems not noted in ROS Statement are negative. <Rodger Reaves - Last Filed: 12/18/19 23:54> ROS Statement: Those systems with pertinent positive or pertinent negative responses have been documented in the HPI. 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, carsinoid syndrome, enlarge liver, lupus, chronic pancreatitis, pancreatic tumor,osteomyelitis Last Myocardial Infarction Date:: 01/2017 History of Any Multi-Drug Resistant Organisms: MRSA Date of last positivie culture/infection: 2009 MDRO Source:: finger Past Surgical History: No Surgical Hx Reported Additional Past Surgical History / Comment(s): Left hand surgery Past Anesthesia/Blood Transfusion Reactions: No Reported Reaction Past Psychological History: Anxiety, Bipolar, Depression, PTSD Smoking Status: Current every day smoker Past Alcohol Use History: Abuse, Daily, Heavy Past Drug Use History: Marijuana - Past Family History Mother Family Medical History: Unable to Obtain <MirellaJanusz - Last Filed: 12/10/19 05:09> General Exam Limitations: no limitations General appearance: alert, in no apparent distress Head exam: Present: atraumatic, normocephalic, normal inspection. Absent: other (Negative Mari sign, raccoon eyes, hemotympanum.) Eye exam: Present: PERRL, EOMI, scleral icterus Pupils: Present: normal accommodation ENT exam: Present: normal exam, normal oropharynx, mucous membranes moist, TM's normal bilaterally, normal external ear exam Neck exam: Present: normal inspection, full ROM. Absent: tenderness Respiratory exam: Present: normal lung sounds bilaterally. Absent: respiratory distress, wheezes Cardiovascular Exam: Present: normal rhythm, tachycardia, normal heart sounds GI/Abdominal exam: Present: distended (Ascites), tenderness (Epigastric and right upper quadrant abdominal tenderness), other (Ascites). Absent: guarding, rebound, rigid Extremities exam: Present: normal inspection, full ROM, normal capillary refill. Absent: tenderness Back exam: Present: normal inspection, full ROM. Absent: tenderness, CVA tenderness (R), CVA tenderness (L) Neurological exam: Present: alert, oriented X3 Psychiatric exam: Present: normal affect, normal mood Skin exam: Present: warm, dry, intact, other (Jaundiced) <Janusz Vu - Last Filed: 12/10/19 05:09> Course Vital Signs 12/10/19 12/10/19 12/10/19 00:36 01:17 02:20 Temperature 97.8 F Pulse Rate 117 H 114 H 117 H Respiratory 18 18 18 Rate Blood Pressure 107/80 95/60 93/62 O2 Sat by Pulse 100 97 97 Oximetry 12/10/19 12/10/19 12/10/19 04:20 04:34 05:41 Temperature Pulse Rate 118 H 121 H 118 H Respiratory 16 16 16 Rate Blood Pressure 105/56 103/72 100/71 O2 Sat by Pulse 97 97 97 Oximetry 12/10/19 12/10/19 12/10/19 06:00 06:15 06:30 Temperature Pulse Rate 122 H 125 H 123 H Respiratory 18 18 18 Rate Blood Pressure 98/77 117/69 108/61 O2 Sat by Pulse 96 99 100 Oximetry 12/10/19 06:46 Temperature Pulse Rate 120 H Respiratory 18 Rate Blood Pressure 112/95 O2 Sat by Pulse 99 Oximetry Procedures - Central Line Placement Right SC Consent Obtained: written consent Patient Placed on Monitor/Pulse Ox: Yes Prep: mask, gown, gloves Central Line Prep: Chlorhexidine scrub Local Anesthesia Used: Lidocaine 1% Central Line Lumen Inserted: triple Bloods Obtained for Lab: Yes Central Line Position: good blood return, all ports aspirated, flushed, capped, sutured in place with nylon Dressing Applied: Tegaderm Post Procedure X-Ray: tip of catheter in good position Patient Tolerated Procedure: well, no complications Complications: none <Rodger Reaves - Last Filed: 12/18/19 23:54> Medical Decision Making - Lab Data Result diagrams: 12/10/19 04:37 12/10/19 04:13 <Janusz Vu - Last Filed: 12/10/19 05:09> - Lab Data Result diagrams: 12/17/19 05:28 12/17/19 05:28 <Rodgre Reaves - Last Filed: 12/18/19 23:54> - Medical Decision Making Patient is a 44-year-old female with history of recurrent pancreatitis, alcohol abuse, liver failure presenting to the emergency department a chief complaint of fall and abdominal pain. On physical examination, patient is having right upper quadrant epigastric abdominal pain. Patient is jaundiced with scleral icterus. She also appears to have ascites. She is alert and oriented 3. CT of the brain is unremarkable But there appears to be groundglass opacity on the right side of the upper lung. X-ray obtained is unremarkable. Initially, we were able to only obtain CBC. There was difficulty with obtaining blood samples and IV access. A decision was made not to administer IV fluids due to ascites. Lactic acid of 11. Acetone 24. CMP, CK, blood culture, lipase, amylase, CRP still pending. Central line administered by Dr Reaves. Patient was started on Rocephin, Ativan. CIWA assesed. At this time, patient care signed off to Dr Reaves. (Janusz Vu) I saw this patient in conjunction with the physician marketing administrative assistant. I performed independent history and physical exam. Agree with case management. (Rodger Reaves) - Lab Data Lab Results 12/10/19 12/10/19 12/10/19 Range/Units 01:01 02:00 03:04 WBC 27.5 H (3.8-10.6) k/uL RBC 3.26 L (3.80-5.40) m/uL Hgb 12.2 (11.4-16.0) gm/dL Hct 36.3 (34.0-46.0) % MCV 111.5 H D (80.0-100.0) fL MCH 37.4 H (25.0-35.0) pg MCHC 33.6 (31.0-37.0) g/dL RDW 15.0 (11.5-15.5) % Plt Count 152 D (150-450) k/uL Neutrophils % (Manual) 81 % Band Neuts % (Manual) 11 % Lymphocytes % (Manual) 5 % Monocytes % (Manual) 3 % Metamyelocytes % % Neutrophils # (Manual) 25.30 H (1.3-7.7) k/uL Lymphocytes # (Manual) 1.38 (1.0-4.8) k/uL Monocytes # (Manual) 0.83 (0-1.0) k/uL Metamyelocytes # (Man) (0) k/uL Nucleated RBCs 0 (0-0) /100 WBC Manual Slide Review Performed Toxic Vacuolation Large Platelets Present Polychromasia Present Anisocytosis (manual) Present Macrocytosis Marked A PT (9.0-12.0) sec INR (<1.2) APTT (22.0-30.0) sec Sodium (137-145) mmol/L Potassium (3.5-5.1) mmol/L Chloride (98-107) mmol/L Carbon Dioxide (22-30) mmol/L Anion Gap mmol/L BUN (7-17) mg/dL Creatinine (0.52-1.04) mg/dL Est GFR (CKD-EPI)AfAm (>60 ml/min/1.73 sqM) Est GFR (CKD-EPI)NonAf (>60 ml/min/1.73 sqM) Glucose (74-99) mg/dL Osmolality (280-301) mosm/kg Lactic Ac Sepsis Rflx Y Plasma Lactic Acid Nilo 11.2 H* (0.7-2.0) mmol/L Calcium (8.4-10.2) mg/dL Total Bilirubin (0.2-1.3) mg/dL AST (14-36) U/L ALT (4-34) U/L Alkaline Phosphatase (38-126) U/L Ammonia 24 (<30) umol/L CK-MB (CK-2) (0.0-2.4) ng/mL C-Reactive Protein (<10.0) mg/L Total Protein (6.3-8.2) g/dL Albumin (3.5-5.0) g/dL Amylase (30-110) U/L Lipase (23-300) U/L TSH (0.465-4.680) mIU/L HCG, Qual Serum Alcohol mg/dL 12/10/19 12/10/19 12/10/19 Range/Units 04:13 04:13 04:30 WBC (3.8-10.6) k/uL RBC (3.80-5.40) m/uL Hgb (11.4-16.0) gm/dL Hct (34.0-46.0) % MCV (80.0-100.0) fL MCH (25.0-35.0) pg MCHC (31.0-37.0) g/dL RDW (11.5-15.5) % Plt Count (150-450) k/uL Neutrophils % (Manual) % Band Neuts % (Manual) % Lymphocytes % (Manual) % Monocytes % (Manual) % Metamyelocytes % % Neutrophils # (Manual) (1.3-7.7) k/uL Lymphocytes # (Manual) (1.0-4.8) k/uL Monocytes # (Manual) (0-1.0) k/uL Metamyelocytes # (Man) (0) k/uL Nucleated RBCs (0-0) /100 WBC Manual Slide Review Toxic Vacuolation Large Platelets Polychromasia Anisocytosis (manual) Macrocytosis PT (9.0-12.0) sec INR (<1.2) APTT (22.0-30.0) sec Sodium 108 L* Cancelled (137-145) mmol/L Potassium 4.6 Cancelled (3.5-5.1) mmol/L Chloride 65 L* Cancelled (98-107) mmol/L Carbon Dioxide 24 Cancelled (22-30) mmol/L Anion Gap 19 Cancelled mmol/L BUN 17 (7-17) mg/dL Creatinine 1.53 H (0.52-1.04) mg/dL Est GFR (CKD-EPI)AfAm 47 (>60 ml/min/1.73 sqM) Est GFR (CKD-EPI)NonAf 41 (>60 ml/min/1.73 sqM) Glucose 95 (74-99) mg/dL Osmolality 237 L* (280-301) mosm/kg Lactic Ac Sepsis Rflx Plasma Lactic Acid Nilo (0.7-2.0) mmol/L Calcium 11.3 H (8.4-10.2) mg/dL Total Bilirubin 10.6 H (0.2-1.3) mg/dL AST 259 H (14-36) U/L ALT 142 H (4-34) U/L Alkaline Phosphatase 209 H (38-126) U/L Ammonia (<30) umol/L CK-MB (CK-2) 4.3 H (0.0-2.4) ng/mL C-Reactive Protein 195.8 H (<10.0) mg/L Total Protein 5.5 L (6.3-8.2) g/dL Albumin 2.7 L (3.5-5.0) g/dL Amylase 293 H (30-110) U/L Lipase 847 H (23-300) U/L TSH 4.540 (0.465-4.680) mIU/L HCG, Qual Not Detected Serum Alcohol <10 mg/dL 12/10/19 12/10/19 12/10/19 Range/Units 04:37 04:37 04:37 WBC 30.7 H (3.8-10.6) k/uL RBC 2.69 L (3.80-5.40) m/uL Hgb 10.2 L (11.4-16.0) gm/dL Hct 29.4 L (34.0-46.0) % MCV 109.4 H (80.0-100.0) fL MCH 37.8 H (25.0-35.0) pg MCHC 34.5 (31.0-37.0) g/dL RDW 14.1 (11.5-15.5) % Plt Count 122 L (150-450) k/uL Neutrophils % (Manual) 84 % Band Neuts % (Manual) 8 % Lymphocytes % (Manual) 7 % Monocytes % (Manual) 1 % Metamyelocytes % 2 % Neutrophils # (Manual) 28.20 H (1.3-7.7) k/uL Lymphocytes # (Manual) 2.15 (1.0-4.8) k/uL Monocytes # (Manual) 0.31 (0-1.0) k/uL Metamyelocytes # (Man) 0.61 H (0) k/uL Nucleated RBCs 0 (0-0) /100 WBC Manual Slide Review Performed Toxic Vacuolation Present Large Platelets Present Polychromasia Present Anisocytosis (manual) Present Macrocytosis Marked A PT 15.0 H (9.0-12.0) sec INR 1.5 H (<1.2) APTT 23.8 (22.0-30.0) sec Sodium (137-145) mmol/L Potassium (3.5-5.1) mmol/L Chloride (98-107) mmol/L Carbon Dioxide (22-30) mmol/L Anion Gap mmol/L BUN (7-17) mg/dL Creatinine (0.52-1.04) mg/dL Est GFR (CKD-EPI)AfAm (>60 ml/min/1.73 sqM) Est GFR (CKD-EPI)NonAf (>60 ml/min/1.73 sqM) Glucose (74-99) mg/dL Osmolality (280-301) mosm/kg Lactic Ac Sepsis Rflx Plasma Lactic Acid Nilo 10.5 H* (0.7-2.0) mmol/L Calcium (8.4-10.2) mg/dL Total Bilirubin (0.2-1.3) mg/dL AST (14-36) U/L ALT (4-34) U/L Alkaline Phosphatase (38-126) U/L Ammonia (<30) umol/L CK-MB (CK-2) (0.0-2.4) ng/mL C-Reactive Protein (<10.0) mg/L Total Protein (6.3-8.2) g/dL Albumin (3.5-5.0) g/dL Amylase (30-110) U/L Lipase (23-300) U/L TSH (0.465-4.680) mIU/L HCG, Qual Serum Alcohol mg/dL 12/10/19 Range/Units 05:06 WBC (3.8-10.6) k/uL RBC (3.80-5.40) m/uL Hgb (11.4-16.0) gm/dL Hct (34.0-46.0) % MCV (80.0-100.0) fL MCH (25.0-35.0) pg MCHC (31.0-37.0) g/dL RDW (11.5-15.5) % Plt Count (150-450) k/uL Neutrophils % (Manual) % Band Neuts % (Manual) % Lymphocytes % (Manual) % Monocytes % (Manual) % Metamyelocytes % % Neutrophils # (Manual) (1.3-7.7) k/uL Lymphocytes # (Manual) (1.0-4.8) k/uL Monocytes # (Manual) (0-1.0) k/uL Metamyelocytes # (Man) (0) k/uL Nucleated RBCs (0-0) /100 WBC Manual Slide Review Toxic Vacuolation Large Platelets Polychromasia Anisocytosis (manual) Macrocytosis PT (9.0-12.0) sec INR (<1.2) APTT (22.0-30.0) sec Sodium (137-145) mmol/L Potassium (3.5-5.1) mmol/L Chloride (98-107) mmol/L Carbon Dioxide (22-30) mmol/L Anion Gap mmol/L BUN (7-17) mg/dL Creatinine (0.52-1.04) mg/dL Est GFR (CKD-EPI)AfAm (>60 ml/min/1.73 sqM) Est GFR (CKD-EPI)NonAf (>60 ml/min/1.73 sqM) Glucose (74-99) mg/dL Osmolality (280-301) mosm/kg Lactic Ac Sepsis Rflx Y Plasma Lactic Acid Nilo (0.7-2.0) mmol/L Calcium (8.4-10.2) mg/dL Total Bilirubin (0.2-1.3) mg/dL AST (14-36) U/L ALT (4-34) U/L Alkaline Phosphatase (38-126) U/L Ammonia (<30) umol/L CK-MB (CK-2) (0.0-2.4) ng/mL C-Reactive Protein (<10.0) mg/L Total Protein (6.3-8.2) g/dL Albumin (3.5-5.0) g/dL Amylase (30-110) U/L Lipase (23-300) U/L TSH (0.465-4.680) mIU/L HCG, Qual Serum Alcohol mg/dL - EKG Data EKG Comments: Sinus tachycardia. Ventricular rate 115, CO 154, QRS 76, QTC 450. (Janusz Vu) Critical Care Time Critical Care Time: Yes (40 minutes) <Rodger Reaves - Last Filed: 12/18/19 23:54> Disposition Is patient prescribed a controlled substance at d/c from ED?: No Time of Disposition: 05:12 <Janusz Vu - Last Filed: 12/10/19 05:09> <Rodger Reaves - Last Filed: 12/18/19 23:54> Clinical Impression: Fall, Hyponatremia, Hypochloremia, Hypercalcemia, Hyperbilirubinemia, Lactic acidosis, Alcohol withdrawal, Acute pancreatitis, Alcoholic liver disease, Acute kidney injury Disposition: ADMITTED IP TO THIS HOSP Condition: Critical
[2019-12-10 01:45] LABS: HCT 36.3 % (34.0-46.0); HGB 12.2 gm/dL (11.4-16.0); MCH 37.4 pg (25.0-35.0); MCHC 33.6 g/dL (31.0-37.0); Macrocytosis Marked; Mean Platelet Volume 14.8; RBC 3.26 m/uL (3.80-5.40); WBC 27.5 k/uL (3.8-10.6)
[2019-12-10 01:58] LABS: MCV 111.5 fL (80.0-100.0); Platelet Count 152 k/uL (150-450)
--- NOTE | 2019-12-10 02:11 | CT ---
EXAM: CT Head Without Intravenous Contrast CLINICAL HISTORY: ITS.REASON CT Reason: fall, head injury TECHNIQUE: Axial computed tomography images of the head/brain without intravenous contrast. CTDI is 45.285 mGy and DLP is 1011.50 mGy-cm. This CT exam was performed using one or more of the following dose reduction techniques: automated exposure control, adjustment of the mA and/or kV according to patient size, and/or use of iterative reconstruction technique. COMPARISON: 12/29/2017 FINDINGS: Brain: No hemorrhage or mass effect. Small Encephalomalacia in the right frontal lobe. Ventricles: No hydrocephalus. Bones/joints: Chronic left nasal bone fracture. Soft tissues: Unremarkable. Sinuses: Unremarkable. Mastoid air cells: Clear. IMPRESSION: No acute hemorrhage, hydrocephalus, or mass effect. Small Encephalomalacia in the right frontal lobe. Possibly from prior trauma or infarct. EXAM: CT Cervical Spine Without Intravenous Contrast CLINICAL HISTORY: ITS.REASON CT Reason: fall, head injury TECHNIQUE: Axial computed tomography images of the cervical spine without intravenous contrast. CTDI is 11.685 mGy and DLP is 327.5 mGy-cm. This CT exam was performed using one or more of the following dose reduction techniques: automated exposure control, adjustment of the mA and/or kV according to patient size, and/or use of iterative reconstruction technique. COMPARISON: No relevant prior studies available. FINDINGS: Vertebrae: No acute fracture. Reversal of the normal cervical lordosis. Discs/spinal canal/neural foramina: Severe disc height loss at C6-7. No significant spinal canal stenosis. Soft tissues: No prevertebral swelling. Upper lungs: Peripherally based groundglass opacity in the right more than left upper lobe. IMPRESSION: 1. No acute fracture or subluxation. Correlate with muscle spasm. 2. Peripherally based groundglass opacity in the right more than left upper lobe. Suspicious for COVID 19/infectious/inflammatory process.
[2019-12-10 02:31] LABS: Anisocytosis (M) Present; Band Neutrophils % 11 %; Lymphocytes # (M) 1.38 k/uL (1.0-4.8); Monocytes # (M) 0.83 k/uL (0-1.0); Neutrophils % (M) 81 %; Nucleated Red Blood Cells 0 /100 WBC (0-0); Total Cells Counted 100
[2019-12-10 02:32] LABS: Large Platelets Present; Polychromasia Present
[2019-12-10 03:03] LABS: Lactic Acid, Venous 11.2 mmol/L (0.7-2.0)
--- NOTE | 2019-12-10 03:06 | XR ---
EXAM: XR Chest, 1 View CLINICAL HISTORY: ITS.REASON XR Reason: pain TECHNIQUE: Frontal view of the chest. COMPARISON: No relevant prior studies available. FINDINGS: Lungs: No consolidation or mass. Pleural space: No acute findings Heart: No cardiomegaly. Bones/joints: No acute findings. IMPRESSION: No acute cardiopulmonary process.
[2019-12-10] MEDS ORDERED: cefTRIAXone IN SWFI 1,000 MG/10 ML SYRINGE IVP STA (04:28)
[2019-12-10] MEDS ORDERED: LORazepam 2 MG/ML INJ IV STA (04:28)
[2019-12-10] MEDS ORDERED: ONDANSETRON 4 MG/2 ML VIAL IVP STA (04:40)
--- NOTE | 2019-12-10 04:41 | XR ---
EXAM: XR Chest, 1 View CLINICAL HISTORY: ITS.REASON XR Reason: central line placement TECHNIQUE: Frontal view of the chest. COMPARISON: 12/10/2019 FINDINGS: Lungs: No consolidation or mass. Pleural space: No acute findings Heart: No cardiomegaly. Bones/joints: No acute findings. Right central line terminates in the mid to distal SVC. IMPRESSION: No acute cardiopulmonary process.
[2019-12-10] MEDS ORDERED: THIAMINE 100 MG/ML 2 ML VIAL IM STA (04:44)
[2019-12-10] MEDS ORDERED: LORazepam 2 MG/ML INJ IV PRN (04:44)
[2019-12-10 04:51] LABS: AST 259 U/L (14-36); African American GFR (CKD) 47 (>60 ml/min/1.73 sqM); Albumin 2.7 g/dL (3.5-5.0); Alcohol <10 mg/dL; Alkaline Phosphatase 209 U/L (38-126); Amylase 293 U/L (30-110); Anion Gap 19 mmol/L; Blood Urea Nitrogen 17 mg/dL (7-17); Calcium 11.3 mg/dL (8.4-10.2); Carbon Dioxide 24 mmol/L (22-30); Glucose 95 mg/dL (74-99); Lipase 847 U/L (23-300); Non-African American GFR(CKD) 41 (>60 ml/min/1.73 sqM); Potassium 4.6 mmol/L (3.5-5.1); Total Bilirubin 10.6 mg/dL (0.2-1.3); Total Protein 5.5 g/dL (6.3-8.2)
[2019-12-10 04:52] LABS: HCT 29.4 % (34.0-46.0); HGB 10.2 gm/dL (11.4-16.0); MCH 37.8 pg (25.0-35.0); MCHC 34.5 g/dL (31.0-37.0); MCV 109.4 fL (80.0-100.0); Macrocytosis Marked; Mean Platelet Volume 9.8; Platelet Count 122 k/uL (150-450); RBC 2.69 m/uL (3.80-5.40); RDW 14.1 % (11.5-15.5); WBC 30.7 k/uL (3.8-10.6)
[2019-12-10 04:55] LABS: ALT 142 U/L (4-34)
[2019-12-10 05:00] LABS: INR 1.5 (<1.2); Partial Thromboplastin Time 23.8 sec (22.0-30.0)
[2019-12-10 05:03] LABS: C Reactive Protein 195.8 mg/L (<10.0)
[2019-12-10 05:05] LABS: Chloride 65 mmol/L (98-107); Sodium 108 mmol/L (137-145)
[2019-12-10] MEDS ORDERED: SODIUM CHLORIDE 0.9% 1,000 ML IV ONE ×2 (05:45→08:06)
[2019-12-10] MEDS ORDERED: NALOXONE 0.4 MG/ML 1 ML VIAL IV PRN (06:00)
[2019-12-10 06:06] LABS: Anisocytosis (M) Present; Band Neutrophils % 8 %; Lymphocytes # (M) 2.15 k/uL (1.0-4.8); Metamyelocytes # (M) 0.61 k/uL (0); Metamyelocytes % 2 %; Monocytes # (M) 0.31 k/uL (0-1.0); Neutrophils % (M) 84 %; Nucleated Red Blood Cells 0 /100 WBC (0-0); Polychromasia Present; Total Cells Counted 200
[2019-12-10 06:07] LABS: Toxic Vacuolation Present
[2019-12-10 06:12] LABS: Large Platelets Present
[2019-12-10] MEDS: SODIUM CHLORIDE 0.9% 1,000 ML IV SCH ×2 (06:16→20:04)
[2019-12-10] MEDS ORDERED: MORPHINE SULFATE 4 MG/ML SYRINGE IVP PRN (07:10)
[2019-12-10 07:27] LABS: Appearance,Urine Cloudy (Clear); Bacteria,Urine Rare /hpf; Bilirubin,Urine 2+ (Negative); Blood,Urine Negative (Negative); Color,Urine Orange; Glucose,Urine (UA) Negative (Negative); Hyaline Casts,Urine 20 /lpf (0-2); Ketones,Urine Negative (Negative); Leukocyte Esterase,Urine Small (Negative); Mucus,Urine Occasional /hpf; Nitrite,Urine Negative (Negative); PH, Urine 5.5 (5.0-8.0); Protein,Urine 1+ (Negative); Specific Gravity,Urine 1.024 (1.001-1.035); Squamous Epithelial Cell,Urine 2 /hpf (0-4); WBC,Urine 15 /hpf (0-5)
[2019-12-10 07:29] LABS: Glucose,Whole Blood 114 mg/dL (75-99)
[2019-12-10 08:01] LABS: HCG,Qualitative Serum Not Detected
[2019-12-10] MEDS: PANTOPRAZOLE 40 MG/10 ML VIAL IVP SCH (08:12)
[2019-12-10] MEDS: HEPARIN SODIUM,PORCINE 5,000 UNIT/ML 1 ML VIAL SQ SCH ×2 (08:12→20:05)
[2019-12-10] MEDS ORDERED: FAMOTIDINE 20 MG/2 ML VIAL IV SCH (09:00)
[2019-12-10 09:33] LABS: Cocaine Screen,Urine Not Detected (NotDetected); Phencyclidine Screen,Urine Not Detected (NotDetected); Urn Cannabinoid Scrn Detected (NotDetected)
[2019-12-10 09:34] LABS: Amphetamine Screen,Urine Not Detected (NotDetected); Barbiturate Screen,Urine Not Detected (NotDetected); Benzodiazepines Screen,Urine Not Detected (NotDetected); Methadone Screen, Urine Not Detected (NotDetected); Opiate Screen,Urine Not Detected (NotDetected); Oxycodone Screen, Urine Not Detected (NotDetected); Tricyclic Antidepressant,Urine Not Detected (NotDetected)
--- NOTE | 2019-12-10 09:57 | P.HPIM ---
History of Present Illness This is a pleasant 44 years old female with multiple medical problems including reflux esophagitis per EGD done on 06/20/2019. Pancreatic pseudocyst. MRI done on 06/24/2019, alcoholic liver disease with cirrhosis, multiple episodes of pancreatitis. Chronic mild hyponatremia, alcohol abuse, seizure disorder, rheumatoid arthritis and fibromyalgia, degenerative disc disease, lupus, chronic pancreatitis Presents because of fall and abdominal pain. Patient currently in the ICU, she is agitated and pulling IV tube and because of that there is a sitter at bedside, however when I went to see the patient she was lying, in bed, drowsy, she opens eyes to take Tylenol and verbalized to lyse however she goes back to sleep right away. She could not answer my questions however on examination she has abdominal tenderness and she told me she has some abdominal pain. However her abdomen looks soft Her current she will score is 15-17 Blood pressure is low normal 93/62-112/95, she's tachycardic around 120. Labs showing severe hyponatremia at 108. Leukocytosis at 30.7. Hemoglobin 10.2. Platelets slightly low at 122. INR is 1.5. Creatinine is elevated at 1.5. Lactic acid is significantly elevated at 11.2 and 10.5. Urinalysis showing 1+ protein 2+ bilirubin and WBCs 15 high. Serum alcohol less than 10. AST 59, ALT 147 Chest x-ray: No acute cardiopulmonary process. EKG shows sinus tachycardia at [address]-T changes. CT of the head and neck: No acute intracranial process, no acute fracture or subluxation. Bilateral upper groundglass opacity in the right more than left upper lobe suspicious for Review of Systems n/a Past Medical History Past Medical History: Fibromyalgia, Myocardial Infarction ([place]), Rheumatoid Arthr itis ([place]), Seizure Disorder Additional Past Medical History / Comment(s): Alcohol dependence, 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, carsinoid syndrome, enlarge liver, lupus, chronic pancreatitis, pancreatic tumor,osteomyelitis Last Myocardial Infarction Date:: 01/2017 History of Any Multi-Drug Resistant Organisms: MRSA Date of last positivie culture/infection: 2009 MDRO Source:: finger Past Surgical History: No Surgical Hx Reported Additional Past Surgical History / Comment(s): Left hand surgery Past Anesthesia/Blood Transfusion Reactions: No Reported Reaction Past Psychological History: Anxiety, Bipolar, Depression, PTSD Smoking Status: Current every day smoker Past Alcohol Use History: Abuse, Daily, Heavy Past Drug Use History: Marijuana - Past Family History Mother Family Medical History: Unable to Obtain Medications and Allergies Home Medications Medication Instructions Recorded Confirmed Type No Known Home Medications 12/10/19 12/10/19 History Allergies Allergy/AdvReac Type Severity Reaction Status Date / Time ibuprofen [From Motrin] Allergy Unknown Verified 12/10/19 06:37 NSAIDS (Non-Steroidal Allergy Unknown Verified 12/10/19 06:37 Anti-Inflamma quetiapine [From Seroquel] Allergy Unknown Verified 12/10/19 06:37 Physical Exam Vitals: Vital Signs Temp Pulse Resp BP Pulse Ox 12/10/19 06:46 120 H 18 112/95 99 12/10/19 06:30 123 H 18 108/61 100 12/10/19 06:15 125 H 18 117/69 99 12/10/19 06:00 122 H 18 98/77 96 12/10/19 05:41 118 H 16 100/71 97 12/10/19 04:34 121 H 16 103/72 97 12/10/19 04:20 118 H 16 105/56 97 12/10/19 02:20 117 H 18 93/62 97 12/10/19 01:17 114 H 18 95/60 97 12/10/19 00:36 97.8 F 117 H 18 107/80 100 Intake and Output 12/09/19 12/10/19 12/10/19 22:59 06:59 14:59 Other: Weight 64.864 kg -GENERAL: The patient is confused, drowsy, go back to sleep right away, opens eyes to verbal and tactile stimuli. At times she got agitated and pulse tubes HEENT: Pupils are round and equally reacting to light. EOMI. No scleral icterus. No conjunctival pallor. Normocephalic, atraumatic. No pharyngeal erythema. No thyromegaly. CARDIOVASCULAR: S1 and S2 present. No murmurs, rubs, or gallops. PULMONARY: Chest is clear to auscultation, no wheezing or crackles. -ABDOMEN: Soft, less abdominal tenderness with no rebound tenderness or guarding , nondistended, normoactive bowel sounds. No palpable organomegaly. MUSCULOSKELETAL: No joint swelling or deformity. EXTREMITIES: No cyanosis, clubbing, or pedal edema. NEUROLOGICAL: Gross neurological examination did not reveal any focal deficits. SKIN: No rashes. no petechiae. Results CBC & Chem 7: 12/10/19 04:37 12/10/19 04:13 Labs: Abnormal Lab Results - Last 24 Hours (Table) 12/10/19 12/10/19 12/10/19 Range/Units 01:01 02:00 04:13 WBC 27.5 H (3.8-10.6) k/uL RBC 3.26 L (3.80-5.40) m/uL Hgb (11.4-16.0) gm/dL Hct (34.0-46.0) % MCV 111.5 H D (80.0-100.0) fL MCH 37.4 H (25.0-35.0) pg Plt Count (150-450) k/uL Neutrophils # (Manual) 25.30 H (1.3-7.7) k/uL Metamyelocytes # (Man) (0) k/uL Macrocytosis Marked A PT (9.0-12.0) sec INR (<1.2) Sodium 108 L* (137-145) mmol/L Chloride 65 L* (98-107) mmol/L Creatinine 1.53 H (0.52-1.04) mg/dL POC Glucose (mg/dL) (75-99) mg/dL Plasma Lactic Acid Nilo 11.2 H* (0.7-2.0) mmol/L Calcium 11.3 H (8.4-10.2) mg/dL Total Bilirubin 10.6 H (0.2-1.3) mg/dL AST 259 H (14-36) U/L ALT 142 H (4-34) U/L Alkaline Phosphatase 209 H (38-126) U/L CK-MB (CK-2) (0.0-2.4) ng/mL C-Reactive Protein 195.8 H (<10.0) mg/L Total Protein 5.5 L (6.3-8.2) g/dL Albumin 2.7 L (3.5-5.0) g/dL Amylase 293 H (30-110) U/L Lipase 847 H (23-300) U/L Urine Appearance (Clear) Urine Protein (Negative) Urine Bilirubin (Negative) Ur Leukocyte Esterase (Negative) Urine WBC (0-5) /hpf Urine Bacteria (None) /hpf Hyaline Casts (0-2) /lpf Urine Mucus (None) /hpf 12/10/19 12/10/19 12/10/19 Range/Units 04:13 04:37 04:37 WBC 30.7 H (3.8-10.6) k/uL RBC 2.69 L (3.80-5.40) m/uL Hgb 10.2 L (11.4-16.0) gm/dL Hct 29.4 L (34.0-46.0) % MCV 109.4 H (80.0-100.0) fL MCH 37.8 H (25.0-35.0) pg Plt Count 122 L (150-450) k/uL Neutrophils # (Manual) 28.20 H (1.3-7.7) k/uL Metamyelocytes # (Man) 0.61 H (0) k/uL Macrocytosis Marked A PT 15.0 H (9.0-12.0) sec INR 1.5 H (<1.2) Sodium (137-145) mmol/L Chloride (98-107) mmol/L Creatinine (0.52-1.04) mg/dL POC Glucose (mg/dL) (75-99) mg/dL Plasma Lactic Acid Nilo (0.7-2.0) mmol/L Calcium (8.4-10.2) mg/dL Total Bilirubin (0.2-1.3) mg/dL AST (14-36) U/L ALT (4-34) U/L Alkaline Phosphatase (38-126) U/L CK-MB (CK-2) 4.3 H (0.0-2.4) ng/mL C-Reactive Protein (<10.0) mg/L Total Protein (6.3-8.2) g/dL Albumin (3.5-5.0) g/dL Amylase (30-110) U/L Lipase (23-300) U/L Urine Appearance (Clear) Urine Protein (Negative) Urine Bilirubin (Negative) Ur Leukocyte Esterase (Negative) Urine WBC (0-5) /hpf Urine Bacteria (None) /hpf Hyaline Casts (0-2) /lpf Urine Mucus (None) /hpf 12/10/19 12/10/19 12/10/19 Range/Units 04:37 07:13 07:27 WBC (3.8-10.6) k/uL RBC (3.80-5.40) m/uL Hgb (11.4-16.0) gm/dL Hct (34.0-46.0) % MCV (80.0-100.0) fL MCH (25.0-35.0) pg Plt Count (150-450) k/uL Neutrophils # (Manual) (1.3-7.7) k/uL Metamyelocytes # (Man) (0) k/uL Macrocytosis PT (9.0-12.0) sec INR (<1.2) Sodium (137-145) mmol/L Chloride (98-107) mmol/L Creatinine (0.52-1.04) mg/dL POC Glucose (mg/dL) 114 H (75-99) mg/dL Plasma Lactic Acid Nilo 10.5 H* (0.7-2.0) mmol/L Calcium (8.4-10.2) mg/dL Total Bilirubin (0.2-1.3) mg/dL AST (14-36) U/L ALT (4-34) U/L Alkaline Phosphatase (38-126) U/L CK-MB (CK-2) (0.0-2.4) ng/mL C-Reactive Protein (<10.0) mg/L Total Protein (6.3-8.2) g/dL Albumin (3.5-5.0) g/dL Amylase (30-110) U/L Lipase (23-300) U/L Urine Appearance Cloudy H (Clear) Urine Protein 1+ H (Negative) Urine Bilirubin 2+ H (Negative) Ur Leukocyte Esterase Small H (Negative) Urine WBC 15 H (0-5) /hpf Urine Bacteria Rare H (None) /hpf Hyaline Casts 20 H (0-2) /lpf Urine Mucus Occasional H (None) /hpf Assessment and Plan Assessment: Alcohol withdrawal with delirium tremens Severe hyponatremia Possible sepsis with leukocytosis and tachycardia Elevated lactic acid Acute on chronic pancreatitis Metabolic encephalopathy secondary to above Alcoholic hepatitis acute kidney injury Alcohol abuse and at-risk of alcohol withdrawal Bilateral upper groundglass pulmonary opacities suspicious for covid 19 Liver cirrhosis Plan: This is a pleasant 44 years old female with multiple medical problems as above including hyponatremia, pancreatitis/hepatitis, alcohol abuse. Possible sepsis. Continue with ICU management and follow closely with pulmonary/critical care team. Monitor her sodium closely and corrected slowly per nephrology team recommendation.We will check serum osmolality, urine osmolality and sodium. I would recommend broad-spectrum antibiotics for empiric treatment and dill- culture. Continue with gentle hydration. Follow-up recommendation by control electrician team. We will check for covid 19. Continue with [facility] protocol and same Labs and medication were reviewed.. Continue same treatment. Continue with symptomatic treatment. Resume home medication. Monitor lytes and vitals. DVT and GI prophylaxis. Further recommendationsas per clinical course of the patient DVT prophylaxis: Subcutaneous heparin GI Prophylaxis: Ppi Prognosis is guarded
[2019-12-10 10:04] LABS: Calcium 9.5 mg/dL (8.4-10.2); Potassium 3.8 mmol/L (3.5-5.1)
--- NOTE | 2019-12-10 10:55 | CDI ---
Documentation Clarification Form Date: 12/10/2019 10:26:40 AM From: Jelena Cerda RN CCDS Admit Date: 12/10/2019 06:04:00 AM Patient Name: Radha Hobson Visit Number: [id number] Discharge Date: ATTENTION: The Clinical Documentation Specialists (CDI) and [facility] Coding Staff appreciate your assistance in clarifying documentation. Please respond to the clarification below the line at the bottom and electronically sign. The CDI & [facility] Coding staff will review the response and follow-up if needed. Please note: Queries are made part of the Legal Health Record. If you have any questions, please contact the author of this message via ITS. Dr. Meraz E Sheet The documentation in the H&P 12/09 included Elevated Lactic Acid: Past medical history/Risk Factors: 44-year-old presents to ED with a fall, abdominal pain and has been drinking heavily. Medial history: Chronic pancreatitis; Alcohol abuse and Alcoholic hepatitis. Clinical Indicators: 12/09 Latic Acid: 11.2; 4.1 12/09 Vital signs: B/P: 107/80; HR: 117; RR: 18; Temp: 97.8 F Oral; SpO2 100% room air Treatment: 12/09 0.9 NS 2L bolus followed by 75cchr In your professional opinion, can you please clarify if the above clinical indicators and treatment signify any of the following? Lactic Acidosis Unable to determine Other, please specify Answered in GI consult 12/09: lactic acidosis related to possible Sepsis (Last Revision: November 2016) WILDER
--- NOTE | 2019-12-10 11:51 | US ---
EXAMINATION TYPE: US gallbladder DATE OF EXAM: 12/10/2019 COMPARISON: US 06/21/2019, CT [id number] CLINICAL HISTORY: pancreatitis,elevated liver enzymes. Patient disoriented, unable to obtain history EXAM MEASUREMENTS: Liver Length: 21.9 cm Gallbladder Wall: 0.3 cm CBD: 0.6 cm Right Kidney: 11.4 x 4.5 x 5.3 cm Difficult and limited study due to patient disoriented and moving during exam Pancreas: limited by overlying midline bowel gas, 4.4 x 4.2 x 4.0cm complex cystic structure seen at pancreas head area, seen on previous ultrasound. This has enlarged with previous measurement 2.9 x 2 .2 cm. Additional workup is recommended. Liver: enlarged, heterogeneous, attenuating Gallbladder: hydropic, sludge seen Evidence for sonographic Vizcaino's sign: n/a CBD: visualized portions wnl, limited by overlying bowel gas Right Kidney: wnl Small amount of free fluid seen in RUQ IMPRESSION: 1. Enlarging cyst pancreatic head. A pseudocyst could be considered. Benign or malignant cystic neopl asm should be considered. Additional workup is recommended. Consider repeat CT abdomen with attention to the pancreas. 2. Debris-filled gallbladder. Shadowing renal stones are not identified. This is increased debris com parison study. 3. Small amount of free fluid within the right upper quadrant
--- NOTE | 2019-12-10 12:26 | CONS ---
CONSULTATION REASON FOR CONSULT: Hyponatremia, renal failure. HISTORY OF PRESENT ILLNESS: Patient is a 44-year-old female with history of alcohol abuse, who was admitted to the hospital with confusion, increased weakness and mental status changes. She has a history of alcoholic liver disease and cirrhosis with pseudocyst with previous history of pancreatitis. This is the patient's fifth admission for the same problem over the past 5 months. On labs that were done in the ER, her sodium was found to be 108; however, this may not have been accurate as there was an issue with the specimen, it was clotted. Patient was also hypotensive with systolic blood pressure in the 60s. She was given a L of fluid bolus and started on normal saline. About 5 hours later, serum sodium is 113. However, the 108 may not have been accurate. She has had mildly low sodium levels before at 127 am and 132 milliequivalents per L in June of 2019. There is no ongoing diarrhea. No nausea or vomiting. Patient did not need pressors. Her blood pressure has improved. Urine output is on the lower side. She currently has a Butterfield catheter. Serum creatinine 1.6 from 1.5 yesterday. Previous creatinine 0.3 on 10/07/2019. Patient is not acidotic. PAST MEDICAL HISTORY: Significant for alcoholic liver disease, previous admissions for nausea, vomiting, previous history of chronic pancreatitis, pancreatic pseudocyst, history of carcinoid syndrome. PAST SURGICAL HISTORY: Left hand surgery. SOCIAL HISTORY: Positive for smoking marijuana use, heavy alcohol abuse, history of bipolar depression, posttraumatic stress disorder. MEDICATIONS: At home none. ALLERGIES: Include MOTRIN, SEROQUEL, type of reaction not known. REVIEW OF SYSTEMS: As per HPI. Other systems negative. PHYSICAL EXAMINATION: Patient is comfortable. She is sleeping, she is arousable but lethargic. Blood pressure was 109/71, heart rate 106 per minute, patient is afebrile. Examination of the heart S1, S2. Examination of the lungs, bilateral breath sounds are heard. Abdomen is soft. No significant tenderness noted. Examination of the lower extremities shows no evidence of edema. [employer] exam shows patient is lethargic. She is moving all 4 extremities. LABS: Show sodium 113, potassium 3.8, chloride 75, CO2 is 31, BUN 17, creatinine 1.6. UA shows 1+ protein, 2+ bilirubin, no blood is seen, cells 15. Urine osmolality 332. Drug screen was positive for methamphetamines and marijuana. ASSESSMENT: 1. Hyponatremia which is hypovolemic, currently improved with saline administration. However, the serum sodium on admission at 108 am may not have been accurate. Repeat level is pending from 3 hours from the last one. I will continue with the saline for now. We may need to decrease it, if the serum sodium is rising too quickly. 2. History of alcoholic liver disease with liver cirrhosis. 3. Liver cirrhosis with hyperbilirubinemia with history of chronic pancreatitis, pancreatic pseudocyst previously. 4. Acute kidney injury, prerenal, currently oliguric. Expect improvement with improved volume status and blood pressure. 5. Lactic acidosis associated with severe hypotension, hypoperfusion, currently improving. 6. History of use of marijuana and drug screen positive for methamphetamines and marijuana as well. PLAN: Continue with saline, repeat sodium in 3 hours and increase protein intake. Avoid nephrotoxic agents. Thank you for this consultation. Will continue to follow the patient with you during her hospitalization. MMODL / IJN: [id number] /
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
--- NOTE | 2019-12-10 15:14 | CONS ---
CONSULTATION DATE OF DICTATION: 12/10/2019 REASON FOR CONSULTATION: Elevated LFTs and jaundice. HISTORY OF PRESENT ILLNESS: The patient is a 44-year-old white female with history of heavy alcohol abuse and alcoholic liver disease with cirrhosis of the liver and five hospitalizations with acute pancreatitis, who was admitted to hospital because of altered mental status. She was also complaining of abdominal pain associated with nausea vomiting and frequent falls at home. She came in to the emergency room and was subsequently noted to have severe hyponatremia with a sodium of 108 and presently in the intensive care unit being monitored closely. She was also noted to have elevated LFTs with bilirubin of 10, AST and ALT in the range of 200s and 100 respectively. The patient is very drowsy and most of the history was obtained from the nurse caring for her. Apparently, patient has been drinking heavily, and her last alcohol drink was 2 nights ago. At the time of admission, her alcohol level was less than 10. She did have ultrasound of the abdomen done that showed evidence of hepatomegaly with fatty infiltration of the liver and pancreatic cyst in the head of the pancreas measuring 4 x 4 cm in size. PAST MEDICAL HISTORY: Significant for alcohol abuse, alcoholic cirrhosis of the liver, history of rheumatoid arthritis, coronary artery disease, fibromyalgia, history of seizure disorder, chronic pancreatitis complicated with a pseudocyst formation. MEDICATIONS: None. ALLERGIES: NSAIDs, SEROQUEL. SOCIAL HISTORY: Chronic smoker, heavy alcohol use as mentioned above. FAMILY HISTORY: Unable to be obtained. REVIEW OF SYSTEMS: Unable to obtain as patient is quite lethargic and drowsy. PAST SURGICAL HISTORY: Left hand surgery. PHYSICAL EXAMINATION: She appears comfortable, in no apparent distress. Vital signs are stable, blood pressure 126/74, pulse rate 82 per minute and afebrile. HEENT: Examination unremarkable. Conjunctivae are pink. Sclerae deeply icteric. Oral cavity no lesions. NECK: No JVD or lymph node enlargement. CHEST: Clear to auscultation. HEART: Regular rate and rhythm. ABDOMEN: Soft, it was slightly tender. Liver was palpable at least 5 cm below the costal margin. There was no free fluid noted. EXTREMITIES: No pedal edema. SKIN: No rashes. NEURO: She is very sedated, but arousable with verbal stimuli. LABS: Labs done from today, WBC 13.7, hemoglobin 10.2, platelets 122. INR 1.5. Sodium 112, potassium 3.8, chloride 75, CO2 is 31, BUN 17, creatinine 1.61. Serum osmolality 237, T bilirubin 10.6, AST 259, ALT 142, alkaline phosphatase 209. CRP 195. Albumin is 2.7. Lipase is 847. Serum alcohol level less than 10. Urine methamphetamine positive. Urine marijuana positive. IMPRESSION: 1. Severe hyponatremia with altered mental status. Serum sodium at the time of admission to the hospital was 108. Today it is 112, being monitored very closely. 2. Acute alcoholic hepatitis superimposed on alcoholic liver disease. Patient's bilirubin labs showed a bilirubin of 10.9 with AST more than ALT, all consistent with alcoholic liver disease. The patient has history of heavy alcohol abuse and multiple hospitalizations in the past. 3. Leukocytosis and lactic acidosis related to possible sepsis. Cannot rule out spontaneous bacterial peritonitis. Ultrasound of the abdomen did show minimal amount of ascites. Patient on broad-spectrum antibiotics. 4. History of chronic alcoholic pancreatitis with pseudocyst formation with slightly enlarged size of the cyst. 5. Mild elevation of BUN and creatinine consistent with acute kidney injury, possibly from hypokalemia. 6. History of rheumatoid arthritis. 7. History of fibromyalgia. RECOMMENDATIONS: 1. Continue with broad-spectrum antibiotics. 2. Monitor sodium closely. 3. Agree with broad-spectrum antibiotics. 4. Watch for DTs and alcohol withdrawal. 5. Continue with IV Protonix 40 mg q.12 hours. 6. Will follow with you closely. Will monitor LFTs on a daily basis. Thank you for this consultation. MMODL / IJN: [id number] /
[2019-12-10] MEDS: THIAMINE 100 MG TAB PO SCH (17:36)
[2019-12-10] MEDS: LORazepam 2 MG/ML INJ IV PRN (21:00)
[2019-12-10] MEDS: SODIUM CHLORIDE TAB 1 GM TAB PO SCH (21:45)
[2019-12-10 22:11] LABS: Hepatitis A Antibody IgM Non-Reactive (Non-Reactive); Hepatitis B Core IgM Non-Reactive (Non-Reactive); Hepatitis B Surface Antigen Non-Reactive (Non-Reactive); Hepatitis C IgG Antibody Reactive (Non-Reactive)
[2019-12-11 00:38] LABS: Glucose,Whole Blood 102 mg/dL (75-99)
[2019-12-11 04:06] LABS: Basophils # (A) 0.1 k/uL (0-0.2); Basophils % (A) 1 %; Eosinophils % (A) 0 %; Lymphocytes # (A) 0.9 k/uL (1.0-4.8); Lymphocytes % (A) 6 %; MCH 38.3 pg (25.0-35.0); MCHC 33.5 g/dL (31.0-37.0); Macrocytosis Marked; Mean Platelet Volume 8.8; Monocytes # (A) 0.4 k/uL (0-1.0); Monocytes % (A) 2 %; Neutrophils # (A) 12.7 k/uL (1.3-7.7); Neutrophils % (A) 90 %; RBC 1.84 m/uL (3.80-5.40); RDW 14.3 % (11.5-15.5); WBC 14.2 k/uL (3.8-10.6)
[2019-12-11 04:14] LABS: HGB 7.1 gm/dL (11.4-16.0); MCV 114.3 fL (80.0-100.0)
[2019-12-11 04:26] LABS: INR 1.5 (<1.2); Prothrombin Time 14.6 sec (9.0-12.0)
[2019-12-11 04:32] LABS: Calcium 8.9 mg/dL (8.4-10.2); Potassium 3.1 mmol/L (3.5-5.1); Total Bilirubin 9.7 mg/dL (0.2-1.3); Total Protein 4.3 g/dL (6.3-8.2)
[2019-12-11 05:16] LABS: Platelet Count 91 k/uL (150-450)
[2019-12-11 05:17] LABS: Toxic Granulation Present
[2019-12-11 05:58] LABS: Glucose,Whole Blood 104 mg/dL (75-99)
[2019-12-11] MEDS ORDERED: Potassium Replacement Protocol 1 EACH MISC MISCELLANE PRN (06:01)
[2019-12-11] MEDS: POTASSIUM CHLORIDE 10 MEQ in WATER FOR INJECTION 1 100ML.BAG IVPB SCH ×6 (06:08→20:41)
[2019-12-11] MEDS: SODIUM CHLORIDE TAB 1 GM TAB PO SCH ×3 (06:09→22:21)
[2019-12-11] MEDS: THIAMINE 100 MG TAB PO SCH ×2 (07:16→18:13)
[2019-12-11] MEDS: SODIUM CHLORIDE 0.9% 1,000 ML IV SCH ×2 (07:27→20:41)
[2019-12-11] MEDS: HEPARIN SODIUM,PORCINE 5,000 UNIT/ML 1 ML VIAL SQ SCH ×2 (08:26→22:20)
[2019-12-11] MEDS: PANTOPRAZOLE 40 MG/10 ML VIAL IVP SCH (08:26)
--- NOTE | 2019-12-11 09:22 | XR ---
EXAMINATION TYPE: XR chest 1V portable DATE OF EXAM: 12/11/2019 COMPARISON: Prior chest x-ray 12/10/2019 HISTORY: Pneumonia TECHNIQUE: Single frontal view of the chest is obtained. FINDINGS: Right subclavian central venous catheter shows the distal tip overlying superior vena cava . No evident pneumothorax or pleural effusion. Volumes are low and the patient is rotated. Cardiac me diastinal silhouette, pulmonary vascularity and milton felt to be stable accounting for differences in technique. Patchy bibasilar density is noted. IMPRESSION: There may be basilar atelectasis, correlate to exclude pneumonia. Follow-up as indicated .
[2019-12-11] MEDS: IOPAMIDOL CONTRAST (ORAL USE) VIAL PO PRN ×2 (09:40→10:32)
[2019-12-11] MEDS: NICOTINE 21MG/24HR PATCH TRANSDERM SCH (10:18)
[2019-12-11] MEDS ORDERED: traMADol 50 MG TAB PO PRN (11:12)
[2019-12-11] MEDS: LORazepam 2 MG/ML INJ IV PRN ×3 (11:23→18:13)
--- NOTE | 2019-12-11 11:29 | PN ---
PROGRESS NOTE Patient is seen for followup for hyponatremia and acute kidney injury. Her serum sodium has improved slightly. She is maintained on normal saline. Urine osmolality was at 332. Patient's random urine sodium was less than 10. She has been drinking a lot of alcohol prior to admission. Patient was also hypotensive with systolic blood pressure initially in the 60s, currently improved with systolic staying about 90-100 mmHg. Patient's urine output has picked up as well. Her serum creatinine is down to 1.19 from 1.6 yesterday. Sodium is up to 116 from about 113 on initial admission. There was an initial sodium of 108. However, I am not sure if that was accurate. Patient is awake. Her mentation has improved. She is still quite lethargic, though, no significant shortness of breath or chest pains. Mild nausea is noted. PHYSICAL EXAMINATION: On examination today, blood pressure 102/64, heart rate 112 per minute, she is afebrile. Examination of the heart S1, S2. Examination of the lungs, bilateral breath sounds are heard. Abdomen is soft, nontender. Examination of lower extremities shows no evidence of edema. WEAVING INSPECTOR exam shows patient is weak. She is oriented x2. Moving all 4 extremities. LABS: Show sodium 116, potassium 3.1, BUN 18, serum creatinine 1.19, hemoglobin 7.1 g/dL. ASSESSMENT: 1. Acute kidney injury, prerenal, currently improved with improvement in blood pressure and volume status. 2. Hypovolemic, hyponatremia. However, a component of poor solute intake as well as I would have expected the serum sodium to increase faster with the saline. She has also been started on sodium chloride tabs, which I will continue. This will also help her blood pressure. Patient is advised to increase oral intake, particularly protein. 3. Hypokalemia, status post replacement. 4. Acute pancreatitis, lipase were 1000. 5. Mental status changes/encephalopathy, slowly improving. 6. History of chronic liver disease secondary to ETOH abuse. 7. Anemia, no active bleeding noted. Iron saturation not available this admission. PLAN: Continue with sodium chloride tabs. Recheck sodium now. Replace potassium. Increase oral intake, check iron profile. MMODL / IJN: [id number] /
--- NOTE | 2019-12-11 12:58 | P.PN ---
Subjective Progress Note Date: 12/11/19 On 12/11/2019, the patient is doing better than yesterday. She seems much more awake and responsive. She is still confused and drowsy but at least she is having some conversation and her answers are somewhat confused and inappropriate. She is on a normal state rate of 75 mL an hour. Her sodium level is up to 116. She has some ongoing abdominal tenderness. Lipase level is elevated at 1000 and she had a component of an acute on top of chronic pancreatitis. Bilirubin remains elevated and I'm concerned that there may be some biliary duct obstruction based on the fact that the patient had a pseud ocyst in the pancreas on previous evaluation including CAT scans and MRI of the pancreas. Based on that, a repeat CAT scan of the abdomen will be needed to evaluate this abnormality. The patient is otherwise doing well. No signs of any agitation. She is afebrile. White cell count is at 14.2. Hemoglobin dropped on 7.1 without any signs of any bleeding. This needs to be very closely monitored. Potassium level is down to 3. was being monitored. PT is at 14.6 with an INR of 1.5. Noted the patient's bilirubin is at 9.7 and the patient also has a AST of 175, AST pulmonary 19, alkaline phosphatase 156 and ammonia level is less than 5. Objective - Vital Signs Vital signs: Vital Signs Temp 98.7 F 12/11/19 08:00 Pulse 113 H 12/11/19 11:00 Resp 24 12/11/19 11:00 BP 94/52 12/11/19 11:00 Pulse Ox 93 L 12/11/19 11:00 Intake & Output 12/10/19 12/11/19 12/11/19 18:59 06:59 18:59 Intake Total 1900 1125 750 Output Total 155 345 245 Balance 1745 780 505 Weight 64.864 kg 76.5 kg Intake: IV 1900 975 750 Potassium Chloride 10 meq 100 300 In Water For Injection 1 100ml.bag @ 100 mls/hr IVPB Q1HR [facility] Rx#: [id number] Sodium Chloride 0.9% 1, 900 825 450 000 ml @ 75 mls/hr IV . [id number] [facility] Rx#:[id number] Sodium Chloride 0.9% 1, 1000 000 ml @ 999 mls/hr IV . Q1H1M ONE Rx#:[id number] cefTRIAXone 1 gm In 50 Sodium Chloride 0.9% 50 ml @ 100 mls/hr IVPB Q24H [facility] Rx#:[id number] Oral 150 Output: Urine 155 345 245 Other: Voiding Method Indwelling Catheter Indwelling Catheter # Bowel Movements 1 - Exam Gen. appearance the patient is calm comfortable and she denies having any acute respiratory distress. She seems to be quite jaundiced. The patient is using much more awake compared to yesterday. Head exam was generally normal. There was no scleral icterus or corneal arcus. Mucous membranes were moist. Neck was supple and without jugular venous distension, thyromegaly, or carotid bruits. Carotids were easily palpable bilaterally. There was no adenopathy. The patient has conjunctival pallor and some icterus. No neck stiffness. Lungs were clear to auscultation and percussion, and with normal diaphragmatic excursion. No wheezes or rales were noted. Cardiac exam revealed the PMI to be normally situated and sized. The rhythm was regular and no extrasystoles were noted during several minutes of auscultation. The first and second heart sounds were normal and physiologic splitting of the second heart sound was noted. There were no murmurs, rubs, clicks, or gallops. Abdominal exam revealed normal bowel sounds. The abdomen was soft, non-tender, and without masses, organomegaly, or appreciable enlargement of the abdominal aorta. Examination of the extremities revealed easily palpable radial, femoral and pedal pulses. There was no cyanosis, clubbing or edema. Examination of the skin revealed no evidence of significant rashes, suspicious appearing nevi or other concerning lesions. Neurologically, the patient seems to be lethargic and confused and sleepy, but much more arousable compared to yesterday and level of alertness is improved. Cranial nerves seem to be intact and the patient has no facial asymmetry and pupillary reactive to light. No nystagmus. No clonus. Motor and sensory function cannot be accurately assessed. - Labs CBC & Chem 7: 12/11/19 03:55 12/11/19 03:55 Labs: Abnormal Lab Results - Last 24 Hours (Table) 12/10/19 12/10/19 12/10/19 Range/Units 09:40 12:24 15:15 WBC (3.8-10.6) k/uL RBC (3.80-5.40) m/uL Hgb (11.4-16.0) gm/dL Hct (34.0-46.0) % MCV (80.0-100.0) fL MCH (25.0-35.0) pg Plt Count (150-450) k/uL Neutrophils # (1.3-7.7) k/uL Lymphocytes # (1.0-4.8) k/uL Macrocytosis PT (9.0-12.0) sec INR (<1.2) Sodium 112 L* 114 L* (137-145) mmol/L Potassium (3.5-5.1) mmol/L Chloride (98-107) mmol/L BUN (7-17) mg/dL Creatinine (0.52-1.04) mg/dL POC Glucose (mg/dL) (75-99) mg/dL Total Bilirubin (0.2-1.3) mg/dL AST (14-36) U/L ALT (4-34) U/L Alkaline Phosphatase (38-126) U/L Total Protein (6.3-8.2) g/dL Albumin (3.5-5.0) g/dL Amylase (30-110) U/L Lipase (23-300) U/L Hep C IgG Ab Reactive H (Non-Reactive) 12/10/19 12/11/19 12/11/19 Range/Units 20:15 00:36 03:55 WBC 14.2 H (3.8-10.6) k/uL RBC 1.84 L (3.80-5.40) m/uL Hgb 7.1 L D (11.4-16.0) gm/dL Hct 21.0 L (34.0-46.0) % MCV 114.3 H (80.0-100.0) fL MCH 38.3 H (25.0-35.0) pg Plt Count 91 L (150-450) k/uL Neutrophils # 12.7 H (1.3-7.7) k/uL Lymphocytes # 0.9 L (1.0-4.8) k/uL Macrocytosis Marked A PT (9.0-12.0) sec INR (<1.2) Sodium 114 L* (137-145) mmol/L Potassium (3.5-5.1) mmol/L Chloride (98-107) mmol/L BUN (7-17) mg/dL Creatinine (0.52-1.04) mg/dL POC Glucose (mg/dL) 102 H (75-99) mg/dL Total Bilirubin (0.2-1.3) mg/dL AST (14-36) U/L ALT (4-34) U/L Alkaline Phosphatase (38-126) U/L Total Protein (6.3-8.2) g/dL Albumin (3.5-5.0) g/dL Amylase (30-110) U/L Lipase (23-300) U/L Hep C IgG Ab (Non-Reactive) 12/11/19 12/11/19 12/11/19 Range/Units 03:55 03:55 05:57 WBC (3.8-10.6) k/uL RBC (3.80-5.40) m/uL Hgb (11.4-16.0) gm/dL Hct (34.0-46.0) % MCV (80.0-100.0) fL MCH (25.0-35.0) pg Plt Count (150-450) k/uL Neutrophils # (1.3-7.7) k/uL Lymphocytes # (1.0-4.8) k/uL Macrocytosis PT 14.6 H (9.0-12.0) sec INR 1.5 H (<1.2) Sodium 116 L* (137-145) mmol/L Potassium 3.1 L (3.5-5.1) mmol/L Chloride 80 L (98-107) mmol/L BUN 18 H (7-17) mg/dL Creatinine 1.19 H (0.52-1.04) mg/dL POC Glucose (mg/dL) 104 H (75-99) mg/dL Total Bilirubin 9.7 H (0.2-1.3) mg/dL AST 175 H (14-36) U/L ALT 119 H (4-34) U/L Alkaline Phosphatase 156 H (38-126) U/L Total Protein 4.3 L (6.3-8.2) g/dL Albumin 2.0 L (3.5-5.0) g/dL Amylase 232 H (30-110) U/L Lipase 1000 H (23-300) U/L Hep C IgG Ab (Non-Reactive) Microbiology - Last 24 Hours (Table) 12/10/19 07:13 Urine Culture - Final Urine,Voided 12/10/19 04:06 Blood Culture - Preliminary Blood No Growth after 24 hours Assessment and Plan Plan: 1 chronic alcoholism with some signs of delirium tremens at the time of admission and the patient was given Ativan and currently she is calm and comfortable, and she is less sedated compared to yesterday and level of alertness improved considerably. Noted altered mentation could've also been related to her underlying hyponatremia. 2 hyponatremia, hypochloremic, likely secondary to intravascular volume depletion/dehydration, sodium level is improving and is up to 116 and the patient remains on normal saline at the rate of 75 mL an hour with improvement in the urine output. 3 acute lactic acidosis, improving with fluid resuscitation 4 acute on chronic pancreatitis, and the patient continues to have abdominal pain with a lipase level of 1000. The patient is elevated bilirubin and consider the possibility of obstructive uropathy. 5 pancreatitis pseudocyst formation related to chronic pancreatitis, , a known complication of alcoholism, consider obstructive uropathy from his pseudocyst formation causing elevation of bilirubin. The Pancreas Will Be Needed. 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 Consider dilutional drop in hemoglobin. Plan Continue normal saline at the rate of 75 mL an hour Monitor sodium level, and recommend slow improvement and correction of the sodium level and order of 6-8 mEq in a 24-hour period, current sodium level is up to 116 and the patient neurologic function is improving Monitor amylase and lipase\ the level of lipase elevated at 1000 and a CAT scan of the abdomen will be needed specially the patient has an elevated bilirubin level. Monitor white cell count, improving and the white cell count is 14.2 Empiric antibiotic coverage with IV Rocephin Treatment of delirium tremens per CIWA protocol Thiamine replacement therapy IV Protonix CAT scan of the abdomen with special attention of the pancreas General surgical consultation, and the patient will be seen by Dr. cross We'll continue to follow and keep the patient ICU for now
--- NOTE | 2019-12-11 13:04 | CT ---
EXAMINATION TYPE: CT abdomen pelvis wo con DATE OF EXAM: 12/11/2019 COMPARISON: Prior CT 10/08/2018 HISTORY: Abdominal pain, elevated bilirubin CT DLP: 728.6 mGycm Automated exposure control for dose reduction was used. TECHNIQUE: Helical acquisition of images from the lung bases through the pelvis.1 no IV contrast, anisha schreiber received oral contrast only FINDINGS: Lack of intravenous contrast could compromise the exam. LUNG BASES: Dependent atelectatic changes are present, minimal left pleural effusion suspected. AORTA: No significant abnormality is appreciated. LIVER/GB: Liver shows marked low attenuation likely due to hepatic steatosis and is enlarged, gallbla dder is contracted. PANCREAS: Large low dense focus is present at the head of the pancreas measuring 4.7 cm x 5.4, additi onal low dense focus present at the tail the pancreas measuring 3.5 cm x 4.8. Multiple calcifications are scattered along the pancreas which have developed in the interval. Head of pancreas lesion cause s local mass effect on the duodenum. SPLEEN: No significant abnormality is seen. ADRENALS: No significant abnormality is seen. KIDNEYS: No significant abnormality is seen. REPRODUCTIVE ORGANS: No significant abnormality is seen. URINARY BLADDER: Catheterized. BOWEL: Small bowel shows wall thickening.. FREE AIR: No Free Air is visible. ASCITES: There is free fluid in the pelvis. Some free fluid noted in the right lower quadrant and al yaneth the paracolic gutters, about the spleen and pancreas. PELVIC ADENOPATHY: None visualized. RETROPERITONEAL ADENOPATHY: No Retroperitoneal Adenopathy visible. OSSEOUS STRUCTURES: No significant interval change is seen, ankylosis noted at L3-4 as on prior, spi nal curvature noted at this level convex right. IMPRESSION: FINDINGS CONSISTENT WITH CHRONIC PANCREATITIS, PSEUDOCYSTS HAVE INCREASED IN SIZE. HEPATOMEGALY AND H EPATIC STEATOSIS. ASCITES. SMALL BOWEL WALL THICKENING IS NONSPECIFIC.
[2019-12-11] MEDS: MORPHINE SULFATE 2 MG/ML SYRINGE IVP PRN ×2 (13:08→19:08)
--- NOTE | 2019-12-11 13:33 | P.PN ---
Subjective Progress Note Date: 12/11/19 Principal diagnosis: Pancreatitis, EtOH intoxication, liver disease This is a 44-year-old female with a history of chronic alcohol abuse. She has a history of pancreatitis as well as the alcoholic liver disease with cirrhosis of the liver. She was admitted to the emergency department with complaints of nausea, vomiting, and diarrhea for several days. Yesterday the patient was very drowsy and somnolent, today she is more awake and alert. She is on a clear liquid diet and tolerating well. She is complaining of abdominal pain, no nausea or vomiting. She had a small loose bowel movement which was reported as brown from nursing. However the patient states that she was having bowel movements with melena, vomiting every morning until she would start drinking again. Reports drinking 1-3 fifths a day. When asked if the patient was interested in rehab, the patient said no. She has a Butterfield catheter intact with dark colored urine. Her sodium today is 116, potassium is 3.1. Hemoglobin is 7.1 which is down from 10.2 on admission. Objective - Vital Signs Vital signs: Vital Signs Temp 98.7 F 12/11/19 08:00 Pulse 113 H 12/11/19 11:00 Resp 24 12/11/19 11:00 BP 94/52 12/11/19 11:00 Pulse Ox 93 L 12/11/19 11:00 Intake & Output 12/10/19 12/11/19 12/11/19 18:59 06:59 18:59 Intake Total 1900 1125 600 Output Total 155 345 170 Balance 1745 780 430 Weight 64.864 kg 76.5 kg Intake: IV 1900 975 600 Potassium Chloride 10 meq 100 300 In Water For Injection 1 100ml.bag @ 100 mls/hr IVPB Q1HR [facility] Rx#: [id number] Sodium Chloride 0.9% 1, 900 825 300 000 ml @ 75 mls/hr IV . [id number] [facility] Rx#:[id number] Sodium Chloride 0.9% 1, 1000 000 ml @ 999 mls/hr IV . Q1H1M ONE Rx#:[id number] cefTRIAXone 1 gm In 50 Sodium Chloride 0.9% 50 ml @ 100 mls/hr IVPB Q24H [facility] Rx#:[id number] Oral 150 Output: Urine 155 345 170 Other: Voiding Method Indwelling Catheter Indwelling Catheter # Bowel Movements 1 - Exam General appearance: The patient is alert, oriented, in no acute distress. HET: Head is normocephalic and atraumatic. Conjunctiva pink. Sclera icteric. Neck: Supple without lymphadenopathy. Abdomen: Soft, eipgastric tenderness, nondistended with bowel sounds. No guarding or rigidity. Skin: Jaundiced Extremities: Normal skin color and turgor. No pedal edema Neurological: No focal deficits. Alert and oriented 3. - Labs CBC & Chem 7: 12/11/19 03:55 12/11/19 03:55 Labs: Abnormal Lab Results - Last 24 Hours (Table) 12/10/19 12/10/19 12/10/19 Range/Units 09:40 12:24 15:15 WBC (3.8-10.6) k/uL RBC (3.80-5.40) m/uL Hgb (11.4-16.0) gm/dL Hct (34.0-46.0) % MCV (80.0-100.0) fL MCH (25.0-35.0) pg Plt Count (150-450) k/uL Neutrophils # (1.3-7.7) k/uL Lymphocytes # (1.0-4.8) k/uL Macrocytosis PT (9.0-12.0) sec INR (<1.2) Sodium 112 L* 114 L* (137-145) mmol/L Potassium (3.5-5.1) mmol/L Chloride (98-107) mmol/L BUN (7-17) mg/dL Creatinine (0.52-1.04) mg/dL POC Glucose (mg/dL) (75-99) mg/dL Total Bilirubin (0.2-1.3) mg/dL AST (14-36) U/L ALT (4-34) U/L Alkaline Phosphatase (38-126) U/L Total Protein (6.3-8.2) g/dL Albumin (3.5-5.0) g/dL Amylase (30-110) U/L Lipase (23-300) U/L Hep C IgG Ab Reactive H (Non-Reactive) 12/10/19 12/11/19 12/11/19 Range/Units 20:15 00:36 03:55 WBC 14.2 H (3.8-10.6) k/uL RBC 1.84 L (3.80-5.40) m/uL Hgb 7.1 L D (11.4-16.0) gm/dL Hct 21.0 L (34.0-46.0) % MCV 114.3 H (80.0-100.0) fL MCH 38.3 H (25.0-35.0) pg Plt Count 91 L (150-450) k/uL Neutrophils # 12.7 H (1.3-7.7) k/uL Lymphocytes # 0.9 L (1.0-4.8) k/uL Macrocytosis Marked A PT (9.0-12.0) sec INR (<1.2) Sodium 114 L* (137-145) mmol/L Potassium (3.5-5.1) mmol/L Chloride (98-107) mmol/L BUN (7-17) mg/dL Creatinine (0.52-1.04) mg/dL POC Glucose (mg/dL) 102 H (75-99) mg/dL Total Bilirubin (0.2-1.3) mg/dL AST (14-36) U/L ALT (4-34) U/L Alkaline Phosphatase (38-126) U/L Total Protein (6.3-8.2) g/dL Albumin (3.5-5.0) g/dL Amylase (30-110) U/L Lipase (23-300) U/L Hep C IgG Ab (Non-Reactive) 12/11/19 12/11/19 12/11/19 Range/Units 03:55 03:55 05:57 WBC (3.8-10.6) k/uL RBC (3.80-5.40) m/uL Hgb (11.4-16.0) gm/dL Hct (34.0-46.0) % MCV (80.0-100.0) fL MCH (25.0-35.0) pg Plt Count (150-450) k/uL Neutrophils # (1.3-7.7) k/uL Lymphocytes # (1.0-4.8) k/uL Macrocytosis PT 14.6 H (9.0-12.0) sec INR 1.5 H (<1.2) Sodium 116 L* (137-145) mmol/L Potassium 3.1 L (3.5-5.1) mmol/L Chloride 80 L (98-107) mmol/L BUN 18 H (7-17) mg/dL Creatinine 1.19 H (0.52-1.04) mg/dL POC Glucose (mg/dL) 104 H (75-99) mg/dL Total Bilirubin 9.7 H (0.2-1.3) mg/dL AST 175 H (14-36) U/L ALT 119 H (4-34) U/L Alkaline Phosphatase 156 H (38-126) U/L Total Protein 4.3 L (6.3-8.2) g/dL Albumin 2.0 L (3.5-5.0) g/dL Amylase 232 H (30-110) U/L Lipase 1000 H (23-300) U/L Hep C IgG Ab (Non-Reactive) Microbiology - Last 24 Hours (Table) 12/10/19 07:13 Urine Culture - Final Urine,Voided 12/10/19 04:06 Blood Culture - Preliminary Blood No Growth after 24 hours Assessment and Plan (1) Hyponatremia Narrative/Plan: Severe hyponatremia with altered mental status. Serum sodium at the time of admission to the hospital was 108. Today is 116, being monitored very closely. Current Visit: Yes Status: Acute Code(s): E87.1 - HYPO-OSMOLALITY AND HYPO NATREMIA SNOMED Code(s): 93148903 (2) Alcoholic liver disease Narrative/Plan: Acute alcoholic hepatitis superimposed on alcoholic liver disease. Patient's bilirubin on admission 10.9, today 9.7 with AST more than ALT consistent with alcoholic liver disease. Patient has a history of heavy alcohol abuse and multiple hospitalizations in the past. Current Visit: Yes Status: Acute Code(s): K70.9 - ALCOHOLIC LIVER DISEASE, UNSPECIFIED SNOMED Code(s): 11025502 (3) Pancreatitis, alcoholic, acute Narrative/Plan: History of chronic alcoholic pancreatitis with pseudocyst formation with slightly enlarged size of cyst. CT abdomen and pelvis show findings consistent with chronic pancreatitis, pseudocysts have increased in size. Hepatomegaly and hepatic steatosis. Ascites. Small bowel wall thickening nonspecific. Current Visit: No Status: Acute Code(s): K85.20 - ALCOHOL INDUCED ACUTE PANCREATITIS WITHOUT NECROSIS OR INFCT SNOMED Code(s): 349228727 (4) Chronic anemia Narrative/Plan: Has a history of chronic anemia likely related to liver disease. Iron studies ordered. Current Visit: No Status: Acute Code(s): D64.9 - ANEMIA, UNSPECIFIED SNOMED Code(s): 778486373 (5) Pancreatic cyst Current Visit: No Status: Acute Code(s): K86.2 - CYST OF PANCREAS SNOMED Code(s): 72121577 (6) Leukocytosis Narrative/Plan: Leukocytosis and lactic acidosis related to possible sepsis. Cannot rule out spontaneous bacterial peritonitis. Ultrasound of the abdomen did show minimal amount of ascites. Patient on broad-spectrum antibiotics. Current Visit: Yes Status: Acute Code(s): D72.829 - ELEVATED WHITE BLOOD CELL COUNT, UNSPECIFIED SNOMED Code(s): 032190770 (7) Acute kidney injury Narrative/Plan: Mild elevation of BUN and creatinine consistent with acute kidney injury, possibly from hypokalemia. Nephrology is on consult. Current Visit: Yes Status: Acute Code(s): N17.9 - ACUTE KIDNEY FAILURE, UNSPECIFIED SNOMED Code(s): 86654135 Plan: 1. Supportive care 2. Continue to monitor sodium and potassium closely 3. Continue with broad-spectrum antibiotics 4. Watch for DTs and alcohol withdrawal 5. Continue with IV Protonix 40 mg every 12 hours 6. Advance to regular diet 7. Iron studies 8. Monitor hemoglobin and hematocrit, transfuse if less than 7. 9. Monitor for GI bleed 10. Repeat LFTs daily We will continue to follow The impression and plan of care has been dictated as directed. Dr. Saw Kumar I performed a history and examination of this patient, discussed the same with the dictator. I agree with the dictator's note ,documented as a scribe. Any additional findings or plans will be noted.
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
[2019-12-11 14:48] LABS: MCH 39.6 pg (25.0-35.0); MCV 113.3 fL (80.0-100.0); Macrocytosis Marked; Mean Platelet Volume 8.6; RBC 1.65 m/uL (3.80-5.40); RDW 14.2 % (11.5-15.5); WBC 14.3 k/uL (3.8-10.6)
[2019-12-11 14:52] LABS: HCT 18.7 % (34.0-46.0); HGB 6.5 gm/dL (11.4-16.0); Platelet Count 90 k/uL (150-450)
[2019-12-11 15:02] LABS: Potassium 3.6 mmol/L (3.5-5.1)
[2019-12-11 18:12] LABS: Glucose,Whole Blood 121 mg/dL (75-99)
--- NOTE | 2019-12-11 22:12 | P.PN ---
Subjective This is a pleasant 44 years old female with multiple medical problems including reflux esophagitis per EGD done on 06/20/2019. Pancreatic pseudocyst. MRI done on 06/24/2019, alcoholic liver disease with cirrhosis, multiple episodes of pancreatitis. Chronic mild hyponatremia, alcohol abuse, seizure disorder, rheumatoid arthritis and fibromyalgia, degenerative disc disease, lupus, chronic pancreatitis Presents because of fall and abdominal pain. Patient currently in the ICU, she is agitated and pulling IV tube and because of that there is a sitter at bedside, however when I went to see the patient she was lying, in bed, drowsy, she opens eyes to take Tylenol and verbalized to lyse however she goes back to sleep right away. She could not answer my questions however on examination she has abdominal tenderness and she told me she has some abdominal pain. However her abdomen looks soft Her current she will score is 15-17 Blood pressure is low normal 93/62-112/95, she's tachycardic around 120. Labs showing severe hyponatremia at 108. Leukocytosis at 30.7. Hemoglobin 10.2. Platelets slightly low at 122. INR is 1.5. Creatinine is elevated at 1.5. Lactic acid is significantly elevated at 11.2 and 10.5. Urinalysis showing 1+ protein 2+ bilirubin and WBCs 15 high. Serum alcohol less than 10. AST 59, ALT 147 Chest x-ray: No acute cardiopulmonary process. EKG shows sinus tachycardia at [address]-T changes. CT of the head and neck: No acute intracranial process, no acute fracture or subluxation. Bilateral upper groundglass opacity in the right more than left upper lobe suspicious for 12/11/2019 Patient today is more awake and calm, and her CIWA score was ranging between 5 and 10, no hallucination She still complaining of from abdominal pain, lipase slightly elevated CT of the abdomen and pelvis showing 2 pseudocyst one in the 8 large 4.7 x 5.4 cm and one less big of the tail 3.5 x 4.8 cm Surgical consult was opted, no need for surgical intervention currently Sodium is improving slowly and today is 116, WBC is trending down to 14, liver function tests and their with slightly trending down, blood pressure is stable 103/70 and she is hemodynamically stable Patient remains on empiric antibiotic with ceftriaxone and normal sinus 75 mL per hour as well as CIWA score protocol patient is asking for pain medication, Ultram and MORPHINE as provided patient is followed closely by pulmonary, GI and nephrology teams Patient prognosis remains guarded Review of systems CONSTITUTIONAL: No fever, no malaise, no fatigue. HEENT: No recent visual problems or hearing problems. Denied any sore throat. CARDIOVASCULAR: No orthopnea, PND, no palpitations, no syncope. PULMONARY: No shortness of breath, no cough, no hemoptysis. GASTROINTESTINAL: as above NEUROLOGICAL: No headaches, no weakness, no numbness. HEMATOLOGICAL: Denies any bleeding or petechiae. GENITOURINARY: Denies any burning micturition, frequency, or urgency. MUSCULOSKELETAL/RHEUMATOLOGICAL: Denies any joint pain, swelling, or any muscle pain. ENDOCRINE: Denies any polyuria or polydipsia. Active Medications Generic Name Dose Route Start Last Admin Trade Name Freq PRN Reason Stop Dose Admin Heparin Sodium (Porcine) 5,000 unit 12/10/19 09:00 12/11/19 08:26 Heparin Sodium,Porcine 5,000 Unit/Ml 1 Ml Vial SQ 5,000 unit Q12HR MONIKA Administration Sodium Chloride 1,000 mls @ 75 mls/hr 12/10/19 06:00 12/11/19 20:41 Saline 0.9% IV 75 mls/hr .[id number] MONIKA Administration Ceftriaxone Sodium 1 gm/ 50 mls @ 100 mls/hr 12/10/19 21:00 12/11/19 20:41 Sodium Chloride IVPB 100 mls/hr Q24H MONIKA Administration Lorazepam 1 mg 12/10/19 04:44 Lorazepam 2 Mg/Ml Inj IV Q2HR PRN CIWA 8 or 9 Lorazepam 1 mg 12/10/19 04:44 12/11/19 18:13 Lorazepam 2 Mg/Ml Inj IV 1 mg Q1HR PRN Administration CIWA 10 to 15 Lorazepam 2 mg 12/10/19 04:44 12/10/19 05:45 Lorazepam 2 Mg/Ml Inj IV 12/12/19 04:44 2 mg Q10M PRN Administration CIWA 16 or higher Miscellaneous Information 1 each 12/11/19 06:01 Potassium Replacement Protocol 1 Each Misc MISCELLANE DAILY PRN Per Protocol Protocol Morphine Sulfate 2 mg 12/11/19 11:13 10/29/20 19:08 Morphine Sulfate 2 Mg/Ml Syringe IVP 2 mg Q6H PRN Administration Pain/Discomfort Naloxone HCl 0.2 mg 12/10/19 06:00 Naloxone 0.4 Mg/Ml 1 Ml Vial IV Q2M PRN Opioid Reversal Nicotine 1 patch 12/11/19 10:15 12/11/19 10:18 Nicotine 21mg/24hr Patch TRANSDERM 1 patch DAILY MONIKA Administration Pantoprazole Sodium 40 mg 12/10/19 09:00 12/11/19 08:26 Pantoprazole 40 Mg/10 Ml Vial IVP 40 mg DAILY MONIKA Administration Sodium Chloride 2 gm 12/11/19 17:00 12/11/19 18:28 Sodium Chloride Tab 1 Gm Tab PO 2 gm TID MONIKA Administration Thiamine HCl 100 mg 12/10/19 17:30 12/11/19 18:13 Thiamine 100 Mg Tab PO 100 mg BID-W/MEALS MONIKA Administration Tramadol HCl 50 mg 12/11/19 11:12 12/11/19 11:23 Tramadol 50 Mg Tab PO 50 mg QID PRN Administration pain Objective - Vital Signs Vital signs: Vital Signs Temp 98.3 F 12/11/19 18:37 Pulse 113 H 12/11/19 19:00 Resp 24 12/11/19 19:00 BP 93/64 12/11/19 19:00 Pulse Ox 93 L 12/11/19 19:00 Intake & Output 12/11/19 12/11/19 12/12/19 06:59 18:59 06:59 Intake Total 1125 1300 75 Output Total 345 415 45 Balance 780 885 30 Weight 76.5 kg Intake: IV 975 1300 75 Potassium Chloride 10 meq 100 In Water For Injection 1 100ml.bag @ 100 mls/hr IVPB Q1H [facility] Rx#: [id number] Potassium Chloride 10 meq 100 300 In Water For Injection 1 100ml.bag @ 100 mls/hr IVPB Q1HR MONIKA Rx#: [id number] Sodium Chloride 0.9% 1, 825 900 75 000 ml @ 75 mls/hr IV . [id number] MONIKA Rx#:[id number] cefTRIAXone 1 gm In 50 Sodium Chloride 0.9% 50 ml @ 100 mls/hr IVPB Q24H MONIKA Rx#:[id number] Oral 150 Blood Product 0 Rc Pheresis 2 As3 Unit 0 [id number] Output: Urine 345 415 45 Other: Voiding Method Indwelling Catheter Indwelling Catheter # Bowel Movements 1 - Exam GENERAL: The patient is fully awake and oriented, calm, not in distress HEENT: Pupils are round and equally reacting to light. EOMI. No scleral icterus. No conjunctival pallor. Normocephalic, atraumatic. No pharyngeal erythema. No thyromegaly. CARDIOVASCULAR: S1 and S2 present. No murmurs, rubs, or gallops. PULMONARY: Chest is clear to auscultation, no wheezing or crackles. -ABDOMEN: Soft, less abdominal tenderness with no rebound tenderness or guarding, nondistended, normoactive bowel sounds. No palpable organomegaly. MUSCULOSKELETAL: No joint swelling or deformity. EXTREMITIES: No cyanosis, clubbing, or pedal edema. NEUROLOGICAL: Gross neurological examination did not reveal any focal deficits. SKIN: No rashes. no petechiae. - Labs CBC & Chem 7: 12/11/19 14:40 12/11/19 14:40 Labs: Abnormal Lab Results - Last 24 Hours (Table) 12/10/19 12/10/19 12/11/19 Range/Units 09:40 20:15 00:36 WBC (3.8-10.6) k/uL RBC (3.80-5.40) m/uL Hgb (11.4-16.0) gm/dL Hct (34.0-46.0) % MCV (80.0-100.0) fL MCH (25.0-35.0) pg Plt Count (150-450) k/uL Neutrophils # (1.3-7.7) k/uL Lymphocytes # (1.0-4.8) k/uL Macrocytosis PT (9.0-12.0) sec INR (<1.2) Sodium 114 L* (137-145) mmol/L Potassium (3.5-5.1) mmol/L Chloride (98-107) mmol/L BUN (7-17) mg/dL Creatinine (0.52-1.04) mg/dL POC Glucose (mg/dL) 102 H (75-99) mg/dL Total Bilirubin (0.2-1.3) mg/dL AST (14-36) U/L ALT (4-34) U/L Alkaline Phosphatase (38-126) U/L Total Protein (6.3-8.2) g/dL Albumin (3.5-5.0) g/dL Amylase (30-110) U/L Lipase (23-300) U/L Hep C IgG Ab Reactive H (Non-Reactive) Crossmatch 12/11/19 12/11/19 12/11/19 Range/Units 03:55 03:55 03:55 WBC 14.2 H (3.8-10.6) k/uL RBC 1.84 L (3.80-5.40) m/uL Hgb 7.1 L D (11.4-16.0) gm/dL Hct 21.0 L (34.0-46.0) % MCV 114.3 H (80.0-100.0) fL MCH 38.3 H (25.0-35.0) pg Plt Count 91 L (150-450) k/uL Neutrophils # 12.7 H (1.3-7.7) k/uL Lymphocytes # 0.9 L (1.0-4.8) k/uL Macrocytosis Marked A PT 14.6 H (9.0-12.0) sec INR 1.5 H (<1.2) Sodium 116 L* (137-145) mmol/L Potassium 3.1 L (3.5-5.1) mmol/L Chloride 80 L (98-107) mmol/L BUN 18 H (7-17) mg/dL Creatinine 1.19 H (0.52-1.04) mg/dL POC Glucose (mg/dL) (75-99) mg/dL Total Bilirubin 9.7 H (0.2-1.3) mg/dL AST 175 H (14-36) U/L ALT 119 H (4-34) U/L Alkaline Phosphatase 156 H (38-126) U/L Total Protein 4.3 L (6.3-8.2) g/dL Albumin 2.0 L (3.5-5.0) g/dL Amylase 232 H (30-110) U/L Lipase 1000 H (23-300) U/L Hep C IgG Ab (Non-Reactive) Crossmatch 12/11/19 12/11/19 12/11/19 Range/Units 05:57 14:40 14:40 WBC 14.3 H (3.8-10.6) k/uL RBC 1.65 L (3.80-5.40) m/uL Hgb 6.5 L* (11.4-16.0) gm/dL Hct 18.7 L* (34.0-46.0) % MCV 113.3 H (80.0-100.0) fL MCH 39.6 H (25.0-35.0) pg Plt Count 90 L (150-450) k/uL Neutrophils # (1.3-7.7) k/uL Lymphocytes # (1.0-4.8) k/uL Macrocytosis Marked A PT (9.0-12.0) sec INR (<1.2) Sodium 116 L* (137-145) mmol/L Potassium (3.5-5.1) mmol/L Chloride (98-107) mmol/L BUN (7-17) mg/dL Creatinine (0.52-1.04) mg/dL POC Glucose (mg/dL) 104 H (75-99) mg/dL Total Bilirubin (0.2-1.3) mg/dL AST (14-36) U/L ALT (4-34) U/L Alkaline Phosphatase (38-126) U/L Total Protein (6.3-8.2) g/dL Albumin (3.5-5.0) g/dL Amylase (30-110) U/L Lipase (23-300) U/L Hep C IgG Ab (Non-Reactive) Crossmatch 12/11/19 12/11/19 Range/Units 15:20 18:09 WBC (3.8-10.6) k/uL RBC (3.80-5.40) m/uL Hgb (11.4-16.0) gm/dL Hct (34.0-46.0) % MCV (80.0-100.0) fL MCH (25.0-35.0) pg Plt Count (150-450) k/uL Neutrophils # (1.3-7.7) k/uL Lymphocytes # (1.0-4.8) k/uL Macrocytosis PT (9.0-12.0) sec INR (<1.2) Sodium (137-145) mmol/L Potassium (3.5-5.1) mmol/L Chloride (98-107) mmol/L BUN (7-17) mg/dL Creatinine (0.52-1.04) mg/dL POC Glucose (mg/dL) 121 H (75-99) mg/dL Total Bilirubin (0.2-1.3) mg/dL AST (14-36) U/L ALT (4-34) U/L Alkaline Phosphatase (38-126) U/L Total Protein (6.3-8.2) g/dL Albumin (3.5-5.0) g/dL Amylase (30-110) U/L Lipase (23-300) U/L Hep C IgG Ab (Non-Reactive) Crossmatch See Detail Microbiology - Last 24 Hours (Table) 12/10/19 07:13 Urine Culture - Final Urine,Voided 12/10/19 04:06 Blood Culture - Preliminary Blood No Growth after 24 hours Assessment and Plan Assessment: Alcohol withdrawal with delirium tremens Severe hyponatremia Possible sepsis with leukocytosis and tachycardia, no source Pancreatic pseudocyst by 2 Elevated lactic acid Acute on chronic pancreatitis Metabolic encephalopathy secondary to above Alcoholic hepatitis acute kidney injury Alcohol abuse and at-risk of alcohol withdrawal Bilateral upper groundglass pulmonary opacities suspicious for covid 19 Liver cirrhosis Plan: This is a pleasant 44 years old female with multiple medical problems as above including hyponatremia, pancreatitis/hepatitis, alcohol abuse. Possible sepsis. Continue with ICU management and follow closely with pulmonary/critical care team. Monitor her sodium closely and corrected slowly per nephrology team recommendation. I would recommend broad-spectrum antibiotics for empiric treatment and dill-culture. Continue with gentle hydration. Follow-up recommendation by insole doubler team. We will check for covid 19. Continue with CIWA protocol and same Labs and medication were reviewed.. Continue same treatment. Continue with symptomatic treatment. Resume home medication. Monitor lytes and vitals. DVT and GI prophylaxis. Further recommendationsas per clinical course of the patient DVT prophylaxis: Subcutaneous heparin GI Prophylaxis: Ppi Prognosis is guarded
[2019-12-11 23:58] LABS: Glucose,Whole Blood 107 mg/dL (75-99)
[2019-12-12 01:05] LABS: ALT 128 U/L (4-34); AST 199 U/L (14-36); African American GFR (CKD) >90 (>60 ml/min/1.73 sqM); Albumin 2.1 g/dL (3.5-5.0); Alkaline Phosphatase 180 U/L (38-126); Anion Gap 5 mmol/L; Blood Urea Nitrogen 12 mg/dL (7-17); Calcium 8.4 mg/dL (8.4-10.2); Carbon Dioxide 26 mmol/L (22-30); Chloride 88 mmol/L (98-107); Glucose 94 mg/dL (74-99); Non-African American GFR(CKD) >90 (>60 ml/min/1.73 sqM); Potassium 3.9 mmol/L (3.5-5.1); Total Bilirubin 13.5 mg/dL (0.2-1.3); Total Protein 4.6 g/dL (6.3-8.2)
[2019-12-12 01:07] LABS: Anisocytosis Slight; HCT 26.2 % (34.0-46.0); MCH 37.3 pg (25.0-35.0); MCHC 34.1 g/dL (31.0-37.0); MCV 109.3 fL (80.0-100.0); Macrocytosis Marked; Mean Platelet Volume 8.4; Platelet Count 103 k/uL (150-450); RDW 17.1 % (11.5-15.5)
[2019-12-12 01:11] LABS: Sodium 119 mmol/L (137-145)
[2019-12-12 01:12] LABS: HGB 8.9 gm/dL (11.4-16.0)
[2019-12-12] MEDS: MORPHINE SULFATE 2 MG/ML SYRINGE IVP PRN ×2 (01:44→12:34)
[2019-12-12 02:24] LABS: Band Neutrophils % 15 %; Eosinophils # (M) 0.15 k/uL (0-0.7); Metamyelocytes # (M) 0.45 k/uL (0); Metamyelocytes % 3 %; Myelocytes # (M) 0.15 k/uL (0); Myelocytes % 1 %; Neutrophils % (M) 76 %; Nucleated Red Blood Cells 0 /100 WBC (0-0); Total Cells Counted 200
[2019-12-12 02:25] LABS: Large Platelets Present
[2019-12-12 02:26] LABS: Poikilocytosis (M) Present; Polychromasia Present
[2019-12-12 04:39] LABS: Anisocytosis Slight; HCT 24.8 % (34.0-46.0); HGB 8.4 gm/dL (11.4-16.0); MCH 36.6 pg (25.0-35.0); MCHC 34.1 g/dL (31.0-37.0); MCV 107.3 fL (80.0-100.0); Macrocytosis Marked; Mean Platelet Volume 8.3; Platelet Count 101 k/uL (150-450); Poikilocytosis Slight; RBC 2.31 m/uL (3.80-5.40); RDW 16.8 % (11.5-15.5); WBC 13.9 k/uL (3.8-10.6)
[2019-12-12 04:46] LABS: INR 1.4 (<1.2)
[2019-12-12 04:49] LABS: ALT 123 U/L (4-34); AST 192 U/L (14-36); African American GFR (CKD) >90 (>60 ml/min/1.73 sqM); Albumin 1.9 g/dL (3.5-5.0); Alkaline Phosphatase 166 U/L (38-126); Anion Gap 4 mmol/L; Blood Urea Nitrogen 11 mg/dL (7-17); Calcium 8.2 mg/dL (8.4-10.2); Carbon Dioxide 26 mmol/L (22-30); Chloride 90 mmol/L (98-107); Glucose 93 mg/dL (74-99); Lipase 412 U/L (23-300); Non-African American GFR(CKD) >90 (>60 ml/min/1.73 sqM); Potassium 3.7 mmol/L (3.5-5.1); Sodium 120 mmol/L (137-145); Total Bilirubin 13.7 mg/dL (0.2-1.3); Total Protein 4.3 g/dL (6.3-8.2)
[2019-12-12] MEDS: POTASSIUM CHLORIDE 10 MEQ in WATER FOR INJECTION 1 100ML.BAG IVPB SCH ×2 (05:18→06:23)
[2019-12-12 06:18] LABS: Band Neutrophils % 11 %; Eosinophils # (M) 0.14 k/uL (0-0.7); Lymphocytes # (M) 0.97 k/uL (1.0-4.8); Metamyelocytes # (M) 0.42 k/uL (0); Metamyelocytes % 3 %; Monocytes # (M) 0.28 k/uL (0-1.0); Myelocytes # (M) 0.14 k/uL (0); Myelocytes % 1 %; Neutrophils % (M) 77 %; Nucleated Red Blood Cells 0 /100 WBC (0-0); Total Cells Counted 200
[2019-12-12 06:19] LABS: Polychromasia Present
[2019-12-12 06:20] LABS: Large Platelets Present
[2019-12-12 06:23] LABS: Glucose,Whole Blood 112 mg/dL (75-99)
[2019-12-12] MEDS: THIAMINE 100 MG TAB PO SCH ×2 (06:54→18:33)
[2019-12-12 07:09] LABS: % Iron Saturation 71.43 (12.00-45.00)
--- NOTE | 2019-12-12 08:24 | XR ---
EXAMINATION TYPE: XR chest 1V portable DATE OF EXAM: 12/12/2019 COMPARISON: Prior chest x-ray 12/11/2019 HISTORY: Pneumonia TECHNIQUE: Single frontal view of the chest is obtained. FINDINGS: Right subclavian central venous catheter shows the distal tip over the region of the right innominate vein or possibly region of the confluence of the innominate veins. Some probable subsegme ntal basilar atelectatic changes are present on the right, retrocardiac density is increased in the i nterval. No evident pneumothorax. Left hemidiaphragm is obscured. Heart size is stable. IMPRESSION: Findings may be indicative of left lower lobe pneumonia, basilar atelectasis, difficult to exclude small effusion
[2019-12-12] MEDS: HEPARIN SODIUM,PORCINE 5,000 UNIT/ML 1 ML VIAL SQ SCH ×2 (10:25→21:59)
--- NOTE | 2019-12-12 10:33 | PN ---
PROGRESS NOTE Patient is seen for followup for hyponatremia. She was admitted with severe hyponatremia and hypotension, mostly hypovolemic. She has been maintained on normal saline. Sodium has improved. Patient is also maintained on sodium chloride tablets. She has underlying chronic liver disease associated with EtOH abuse. This is her fifth admission in the last 5 months. PHYSICAL EXAMINATION: On examination today, blood pressure is 105/75, heart rate 107 per minute she is afebrile. Examination of the heart S1, S2. Examination of lungs, decreased breath sounds at bases. Abdomen is soft, nontender, distended. Examination of the lower extremities shows no significant edema. Patient has significant jaundice. [employer] exam shows patient moving all 4 extremities. LABS: Show sodium 120, potassium 3.7, chloride 90. CO2 is 26, BUN 11, serum creatinine 0.68, hemoglobin 8.4 g/dL. ASSESSMENT: 1. Hyponatremia which is hypovolemic, currently improving, maintained on sodium chloride tablets as well as normal saline, which I will continue for now. I will decrease the sodium chloride tablets to 1 g t.i.d. Blood pressure remains on the lower side. No significant swelling noted at this time. 2. Chronic liver disease associated with alcoholic liver disease and history of hepatitis C. 3. Anemia, no active bleeding noted currently. 4. Acute pancreatitis. Lipase was 1000, mostly associated with ETOH abuse. CAT scan done yesterday shows evidence of chronic pancreatitis, pseudocyst size has increased. There is some ascites and hepatic steatosis. PLAN: Decrease sodium chloride tablets to 1 g t.i.d. Repeat sodium in a.m. Continue to encourage increased oral intake. MMODL / IJN: [id number] /
[2019-12-12] MEDS: LORazepam 2 MG/ML INJ IV PRN ×2 (10:55→15:18)
[2019-12-12] MEDS: PANTOPRAZOLE 40 MG/10 ML VIAL IVP SCH (10:55)
[2019-12-12] MEDS: NICOTINE 21MG/24HR PATCH TRANSDERM SCH (10:56)
--- NOTE | 2019-12-12 12:36 | P.PN ---
Subjective Progress Note Date: 12/12/19 Principal diagnosis: Pancreatitis Patient remains in the ICU. States her abdominal pain is improved. Seems was confused. Tolerating small volume of diet. No rectal bleeding or melena. He was transfused yesterday. WBC 13.9 with some bandemia. Bilirubin remains elevated at 13. Lipase is improved at 400. Objective - Vital Signs Vital signs: Vital Signs Temp 98.0 F 12/12/19 08:00 Pulse 106 H 12/12/19 11:00 Resp 24 12/12/19 11:00 BP 104/71 12/12/19 11:00 Pulse Ox 95 12/12/19 11:00 Intake & Output 12/11/19 12/12/19 12/12/19 18:59 06:59 18:59 Intake Total 1300 2180 475 Output Total 415 360 160 Balance 885 1820 315 Weight 78.8 kg Intake: IV 1300 1250 375 Potassium Chloride 10 meq 100 300 In Water For Injection 1 100ml.bag @ 100 mls/hr IVPB Q1H [facility] Rx#: [id number] Potassium Chloride 10 meq 300 In Water For Injection 1 100ml.bag @ 100 mls/hr IVPB Q1HR [facility] Rx#: [id number] Sodium Chloride 0.9% 1, 900 900 375 000 ml @ 75 mls/hr IV . [id number] [facility] Rx#:[id number] cefTRIAXone 1 gm In 50 Sodium Chloride 0.9% 50 ml @ 100 mls/hr IVPB Q24H [facility] Rx#:[id number] Oral 100 Blood Product 0 930 Rc Pheresis 2 As3 Unit 0 310 [id number] Rc Pheresis 2 As3 Unit 310 [id number] Output: Urine 415 360 160 Other: Voiding Method Indwelling Catheter Indwelling Catheter Indwelling Catheter # Bowel Movements 1 - Exam Abdomen: Soft, mild distention, mild upper abdominal tenderness, no rebound or guarding - Labs CBC & Chem 7: 12/12/19 04:00 12/12/19 04:00 Labs: Abnormal Lab Results - Last 24 Hours (Table) 12/11/19 12/11/19 12/11/19 Range/Units 14:40 14:40 14:40 WBC 14.3 H (3.8-10.6) k/uL RBC 1.65 L (3.80-5.40) m/uL Hgb 6.5 L* (11.4-16.0) gm/dL Hct 18.7 L* (34.0-46.0) % MCV 113.3 H (80.0-100.0) fL MCH 39.6 H (25.0-35.0) pg RDW (11.5-15.5) % Plt Count 90 L (150-450) k/uL Neutrophils # (Manual) (1.3-7.7) k/uL Lymphocytes # (Manual) (1.0-4.8) k/uL Metamyelocytes # (Man) (0) k/uL Myelocytes # (Manual) (0) k/uL Macrocytosis Marked A PT (9.0-12.0) sec INR (<1.2) Sodium 116 L* (137-145) mmol/L Chloride (98-107) mmol/L POC Glucose (mg/dL) (75-99) mg/dL Calcium (8.4-10.2) mg/dL TIBC 140 L (228-460) ug/dL % Saturation 71.43 H (12.00-45.00) Total Bilirubin (0.2-1.3) mg/dL AST (14-36) U/L ALT (4-34) U/L Alkaline Phosphatase (38-126) U/L Total Protein (6.3-8.2) g/dL Albumin (3.5-5.0) g/dL Lipase (23-300) U/L Crossmatch 12/11/19 12/11/19 12/11/19 Range/Units 15:20 18:09 23:56 WBC (3.8-10.6) k/uL RBC (3.80-5.40) m/uL Hgb (11.4-16.0) gm/dL Hct (34.0-46.0) % MCV (80.0-100.0) fL MCH (25.0-35.0) pg RDW (11.5-15.5) % Plt Count (150-450) k/uL Neutrophils # (Manual) (1.3-7.7) k/uL Lymphocytes # (Manual) (1.0-4.8) k/uL Metamyelocytes # (Man) (0) k/uL Myelocytes # (Manual) (0) k/uL Macrocytosis PT (9.0-12.0) sec INR (<1.2) Sodium (137-145) mmol/L Chloride (98-107) mmol/L POC Glucose (mg/dL) 121 H 107 H (75-99) mg/dL Calcium (8.4-10.2) mg/dL TIBC (228-460) ug/dL % Saturation (12.00-45.00) Total Bilirubin (0.2-1.3) mg/dL AST (14-36) U/L ALT (4-34) U/L Alkaline Phosphatase (38-126) U/L Total Protein (6.3-8.2) g/dL Albumin (3.5-5.0) g/dL Lipase (23-300) U/L Crossmatch See Detail 12/12/19 12/12/19 12/12/19 Range/Units 00:35 00:35 04:00 WBC 15.0 H 13.9 H (3.8-10.6) k/uL RBC 2.40 L 2.31 L (3.80-5.40) m/uL Hgb 8.9 L D 8.4 L (11.4-16.0) gm/dL Hct 26.2 L 24.8 L (34.0-46.0) % MCV 109.3 H 107.3 H (80.0-100.0) fL MCH 37.3 H 36.6 H (25.0-35.0) pg RDW 17.1 H 16.8 H (11.5-15.5) % Plt Count 103 L 101 L (150-450) k/uL Neutrophils # (Manual) 13.60 H 12.20 H (1.3-7.7) k/uL Lymphocytes # (Manual) 0.90 L 0.97 L (1.0-4.8) k/uL Metamyelocytes # (Man) 0.45 H 0.42 H (0) k/uL Myelocytes # (Manual) 0.15 H 0.14 H (0) k/uL Macrocytosis Marked A Marked A PT (9.0-12.0) sec INR (<1.2) Sodium 119 L* (137-145) mmol/L Chloride 88 L (98-107) mmol/L POC Glucose (mg/dL) (75-99) mg/dL Calcium (8.4-10.2) mg/dL TIBC (228-460) ug/dL % Saturation (12.00-45.00) Total Bilirubin 13.5 H (0.2-1.3) mg/dL AST 199 H (14-36) U/L ALT 128 H (4-34) U/L Alkaline Phosphatase 180 H (38-126) U/L Total Protein 4.6 L (6.3-8.2) g/dL Albumin 2.1 L (3.5-5.0) g/dL Lipase (23-300) U/L Crossmatch 12/12/19 12/12/19 12/12/19 Range/Units 04:00 04:00 06:21 WBC (3.8-10.6) k/uL RBC (3.80-5.40) m/uL Hgb (11.4-16.0) gm/dL Hct (34.0-46.0) % MCV (80.0-100.0) fL MCH (25.0-35.0) pg RDW (11.5-15.5) % Plt Count (150-450) k/uL Neutrophils # (Manual) (1.3-7.7) k/uL Lymphocytes # (Manual) (1.0-4.8) k/uL Metamyelocytes # (Man) (0) k/uL Myelocytes # (Manual) (0) k/uL Macrocytosis PT 14.0 H (9.0-12.0) sec INR 1.4 H (<1.2) Sodium 120 L (137-145) mmol/L Chloride 90 L (98-107) mmol/L POC Glucose (mg/dL) 112 H (75-99) mg/dL Calcium 8.2 L (8.4-10.2) mg/dL TIBC (228-460) ug/dL % Saturation (12.00-45.00) Total Bilirubin 13.7 H (0.2-1.3) mg/dL AST 192 H (14-36) U/L ALT 123 H (4-34) U/L Alkaline Phosphatase 166 H (38-126) U/L Total Protein 4.3 L (6.3-8.2) g/dL Albumin 1.9 L (3.5-5.0) g/dL Lipase 412 H (23-300) U/L Crossmatch Microbiology - Last 24 Hours (Table) 12/10/19 04:06 Blood Culture - Preliminary Blood No Growth after 48 hours 12/10/19 07:13 Urine Culture - Final Urine,Voided Assessment and Plan (1) Pancreatitis Narrative/Plan: Patient's diet was advanced by GI. She is tolerating small volume of food at this time. Patient will require follow-up imaging at some point to evaluate pseudocyst size. Continue empiric antibiotics. Continue correction of electrolyte imbalance. No surgical intervention planned. We'll follow. Current Visit: No Status: Acute Code(s): K85.90 - ACUTE PANCREATITIS WITHOUT NECROSIS OR INFECTION, UNSP SNOMED Code(s): 00987646
--- NOTE | 2019-12-12 12:56 | P.PN ---
Subjective Progress Note Date: 12/12/19 On 12/12/2019, I'm seeing this patient for a follow-up. She is awake and alert and she is following commands and answering questions. She is a bit lethargic but overall her level of alertness improved significantly over the past 24-48 hours. Sodium level is also on the rise and current level is up to 120. The patient is still jaundiced. Bilirubin elevated and based on that a CAT scan of the abdomen and pelvis was done and the findings were consistent with chronic pancreatitis with pseudocyst formation. The patient had a 4.7 x 5.4 cm large pseudocyst and head of the pancreas and this has increased in size and it is causing some mass effect on the duodenum. There is another focus in the tail of the pancreas measuring 2.5 x 4.8 cm in size. Since yesterday, the lipase level has dropped. The patient has fullness in her abdomen. No nausea. No vomiting. No ascites. No signs of any GI bleeding. She is moving all 4 extremities without any limitation. No agitation. No restlessness. Bilirubin level is elevated at 13.7. The rest of the liver functions including AST and ALP and alkaline phosphatase are modestly elevated. The patient is still receiving normal saline at the rate of 75 mL an hour. Objective - Vital Signs Vital signs: Vital Signs Temp 98.1 F 12/12/19 12:00 Pulse 109 H 12/12/19 12:00 Resp 26 H 12/12/19 12:00 BP 99/67 12/12/19 12:00 Pulse Ox 93 L 12/12/19 12:00 Intake & Output 12/11/19 12/12/19 12/12/19 18:59 06:59 18:59 Intake Total 1300 2180 475 Output Total 415 360 160 Balance 885 1820 315 Weight 78.8 kg Intake: IV 1300 1250 375 Potassium Chloride 10 meq 100 300 In Water For Injection 1 100ml.bag @ 100 mls/hr IVPB Q1H [facility] Rx#: [id number] Potassium Chloride 10 meq 300 In Water For Injection 1 100ml.bag @ 100 mls/hr IVPB Q1HR [facility] Rx#: [id number] Sodium Chloride 0.9% 1, 900 900 375 000 ml @ 75 mls/hr IV . [id number] [facility] Rx#:[id number] cefTRIAXone 1 gm In 50 Sodium Chloride 0.9% 50 ml @ 100 mls/hr IVPB Q24H [facility] Rx#:[id number] Oral 100 Blood Product 0 930 Rc Pheresis 2 As3 Unit 0 310 [id number] Rc Pheresis 2 As3 Unit 310 [id number] Output: Urine 415 360 160 Other: Voiding Method Indwelling Catheter Indwelling Catheter Indwelling Catheter # Bowel Movements 1 - Exam Gen. appearance the patient is calm comfortable and she denies having any acute respiratory distress. She seems to be quite jaundiced. Level of alertness continues to improve Head exam was generally normal. There was no scleral icterus or corneal arcus. Mucous membranes were moist. Neck was supple and without jugular venous distension, thyromegaly, or carotid bruits. Carotids were easily palpable bilaterally. There was no adenopathy. The patient has conjunctival pallor and some icterus. No neck stiffness. Lungs were clear to auscultation and percussion, and with normal diaphragmatic excursion. No wheezes or rales were noted. Cardiac exam revealed the PMI to be normally situated and sized. The rhythm was regular and no extrasystoles were noted during several minutes of auscultation. The first and second heart sounds were normal and physiologic splitting of the second heart sound was noted. There were no murmurs, rubs, clicks, or gallops. Abdominal exam revealed normal bowel sounds. The abdomen was soft, non-tender, a nd without masses, organomegaly, or appreciable enlargement of the abdominal aorta. Examination of the extremities revealed easily palpable radial, femoral and pedal pulses. There was no cyanosis, clubbing or edema. Examination of the skin revealed no evidence of significant rashes, suspicious appearing nevi or other concerning lesions. Neurologically, the patient seems to be more alert compared to yesterday. Cranial nerves seem to be intact and the patient has no facial asymmetry and pupillary reactive to light. No nystagmus. No clonus. Motor and sensory function cannot be accurately assessed. - Labs CBC & Chem 7: 12/12/19 04:00 12/12/19 04:00 Labs: Abnormal Lab Results - Last 24 Hours (Table) 12/11/19 12/11/19 12/11/19 Range/Units 14:40 14:40 14:40 WBC 14.3 H (3.8-10.6) k/uL RBC 1.65 L (3.80-5.40) m/uL Hgb 6.5 L* (11.4-16.0) gm/dL Hct 18.7 L* (34.0-46.0) % MCV 113.3 H (80.0-100.0) fL MCH 39.6 H (25.0-35.0) pg RDW (11.5-15.5) % Plt Count 90 L (150-450) k/uL Neutrophils # (Manual) (1.3-7.7) k/uL Lymphocytes # (Manual) (1.0-4.8) k/uL Metamyelocytes # (Man) (0) k/uL Myelocytes # (Manual) (0) k/uL Macrocytosis Marked A PT (9.0-12.0) sec INR (<1.2) Sodium 116 L* (137-145) mmol/L Chloride (98-107) mmol/L POC Glucose (mg/dL) (75-99) mg/dL Calcium (8.4-10.2) mg/dL TIBC 140 L (228-460) ug/dL % Saturation 71.43 H (12.00-45.00) Total Bilirubin (0.2-1.3) mg/dL AST (14-36) U/L ALT (4-34) U/L Alkaline Phosphatase (38-126) U/L Total Protein (6.3-8.2) g/dL Albumin (3.5-5.0) g/dL Lipase (23-300) U/L Crossmatch 12/11/19 12/11/19 12/11/19 Range/Units 15:20 18:09 23:56 WBC (3.8-10.6) k/uL RBC (3.80-5.40) m/uL Hgb (11.4-16.0) gm/dL Hct (34.0-46.0) % MCV (80.0-100.0) fL MCH (25.0-35.0) pg RDW (11.5-15.5) % Plt Count (150-450) k/uL Neutrophils # (Manual) (1.3-7.7) k/uL Lymphocytes # (Manual) (1.0-4.8) k/uL Metamyelocytes # (Man) (0) k/uL Myelocytes # (Manual) (0) k/uL Macrocytosis PT (9.0-12.0) sec INR (<1.2) Sodium (137-145) mmol/L Chloride (98-107) mmol/L POC Glucose (mg/dL) 121 H 107 H (75-99) mg/dL Calcium (8.4-10.2) mg/dL TIBC (228-460) ug/dL % Saturation (12.00-45.00) Total Bilirubin (0.2-1.3) mg/dL AST (14-36) U/L ALT (4-34) U/L Alkaline Phosphatase (38-126) U/L Total Protein (6.3-8.2) g/dL Albumin (3.5-5.0) g/dL Lipase (23-300) U/L Crossmatch See Detail 12/12/19 12/12/19 12/12/19 Range/Units 00:35 00:35 04:00 WBC 15.0 H 13.9 H (3.8-10.6) k/uL RBC 2.40 L 2.31 L (3.80-5.40) m/uL Hgb 8.9 L D 8.4 L (11.4-16.0) gm/dL Hct 26.2 L 24.8 L (34.0-46.0) % MCV 109.3 H 107.3 H (80.0-100.0) fL MCH 37.3 H 36.6 H (25.0-35.0) pg RDW 17.1 H 16.8 H (11.5-15.5) % Plt Count 103 L 101 L (150-450) k/uL Neutrophils # (Manual) 13.60 H 12.20 H (1.3-7.7) k/uL Lymphocytes # (Manual) 0.90 L 0.97 L (1.0-4.8) k/uL Metamyelocytes # (Man) 0.45 H 0.42 H (0) k/uL Myelocytes # (Manual) 0.15 H 0.14 H (0) k/uL Macrocytosis Marked A Marked A PT (9.0-12.0) sec INR (<1.2) Sodium 119 L* (137-145) mmol/L Chloride 88 L (98-107) mmol/L POC Glucose (mg/dL) (75-99) mg/dL Calcium (8.4-10.2) mg/dL TIBC (228-460) ug/dL % Saturation (12.00-45.00) Total Bilirubin 13.5 H (0.2-1.3) mg/dL AST 199 H (14-36) U/L ALT 128 H (4-34) U/L Alkaline Phosphatase 180 H (38-126) U/L Total Protein 4.6 L (6.3-8.2) g/dL Albumin 2.1 L (3.5-5.0) g/dL Lipase (23-300) U/L Crossmatch 12/12/19 12/12/19 12/12/19 Range/Units 04:00 04:00 06:21 WBC (3.8-10.6) k/uL RBC (3.80-5.40) m/uL Hgb (11.4-16.0) gm/dL Hct (34.0-46.0) % MCV (80.0-100.0) fL MCH (25.0-35.0) pg RDW (11.5-15.5) % Plt Count (150-450) k/uL Neutrophils # (Manual) (1.3-7.7) k/uL Lymphocytes # (Manual) (1.0-4.8) k/uL Metamyelocytes # (Man) (0) k/uL Myelocytes # (Manual) (0) k/uL Macrocytosis PT 14.0 H (9.0-12.0) sec INR 1.4 H (<1.2) Sodium 120 L (137-145) mmol/L Chloride 90 L (98-107) mmol/L POC Glucose (mg/dL) 112 H (75-99) mg/dL Calcium 8.2 L (8.4-10.2) mg/dL TIBC (228-460) ug/dL % Saturation (12.00-45.00) Total Bilirubin 13.7 H (0.2-1.3) mg/dL AST 192 H (14-36) U/L ALT 123 H (4-34) U/L Alkaline Phosphatase 166 H (38-126) U/L Total Protein 4.3 L (6.3-8.2) g/dL Albumin 1.9 L (3.5-5.0) g/dL Lipase 412 H (23-300) U/L Crossmatch Microbiology - Last 24 Hours (Table) 12/10/19 04:06 Blood Culture - Preliminary Blood No Growth after 48 hours 12/10/19 07:13 Urine Culture - Final Urine,Voided Assessment and Plan Plan: 1 chronic alcoholism with some signs of delirium tremens , improving 2 hyponatremia, hypochloremic, likely secondary to intravascular volume depletion/dehydration, improving and the sodium level is up to 120 3 acute lactic acidosis, improving with fluid resuscitation 4 acute on chronic pancreatitis, and the patient lipase level peaked at 1000 and he dropped down to 412. The patient has 2 large pseudocysts one in the head of the pancreas and the other one in detail causing some mass effect on the duodenum. Abdominal pain is subsided. 5 pancreatitis pseudocyst formation related to chronic pancreatitis, , a known complication of alcoholism, and a CAT scan of the abdomen was noted with the patient had a large pseudocyst measuring 4.7 x 5.4 cm in the head of the pancreas another pseudocyst measuring 3.5 x 4.8 cm and tail of the pancreas. There is no evidence of any biliary obstruction and dilatation of the biliary tree. Bilirubin continues to be quite elevated. 6 abnormal LFTs related to alcoholic hepatitis, with elevated bilirubin without clear indication of an obstructive biliary pattern. The patient remains jaundiced. 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 Consider dilutional drop in hemoglobin. Subsequent hemoglobin from today is at 8.4. The patient got transfused with a total of 2 units of packed RBC. Plan Continue normal saline at the rate of 75 mL an hour Monitor sodium level, and the levels are gradually improving and they're up to 120 Monitor amylase and lipase\ the level of lipase as the patient developed some large pseudocyst in the head and the tail of the pancreas. We'll consult again with general surgery and GI regarding the possibility of a surgical or endoscopic drainage of the pseudocysts. Empiric antibiotic coverage with IV Rocephin Treatment of delirium tremens per [facility] protocol Thiamine replacement therapy IV Protonix CAT scan of the abdomen was noted We'll continue to follow and keep the patient ICU for now
[2019-12-12 14:30] LABS: Anisocytosis Slight; HCT 25.1 % (34.0-46.0); HGB 8.7 gm/dL (11.4-16.0); MCH 37.1 pg (25.0-35.0); MCHC 34.6 g/dL (31.0-37.0); MCV 107.2 fL (80.0-100.0); Macrocytosis Marked; Mean Platelet Volume 7.9; Platelet Count 105 k/uL (150-450); Poikilocytosis Slight; RBC 2.34 m/uL (3.80-5.40); RDW 16.9 % (11.5-15.5)
[2019-12-12] MEDS: traMADol 50 MG TAB PO PRN ×2 (15:18→22:00)
--- NOTE | 2019-12-12 15:42 | P.PN ---
Subjective Progress Note Date: 12/12/19 Principal diagnosis: Pancreatitis, EtOH intoxication, liver disease Was seen and examined at the bedside in the ICU. She had no acute changes through the night. She is status post 2 units of packed red blood cells. She denies any nausea or vomiting. She states she is not eating much. She is still having abdominal pain. His hemoglobin improved to 8.4. A bowel movement today with reported small streaks of bright red blood in it. Objective - Vital Signs Vital signs: Vital Signs Temp 98.0 F 12/12/19 04:00 Pulse 107 H 12/12/19 07:00 Resp 22 12/12/19 07:00 BP 105/75 12/12/19 07:00 Pulse Ox 95 12/12/19 07:00 Intake & Output 12/11/19 12/12/19 12/12/19 18:59 06:59 18:59 Intake Total 1300 2180 250 Output Total 415 360 70 Balance 885 1820 180 Weight 78.8 kg Intake: IV 1300 1250 150 Potassium Chloride 10 meq 100 300 In Water For Injection 1 100ml.bag @ 100 mls/hr IVPB Q1H [facility] Rx#: [id number] Potassium Chloride 10 meq 300 In Water For Injection 1 100ml.bag @ 100 mls/hr IVPB Q1HR [facility] Rx#: [id number] Sodium Chloride 0.9% 1, 900 900 150 000 ml @ 75 mls/hr IV . [id number] [facility] Rx#:[id number] cefTRIAXone 1 gm In 50 Sodium Chloride 0.9% 50 ml @ 100 mls/hr IVPB Q24H [facility] Rx#:[id number] Oral 100 Blood Product 0 930 Rc Pheresis 2 As3 Unit 0 310 [id number] Rc Pheresis 2 As3 Unit 310 [id number] Output: Urine 415 360 70 Other: Voiding Method Indwelling Catheter Indwelling Catheter # Bowel Movements 1 - Exam General appearance: The patient is alert, oriented, in no acute distress. HET: Head is normocephalic and atraumatic. Conjunctiva pink. Sclera icteric. Neck: Supple without lymphadenopathy. Abdomen: Soft, eipgastric tenderness, nondistended with bowel sounds. No guarding or rigidity. Skin: Jaundiced Extremities: Normal skin color and turgor. No pedal edema Neurological: No focal deficits. Alert and oriented 3. - Labs CBC & Chem 7: 12/12/19 14:11 12/12/19 14:11 Labs: Abnormal Lab Results - Last 24 Hours (Table) 12/11/19 12/11/19 12/11/19 Range/Units 14:40 14:40 14:40 WBC 14.3 H (3.8-10.6) k/uL RBC 1.65 L (3.80-5.40) m/uL Hgb 6.5 L* (11.4-16.0) gm/dL Hct 18.7 L* (34.0-46.0) % MCV 113.3 H (80.0-100.0) fL MCH 39.6 H (25.0-35.0) pg RDW (11.5-15.5) % Plt Count 90 L (150-450) k/uL Neutrophils # (Manual) (1.3-7.7) k/uL Lymphocytes # (Manual) (1.0-4.8) k/uL Metamyelocytes # (Man) (0) k/uL Myelocytes # (Manual) (0) k/uL Macrocytosis Marked A PT (9.0-12.0) sec INR (<1.2) Sodium 116 L* (137-145) mmol/L Chloride (98-107) mmol/L POC Glucose (mg/dL) (75-99) mg/dL Calcium (8.4-10.2) mg/dL TIBC 140 L (228-460) ug/dL % Saturation 71.43 H (12.00-45.00) Total Bilirubin (0.2-1.3) mg/dL AST (14-36) U/L ALT (4-34) U/L Alkaline Phosphatase (38-126) U/L Total Protein (6.3-8.2) g/dL Albumin (3.5-5.0) g/dL Lipase (23-300) U/L Crossmatch 12/11/19 12/11/19 12/11/19 Range/Units 15:20 18:09 23:56 WBC (3.8-10.6) k/uL RBC (3.80-5.40) m/uL Hgb (11.4-16.0) gm/dL Hct (34.0-46.0) % MCV (80.0-100.0) fL MCH (25.0-35.0) pg RDW (11.5-15.5) % Plt Count (150-450) k/uL Neutrophils # (Manual) (1.3-7.7) k/uL Lymphocytes # (Manual) (1.0-4.8) k/uL Metamyelocytes # (Man) (0) k/uL Myelocytes # (Manual) (0) k/uL Macrocytosis PT (9.0-12.0) sec INR (<1.2) Sodium (137-145) mmol/L Chloride (98-107) mmol/L POC Glucose (mg/dL) 121 H 107 H (75-99) mg/dL Calcium (8.4-10.2) mg/dL TIBC (228-460) ug/dL % Saturation (12.00-45.00) Total Bilirubin (0.2-1.3) mg/dL AST (14-36) U/L ALT (4-34) U/L Alkaline Phosphatase (38-126) U/L Total Protein (6.3-8.2) g/dL Albumin (3.5-5.0) g/dL Lipase (23-300) U/L Crossmatch See Detail 12/12/19 12/12/19 12/12/19 Range/Units 00:35 00:35 04:00 WBC 15.0 H 13.9 H (3.8-10.6) k/uL RBC 2.40 L 2.31 L (3.80-5.40) m/uL Hgb 8.9 L D 8.4 L (11.4-16.0) gm/dL Hct 26.2 L 24.8 L (34.0-46.0) % MCV 109.3 H 107.3 H (80.0-100.0) fL MCH 37.3 H 36.6 H (25.0-35.0) pg RDW 17.1 H 16.8 H (11.5-15.5) % Plt Count 103 L 101 L (150-450) k/uL Neutrophils # (Manual) 13.60 H 12.20 H (1.3-7.7) k/uL Lymphocytes # (Manual) 0.90 L 0.97 L (1.0-4.8) k/uL Metamyelocytes # (Man) 0.45 H 0.42 H (0) k/uL Myelocytes # (Manual) 0.15 H 0.14 H (0) k/uL Macrocytosis Marked A Marked A PT (9.0-12.0) sec INR (<1.2) Sodium 119 L* (137-145) mmol/L Chloride 88 L (98-107) mmol/L POC Glucose (mg/dL) (75-99) mg/dL Calcium (8.4-10.2) mg/dL TIBC (228-460) ug/dL % Saturation (12.00-45.00) Total Bilirubin 13.5 H (0.2-1.3) mg/dL AST 199 H (14-36) U/L ALT 128 H (4-34) U/L Alkaline Phosphatase 180 H (38-126) U/L Total Protein 4.6 L (6.3-8.2) g/dL Albumin 2.1 L (3.5-5.0) g/dL Lipase (23-300) U/L Crossmatch 12/12/19 12/12/19 12/12/19 Range/Units 04:00 04:00 06:21 WBC (3.8-10.6) k/uL RBC (3.80-5.40) m/uL Hgb (11.4-16.0) gm/dL Hct (34.0-46.0) % MCV (80.0-100.0) fL MCH (25.0-35.0) pg RDW (11.5-15.5) % Plt Count (150-450) k/uL Neutrophils # (Manual) (1.3-7.7) k/uL Lymphocytes # (Manual) (1.0-4.8) k/uL Metamyelocytes # (Man) (0) k/uL Myelocytes # (Manual) (0) k/uL Macrocytosis PT 14.0 H (9.0-12.0) sec INR 1.4 H (<1.2) Sodium 120 L (137-145) mmol/L Chloride 90 L (98-107) mmol/L POC Glucose (mg/dL) 112 H (75-99) mg/dL Calcium 8.2 L (8.4-10.2) mg/dL TIBC (228-460) ug/dL % Saturation (12.00-45.00) Total Bilirubin 13.7 H (0.2-1.3) mg/dL AST 192 H (14-36) U/L ALT 123 H (4-34) U/L Alkaline Phosphatase 166 H (38-126) U/L Total Protein 4.3 L (6.3-8.2) g/dL Albumin 1.9 L (3.5-5.0) g/dL Lipase 412 H (23-300) U/L Crossmatch Microbiology - Last 24 Hours (Table) 12/10/19 04:06 Blood Culture - Preliminary Blood No Growth after 48 hours 12/10/19 07:13 Urine Culture - Final Urine,Voided Assessment and Plan Assessment: . Severe hyponatremia with altered mental status. Serum sodium at the time of admission to the hospital was 108. Today is 116, being monitored very closely. 2. Acute alcoholic hepatitis superimposed on alcoholic liver disease. Patient's bilirubin on admission 10.9, today 9.7 with AST more than ALT consistent with alcoholic liver disease. Patient has a history of heavy alcohol abuse and multiple hospitalizations in the past. (1) Hyponatremia Narrative/Plan: Severe hyponatremia with altered mental status. Serum sodium at the time of admission to the hospital was 108. Improving, Today is 120, being monitored very closely. Current Visit: Yes Status: Acute Code(s): E87.1 - HYPO-OSMOLALITY AND HYPONATREMIA SNOMED Code(s): 13870865 (2) Alcoholic liver disease Narrative/Plan: Acute alcoholic hepatitis superimposed on alcoholic liver disease with decompensation. Patient's bilirubin on admission 10.9, today 13.7 with AST more than ALT consistent with alcoholic liver disease. Patient has a history of heavy alcohol abuse and multiple hospitalizations in the past. There is unl ikely biliary obstruction, as there is no CBD dilation. Current Visit: Yes Status: Acute Code(s): K70.9 - ALCOHOLIC LIVER DISEASE, UNSPECIFIED SNOMED Code(s): 68725968 (3) Pancreatitis, alcoholic, acute Narrative/Plan: History of chronic alcoholic pancreatitis with pseudocyst formation with slightly enlarged size of cyst. CT abdomen and pelvis show findings consistent with chronic pancreatitis, pseudocysts have increased in size. Hepatomegaly and hepatic steatosis. Ascites. Small bowel wall thickening nonspecific. Current Visit: No Status: Acute Code(s): K85.20 - ALCOHOL INDUCED ACUTE PANCREATITIS WITHOUT NECROSIS OR INFCT SNOMED Code(s): 598866500 (4) Chronic anemia Narrative/Plan: Has a history of chronic anemia likely related to liver disease. Iron studies ordered. It is status post 2 units of packed red blood cells. Current Visit: No Status: Acute Code(s): D64.9 - ANEMIA, UNSPECIFIED SNOMED Code(s): 297051411 (5) Pancreatic cyst Narrative/Plan: We'll continue to follow pancreatic cysts. Patient will need repeat CT or MRI in 4-6 weeks. Alcohol abstinence discuss with patient, as this will improve the size of pancreatic cyst Current Visit: No Status: Acute Code(s): K86.2 - CYST OF PANCREAS SNOMED Code(s): 63830462 (6) Leukocytosis Narrative/Plan: Leukocytosis and lactic acidosis related to possible sepsis. Cannot rule out spontaneous bacterial peritonitis. Ultrasound of the abdomen did show minimal amount of ascites. Patient on broad-spectrum antibiotics. Current Visit: Yes Status: Acute Code(s): D72.829 - ELEVATED WHITE BLOOD CELL COUNT, UNSPECIFIED SNOMED Code(s): 717704741 (7) Acute kidney injury Narrative/Plan: Mild elevation of BUN and creatinine consistent with acute kidney injury, possibly from hypokalemia. Nephrology is on consult. Improved. Current Visit: Yes Status: Acute Code(s): N17.9 - ACUTE KIDNEY FAILURE, UNSPECIFIED SNOMED Code(s): 16716031 (8) Hepatitis C antibody test positive Narrative/Plan: Acute hepatitis panel completed. Patient positive for hepatitis C antibody. Hepatitis C RNA quantitative and genotype ordered. Current Visit: Yes Status: Acute Code(s): R76.8 - OTHER SPECIFIED ABNORMAL IMMUNOLOGICAL FINDINGS IN SERUM SNOMED Code(s): 688241988 Plan: 1. Supportive care 2. Continue to monitor sodium and potassium closely 3. Continue with broad-spectrum antibiotics 4. Watch for DTs and alcohol withdrawal 5. Continue with IV Protonix 40 mg every 12 hours 6. Advance to regular diet 7. Iron studies completed 8. Monitor hemoglobin and hematocrit, transfuse if less than 7. 9. Monitor for GI bleed 10. Repeat LFTs daily 11. Hepatitis C RNA quantitative and genotype ordered 12. Patient will need follow-up CT or MRI of the pancreas to follow pseudocyst We will continue to follow The impression and plan of care has been dictated as directed. Dr. Saw Kumar I performed a history and examination of this patient, discussed the same with the dictator. I agree with the dictator's note ,documented as a scribe. Any additional findings or plans will be noted.
[2019-12-12 17:51] LABS: Glucose,Whole Blood 95 mg/dL (75-99)
[2019-12-12] MEDS: SODIUM CHLORIDE 0.9% 1,000 ML IV SCH ×2 (18:33→22:07)
[2019-12-12] MEDS: SODIUM CHLORIDE TAB 1 GM TAB PO SCH ×2 (18:33→22:01)
[2019-12-13] MEDS: LORazepam 2 MG/ML INJ IV PRN ×4 (02:30→21:57)
[2019-12-13 05:00] LABS: INR 1.4 (<1.2); Prothrombin Time 13.8 sec (9.0-12.0)
--- NOTE | 2019-12-13 07:06 | XR ---
EXAMINATION TYPE: XR chest 1V portable DATE OF EXAM: 12/13/2019 CLINICAL HISTORY: Difficulty breathing progress study. TECHNIQUE: Single AP portable semiupright view of the chest is obtained. COMPARISON: Chest x-ray from one day earlier FINDINGS: Interval removal of right-sided subclavian central venous catheter. Persistent left hilar and basilar opacities with interval progression. Developing lateral inferior right upper lung opacity . No pleural effusion or pneumothorax seen bilaterally. Cardiac silhouette size is stable and within normal limits. Multilevel spurring in spine. IMPRESSION: Worsening left perihilar and basilar acute infiltrates. Developing lateral inferior right upper lung acute infiltrate.
[2019-12-13 09:12] LABS: ALT 117 U/L (4-34); AST 173 U/L (14-36); African American GFR (CKD) >90 (>60 ml/min/1.73 sqM); Alkaline Phosphatase 164 U/L (38-126); Amylase 97 U/L (30-110); Anion Gap 6 mmol/L; Blood Urea Nitrogen 7 mg/dL (7-17); Carbon Dioxide 21 mmol/L (22-30); Chloride 99 mmol/L (98-107); Glucose 79 mg/dL (74-99); Lipase 248 U/L (23-300); Magnesium 1.5 mg/dL (1.6-2.3); Non-African American GFR(CKD) >90 (>60 ml/min/1.73 sqM); Potassium 3.7 mmol/L (3.5-5.1); Sodium 126 mmol/L (137-145); Total Protein 4.5 g/dL (6.3-8.2)
--- NOTE | 2019-12-13 09:34 | P.PN ---
Subjective Patient is seen in follow-up for hyponatremia. Sodium level up to 126 this morning. She is maintained on fluid restriction and salt tabs. Oral intake remains poor. No vomiting or diarrhea. Remains somewhat confused. Vital signs are stable. General: The patient appeared well nourished and normally developed. HEENT: Head exam is unremarkable. Neck is without jugular venous distension. LUNGS: Breath sounds decreased. HEART: Rate and Rhythm are regular. ABDOMEN: Soft, nontender. EXTREMITITES: No clubbing, cyanosis, or edema. Jaundice noted. Objective - Vital Signs Vital signs: Vital Signs Temp 97.7 F 12/13/19 07:00 Pulse 113 H 12/13/19 07:00 Resp 24 12/13/19 07:00 BP 98/68 12/13/19 07:00 Pulse Ox 95 12/13/19 07:00 Intake & Output 12/12/19 12/13/19 12/13/19 18:59 06:59 18:59 Intake Total 1200 525 525 Output Total 460 120 125 Balance 740 405 400 Intake: IV 900 525 525 Sodium Chloride 0.9% 1, 900 425 525 000 ml @ 75 mls/hr IV . [id number] [facility] Rx#:[id number] cefTRIAXone 1 gm In 100 Sodium Chloride 0.9% 50 ml @ 100 mls/hr IVPB Q24H [facility] Rx#:[id number] Oral 300 Output: Urine 460 120 125 Other: Voiding Method Indwelling Catheter Indwelling Catheter - Labs CBC & Chem 7: 12/12/19 14:11 12/13/19 04:03 Labs: Abnormal Lab Results - Last 24 Hours (Table) 12/12/19 12/13/19 12/13/19 Range/Units 14:11 04:03 04:03 WBC 13.0 H (3.8-10.6) k/uL RBC 2.34 L (3.80-5.40) m/uL Hgb 8.7 L (11.4-16.0) gm/dL Hct 25.1 L (34.0-46.0) % MCV 107.2 H (80.0-100.0) fL MCH 37.1 H (25.0-35.0) pg RDW 16.9 H (11.5-15.5) % Plt Count 105 L (150-450) k/uL Macrocytosis Marked A PT 13.8 H (9.0-12.0) sec INR 1.4 H (<1.2) Sodium 126 L (137-145) mmol/L Carbon Dioxide 21 L (22-30) mmol/L Calcium 8.0 L (8.4-10.2) mg/dL Magnesium 1.5 L (1.6-2.3) mg/dL Total Bilirubin 13.0 H (0.2-1.3) mg/dL AST 173 H (14-36) U/L ALT 117 H (4-34) U/L Alkaline Phosphatase 164 H (38-126) U/L Total Protein 4.5 L (6.3-8.2) g/dL Albumin 2.0 L (3.5-5.0) g/dL Microbiology - Last 24 Hours (Table) 12/10/19 04:06 Blood Culture - Preliminary Blood No Growth after 72 hours Assessment and Plan Plan: Assessment: 1. Hypovolemic hyponatremia with component of poor solute intake. Improving with IV hydration and salt tabs. Sodium level 126 this morning. TSH normal. 2. Developing pneumonia maintained on antibiotics. 3. Acute on chronic liver disease due to alcohol abuse and history of hepatitis C. 4. Acute on chronic alcoholic pancreatitis with pseudocyst. GI following. Follow-up imaging to be done in 4-6 weeks. 5. Anemia status post packed red cells related to underlying liver disease. 6. Hypomagnesemia from poor intake. Plan: Maintain normal saline. Maintain salt tabs. Check a.m. cortisol level. Replace magnesium. 2 g IV today. Encouraged oral intake, particularly protein. Follow-up echocardiogram.
[2019-12-13] MEDS: PANTOPRAZOLE 40 MG/10 ML VIAL IVP SCH (10:00)
[2019-12-13] MEDS: NICOTINE 21MG/24HR PATCH TRANSDERM SCH (10:01)
[2019-12-13] MEDS: HEPARIN SODIUM,PORCINE 5,000 UNIT/ML 1 ML VIAL SQ SCH ×2 (10:01→21:55)
[2019-12-13] MEDS: THIAMINE 100 MG TAB PO SCH ×2 (10:01→18:02)
[2019-12-13] MEDS: MAGNESIUM SULFATE-D5W PMX 1 GM in DEXTROSE/WATER 1 100ML.BAG IVPB SCH ×2 (10:03→12:24)
[2019-12-13] MEDS: SODIUM CHLORIDE TAB 1 GM TAB PO SCH ×3 (10:03→21:58)
[2019-12-13] MEDS: MORPHINE SULFATE 2 MG/ML SYRINGE IVP PRN ×3 (10:04→21:55)
[2019-12-13] MEDS: PIPERACILLIN-TAZOBACTAM 3.375 GM in SODIUM CHLORIDE 0.9% 100 ML IVPB SCH ×2 (10:23→17:18)
[2019-12-13 11:05] LABS: Anisocytosis Slight; HCT 25.1 % (34.0-46.0); HGB 8.4 gm/dL (11.4-16.0); MCH 36.5 pg (25.0-35.0); MCHC 33.4 g/dL (31.0-37.0); MCV 109.4 fL (80.0-100.0); Macrocytosis Marked; Mean Platelet Volume 8.3; Platelet Count 118 k/uL (150-450); Poikilocytosis Slight; RBC 2.29 m/uL (3.80-5.40); RDW 17.9 % (11.5-15.5); WBC 13.2 k/uL (3.8-10.6)
--- NOTE | 2019-12-13 11:55 | P.PN ---
Subjective Progress Note Date: 12/13/19 12/13/2019, the patient Is being seen for a follow-up. Sodium level continues to improve and his sodium level is up to 126 and the patient continues to be on normal saline at the rate of 75 mL an hour. BUN is at 7 with a creatinine of 0.5. The bilirubin is at 13.0. AST is at 173, ALT is 117 and ocular phosphatase in 164. I discussed with gastroenterology and she thinks that there is no need for any immediate intervention regarding the large pseudocyst and head of the pancreas that was measuring 4.7 x 5.4 cm in size. The patient's lipase levels of decline. Her abdominal pain is subsiding the patient is requiring morphine on an as-needed basis for pain control. No nausea. No vomiting. No agitation. No restlessness. Her mental status improved considerably. Her chest x-ray showing development of bilateral pulmonary infiltrates. There may be a component of an acute lung injury interstitial pancreatitis. The patient did not aspirate. I'm going to suggest antibiotics to include IV Zosyn. The pro-calcitonin level will be obtained. Echocardiogram will also be obtained. Objective - Vital Signs Vital signs: Vital Signs Temp 97.7 F 12/13/19 07:00 Pulse 113 H 12/13/19 11:00 Resp 33 H 12/13/19 11:00 BP 102/77 12/13/19 11:00 Pulse Ox 95 12/13/19 10:00 Intake & Output 12/12/19 12/13/19 12/13/19 18:59 06:59 18:59 Intake Total 7765 719 6886 Output Total 460 120 205 Balance 740 405 820 Intake: IV 613 254 6861 Sodium Chloride 0.9% 1, 900 425 825 000 ml @ 75 mls/hr IV . [id number] [facility] Rx#:[id number] cefTRIAXone 1 gm In 100 Sodium Chloride 0.9% 50 ml @ 100 mls/hr IVPB Q24H [facility] Rx#:[id number] magnesium 100 zosyn 100 Oral 300 Output: Urine 460 120 205 Other: Voiding Method Indwelling Catheter Indwelling Catheter Indwelling Catheter - Exam Gen. appearance the patient is calm comfortable and she denies having any acute respiratory distress. She seems to be quite jaundiced. Level of alertness continues to improve Head exam was generally normal. There was no scleral icterus or corneal arcus. Mucous membranes were moist. Neck was supple and without jugular venous distension, thyromegaly, or carotid bruits. Carotids were easily palpable bilaterally. There was no adenopathy. The patient has conjunctival pallor and some icterus. No neck stiffness. Lungs were clear to auscultation and percussion, and with normal diaphragmatic excursion. No wheezes or rales were noted. Cardiac exam revealed the PMI to be normally situated and sized. The rhythm was regular and no extrasystoles were noted during several minutes of auscultation. The first and second heart sounds were normal and physiologic splitting of the second heart sound was noted. There were no murmurs, rubs, clicks, or gallops. Abdominal exam revealed normal bowel sounds. The abdomen was soft, non-tender, and without masses, organomegaly, or appreciable enlargement of the abdominal aorta. Examination of the extremities revealed easily palpable radial, femoral and pedal pulses. There was no cyanosis, clubbing or edema. Examination of the skin revealed no evidence of significant rashes, suspicious appearing nevi or other concerning lesions. Neurologically, the patient seems to be more alert compared to yesterday. Cranial nerves seem to be intact and the patient has no facial asymmetry and pupillary reactive to light. No nystagmus. No clonus. Motor and sensory fun ction cannot be accurately assessed. - Labs CBC & Chem 7: 12/13/19 10:46 12/13/19 04:03 Labs: Abnormal Lab Results - Last 24 Hours (Table) 12/12/19 12/13/19 12/13/19 Range/Units 14:11 04:03 04:03 WBC 13.0 H (3.8-10.6) k/uL RBC 2.34 L (3.80-5.40) m/uL Hgb 8.7 L (11.4-16.0) gm/dL Hct 25.1 L (34.0-46.0) % MCV 107.2 H (80.0-100.0) fL MCH 37.1 H (25.0-35.0) pg RDW 16.9 H (11.5-15.5) % Plt Count 105 L (150-450) k/uL Macrocytosis Marked A PT 13.8 H (9.0-12.0) sec INR 1.4 H (<1.2) Sodium 126 L (137-145) mmol/L Carbon Dioxide 21 L (22-30) mmol/L Calcium 8.0 L (8.4-10.2) mg/dL Magnesium 1.5 L (1.6-2.3) mg/dL Total Bilirubin 13.0 H (0.2-1.3) mg/dL AST 173 H (14-36) U/L ALT 117 H (4-34) U/L Alkaline Phosphatase 164 H (38-126) U/L Total Protein 4.5 L (6.3-8.2) g/dL Albumin 2.0 L (3.5-5.0) g/dL 12/13/19 Range/Units 10:46 WBC 13.2 H (3.8-10.6) k/uL RBC 2.29 L (3.80-5.40) m/uL Hgb 8.4 L (11.4-16.0) gm/dL Hct 25.1 L (34.0-46.0) % MCV 109.4 H (80.0-100.0) fL MCH 36.5 H (25.0-35.0) pg RDW 17.9 H (11.5-15.5) % Plt Count 118 L (150-450) k/uL Macrocytosis Marked A PT (9.0-12.0) sec INR (<1.2) Sodium (137-145) mmol/L Carbon Dioxide (22-30) mmol/L Calcium (8.4-10.2) mg/dL Magnesium (1.6-2.3) mg/dL Total Bilirubin (0.2-1.3) mg/dL AST (14-36) U/L ALT (4-34) U/L Alkaline Phosphatase (38-126) U/L Total Protein (6.3-8.2) g/dL Albumin (3.5-5.0) g/dL Microbiology - Last 24 Hours (Table) 12/10/19 04:06 Blood Culture - Preliminary Blood No Growth after 72 hours Assessment and Plan Plan: 1 chronic alcoholism with some signs of delirium tremens , improving 2 hyponatremia, hypochloremic, likely secondary to intravascular volume depletion/dehydration, improving and the sodium level is up to 126 and the patient remains on normal state rate of 75 mL an hour 3 acute lactic acidosis, improving with fluid resuscitation 4 acute on chronic pancreatitis, and the patient lipase level peaked at 1000 and he dropped down to 412 . The patient has 2 large pseudocysts one in the head of the pancreas and the other one in detail causing some mass effect on the duodenum. Abdominal pain is subsided. The patient is still taking morphine on acid basis for pain control. No role for any intervention regarding the large pseudocyst formation. 5 pancreatitis pseudocyst formation related to chronic pancreatitis, , a known complication of alcoholism, and a CAT scan of the abdomen was noted with the patient had a large pseudocyst measuring 4.7 x 5.4 cm in the head of the pancreas another pseudocyst measuring 3.5 x 4.8 cm and tail of the pancreas. There is no evidence of any biliary obstruction and dilatation of the biliary tree. Bilirubin continues to be quite elevated. The bilirubin slightly improved compared to yesterday. GI she is no role for any intervention regarding the pseudocyst. 6 abnormal LFTs related to alcoholic hepatitis, with elevated bilirubin without clear indication of an obstructive biliary pattern. The patient remains jaundiced. 7 acute kidney injury, recovered, and the renal function is essentially normalized. 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 17 acute anemia with a drop in hemoglobin down to 7.1 and there is no clear indication for a bleed. Consider dilutional drop in hemoglobin. Subsequent hemoglobin from today is at 8.4. The patient got transfused with a total of 2 units of packed RBC. Hemoglobin remains stable and today's level is at 8.4. 18 acute bilateral pulmonary infiltrates, consider acute lung injury versus CHF. Aspiration is felt to be less likely. Plan Continue normal saline at the rate of 75 mL an hour Continue watching the sodium level I'm in his elected levels of improved No role for any intervention regarding the pseudocyst Bilirubin is slightly improved compared to yesterday The patient has developed Latin pulmonary infiltrates and consider the possibility of an acute lung injury interstitial pancreatitis. We'll check pro- calcitonin level. We'll check echocardiogram to rule out alcoholic cardiomyopathy and will also broadened antibiotic coverage to include IV Zosyn and we'll stop the Rocephin for now. Treatment of delirium tremens per CIWA protocol Thiamine replacement therapy IV Protonix CAT scan of the abdomen was noted We'll continue to follow and keep the patient ICU for now
[2019-12-13 12:07] LABS: Glucose,Whole Blood 93 mg/dL (75-99)
--- NOTE | 2019-12-13 12:10 | PN ---
PROGRESS NOTE DATE OF SERVICE: 12/13/2019 Patient is a 45-year-old white female with history of heavy alcohol abuse, admitted to the hospital with acute alcoholic hepatitis and pancreatic pseudocyst. She remains in the intensive care unit. She also had severe hyponatremia being monitored very closely. She still remains somewhat confused. She continues to complain of mild epigastric pain. Her oral intake has been significantly decreased. As per the nursing staff, she is restless on and off throughout the day. No nausea, no vomiting. No rectal bleeding or melena. PHYSICAL EXAMINATION: She appears comfortable. VITAL SIGNS: Stable. Blood pressure 98/69, pulse rate 112, temperature 98.1. HEENT: Examination unremarkable. Conjunctivae are pink. Sclerae deeply icteric. Oral cavity no lesions. NECK: No JVD. No lymph node enlargement. CHEST: Clear to auscultation. HEART: Regular rate and rhythm. ABDOMEN: Soft. There was hepatomegaly. Liver was palpable 3-4 cm below the right costal margin. There was epigastric fullness noted. Rest of the abdomen was benign. EXTREMITIES: No pedal edema. SKIN: No rashes. NEURO: She is awake, oriented to name and time but not to place. LABS: From today WBC 13, hemoglobin 8.7, platelets 105. Basic metabolic panel is still pending. Yesterday, T-bili was 13.7, AST 196, ALT 123, alkaline phosphatase 166. INR is 1.4. Sodium was 120 yesterday. IMPRESSION: 1. Symptomatic hyponatremia, being managed closely by the regulatory analyst and export traffic department manager. 2. Acute alcoholic hepatitis with elevated AST more than ALT, all consistent with alcoholic liver disease. CMP from today is still pending. 3. Symptomatic pancreatic pseudocyst measuring 5 cm in size in the head of the pancreas. As per the prior CT scan of the abdomen and ultrasound, there is no evidence of compression of the common bile duct. 4. Alcohol withdrawal, resolving. 5. Coagulopathy secondary to underlying chronic liver disease. RECOMMENDATIONS: 1. Continue with symptomatic and supportive care. 2. In regard to the elevated LFTs, we will monitor them closely and avoid hepatotoxic medications. 3. In regard to the symptomatic cirrhosis, recommended small frequent meals and encourage the patient to increase oral intake. We will start her on Ensure 1 can twice daily. Based on the imaging studies, no need for any endoscopic drainage of pancreatic pseudocyst at this time. This can be evaluated on outpatient basis. 4. Monitor labs on a daily basis. 5. We will follow with you closely. Thank you for this consultation. [facility] / IJN: [id number] /
--- NOTE | 2019-12-13 13:57 | ECHOF ---
Referral Reason:ETOH cardiomyopathy MEASUREMENTS -------- HEIGHT: 167.6 cm WEIGHT: 78.5 kg BP: 98/68 IVSd: 1.4 cm (0.6 - 1.1) LVIDd: 3.3 cm (3.9 - 5.3) LVPWd: 1.4 cm (0.6 - 1.1) IVSs: 1.7 cm LVIDs: 2.3 cm LVPWs: 1.8 cm RVIDd: 3.1 cm (< 3.3) LAESV Index (A-L): 24.97 ml/m Ao Diam: 3.1 cm (2.0 - 3.7) AV Cusp: 1.9 cm (1.5 - 2.6) EPSS: 0.3 cm RAP: 5.00 mmHg RVSP: 25.12 mmHg MV EF SLOPE: 78.66 mm/s (70 - 150) MV EXCURSION: 18.87 mm (> 18.000) FINDINGS -------- Resting tachycardia (HR>100bpm). This was a technically adequate study. The left ventricular size is normal. There is moderate concentric left ventricular hypertrophy. O verall left ventricular systolic function is normal with, an EF between 55 - 60 %. The right ventricle is normal in size. Normal LA size by volume 22+/-6 ml/m2. The right atrial size is normal. Interatrial and interventricular septum intact. The aortic valve is trileaflet and appears structurally normal. There is no evidence of aortic regu rgitation. There is no evidence of aortic stenosis. Bhuk-im-wqpqigst mitral regurgitation is present. Mild tricuspid regurgitation present. There is no evidence of pulmonary hypertension. The right v entricular systolic pressure, as measured by Doppler, is 25.12mmHg. There is no pulmonic regurgitation present. The aortic root size is normal. IVC Not well visulized. There is no pericardial effusion. CONCLUSIONS -------- 1. The left ventricular size is normal. 2. There is moderate concentric left ventricular hypertrophy. 3. Overall left ventricular systolic function is normal with, an EF between 55 - 60 %. 4. Tdfc-sq-[id number] mitral regurgitation is present. 5. Mild tricuspid regurgitation present. ZINC PLATE CUTTER: Johanne Summers [facility]
[2019-12-13] MEDS: SODIUM CHLORIDE 0.9% 1,000 ML IV SCH (14:33)
[2019-12-13 16:45] LABS: Glucose,Whole Blood 98 mg/dL (75-99)
--- NOTE | 2019-12-13 17:54 | P.PN ---
Subjective Progress Note Date: 12/13/19 CHIEF COMPLAINT: Pancreatitis HISTORY OF PRESENT ILLNESS: The patient is a 44-year-old female admitted with pancreatitis. She is resting comfortably. No new concerns. ROS: No fevers or chills. No new chest pain. No productive sputum PHYSICAL EXAM: VITAL SIGNS: Reviewed CONSTITUTIONAL: Well developed and in no acute distress. EYES: Conjuctivae without sclera icterus. Extraocular movements grossly intact. HEAD, EARS, NOSE, THROAT: Moist buccal mucosa. Head is atraumatic, normocephalic . Hears conversational speech. No nasal drainage. NECK: Supple. No thyroidomegaly. RESPIRATORY: Non-labored respirations and equal bilateral excursions. CARDIOVASCULAR: Palpable 2+ radial pulses. Regular rate. Regular rhythm. ABDOMEN: No peritonitis. MUSCULOSKELETAL: No gross deformity of the lower extremities noted. No clubbing. No cyanosis. SKIN: Good skin turgor. Well perfused. NEUROLOGIC: Cranial nerves II through XII grossly intact. No focal or lateralizing signs. PSYCH: Appropriate affect. Alert and oriented to person, place and time. CLINICAL LABS: White blood cell elevated at 13.2. Hemoglobin stable 8.4. Sodium low 124. Total bilirubin elevated 13.0. LFTs elevated AST 173. ALT elevated 117 STUDIES: CT of the abdomen and pelvis and appendix reviewed demonstrating cyst along the pancreas at the head. Severe hepatomegaly identified. Multiple calcifications along the pancreas consistent with chronic pancreatitis. This is my independent interpretation. REPORTS: CT of the abdomen and pelvis report confirms pancreatic cyst along head, 4.7 cm with features of chronic pancreatitis. Ultrasound report of gallbladder confirmed stones within the gallbladder. ASSESSMENT: 1. Pancreatitis, chronic 2. History of heavy alcohol abuse 3. Hyponatremia PLAN: 1. Nonsurgical expectant management for pancreatitis pseudocyst and chronic pancreatitis 2. Alcohol abstinence advised Objective - Vital Signs Vital signs: Vital Signs Temp 97.7 F 12/13/19 07:00 Pulse 113 H 12/13/19 11:00 Resp 33 H 12/13/19 11:00 BP 102/77 12/13/19 11:00 Pulse Ox 95 12/13/19 10:00 Intake & Output 12/12/19 12/13/19 12/13/19 18:59 06:59 18:59 Intake Total 2099 933 0173 Output Total 460 120 205 Balance 740 405 820 Intake: IV 673 123 5362 Sodium Chloride 0.9% 1, 900 425 825 000 ml @ 75 mls/hr IV . [id number] [facility] Rx#:[id number] cefTRIAXone 1 gm In 100 Sodium Chloride 0.9% 50 ml @ 100 mls/hr IVPB Q24H [facility] Rx#:[id number] magnesium 100 zosyn 100 Oral 300 Output: Urine 460 120 205 Other: Voiding Method Indwelling Catheter Indwelling Catheter Indwelling Catheter - Labs CBC & Chem 7: 12/13/19 10:46 12/13/19 04:03 Labs: Abnormal Lab Results - Last 24 Hours (Table) 12/12/19 12/13/19 12/13/19 Range/Units 14:11 04:03 04:03 WBC 13.0 H (3.8-10.6) k/uL RBC 2.34 L (3.80-5.40) m/uL Hgb 8.7 L (11.4-16.0) gm/dL Hct 25.1 L (34.0-46.0) % MCV 107.2 H (80.0-100.0) fL MCH 37.1 H (25.0-35.0) pg RDW 16.9 H (11.5-15.5) % Plt Count 105 L (150-450) k/uL Macrocytosis Marked A PT 13.8 H (9.0-12.0) sec INR 1.4 H (<1.2) Sodium 126 L (137-145) mmol/L Carbon Dioxide 21 L (22-30) mmol/L Calcium 8.0 L (8.4-10.2) mg/dL Magnesium 1.5 L (1.6-2.3) mg/dL Total Bilirubin 13.0 H (0.2-1.3) mg/dL AST 173 H (14-36) U/L ALT 117 H (4-34) U/L Alkaline Phosphatase 164 H (38-126) U/L Total Protein 4.5 L (6.3-8.2) g/dL Albumin 2.0 L (3.5-5.0) g/dL 12/13/19 Range/Units 10:46 WBC 13.2 H (3.8-10.6) k/uL RBC 2.29 L (3.80-5.40) m/uL Hgb 8.4 L (11.4-16.0) gm/dL Hct 25.1 L (34.0-46.0) % MCV 109.4 H (80.0-100.0) fL MCH 36.5 H (25.0-35.0) pg RDW 17.9 H (11.5-15.5) % Plt Count 118 L (150-450) k/uL Macrocytosis Marked A PT (9.0-12.0) sec INR (<1.2) Sodium (137-145) mmol/L Carbon Dioxide (22-30) mmol/L Calcium (8.4-10.2) mg/dL Magnesium (1.6-2.3) mg/dL Total Bilirubin (0.2-1.3) mg/dL AST (14-36) U/L ALT (4-34) U/L Alkaline Phosphatase (38-126) U/L Total Protein (6.3-8.2) g/dL Albumin (3.5-5.0) g/dL Microbiology - Last 24 Hours (Table) 12/10/19 04:06 Blood Culture - Preliminary Blood No Growth after 72 hours Assessment and Plan (1) Acute pancreatitis Current Visit: Yes Status: Acute Code(s): K85.90 - ACUTE PANCREATITIS WITHOUT NECROSIS OR INFECTION, UNSP SNOMED Code(s): 823848511 (2) Alcohol withdrawal Current Visit: Yes Status: Acute Code(s): F10.239 - ALCOHOL DEPENDENCE WITH WITHDRAWAL, UNSPECIFIED SNOMED Code(s): 159731646 (3) Alcoholic liver disease Current Visit: Yes Status: Acute Code(s): K70.9 - ALCOHOLIC LIVER DISEASE, UNSPECIFIED SNOMED Code(s): 40951499
--- NOTE | 2019-12-13 22:11 | P.PN ---
Subjective Progress Note Date: 12/13/19 Principal diagnosis: Acute on Chronic Pancreatittis, Pancreatic pseudocyst, Hyponatremia Ms. Hobson is a 44-year-old female with past medical history of GERD, alcoholic liver cirrhosis, multiple episodes of pancreatitis, biliary portal clint, seizure disorder, rheumatoid arthritis and fibromyalgia, lupus, degenerative disc disease admitted to the ICU for altered mental status changes. At the time of admission patient was found to have severe hyponatremia with sodium of 114. And her UDS was positive for methamphetamines and marijuana. And she is also positive for hepatitis C antibodies. She is currently being treated for delirium tremens and hyponatremia. On 12/13/2019 -patient is comfortably lying in bed appears to be no acute distress. Patient's is at bedside. As per nursing staff report patient has been having visual hallucinations and getting Ativan on as needed basis. Patient complains of left upper quadrant abdominal pain. She denies having any nausea or vomiting. Patient is tearful and is worried about her health. Patient denies having any chest pain or palpitations. No cough or difficulty in breathing. No swelling of her lower extremities. On reviewing her vitals patient is slightly tachycardic afebrile for the past 24 hours, blood pressure running within normal limits and saturating 100% on room air. Patient's labs f rom this morning sodium of 126, magnesium 1.5, downtrending AST ALT and lipase. Patient had an echocardiogram done this morning showing ejection fraction of 55 to 60% with moderate concentric left ventricular hypertrophy. Chest x-ray showing worsening left perihilar and basilar acute infiltrates, developing N. Right upper quadrant acute infiltrate. CAT of the abdomen from the showing chronic pancreatitis, pseudocysts along with hepatomegaly and hepatic steatosis. Objective - Vital Signs Vital signs: Vital Signs Temp 97.7 F 12/13/19 12:00 Pulse 109 H 12/13/19 19:00 Resp 25 H 12/13/19 19:00 BP 102/73 12/13/19 19:00 Pulse Ox 95 12/13/19 19:00 Intake & Output 12/13/19 12/13/19 12/14/19 06:59 18:59 05:59 Intake Total 525 1825 75 Output Total 120 445 50 Balance 405 1380 25 Intake: IV 525 1825 75 Sodium Chloride 0.9% 1, 425 1425 75 000 ml @ 75 mls/hr IV . [id number] [facility] Rx#:[id number] cefTRIAXone 1 gm In 100 Sodium Chloride 0.9% 50 ml @ 100 mls/hr IVPB Q24H [facility] Rx#:[id number] magnesium 200 zosyn 200 Output: Urine 120 445 50 Other: Voiding Method Indwelling Catheter Indwelling Catheter - Exam GENERAL: The patient is fully awake and oriented,taerful and worried about her health HEENT: Pupils are round and equally reacting to light. EOMI. No scleral icterus. No conjunctival pallor. Normocephalic, atraumatic. No pharyngeal erythema. No thyromegaly. CARDIOVASCULAR: S1 and S2 present. No murmurs, rubs, or gallops. PULMONARY: Chest is clear to auscultation, no wheezing or crackles. -ABDOMEN: Soft, left upper quadrant tenderness, no guarding, mild distension , normoactive bowel sounds. MUSCULOSKELETAL: No joint swelling or deformity. EXTREMITIES: No cyanosis, clubbing, or pedal edema. NEUROLOGICAL: Gross neurological examination did not reveal any focal deficits. SKIN: No rashes. no petechiae. - Labs CBC & Chem 7: 12/13/19 10:46 12/13/19 04:03 Labs: Abnormal Lab Results - Last 24 Hours (Table) 12/13/19 12/13/19 12/13/19 Range/Units 04:03 04:03 04:03 WBC (3.8-10.6) k/uL RBC (3.80-5.40) m/uL Hgb (11.4-16.0) gm/dL Hct (34.0-46.0) % MCV (80.0-100.0) fL MCH (25.0-35.0) pg RDW (11.5-15.5) % Plt Count (150-450) k/uL Macrocytosis PT 13.8 H (9.0-12.0) sec INR 1.4 H (<1.2) Sodium 126 L (137-145) mmol/L Carbon Dioxide 21 L (22-30) mmol/L Calcium 8.0 L (8.4-10.2) mg/dL Magnesium 1.5 L (1.6-2.3) mg/dL Total Bilirubin 13.0 H (0.2-1.3) mg/dL AST 173 H (14-36) U/L ALT 117 H (4-34) U/L Alkaline Phosphatase 164 H (38-126) U/L Total Protein 4.5 L (6.3-8.2) g/dL Albumin 2.0 L (3.5-5.0) g/dL Procalcitonin 0.62 H (0.02-0.09) ng/mL 12/13/19 Range/Units 10:46 WBC 13.2 H (3.8-10.6) k/uL RBC 2.29 L (3.80-5.40) m/uL Hgb 8.4 L (11.4-16.0) gm/dL Hct 25.1 L (34.0-46.0) % MCV 109.4 H (80.0-100.0) fL MCH 36.5 H (25.0-35.0) pg RDW 17.9 H (11.5-15.5) % Plt Count 118 L (150-450) k/uL Macrocytosis Marked A PT (9.0-12.0) sec INR (<1.2) Sodium (137-145) mmol/L Carbon Dioxide (22-30) mmol/L Calcium (8.4-10.2) mg/dL Magnesium (1.6-2.3) mg/dL Total Bilirubin (0.2-1.3) mg/dL AST (14-36) U/L ALT (4-34) U/L Alkaline Phosphatase (38-126) U/L Total Protein (6.3-8.2) g/dL Albumin (3.5-5.0) g/dL Procalcitonin (0.02-0.09) ng/mL Microbiology - Last 24 Hours (Table) 12/10/19 04:06 Blood Culture - Preliminary Blood No Growth after 72 hours Assessment and Plan Assessment: ASSESSMENT Alcohol withdrawal with delirium tremens Severe hyponatremia Possible sepsis with leukocytosis and tachycardia,source likely Lung Pancreatic pseudocyst Lactic acidosis Acute on chronic pancreatitis Metabolic encephalopathy secondary to above Alcoholic hepatitis Acute kidney injury Bilateral upper groundglass pulmonary opacities suspicious for covid 19 Alcoholic Liver cirrhosis Hepatitis C Gall bladder sludge 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 Her LFTs have been trending down. Echocardiogram done today showing ejection fraction of 55 to 60% with concentric left ventricle hypertrophy. Continue with CIWA protocol. No acute intervention planned for pseudocyst. Continue GI DVT prophylaxis. Continue with the rest of her current medication regimen. Further recommendations to follow depending on the progress of the patient. Overall prognosis is guarded. Discussed the treatment plan in detail with the patient and her at bedside today.
[2019-12-14] MEDS: PIPERACILLIN-TAZOBACTAM 3.375 GM in SODIUM CHLORIDE 0.9% 100 ML IVPB SCH ×4 (00:11→23:40)
[2019-12-14] MEDS: SODIUM CHLORIDE 0.9% 1,000 ML IV SCH ×2 (00:11→09:45)
[2019-12-14] MEDS: LORazepam 2 MG/ML INJ IV PRN ×5 (01:44→20:20)
[2019-12-14] MEDS: MORPHINE SULFATE 2 MG/ML SYRINGE IVP PRN ×5 (01:44→20:19)
[2019-12-14 04:09] LABS: Anisocytosis Slight; HCT 25.2 % (34.0-46.0); HGB 8.4 gm/dL (11.4-16.0); MCH 36.5 pg (25.0-35.0); MCHC 33.3 g/dL (31.0-37.0); MCV 109.7 fL (80.0-100.0); Macrocytosis Marked; Mean Platelet Volume 8.2; Platelet Count 114 k/uL (150-450); Poikilocytosis Slight; RDW 17.5 % (11.5-15.5); WBC 11.5 k/uL (3.8-10.6)
[2019-12-14 04:27] LABS: ALT 102 U/L (4-34); AST 149 U/L (14-36); African American GFR (CKD) >90 (>60 ml/min/1.73 sqM); Albumin 1.8 g/dL (3.5-5.0); Alkaline Phosphatase 147 U/L (38-126); Anion Gap 7 mmol/L; Blood Urea Nitrogen 5 mg/dL (7-17); Calcium 7.5 mg/dL (8.4-10.2); Carbon Dioxide 19 mmol/L (22-30); Chloride 103 mmol/L (98-107); Glucose 74 mg/dL (74-99); Non-African American GFR(CKD) >90 (>60 ml/min/1.73 sqM); Potassium 3.2 mmol/L (3.5-5.1); Sodium 129 mmol/L (137-145); Total Bilirubin 11.8 mg/dL (0.2-1.3); Total Protein 4.3 g/dL (6.3-8.2)
[2019-12-14] MEDS: POTASSIUM CHLORIDE ER 20 MEQ TAB.ER PO SCH ×6 (06:44→18:27)
--- NOTE | 2019-12-14 08:13 | XR ---
EXAMINATION TYPE: XR chest 1V portable DATE OF EXAM: 12/14/2019 COMPARISON: 12/13/2019 INDICATION: Short of breath TECHNIQUE: Single frontal view of the chest is obtained. FINDINGS: The heart size is normal. The pulmonary vasculature is prominent. Is mild increased lung markings slightly greater to the left upper right upper lobe periphery. Findin gs have improved slightly over the interval. IMPRESSION: 1. Improving bilateral lung infiltrates
[2019-12-14] MEDS ORDERED: ONDANSETRON 4 MG TAB PO PRN (08:32)
[2019-12-14] MEDS: THIAMINE 100 MG TAB PO SCH ×2 (08:43→16:41)
[2019-12-14] MEDS: PANTOPRAZOLE 40 MG/10 ML VIAL IVP SCH (08:43)
[2019-12-14] MEDS: SODIUM CHLORIDE TAB 1 GM TAB PO SCH ×4 (08:43→20:20)
[2019-12-14] MEDS: ENOXAPARIN 40 MG/0.4 ML SYRINGE SQ SCH (08:44)
[2019-12-14] MEDS: NICOTINE 21MG/24HR PATCH TRANSDERM SCH (08:44)
[2019-12-14] MEDS ORDERED: ONDANSETRON 4 MG/2 ML VIAL IVP PRN (09:07)
--- NOTE | 2019-12-14 09:40 | PN ---
PROGRESS NOTE DATE OF SERVICE: 12/14/2019 Patient is a 44-year-old pleasant white female admitted to the hospital with acute alcoholic hepatitis, alcoholic withdrawal, severe symptomatic hyponatremia and pancreatic pseudocyst. She continues to remain very tired and complains of abdominal pain. She reports no nausea or vomiting. As per the nursing staff, her oral intake has been significantly decreased. No fever, chills, or night sweats. PHYSICAL EXAMINATION: She appears comfortable, quite sleepy. VITAL SIGNS: Stable. Blood pressure is 83/70, pulse rate 101, temperature 98. HEENT: Examination unremarkable. Conjunctivae are pink. Sclerae icteric. Oral cavity no lesions. NECK: No JVD or lymph node enlargement. CHEST: Clear to auscultation. HEART: Regular rate and rhythm. ABDOMEN: Soft. There was tenderness in the epigastric area. Bowel sounds are positive. No organomegaly. EXTREMITIES: No pedal edema. NEURO: She is alert and oriented to time but not to place. LABS: From today WBC 11.5, hemoglobin 8.4, platelets 114. Sodium 129, potassium 3.2, CO2 19, creatinine 7. Bilirubin is down to 11.8, AST 149, ALT 102, alkaline phosphatase 147. IMPRESSION: 1. Acute alcoholic hepatitis superimposed on possible underlying alcoholic cirrhosis of the liver with slightly improved bilirubin today. 2. Symptomatic pancreatic pseudocyst. Last CT scan done on 12/10 showed a cyst measuring 5 x 4 cm in size in the head of the pancreas with no biliary obstruction. 3. History of heavy alcohol abuse. 4. Symptomatic hyponatremia monitored in the intensive care unit very closely. 5. Decreased oral intake. RECOMMENDATIONS: 1. Continue with symptomatic and supportive care. 2. Small frequent meals. 3. Ensure 1 can 3 times daily. 4. Continue to monitor LFTs on a daily basis. 5. We will follow with you closely. 6. Recommend repeat imaging study in a week for evaluation of the pseudocyst size. 7. The plan was discussed with the patient. Thank you for this consultation. MMODL / IJN: [id number] /
--- NOTE | 2019-12-14 10:25 | P.PN ---
Subjective Patient is seen in follow-up for hyponatremia. Sodium level up to 129 this morning. She is maintained on fluid restriction and salt tabs. Also on NS. Oral intake remains poor. No vomiting or diarrhea. Remains somewhat confused. Vital signs are stable. BP on lower side. General: The patient appeared well nourished and normally developed. HEENT: Head exam is unremarkable. Neck is without jugular venous distension. LUNGS: Breath sounds decreased. HEART: Rate and Rhythm are regular. ABDOMEN: Soft, nontender. EXTREMITITES: No clubbing, cyanosis, or edema. Jaundice noted. Objective - Vital Signs Vital signs: Vital Signs Temp 98.7 F 12/13/19 20:00 Pulse 113 H 12/14/19 08:00 Resp 30 H 12/14/19 08:00 BP 83/70 12/14/19 08:00 Pulse Ox 94 L 12/14/19 08:00 Intake & Output 12/13/19 12/14/19 12/14/19 19:59 06:59 18:59 Intake Total 325 Output Total 70 Balance 255 Weight Intake: IV 325 Sodium Chloride 0.9% 1, 225 000 ml @ 75 mls/hr IV . [id number] [facility] Rx#:[id number] magnesium zosyn 100 Output: Urine 70 Other: Voiding Method Indwelling Catheter - Labs CBC & Chem 7: 12/14/19 03:48 12/14/19 09:50 Labs: Abnormal Lab Results - Last 24 Hours (Table) 12/13/19 12/14/19 12/14/19 Range/Units 04:03 03:48 03:48 WBC 11.5 H (3.8-10.6) k/uL RBC 2.30 L (3.80-5.40) m/uL Hgb 8.4 L (11.4-16.0) gm/dL Hct 25.2 L (34.0-46.0) % MCV 109.7 H (80.0-100.0) fL MCH 36.5 H (25.0-35.0) pg RDW 17.5 H (11.5-15.5) % Plt Count 114 L (150-450) k/uL Macrocytosis Marked A Sodium 129 L (137-145) mmol/L Potassium 3.2 L (3.5-5.1) mmol/L Carbon Dioxide 19 L (22-30) mmol/L BUN 5 L (7-17) mg/dL Calcium 7.5 L (8.4-10.2) mg/dL Total Bilirubin 11.8 H (0.2-1.3) mg/dL AST 149 H (14-36) U/L ALT 102 H (4-34) U/L Alkaline Phosphatase 147 H (38-126) U/L Total Protein 4.3 L (6.3-8.2) g/dL Albumin 1.8 L (3.5-5.0) g/dL Procalcitonin 0.62 H (0.02-0.09) ng/mL 12/14/19 Range/Units 09:50 WBC (3.8-10.6) k/uL RBC (3.80-5.40) m/uL Hgb (11.4-16.0) gm/dL Hct (34.0-46.0) % MCV (80.0-100.0) fL MCH (25.0-35.0) pg RDW (11.5-15.5) % Plt Count (150-450) k/uL Macrocytosis Sodium (137-145) mmol/L Potassium 3.4 L (3.5-5.1) mmol/L Carbon Dioxide (22-30) mmol/L BUN (7-17) mg/dL Calcium (8.4-10.2) mg/dL Total Bilirubin (0.2-1.3) mg/dL AST (14-36) U/L ALT (4-34) U/L Alkaline Phosphatase (38-126) U/L Total Protein (6.3-8.2) g/dL Albumin (3.5-5.0) g/dL Procalcitonin (0.02-0.09) ng/mL Microbiology - Last 24 Hours (Table) 12/10/19 04:06 Blood Culture - Preliminary Blood No Growth after 96 hours Assessment and Plan Plan: Assessment: 1. Hypovolemic hyponatremia with component of poor solute intake. Improving with IV hydration and salt tabs. Sodium level 129 this morning. TSH normal. Cortisol ok. 2. Developing pneumonia maintained on antibiotics. 3. Acute on chronic liver disease due to alcohol abuse and history of hepatitis C. 4. Acute on chronic alcoholic pancreatitis with pseudocyst. GI following. Follow-up imaging to be done outpatient. 5. Anemia status post packed red cells related to underlying liver disease. 6. Hypomagnesemia from poor intake. Better post replacement. 7. Ejection fraction preserved. Mild to moderate MR noted. 8. Hypokalemia from poor intake. Plan: Decrease NS to 50 cc/hr. Maintain salt tabs. Encouraged oral intake, particularly protein. Potassium being replaced.
--- NOTE | 2019-12-14 12:06 | P.PN ---
Subjective Progress Note Date: 12/14/19 12/14/2019, the patient's sodium level is up to 129. The bilirubin level is also down to 11.8. She is doing well. Potassium level is being replaced. She remains on normal saline at rate of 75 mL an hour. She is awake and alert pH is lethargic. She is complaining of some vague diffuse body aches and abdominal pain. She is having some episodic nausea. No emesis. No chest pain. No fever. No chills. The chest x-ray at shown bilateral pulmonary infiltrates and today's chest x-ray essentially stable in terms of the findings and the patient was already started on possible aspiration pneumonia coverage with IV Zosyn. This may be also a manifestation of an acute lung injury secondary to pa ncreatitis. The patient had mild elevation in the pro-Level Which Is in 0.62. As Mentioned, Bilirubin Is down to 11.8. The AST and ALT Are down to 149 and 102 Respectively and Alkaline Phosphatase Is 147. Objective - Vital Signs Vital signs: Vital Signs Temp 98.7 F 12/13/19 20:00 Pulse 113 H 12/14/19 08:00 Resp 30 H 12/14/19 08:00 BP 83/70 12/14/19 08:00 Pulse Ox 94 L 12/14/19 08:00 Intake & Output 12/13/19 12/14/19 12/14/19 19:59 06:59 18:59 Intake Total 325 Output Total 70 Balance 255 Weight Intake: IV 325 Sodium Chloride 0.9% 1, 225 000 ml @ 75 mls/hr IV . [id number] [facility] Rx#:[id number] magnesium zosyn 100 Output: Urine 70 Other: Voiding Method Indwelling Catheter - Exam Gen. appearance the patient is calm comfortable and she denies having any acute respiratory distress. She seems to be quite jaundiced. Level of alertness continues to improve Head exam was generally normal. There was no scleral icterus or corneal arcus. Mucous membranes were moist. Neck was supple and without jugular venous distension, thyromegaly, or carotid bruits. Carotids were easily palpable bilaterally. There was no adenopathy. The patient has conjunctival pallor and some icterus. No neck stiffness. Lungs were clear to auscultation and percussion, and with normal diaphragmatic excursion. No wheezes or rales were noted. Cardiac exam revealed the PMI to be normally situated and sized. The rhythm was regular and no extrasystoles were noted during several minutes of auscultation. The first and second heart sounds were normal and physiologic splitting of the second heart sound was noted. There were no murmurs, rubs, clicks, or gallops. Abdominal exam revealed normal bowel sounds. The abdomen was soft, non-tender, and without masses, organomegaly, or appreciable enlargement of the abdominal aorta. Examination of the extremities revealed easily palpable radial, femoral and p edal pulses. There was no cyanosis, clubbing or edema. Examination of the skin revealed no evidence of significant rashes, suspicious appearing nevi or other concerning lesions. Neurologically, the patient seems to be more alert compared to yesterday. Cranial nerves seem to be intact and the patient has no facial asymmetry and pupillary reactive to light. No nystagmus. No clonus. Motor and sensory function cannot be accurately assessed. - Labs CBC & Chem 7: 12/14/19 03:48 12/14/19 09:50 Labs: Abnormal Lab Results - Last 24 Hours (Table) 12/13/19 12/14/19 12/14/19 Range/Units 04:03 03:48 03:48 WBC 11.5 H (3.8-10.6) k/uL RBC 2.30 L (3.80-5.40) m/uL Hgb 8.4 L (11.4-16.0) gm/dL Hct 25.2 L (34.0-46.0) % MCV 109.7 H (80.0-100.0) fL MCH 36.5 H (25.0-35.0) pg RDW 17.5 H (11.5-15.5) % Plt Count 114 L (150-450) k/uL Macrocytosis Marked A Sodium 129 L (137-145) mmol/L Potassium 3.2 L (3.5-5.1) mmol/L Carbon Dioxide 19 L (22-30) mmol/L BUN 5 L (7-17) mg/dL Calcium 7.5 L (8.4-10.2) mg/dL Total Bilirubin 11.8 H (0.2-1.3) mg/dL AST 149 H (14-36) U/L ALT 102 H (4-34) U/L Alkaline Phosphatase 147 H (38-126) U/L Total Protein 4.3 L (6.3-8.2) g/dL Albumin 1.8 L (3.5-5.0) g/dL Procalcitonin 0.62 H (0.02-0.09) ng/mL 12/14/19 Range/Units 09:50 WBC (3.8-10.6) k/uL RBC (3.80-5.40) m/uL Hgb (11.4-16.0) gm/dL Hct (34.0-46.0) % MCV (80.0-100.0) fL MCH (25.0-35.0) pg RDW (11.5-15.5) % Plt Count (150-450) k/uL Macrocytosis Sodium (137-145) mmol/L Potassium 3.4 L (3.5-5.1) mmol/L Carbon Dioxide (22-30) mmol/L BUN (7-17) mg/dL Calcium (8.4-10.2) mg/dL Total Bilirubin (0.2-1.3) mg/dL AST (14-36) U/L ALT (4-34) U/L Alkaline Phosphatase (38-126) U/L Total Protein (6.3-8.2) g/dL Albumin (3.5-5.0) g/dL Procalcitonin (0.02-0.09) ng/mL Microbiology - Last 24 Hours (Table) 12/10/19 04:06 Blood Culture - Preliminary Blood No Growth after 96 hours Assessment and Plan Plan: 1 chronic alcoholism with some signs of delirium tremens , recovered and the patient is alert and appropriate and there are no signs of delirium tremens at this point in time 2 hyponatremia, hypochloremic, likely secondary to intravascular volume depletion/dehydration, improved considerably and the sodium level is up to 129 4 acute on chronic pancreatitis, and the patient lipase level peaked at 1000 and he dropped down to 412 . The patient has 2 large pseudocysts one in the head of the pancreas and the other one in detail causing some mass effect on the duodenum. Abdominal pain is subsided. The patient is still taking morphine on acid basis for pain control. No role for any intervention regarding the large pseudocyst formation. The patient continues to have some diffuse abdominal pain related to chronic pancreatitis. 5 pancreatitis pseudocyst formation related to chronic pancreatitis, , a known complication of alcoholism, and a CAT scan of the abdomen was noted with the patient had a large pseudocyst measuring 4.7 x 5.4 cm in the head of the pancreas another pseudocyst measuring 3.5 x 4.8 cm and tail of the pancreas. There is no evidence of any biliary obstruction and dilatation of the biliary tree. Bilirubin continues to be quite elevated. The bilirubin slightly improved compared to yesterday. GI she is no role for any intervention regarding the pseudocyst. 6 abnormal LFTs related to alcoholic hepatitis, with elevated bilirubin without clear indication of an obstructive biliary pattern. The patient remains jaundiced. The bilirubin is dropping slowly and LFTs are stable, slightly improved 7 acute kidney injury, recovered, and the renal function is essentially normalized. 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 Consider dilutional drop in hemoglobin. Subsequent hemoglobin from today is at 8.4. The patient got transfused with a total of 2 units of packed RBC. Hemoglobin remains stable and today's level is at 8.4. 18 acute bilateral pulmonary infiltrates, consider acute lung injury versus CHF. Aspiration is felt to be less likely. The chest x-ray findings are stable and the patient remains on IV Zosyn. Plan Continue normal saline at the rate of 75 mL an hour, the patient is also receiving sodium chloride tablets 1 g 3 times a day Continue watching the sodium level, the level has improved considerably The bilirubin level is also improving. Discussed the case with GI and there is No role for any intervention regarding the pseudocyst Bilirubin is slightly improved compared to yesterday The patient has developed bilateral pulmonary infiltrates and consider the possibility of an acute lung injury interstitial pancreatitis. The pro calcitonin level was mildly elevated. The echocardiogram showed a preserved LV function with an ejection fraction of 55-60%. The patient is covered with IV Zosyn. Currently on room air oxygen with a pulse ox of 94%. Treatment of delirium tremens per CIWA protocol Thiamine replacement therapy IV Protonix We'll continue to follow and transferred the patient to a medical surgical floor
--- NOTE | 2019-12-14 13:32 | P.PN ---
Subjective Progress Note Date: 12/14/19 CHIEF COMPLAINT: Pancreatitis HISTORY OF PRESENT ILLNESS: The patient is a 44-year-old female admitted with pancreatitis. She presented with electrolyte abnormalities including hyponatremia and history of severe and heavy alcohol abuse. She is in the intensive care secondary to severe hypernatremia. She is resting comfortably. Family is at bedside. She is tolerating diet. She denies nausea. ROS: No fevers or chills. No new chest pain. No productive sputum PHYSICAL EXAM: VITAL SIGNS: Reviewed CONSTITUTIONAL: Well developed and in no acute distress. EYES: Conjuctivae without sclera icterus. Extraocular movements grossly intact. HEAD, EARS, NOSE, THROAT: Moist buccal mucosa. Head is atraumatic, normocephalic. Hears conversational speech. No nasal drainage. NECK: Supple. No thyroidomegaly. RESPIRATORY: Non-labored respirations and equal bilateral excursions. CARDIOVASCULAR: Palpable 2+ radial pulses. Regular rate. Regular rhythm. ABDOMEN: No peritonitis. MUSCULOSKELETAL: No gross deformity of the lower extremities noted. No clubbing. No cyanosis. SKIN: Good skin turgor. Well perfused. NEUROLOGIC: Cranial nerves II through XII grossly intact. No focal or lateral izing signs. PSYCH: Appropriate affect. Alert and oriented to person, place and time. : Urine dark orange. CLINICAL LABS: White blood cell elevated at 13.2 decreased to 11.5. Hemoglobin stable 8.4. Total bilirubin elevated 11.8. LFTs elevated. ASSESSMENT: 1. Pancreatitis, chronic 2. History of heavy alcohol abuse 3. Hyponatremia 4. Pancreatic pseudocyst PLAN: 1. Dietary management per GI for pancreatic pseudocyst 2. No acute surgical intervention Objective - Vital Signs Vital signs: Vital Signs Temp 98.7 F 12/13/19 20:00 Pulse 113 H 12/14/19 08:00 Resp 30 H 12/14/19 08:00 BP 83/70 12/14/19 08:00 Pulse Ox 94 L 12/14/19 08:00 Intake & Output 12/13/19 12/14/19 12/14/19 19:59 06:59 18:59 Intake Total 325 Output Total 70 Balance 255 Weight Intake: IV 325 Sodium Chloride 0.9% 1, 225 000 ml @ 75 mls/hr IV . [id number] [facility] [place] Rx#:[id number] magnesium zosyn 100 Output: Urine 70 Other: Voiding Method Indwelling Catheter - Labs CBC & Chem 7: 12/14/19 03:48 12/14/19 09:50 Labs: Abnormal Lab Results - Last 24 Hours (Table) 12/13/19 12/14/19 12/14/19 Range/Units 04:03 03:48 03:48 WBC 11.5 H (3.8-10.6) k/uL RBC 2.30 L (3.80-5.40) m/uL Hgb 8.4 L (11.4-16.0) gm/dL Hct 25.2 L (34.0-46.0) % MCV 109.7 H (80.0-100.0) fL MCH 36.5 H (25.0-35.0) pg RDW 17.5 H (11.5-15.5) % Plt Count 114 L (150-450) k/uL Macrocytosis Marked A Sodium 129 L (137-145) mmol/L Potassium 3.2 L (3.5-5.1) mmol/L Carbon Dioxide 19 L (22-30) mmol/L BUN 5 L (7-17) mg/dL Calcium 7.5 L (8.4-10.2) mg/dL Total Bilirubin 11.8 H (0.2-1.3) mg/dL AST 149 H (14-36) U/L ALT 102 H (4-34) U/L Alkaline Phosphatase 147 H (38-126) U/L Total Protein 4.3 L (6.3-8.2) g/dL Albumin 1.8 L (3.5-5.0) g/dL Procalcitonin 0.62 H (0.02-0.09) ng/mL 12/14/19 Range/Units 09:50 WBC (3.8-10.6) k/uL RBC (3.80-5.40) m/uL Hgb (11.4-16.0) gm/dL Hct (34.0-46.0) % MCV (80.0-100.0) fL MCH (25.0-35.0) pg RDW (11.5-15.5) % Plt Count (150-450) k/uL Macrocytosis Sodium (137-145) mmol/L Potassium 3.4 L (3.5-5.1) mmol/L Carbon Dioxide (22-30) mmol/L BUN (7-17) mg/dL Calcium (8.4-10.2) mg/dL Total Bilirubin (0.2-1.3) mg/dL AST (14-36) U/L ALT (4-34) U/L Alkaline Phosphatase (38-126) U/L Total Protein (6.3-8.2) g/dL Albumin (3.5-5.0) g/dL Procalcitonin (0.02-0.09) ng/mL Microbiology - Last 24 Hours (Table) 12/10/19 04:06 Blood Culture - Preliminary Blood No Growth after 96 hours Assessment and Plan (1) Acute pancreatitis Current Visit: Yes Status: Acute Code(s): K85.90 - ACUTE PANCREATITIS WITHOUT NECROSIS OR INFECTION, UNSP SNOMED Code(s): 246693587 (2) Alcohol withdrawal Current Visit: Yes Status: Acute Code(s): F10.239 - ALCOHOL DEPENDENCE WITH WITHDRAWAL, UNSPECIFIED SNOMED Code(s): 983386587 (3) Alcoholic liver disease Current Visit: Yes Status: Acute Code(s): K70.9 - ALCOHOLIC LIVER DISEASE, UNSPECIFIED SNOMED Code(s): 00961245
--- NOTE | 2019-12-14 22:59 | P.PN ---
Subjective Progress Note Date: 12/14/19 Principal diagnosis: Acute on Chronic Pancreatittis, Pancreatic Pseudocyst, Hyponatremia Ms. Hobson is a 44-year-old female with past medical history of GERD, alcoholic liver cirrhosis, multiple episodes of pancreatitis, biliary portal clint, seizure disorder, rheumatoid arthritis and fibromyalgia, lupus, degenerative disc disease admitted to the ICU for altered mental status changes. At the time of admission patient was found to have severe hyponatremia with sodium of 114. And her UDS was positive for methamphetamines and marijuana. And she is also positive for hepatitis C antibodies. She is currently being treated for delirium tremens and hyponatremia. On 12/13/2019 -patient is comfortably lying in bed appears to be no acute distress. Patient's is at bedside. As per nursing staff report patient has been having visual hallucinations and getting Ativan on as needed basis. Patient complains of left upper quadrant abdominal pain. She denies having any nausea or vomiting. Patient is tearful and is worried about her health. Patient denies having any chest pain or palpitations. No cough or difficulty in breathing. No swelling of her lower extremities. On reviewing her vitals patient is slightly tachycardic afebrile for the past 24 hours, blood pressure running within normal limits and saturating 100% on room air. Patient's labs f rom this morning sodium of 126, magnesium 1.5, downtrending AST ALT and lipase. Patient had an echocardiogram done this morning showing ejection fraction of 55 to 60% with moderate concentric left ventricular hypertrophy. Chest x-ray showing worsening left perihilar and basilar acute infiltrates, developing N. Right upper quadrant acute infiltrate. CAT of the abdomen from the showing chronic pancreatitis, pseudocysts along with hepatomegaly and hepatic steatosis. On 12/14/2019 -patient is sitting in a chair by the bedside states that her back has been hurting since sitting for the past 1 hour and requesting morphine for pain.. Patient has wake body aches and left upper quadrant abdominal pain. She denies having any episodes of vomiting but nauseous at times. She denies having any chest pain or palpitations. No dysuria or hematuria. Denies having any f gildardo chills or rigors. On reviewing the vitals patient's temperature is 98.3, heart rate 100s to 110s, respiratory rate 18, blood pressure 100/76 and saturating at 94% on room air. On reviewing the patient's labs from this morning white count of 11.5, hemoglobin 8.4, MCV 109.7, sodium 129, potassium 3.2, chloride 103, bicarb 19, BUN 5, creatinine 0.59. Albumin 1.8. Active Medications Enoxaparin Sodium (Enoxaparin 40 Mg/0.4 Ml Syringe) 40 mg SQ DAILY [facility] Last Admin: 12/14/19 08:44 Dose: 40 mg Documented by: Piperacillin Sod/Tazobactam (Sod 3.375 gm/ Sodium Chloride) 100 mls @ 25 mls/hr IVPB Q8HR [facility] Last Admin: 12/14/19 16:40 Dose: 25 mls/hr Documented by: Sodium Chloride (Saline 0.9%) 1,000 mls @ 50 mls/hr IV .Q20H [facility] Last Admin: 12/14/19 09:45 Dose: 50 mls/hr Documented by: Lorazepam (Lorazepam 2 Mg/Ml Inj) 1 mg IV Q2HR PRN PRN Reason: CIWA 8 or 9 Last Admin: 12/14/19 20:20 Dose: 1 mg Documented by: Lorazepam (Lorazepam 2 Mg/Ml Inj) 1 mg IV Q1HR PRN PRN Reason: CIWA 10 to 15 Last Admin: 12/11/19 18:13 Dose: 1 mg Documented by: Miscellaneous Information (Potassium Replacement Protocol 1 Each Misc) 1 each MISCELLANE DAILY PRN; Protocol PRN Reason: Per Protocol Morphine Sulfate (Morphine Sulfate 2 Mg/Ml Syringe) 2 mg IVP Q2HR PRN PRN Reason: Pain/Discomfort Last Admin: 12/14/19 20:19 Dose: 2 mg Documented by: Naloxone HCl (Naloxone 0.4 Mg/Ml 1 Ml Vial) 0.2 mg IV Q2M PRN PRN Reason: Opioid Reversal Nicotine (Nicotine 21mg/24hr Patch) 1 patch TRANSDERM DAILY [facility] Last Admin: 12/14/19 08:44 Dose: 1 patch Documented by: Ondansetron HCl (Ondansetron 4 Mg/2 Ml Vial) 4 mg IVP Q6HR PRN PRN Reason: Nausea And Vomiting Pantoprazole Sodium (Pantoprazole 40 Mg Tablet) 40 mg PO AC-BRKFST [facility] Sodium Chloride (Sodium Chloride Tab 1 Gm Tab) 1 gm PO TID [facility] Last Admin: 12/14/19 20:20 Dose: 1 gm Documented by: Thiamine HCl (Thiamine 100 Mg Tab) 100 mg PO BID-W/MEALS [facility] Last Admin: 12/14/19 16:41 Dose: 100 mg Documented by: Tramadol HCl (Tramadol 50 Mg Tab) 100 mg PO QID PRN PRN Reason: pain Last Admin: 12/12/19 22:00 Dose: 100 mg Documented by: Objective - Vital Signs Vital signs: Vital Signs Temp 98.3 F 12/14/19 12:00 Pulse 104 H 12/14/19 12:00 Resp 18 12/14/19 12:00 BP 100/76 12/14/19 12:00 Pulse Ox 94 L 12/14/19 12:00 Intake & Output 12/13/19 12/14/19 12/14/19 19:59 06:59 18:59 Intake Total 325 Output Total 70 Balance 255 Weight Intake: IV 325 Sodium Chloride 0.9% 1, 225 000 ml @ 75 mls/hr IV . [id number] [facility] Rx#:[id number] magnesium zosyn 100 Output: Urine 70 Other: Voiding Method Indwelling Catheter - Exam GENERAL: no acute distress, awake and sitting on a chait by bed side. HEENT: Pupils are round and equally reacting to light. EOMI. Mild scleral icterus. No conjunctival pallor. Normocephalic, atraumatic. No pharyngeal erythema. No thyromegaly. CARDIOVASCULAR: S1 and S2 present. No murmurs, rubs, or gallops. PULMONARY: Chest is clear to auscultation, no wheezing or crackles. -ABDOMEN: Soft, left upper quadrant tenderness, no guarding, mild distension, normoactive bowel sounds. MUSCULOSKELETAL: No joint swelling or deformity. EXTREMITIES: No cyanosis, clubbing, or pedal edema. NEUROLOGICAL: Gross neurological examination did not reveal any focal deficits. SKIN: No rashes. no petechiae. - Labs CBC & Chem 7: 12/14/19 03:48 12/14/19 20:50 Labs: Abnormal Lab Results - Last 24 Hours (Table) 12/13/19 12/14/19 12/14/19 Range/Units 04:03 03:48 03:48 WBC 11.5 H (3.8-10.6) k/uL RBC 2.30 L (3.80-5.40) m/uL Hgb 8.4 L (11.4-16.0) gm/dL Hct 25.2 L (34.0-46.0) % MCV 109.7 H (80.0-100.0) fL MCH 36.5 H (25.0-35.0) pg RDW 17.5 H (11.5-15.5) % Plt Count 114 L (150-450) k/uL Macrocytosis Marked A Sodium 129 L (137-145) mmol/L Potassium 3.2 L (3.5-5.1) mmol/L Carbon Dioxide 19 L (22-30) mmol/L BUN 5 L (7-17) mg/dL Calcium 7.5 L (8.4-10.2) mg/dL Total Bilirubin 11.8 H (0.2-1.3) mg/dL AST 149 H (14-36) U/L ALT 102 H (4-34) U/L Alkaline Phosphatase 147 H (38-126) U/L Total Protein 4.3 L (6.3-8.2) g/dL Albumin 1.8 L (3.5-5.0) g/dL Procalcitonin 0.62 H (0.02-0.09) ng/mL 12/14/19 12/14/19 Range/Units 09:50 14:09 WBC (3.8-10.6) k/uL RBC (3.80-5.40) m/uL Hgb (11.4-16.0) gm/dL Hct (34.0-46.0) % MCV (80.0-100.0) fL MCH (25.0-35.0) pg RDW (11.5-15.5) % Plt Count (150-450) k/uL Macrocytosis Sodium (137-145) mmol/L Potassium 3.4 L 3.4 L (3.5-5.1) mmol/L Carbon Dioxide (22-30) mmol/L BUN (7-17) mg/dL Calcium (8.4-10.2) mg/dL Total Bilirubin (0.2-1.3) mg/dL AST (14-36) U/L ALT (4-34) U/L Alkaline Phosphatase (38-126) U/L Total Protein (6.3-8.2) g/dL Albumin (3.5-5.0) g/dL Procalcitonin (0.02-0.09) ng/mL Microbiology - Last 24 Hours (Table) 12/10/19 04:06 Blood Culture - Preliminary Blood No Growth after 96 hours Assessment and Plan Assessment: ASSESSMENT Alcohol withdrawal with delirium tremens Severe hyponatremia Possible sepsis with leukocytosis and tachycardia,source likely Lung Pancreatic pseudocyst Lactic acidosis Acute on chronic pancreatitis Metabolic encephalopathy secondary to above Alcoholic hepatitis Acute kidney injury Bilateral upper groundglass pulmonary opacities suspicious for covid 19 Alcoholic Liver cirrhosis Hepatitis C Gall bladder sludge H/o OSteomyeltis due to MRSA Rheumatoid arthritis PLAN: Due to worsening of her chest x-ray, ceftriaxone has been discontinued and she has been started on Zosyn by pulmonary yesterday . Her LFTs have been trending down. Echocardiogram done today showing ejection fraction of 55 to 60% with concentric left ventricle hypertrophy. Continue with CIWA protocol. No acute intervention planned for pseudocyst. Continue GI DVT prophylaxis. Continue with the rest of her current medication regimen. Further recommendations to follow depending on the progress of the patient. Overall prognosis is guarded. Discussed the treatment plan in detail with the patient at bedside today.She is stable to be transferred to medical floor from ICU.
[2019-12-15] MEDS: LORazepam 2 MG/ML INJ IV PRN ×6 (00:53→20:39)
[2019-12-15] MEDS: MORPHINE SULFATE 2 MG/ML SYRINGE IVP PRN ×7 (00:53→23:55)
[2019-12-15 04:27] LABS: Anisocytosis Slight; HCT 26.2 % (34.0-46.0); HGB 8.2 gm/dL (11.4-16.0); Hypochromasia Slight; MCH 35.3 pg (25.0-35.0); MCHC 31.5 g/dL (31.0-37.0); Macrocytosis Marked; Mean Platelet Volume 7.7; Platelet Count 146 k/uL (150-450); Poikilocytosis Moderate; RBC 2.33 m/uL (3.80-5.40); RDW 18.8 % (11.5-15.5); WBC 11.5 k/uL (3.8-10.6)
[2019-12-15 04:28] LABS: MCV 112.3 fL (80.0-100.0)
[2019-12-15 04:52] LABS: ALT 92 U/L (4-34); AST 131 U/L (14-36); African American GFR (CKD) >90 (>60 ml/min/1.73 sqM); Albumin 1.9 g/dL (3.5-5.0); Alkaline Phosphatase 160 U/L (38-126); Anion Gap 3 mmol/L; Blood Urea Nitrogen 6 mg/dL (7-17); Calcium 7.4 mg/dL (8.4-10.2); Carbon Dioxide 20 mmol/L (22-30); Chloride 109 mmol/L (98-107); Glucose 82 mg/dL (74-99); Non-African American GFR(CKD) >90 (>60 ml/min/1.73 sqM); Potassium 3.9 mmol/L (3.5-5.1); Sodium 132 mmol/L (137-145); Total Protein 4.4 g/dL (6.3-8.2)
[2019-12-15] MEDS: THIAMINE 100 MG TAB PO SCH ×2 (06:53→16:32)
[2019-12-15] MEDS: PANTOPRAZOLE 40 MG TABLET PO SCH (06:53)
[2019-12-15] MEDS: SODIUM CHLORIDE 0.9% 1,000 ML IV SCH ×2 (06:54→23:38)
[2019-12-15] MEDS ORDERED: POTASSIUM CHLORIDE ER 20 MEQ TAB.ER PO SCH (08:00)
[2019-12-15] MEDS: ENOXAPARIN 40 MG/0.4 ML SYRINGE SQ SCH (08:03)
[2019-12-15] MEDS: PIPERACILLIN-TAZOBACTAM 3.375 GM in SODIUM CHLORIDE 0.9% 100 ML IVPB SCH ×3 (08:04→23:38)
[2019-12-15] MEDS: NICOTINE 21MG/24HR PATCH TRANSDERM SCH (08:05)
[2019-12-15] MEDS: SODIUM CHLORIDE TAB 1 GM TAB PO SCH ×3 (08:06→20:44)
--- NOTE | 2019-12-15 09:21 | P.PN ---
Subjective Patient is seen in follow-up for hyponatremia. Sodium level up to 132 this morning. She is maintained on fluid restriction and salt tabs. Also on NS. Oral intake remains poor. No vomiting or diarrhea. Mentation same as yesterday. Vital signs are stable. BP on lower side. General: The patient appeared well nourished and normally developed. HEENT: Head exam is unremarkable. Neck is without jugular venous distension. LUNGS: Breath sounds decreased. HEART: Rate and Rhythm are regular. ABDOMEN: Soft, nontender. EXTREMITITES: No clubbing, cyanosis, or edema. Jaundice noted. Objective - Vital Signs Vital signs: Vital Signs Temp 98.1 F 12/15/19 08:00 Pulse 99 12/15/19 08:00 Resp 18 12/15/19 08:00 BP 94/70 12/15/19 08:00 Pulse Ox 93 L 12/15/19 08:00 Intake & Output 12/14/19 12/15/19 12/15/19 18:59 06:59 18:59 Intake Total 725 550 Output Total 260 Balance 465 550 Intake: IV 325 550 Sodium Chloride 0.9% 1, 450 000 ml @ 50 mls/hr IV . Q20H [facility] Rx#:[id number] Sodium Chloride 0.9% 1, 225 000 ml @ 75 mls/hr IV . [id number] [facility] Rx#:[id number] zosyn 100 100 Intake, IV Titration 400 Amount Piperacillin-Tazobactam 3 100 .375 gm In Sodium Chloride 0.9% 100 ml @ 25 mls/hr IVPB Q8HR [facility] Rx# :[id number] Sodium Chloride 0.9% 1, 300 000 ml @ 50 mls/hr IV . Q20H [facility] Rx#:[id number] Output: Urine 260 Other: Voiding Method Indwelling Catheter Indwelling Catheter # Voids 1 - Labs CBC & Chem 7: 12/15/19 03:43 12/15/19 03:43 Labs: Abnormal Lab Results - Last 24 Hours (Table) 12/14/19 12/14/19 12/14/19 Range/Units 09:50 14:09 15:45 WBC (3.8-10.6) k/uL RBC (3.80-5.40) m/uL Hgb (11.4-16.0) gm/dL Hct (34.0-46.0) % MCV (80.0-100.0) fL MCH (25.0-35.0) pg RDW (11.5-15.5) % Plt Count (150-450) k/uL Macrocytosis Sodium (137-145) mmol/L Potassium 3.4 L 3.4 L 3.4 L (3.5-5.1) mmol/L Chloride (98-107) mmol/L Carbon Dioxide (22-30) mmol/L BUN (7-17) mg/dL Calcium (8.4-10.2) mg/dL Total Bilirubin (0.2-1.3) mg/dL AST (14-36) U/L ALT (4-34) U/L Alkaline Phosphatase (38-126) U/L Total Protein (6.3-8.2) g/dL Albumin (3.5-5.0) g/dL 12/15/19 12/15/19 Range/Units 03:43 03:43 WBC 11.5 H (3.8-10.6) k/uL RBC 2.33 L (3.80-5.40) m/uL Hgb 8.2 L (11.4-16.0) gm/dL Hct 26.2 L (34.0-46.0) % MCV 112.3 H (80.0-100.0) fL MCH 35.3 H (25.0-35.0) pg RDW 18.8 H (11.5-15.5) % Plt Count 146 L (150-450) k/uL Macrocytosis Marked A Sodium 132 L (137-145) mmol/L Potassium (3.5-5.1) mmol/L Chloride 109 H (98-107) mmol/L Carbon Dioxide 20 L (22-30) mmol/L BUN 6 L (7-17) mg/dL Calcium 7.4 L (8.4-10.2) mg/dL Total Bilirubin 12.0 H (0.2-1.3) mg/dL AST 131 H (14-36) U/L ALT 92 H (4-34) U/L Alkaline Phosphatase 160 H (38-126) U/L Total Protein 4.4 L (6.3-8.2) g/dL Albumin 1.9 L (3.5-5.0) g/dL Microbiology - Last 24 Hours (Table) 12/10/19 04:06 Blood Culture - Preliminary Blood No Growth after 120 hours Assessment and Plan Plan: Assessment: 1. Hypovolemic hyponatremia with component of poor solute intake. Improving with IV hydration and salt tabs. Sodium level 132 this morning. TSH normal. Cortisol ok. 2. Developing pneumonia maintained on antibiotics. 3. Acute on chronic liver disease due to alcohol abuse and history of hepatitis C. 4. Acute on chronic alcoholic pancreatitis with pseudocyst. GI following. Follow-up imaging to be done outpatient. 5. Anemia status post packed red cells related to underlying liver disease. 6. Hypomagnesemia from poor intake. Better post replacement. 7. Ejection fraction preserved. Mild to moderate MR noted. 8. Hypokalemia from poor intake. Improved post replacement. Plan: Maintain NS at 50 cc/hr - will Hep-Lock as oral intake improves. Maintain salt tabs. Encouraged oral intake, particularly protein. Monitor bicarb.
--- NOTE | 2019-12-15 10:54 | P.PN ---
Subjective Progress Note Date: 12/15/19 Principal diagnosis: Pancreatitis Patient remains in the ICU as a med/surg hold. Patient still having abdominal pain although improved. Tolerating diet in small amounts. She is afebrile. White blood cell count 11.5. Liver enzymes remain significantly elevated. Lipase when last checked was normal. Objective - Vital Signs Vital signs: Vital Signs Temp 98.1 F 12/15/19 08:00 Pulse 99 12/15/19 08:00 Resp 18 12/15/19 08:00 BP 94/70 12/15/19 08:00 Pulse Ox 93 L 12/15/19 08:00 Intake & Output 12/14/19 12/15/19 12/15/19 18:59 06:59 18:59 Intake Total 725 550 Output Total 260 Balance 465 550 Intake: IV 325 550 Sodium Chloride 0.9% 1, 450 000 ml @ 50 mls/hr IV . Q20H [facility] Rx#:[id number] Sodium Chloride 0.9% 1, 225 000 ml @ 75 mls/hr IV . [id number] [facility] Rx#:[id number] zosyn 100 100 Intake, IV Titration 400 Amount Piperacillin-Tazobactam 3 100 .375 gm In Sodium Chloride 0.9% 100 ml @ 25 mls/hr IVPB Q8HR [facility] Rx# :[id number] Sodium Chloride 0.9% 1, 300 000 ml @ 50 mls/hr IV . Q20H [facility] Rx#:[id number] Output: Urine 260 Other: Voiding Method Indwelling Catheter Indwelling Catheter # Voids 1 - Exam Abdomen: Soft, mild distention, mild upper abdominal fullness, mild tenderness - Labs CBC & Chem 7: 12/15/19 03:43 12/15/19 03:43 Labs: Abnormal Lab Results - Last 24 Hours (Table) 12/14/19 12/14/19 12/15/19 Range/Units 14:09 15:45 03:43 WBC 11.5 H (3.8-10.6) k/uL RBC 2.33 L (3.80-5.40) m/uL Hgb 8.2 L (11.4-16.0) gm/dL Hct 26.2 L (34.0-46.0) % MCV 112.3 H (80.0-100.0) fL MCH 35.3 H (25.0-35.0) pg RDW 18.8 H (11.5-15.5) % Plt Count 146 L (150-450) k/uL Macrocytosis Marked A Sodium (137-145) mmol/L Potassium 3.4 L 3.4 L (3.5-5.1) mmol/L Chloride (98-107) mmol/L Carbon Dioxide (22-30) mmol/L BUN (7-17) mg/dL Calcium (8.4-10.2) mg/dL Total Bilirubin (0.2-1.3) mg/dL AST (14-36) U/L ALT (4-34) U/L Alkaline Phosphatase (38-126) U/L Total Protein (6.3-8.2) g/dL Albumin (3.5-5.0) g/dL 12/15/19 Range/Units 03:43 WBC (3.8-10.6) k/uL RBC (3.80-5.40) m/uL Hgb (11.4-16.0) gm/dL Hct (34.0-46.0) % MCV (80.0-100.0) fL MCH (25.0-35.0) pg RDW (11.5-15.5) % Plt Count (150-450) k/uL Macrocytosis Sodium 132 L (137-145) mmol/L Potassium (3.5-5.1) mmol/L Chloride 109 H (98-107) mmol/L Carbon Dioxide 20 L (22-30) mmol/L BUN 6 L (7-17) mg/dL Calcium 7.4 L (8.4-10.2) mg/dL Total Bilirubin 12.0 H (0.2-1.3) mg/dL AST 131 H (14-36) U/L ALT 92 H (4-34) U/L Alkaline Phosphatase 160 H (38-126) U/L Total Protein 4.4 L (6.3-8.2) g/dL Albumin 1.9 L (3.5-5.0) g/dL Microbiology - Last 24 Hours (Table) 12/10/19 04:06 Blood Culture - Preliminary Blood No Growth after 120 hours Assessment and Plan (1) Pancreatitis Narrative/Plan: Patient doing better at this time. Continue diet. Continue electrolyte imbalance correction. No surgical intervention planned at this time. Recommend outpatient follow-up with GI. Will require short-term follow-up evaluation of the pseudocysts. Current Visit: No Status: Acute Code(s): K85.90 - ACUTE PANCREATITIS WITHOUT NECROSIS OR INFECTION, UNSP SNOMED Code(s): 38853812
--- NOTE | 2019-12-15 12:27 | P.PN ---
Subjective Progress Note Date: 12/15/19 Principal diagnosis: Pancreatitis, EtOH intoxication, liver disease Patient seen and examined sitting up at the bedside. She states she is feeling somewhat better. Still states she has abdominal pain. She is tolerating small meals. She denies any GI bleed symptoms. She denies any nausea or vomiting. No bowel movement today. LFTs are improving. She is status post 2 units packed red blood cells this admission. Hemoglobin stable at 8.2. Patient remains in ICU it as a MedSurg hold, awaiting for room. Objective - Vital Signs Vital signs: Vital Signs Temp 98.1 F 12/15/19 08:00 Pulse 99 12/15/19 08:00 Resp 18 12/15/19 08:00 BP 94/70 12/15/19 08:00 Pulse Ox 93 L 12/15/19 08:00 Intake & Output 12/14/19 12/15/19 12/15/19 18:59 06:59 18:59 Intake Total 725 550 Output Total 260 Balance 465 550 Intake: IV 325 550 Sodium Chloride 0.9% 1, 450 000 ml @ 50 mls/hr IV . Q20H [facility] Rx#:[id number] Sodium Chloride 0.9% 1, 225 000 ml @ 75 mls/hr IV . [id number] [facility] Rx#:[id number] zosyn 100 100 Intake, IV Titration 400 Amount Piperacillin-Tazobactam 3 100 .375 gm In Sodium Chloride 0.9% 100 ml @ 25 mls/hr IVPB Q8HR [facility] Rx# :[id number] Sodium Chloride 0.9% 1, 300 000 ml @ 50 mls/hr IV . Q20H [facility] Rx#:[id number] Output: Urine 260 Other: Voiding Method Indwelling Catheter Indwelling Catheter # Voids 1 - Exam General appearance: The patient is alert, oriented, in no acute distress. HET: Head is normocephalic and atraumatic. Conjunctiva pink. Sclera icteric. Neck: Supple without lymphadenopathy. Abdomen: Soft, diffuse tenderness, nondistended with bowel sounds. No guarding or rigidity. Skin: Jaundiced Extremities: Normal skin color and turgor. No pedal edema Neurological: No focal deficits. Alert and oriented 3. - Labs CBC & Chem 7: 12/15/19 03:43 12/15/19 03:43 Labs: Abnormal Lab Results - Last 24 Hours (Table) 12/14/19 12/14/19 12/14/19 Range/Units 09:50 14:09 15:45 WBC (3.8-10.6) k/uL RBC (3.80-5.40) m/uL Hgb (11.4-16.0) gm/dL Hct (34.0-46.0) % MCV (80.0-100.0) fL MCH (25.0-35.0) pg RDW (11.5-15.5) % Plt Count (150-450) k/uL Macrocytosis Sodium (137-145) mmol/L Potassium 3.4 L 3.4 L 3.4 L (3.5-5.1) mmol/L Chloride (98-107) mmol/L Carbon Dioxide (22-30) mmol/L BUN (7-17) mg/dL Calcium (8.4-10.2) mg/dL Total Bilirubin (0.2-1.3) mg/dL AST (14-36) U/L ALT (4-34) U/L Alkaline Phosphatase (38-126) U/L Total Protein (6.3-8.2) g/dL Albumin (3.5-5.0) g/dL 12/15/19 12/15/19 Range/Units 03:43 03:43 WBC 11.5 H (3.8-10.6) k/uL RBC 2.33 L (3.80-5.40) m/uL Hgb 8.2 L (11.4-16.0) gm/dL Hct 26.2 L (34.0-46.0) % MCV 112.3 H (80.0-100.0) fL MCH 35.3 H (25.0-35.0) pg RDW 18.8 H (11.5-15.5) % Plt Count 146 L (150-450) k/uL Macrocytosis Marked A Sodium 132 L (137-145) mmol/L Potassium (3.5-5.1) mmol/L Chloride 109 H (98-107) mmol/L Carbon Dioxide 20 L (22-30) mmol/L BUN 6 L (7-17) mg/dL Calcium 7.4 L (8.4-10.2) mg/dL Total Bilirubin 12.0 H (0.2-1.3) mg/dL AST 131 H (14-36) U/L ALT 92 H (4-34) U/L Alkaline Phosphatase 160 H (38-126) U/L Total Protein 4.4 L (6.3-8.2) g/dL Albumin 1.9 L (3.5-5.0) g/dL Microbiology - Last 24 Hours (Table) 12/10/19 04:06 Blood Culture - Preliminary Blood No Growth after 120 hours Assessment and Plan (1) Hyponatremia Narrative/Plan: Severe hyponatremia with altered mental status. Serum sodium at the time of admission to the hospital was 108. Improved. Current Visit: Yes Status: Acute Code(s): E87.1 - HYPO-OSMOLALITY AND HYPONATREMIA SNOMED Code(s): 20428219 (2) Alcoholic liver disease Narrative/Plan: Acute alcoholic hepatitis superimposed on lying alcoholic cirrhosis with decom pensation. Patient's bilirubin on admission 10.9, with AST more than ALT consistent with alcoholic liver disease. Patient has a history of heavy alcohol abuse and multiple hospitalizations in the past. There is unlikely biliary obstruction, as there is no CBD dilation. Current Visit: Yes Status: Acute Code(s): K70.9 - ALCOHOLIC LIVER DISEASE, UNSPECIFIED SNOMED Code(s): 25523072 (3) Pancreatitis, alcoholic, acute Narrative/Plan: History of chronic alcoholic pancreatitis with pseudocyst formation with slightly enlarged size of cyst. CT abdomen and pelvis show findings consistent with chronic pancreatitis, pseudocysts have increased in size. Hepatomegaly and hepatic steatosis. Ascites. Small bowel wall thickening nonspecific. Current Visit: No Status: Acute Code(s): K85.20 - ALCOHOL INDUCED ACUTE PANCREATITIS WITHOUT NECROSIS OR INFCT SNOMED Code(s): 814467006 (4) Chronic anemia Narrative/Plan: Has a history of chronic anemia likely related to liver disease. Iron studies ordered. It is status post 2 units of packed red blood cells. Current Visit: No Status: Acute Code(s): D64.9 - ANEMIA, UNSPECIFIED SNOMED Code(s): 952042518 (5) Pancreatic cyst Narrative/Plan: We'll continue to follow pancreatic cysts. Patient will need repeat CT or MRI in 4-6 weeks. Alcohol abstinence discuss with patient, as this will improve the size of pancreatic cyst Current Visit: No Status: Acute Code(s): K86.2 - CYST OF PANCREAS SNOMED Code(s): 86254255 (6) Leukocytosis Narrative/Plan: Leukocytosis and lactic acidosis related to possible sepsis. Cannot rule out spontaneous bacterial peritonitis. Ultrasound of the abdomen did show minimal amount of ascites. Patient on broad-spectrum antibiotics. Current Visit: Yes Status: Acute Code(s): D72.829 - ELEVATED WHITE BLOOD CELL COUNT, UNSPECIFIED SNOMED Code(s): 442395095 (7) Acute kidney injury Narrative/Plan: Mild elevation of BUN and creatinine consistent with acute kidney injury, po ssibly from hypokalemia. Nephrology is on consult. Improved. Current Visit: Yes Status: Acute Code(s): N17.9 - ACUTE KIDNEY FAILURE, UNSPECIFIED SNOMED Code(s): 00010670 (8) Hepatitis C antibody test positive Narrative/Plan: Acute hepatitis panel completed. Patient positive for hepatitis C antibody. Hepatitis C RNA quantitative and genotype ordered. Current Visit: Yes Status: Acute Code(s): R76.8 - OTHER SPECIFIED ABNORMAL IMMUNOLOGICAL FINDINGS IN SERUM SNOMED Code(s): 446138952 Plan: 1. Supportive care 2. Regular diet, small frequent meals 3. Continue with IV Protonix 40 mg every 12 hours 4. Iron studies completed 5. Monitor for GI bleed 6. Repeat LFTs daily 7. Hepatitis C RNA quantitative and genotype ordered 8. Patient will need follow-up CT or MRI of the pancreas to follow pseudocyst We will continue to follow The impression and plan of care has been dictated as directed. Dr. Shay I performed a history and examination of this patient, discussed the same with the dictator. I agree with the dictator's note ,documented as a scribe. Any additional findings or plans will be noted.
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
[2019-12-15] MEDS: SERTRALINE 25 MG TAB PO SCH (13:45)
--- NOTE | 2019-12-15 14:17 | P.PN ---
Subjective Progress Note Date: 12/15/19 Principal diagnosis: Hyponatremia/hypovolemic in nature. 12/14/2019, the patient's sodium level is up to 129. The bilirubin level is also down to 11.8. She is doing well. Potassium level is being replaced. She remains on normal saline at rate of 75 mL an hour. She is awake and alert pH is lethargic. She is complaining of some vague diffuse body aches and abdominal pain. She is having some episodic nausea. No emesis. No chest pain. No fever. No chills. The chest x-ray at shown bilateral pulmonary infiltrates and today's chest x-ray essentially stable in terms of the findings and the patient was already started on possible aspiration pneumonia coverage with IV Zosyn. This may be also a manifestation of an acute lung injury secondary to pancreatitis. The patient had mild elevation in the pro-Level Which Is in 0.62. As Mentioned, Bilirubin Is down to 11.8. The AST and ALT Are down to 149 and 102 Respectively and Alkaline Phosphatase Is 147. Patient was reevaluated today on 12/15/19, patient remains in the ICU, her sodium has been correcting nicely. Patient is sedated, remains on the CIWA protocol. She has a sitter at bedside. Sleepy but arousable. And does not seem to be in any form of respiratory distress. She is on room air, O2 saturations 95%. And her IV fluid is 0.9 normal saline at 50 mL per hour. CBC is relatively normal however hemoglobin is 8.2. Sodium is 132 today. Renal profile is normal. Liver enzymes are noted to be a bit elevated/elevated bilirubin and elevated transaminases. This is related to her history of chronic alcohol liver disease Objective - Vital Signs Vital signs: Vital Signs Temp 98.1 F 12/15/19 08:00 Pulse 99 12/15/19 08:00 Resp 18 12/15/19 08:00 BP 94/70 12/15/19 08:00 Pulse Ox 93 L 12/15/19 08:00 Intake & Output 12/14/19 12/15/19 12/15/19 18:59 06:59 18:59 Intake Total 725 550 Output Total 260 Balance 465 550 Intake: IV 325 550 Sodium Chloride 0.9% 1, 450 000 ml @ 50 mls/hr IV . Q20H [facility] Rx#:[id number] Sodium Chloride 0.9% 1, 225 000 ml @ 75 mls/hr IV . [id number] [facility] Rx#:[id number] zosyn 100 100 Intake, IV Titration 400 Amount Piperacillin-Tazobactam 3 100 .375 gm In Sodium Chloride 0.9% 100 ml @ 25 mls/hr IVPB Q8HR [facility] Rx# :[id number] Sodium Chloride 0.9% 1, 300 000 ml @ 50 mls/hr IV . Q20H [facility] Rx#:[id number] Output: Urine 260 Other: Voiding Method Indwelling Catheter Indwelling Catheter # Voids 1 - Exam Physical Exam: Revealed 44-year-old female in no distress. Head: Atraumatic, normocephalic. HEENT:[Neck is supple.] [No neck masses.] [No thyromegaly.] [No JVD.] Positive icterus. There, EOMI. Chest: [Clear throughout, no crackles, no rhonchi, no wheezes.] Cardiac Exam: [Normal S1 and S2, no S3 gallop, no murmur.] Abdomen: [Soft, nontender, no megaly, no rebound, no guarding, normal bowel sounds.] Extremities: [No clubbing, trace of bipedal edema, no cyanosis.] Neurological Exam: Sleepy, but arousable, follows simple instructions, no gross focal deficit otherwise. Psychiatric: Depressed mood, blunt affect, normal mental status examination. Skin: No rashes. - Labs CBC & Chem 7: 12/15/19 03:43 12/15/19 03:43 Labs: Abnormal Lab Results - Last 24 Hours (Table) 12/14/19 12/14/19 12/15/19 Range/Units 14:09 15:45 03:43 WBC 11.5 H (3.8-10.6) k/uL RBC 2.33 L (3.80-5.40) m/uL Hgb 8.2 L (11.4-16.0) gm/dL Hct 26.2 L (34.0-46.0) % MCV 112.3 H (80.0-100.0) fL MCH 35.3 H (25.0-35.0) pg RDW 18.8 H (11.5-15.5) % Plt Count 146 L (150-450) k/uL Macrocytosis Marked A Sodium (137-145) mmol/L Potassium 3.4 L 3.4 L (3.5-5.1) mmol/L Chloride (98-107) mmol/L Carbon Dioxide (22-30) mmol/L BUN (7-17) mg/dL Calcium (8.4-10.2) mg/dL Total Bilirubin (0.2-1.3) mg/dL AST (14-36) U/L ALT (4-34) U/L Alkaline Phosphatase (38-126) U/L Total Protein (6.3-8.2) g/dL Albumin (3.5-5.0) g/dL 12/15/19 Range/Units 03:43 WBC (3.8-10.6) k/uL RBC (3.80-5.40) m/uL Hgb (11.4-16.0) gm/dL Hct (34.0-46.0) % MCV (80.0-100.0) fL MCH (25.0-35.0) pg RDW (11.5-15.5) % Plt Count (150-450) k/uL Macrocytosis Sodium 132 L (137-145) mmol/L Potassium (3.5-5.1) mmol/L Chloride 109 H (98-107) mmol/L Carbon Dioxide 20 L (22-30) mmol/L BUN 6 L (7-17) mg/dL Calcium 7.4 L (8.4-10.2) mg/dL Total Bilirubin 12.0 H (0.2-1.3) mg/dL AST 131 H (14-36) U/L ALT 92 H (4-34) U/L Alkaline Phosphatase 160 H (38-126) U/L Total Protein 4.4 L (6.3-8.2) g/dL Albumin 1.9 L (3.5-5.0) g/dL Microbiology - Last 24 Hours (Table) 12/10/19 04:06 Blood Culture - Preliminary Blood No Growth after 120 hours Assessment and Plan Assessment: Impression: Acute hypovolemic hyponatremia. Acute alcoholic hepatitis. Chronic alcoholism and previous signs of delirium tremens on presentation. Presently resolved. Acute on chronic pancreatitis. Pancreatic pseudocyst secondary to chronic pancreatitis. Acute kidney injury, resolved. History of rheumatoid arthritis. Questionable history of lupus. 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 History of bipolar disorder. Tobacco dependence syndrome. Acute bilateral pulmonary infiltrates, possible aspiration pneumonia, remains on Zosyn Recommendation: Continue present supportive care measures. Transfer patient to a medical surgical floor, no need for telemetry. Initiate psychiatric consultation. Continue close follow-up with gastroenterology regarding her liver issues and pancreatic issues as noted above. Continue close follow-up for potential alcohol withdrawal. Continue antibiotics empirically. Continue GI and DVT prophylaxis. Continue bedside sitter. Will follow Time with Patient: Less than 30
[2019-12-15 15:55] LABS: HCV Qualitative Result Not detected (Not detected); HCV Quant Log <1.08 (<1.08); HCV Quantitative Result <12 IU/mL (<12)
[2019-12-15] MEDS: traMADol 50 MG TAB PO PRN (16:32)
[2019-12-15] MEDS: ACAMPROSATE CALCIUM 333 MG TABLET.DR PO SCH ×2 (16:32→20:44)
[2019-12-15] MEDS ORDERED: MELATONIN 5 MG TABLET PO SCH (21:00)
--- NOTE | 2019-12-16 00:08 | P.PN ---
Subjective Progress Note Date: 12/15/19 Principal diagnosis: Acute on Chronic Pancreatittis, Pancreatic Pseudocyst, Hyponatremia Ms. Hobson is a 44-year-old female with past medical history of GERD, alcoholic liver cirrhosis, multiple episodes of pancreatitis, biliary portal clint, seizure disorder, rheumatoid arthritis and fibromyalgia, lupus, degenerative disc disease admitted to the ICU for altered mental status changes. At the time of admission patient was found to have severe hyponatremia with sodium of 114. And her UDS was positive for methamphetamines and marijuana. And she is also positive for hepatitis C antibodies. She is currently being treated for delirium tremens and hyponatremia. On 12/13/2019 -patient is comfortably lying in bed appears to be no acute distress. Patient's is at bedside. As per nursing staff report patient has been having visual hallucinations and getting Ativan on as needed basis. Patient complains of left upper quadrant abdominal pain. She denies having any nausea or vomiting. Patient is tearful and is worried about her health. Patient denies having any chest pain or palpitations. No cough or difficulty in breathing. No swelling of her lower extremities. On reviewing her vitals patient is slightly tachycardic afebrile for the past 24 hours, blood pressure running within normal limits and saturating 100% on room air. Patient's labs f rom this morning sodium of 126, magnesium 1.5, downtrending AST ALT and lipase. Patient had an echocardiogram done this morning showing ejection fraction of 55 to 60% with moderate concentric left ventricular hypertrophy. Chest x-ray showing worsening left perihilar and basilar acute infiltrates, developing N. Right upper quadrant acute infiltrate. CAT of the abdomen from the showing chronic pancreatitis, pseudocysts along with hepatomegaly and hepatic steatosis. On 12/14/2019 -patient is sitting in a chair by the bedside states that her back has been hurting since sitting for the past 1 hour and requesting morphine for pain.. Patient has wake body aches and left upper quadrant abdominal pain. She denies having any episodes of vomiting but nauseous at times. She denies having any chest pain or palpitations. No dysuria or hematuria. Denies having any f gildardo chills or rigors. On reviewing the vitals patient's temperature is 98.3, heart rate 100s to 110s, respiratory rate 18, blood pressure 100/76 and saturating at 94% on room air. On reviewing the patient's labs from this morning white count of 11.5, hemoglobin 8.4, MCV 109.7, sodium 129, potassium 3.2, chloride 103, bicarb 19, BUN 5, creatinine 0.59. Albumin 1.8. On 12/15/2019 -patient is still in the ICU. Patient is comfortably sitting in a chair by the bedside. No acute distress. No acute events reported by nursing staff overnight. She still complains of epigastric pain but much better compared to yesterday. She denies having any nausea or vomiting. She denies having any fevers chills or rigors. On reviewing her vitals afebrile for the past 24 hours. Slightly tachycardic, blood pressure on the lower side and saturating at 95% on room air. Patient's labs this morning show sodium of 132, potassium 3.9, chloride 109. White count 11.5, platelets of 146. Active Medications Acamprosate (Acamprosate Calcium 333 Mg Tablet.) 333 mg PO TID [facility] Stop: 12/16/19 10:00 Last Admin: 12/15/19 20:44 Dose: 333 mg Documented by: Acamprosate (Acamprosate Calcium 333 Mg Tablet.) 666 mg PO TID [facility] Enoxaparin Sodium (Enoxaparin 40 Mg/0.4 Ml Syringe) 40 mg SQ DAILY [facility] Last Admin: 12/15/19 08:03 Dose: 40 mg Documented by: Piperacillin Sod/Tazobactam (Sod 3.375 gm/ Sodium Chloride) 100 mls @ 25 mls/hr IVPB Q8HR [facility] Last Admin: 12/15/19 23:38 Dose: 25 mls/hr Documented by: Sodium Chloride (Saline 0.9%) 1,000 mls @ 50 mls/hr IV .Q20H [facility] Last Admin: 12/15/19 23:38 Dose: 50 mls/hr Documented by: Lorazepam (Lorazepam 2 Mg/Ml Inj) 1 mg IV Q2HR PRN PRN Reason: CIWA 8 or 9 Last Admin: 12/15/19 20:39 Dose: 1 mg Documented by: Lorazepam (Lorazepam 2 Mg/Ml Inj) 1 mg IV Q1HR PRN PRN Reason: CIWA 10 to 15 Last Admin: 12/11/19 18:13 Dose: 1 mg Documented by: Melatonin (Melatonin 5 Mg Tablet) 5 mg PO HS [facility] Last Admin: 12/15/19 20:44 Dose: 5 mg Documented by: Miscellaneous Information (Potassium Replacement Protocol 1 Each Misc) 1 each MISCELLANE DAILY PRN; Protocol PRN Reason: Per Protocol Morphine Sulfate (Morphine Sulfate 2 Mg/Ml Syringe) 2 mg IVP Q2HR PRN PRN Reason: Pain/Discomfort Last Admin: 12/15/19 23:55 Dose: 2 mg Documented by: Naloxone HCl (Naloxone 0.4 Mg/Ml 1 Ml Vial) 0.2 mg IV Q2M PRN PRN Reason: Opioid Reversal Nicotine (Nicotine 21mg/24hr Patch) 1 patch TRANSDERM DAILY [facility] Last Admin: 12/15/19 08:05 Dose: 1 patch Documented by: Ondansetron HCl (Ondansetron 4 Mg/2 Ml Vial) 4 mg IVP Q6HR PRN PRN Reason: Nausea And Vomiting Pantoprazole Sodium (Pantoprazole 40 Mg Tablet) 40 mg PO -BRKFST [facility] Last Admin: 12/15/19 06:53 Dose: 40 mg Documented by: Sertraline HCl (Sertraline 25 Mg Tab) 25 mg PO DAILY [facility] Last Admin: 12/15/19 13:45 Dose: 25 mg Documented by: Sodium Chloride (Sodium Chloride Tab 1 Gm Tab) 1 gm PO TID [facility] Last Admin: 12/15/19 20:44 Dose: 1 gm Documented by: Thiamine HCl (Thiamine 100 Mg Tab) 100 mg PO BID-W/MEALS [facility] Last Admin: 12/15/19 16:32 Dose: 100 mg Documented by: Tramadol HCl (Tramadol 50 Mg Tab) 100 mg PO QID PRN PRN Reason: pain Last Admin: 12/15/19 16:32 Dose: 100 mg Documented by: Objective - Vital Signs Vital signs: Vital Signs Temp 98.8 F 12/15/19 16:00 Pulse 112 H 12/15/19 16:00 Resp 19 12/15/19 16:00 BP 97/73 12/15/19 16:00 Pulse Ox 96 12/15/19 16:00 Intake & Output 12/14/19 12/15/19 12/15/19 18:59 06:59 18:59 Intake Total 725 550 500 Output Total 260 Balance 465 550 500 Intake: IV 325 550 400 Sodium Chloride 0.9% 1, 450 400 000 ml @ 50 mls/hr IV . Q20H [facility] Rx#:[id number] Sodium Chloride 0.9% 1, 225 000 ml @ 75 mls/hr IV . [id number] [facility] Rx#:[id number] zosyn 100 100 Intake, IV Titration 400 100 Amount Piperacillin-Tazobactam 3 100 100 .375 gm In Sodium Chloride 0.9% 100 ml @ 25 mls/hr IVPB Q8HR [facility] Rx# :[id number] Sodium Chloride 0.9% 1, 300 000 ml @ 50 mls/hr IV . Q20H [facility] Rx#:[id number] Output: Urine 260 Other: Voiding Method Indwelling Catheter Indwelling Catheter Indwelling Catheter # Voids 1 1 - Labs CBC & Chem 7: 12/15/19 03:43 12/15/19 03:43 Labs: Abnormal Lab Results - Last 24 Hours (Table) 12/15/19 12/15/19 Range/Units 03:43 03:43 WBC 11.5 H (3.8-10.6) k/uL RBC 2.33 L (3.80-5.40) m/uL Hgb 8.2 L (11.4-16.0) gm/dL Hct 26.2 L (34.0-46.0) % MCV 112.3 H (80.0-100.0) fL MCH 35.3 H (25.0-35.0) pg RDW 18.8 H (11.5-15.5) % Plt Count 146 L (150-450) k/uL Macrocytosis Marked A Sodium 132 L (137-145) mmol/L Chloride 109 H (98-107) mmol/L Carbon Dioxide 20 L (22-30) mmol/L BUN 6 L (7-17) mg/dL Calcium 7.4 L (8.4-10.2) mg/dL Total Bilirubin 12.0 H (0.2-1.3) mg/dL AST 131 H (14-36) U/L ALT 92 H (4-34) U/L Alkaline Phosphatase 160 H (38-126) U/L Total Protein 4.4 L (6.3-8.2) g/dL Albumin 1.9 L (3.5-5.0) g/dL Microbiology - Last 24 Hours (Table) 12/10/19 04:06 Blood Culture - Preliminary Blood No Growth after 120 hours Assessment and Plan Assessment: ASSESSMENT Alcohol withdrawal with delirium tremens Severe hyponatremia Possible sepsis with leukocytosis and tachycardia,source likely Lung Pancreatic pseudocyst Lactic acidosis Acute on chronic pancreatitis Metabolic encephalopathy secondary to above Alcoholic hepatitis Acute kidney injury Bilateral upper groundglass pulmonary opacities suspicious for covid 19 Alcoholic Liver cirrhosis Hepatitis C Gall bladder sludge H/o OSteomyeltis due to MRSA Rheumatoid arthritis PLAN:C/w Zosyn . Her LFTs have been trending down. Hyponatremia resolving. Echocardiogram done today showing ejection fraction of 55 to 60% with concentric left ventricle hypertrophy. Continue with CIWA protocol. No acute intervention planned for pseudocyst. Continue GI DVT prophylaxis. Continue with the rest of her current medication regimen. Further recommendations to follow depending on the progress of the patient. Overall prognosis is guarded. Discussed the treatment plan in detail with the patient at bedside today.She is stable to be transferred to medical floor from ICU.
[2019-12-16 05:00] LABS: ALT 88 U/L (4-34); AST 101 U/L (14-36); African American GFR (CKD) >90 (>60 ml/min/1.73 sqM); Albumin 1.9 g/dL (3.5-5.0); Alkaline Phosphatase 149 U/L (38-126); Anion Gap 4 mmol/L; Blood Urea Nitrogen 6 mg/dL (7-17); Calcium 7.4 mg/dL (8.4-10.2); Carbon Dioxide 17 mmol/L (22-30); Chloride 113 mmol/L (98-107); Glucose 80 mg/dL (74-99); Non-African American GFR(CKD) >90 (>60 ml/min/1.73 sqM); Sodium 134 mmol/L (137-145); Total Bilirubin 10.4 mg/dL (0.2-1.3); Total Protein 4.7 g/dL (6.3-8.2)
[2019-12-16 05:01] LABS: Anisocytosis Slight; HCT 27.5 % (34.0-46.0); HGB 8.5 gm/dL (11.4-16.0); Hypochromasia Moderate; MCH 35.3 pg (25.0-35.0); Macrocytosis Marked; Mean Platelet Volume 7.8; Platelet Count 145 k/uL (150-450); Poikilocytosis Moderate; RBC 2.41 m/uL (3.80-5.40); RDW 19.1 % (11.5-15.5); WBC 10.9 k/uL (3.8-10.6)
[2019-12-16 05:10] LABS: MCV 114.1 fL (80.0-100.0)
[2019-12-16] MEDS: THIAMINE 100 MG TAB PO SCH ×2 (06:09→17:19)
[2019-12-16] MEDS: PANTOPRAZOLE 40 MG TABLET PO SCH (06:09)
[2019-12-16] MEDS: MORPHINE SULFATE 2 MG/ML SYRINGE IVP PRN ×3 (06:56→20:55)
[2019-12-16] MEDS: PIPERACILLIN-TAZOBACTAM 3.375 GM in SODIUM CHLORIDE 0.9% 100 ML IVPB SCH ×2 (08:42→17:19)
[2019-12-16] MEDS: NICOTINE 21MG/24HR PATCH TRANSDERM SCH (08:42)
[2019-12-16] MEDS: ENOXAPARIN 40 MG/0.4 ML SYRINGE SQ SCH (08:43)
[2019-12-16] MEDS: ACAMPROSATE CALCIUM 333 MG TABLET.DR PO SCH ×3 (08:43→20:55)
[2019-12-16] MEDS: SERTRALINE 25 MG TAB PO SCH (08:43)
[2019-12-16] MEDS: SODIUM CHLORIDE TAB 1 GM TAB PO SCH ×2 (08:43→21:42)
[2019-12-16 10:10] VITALS: BMI 28.4
--- NOTE | 2019-12-16 12:08 | P.PN ---
Subjective Patient is seen in follow-up for hyponatremia. Sodium level up to 134 this morning. She is maintained on fluid restriction and salt tabs. Also on NS. Oral intake remains poor. No vomiting or diarrhea. Remains confused. Vital signs are stable. General: The patient appeared well nourished and normally developed. HEENT: Head exam is unremarkable. Neck is without jugular venous distension. LUNGS: Breath sounds decreased. HEART: Rate and Rhythm are regular. ABDOMEN: Soft, nontender. EXTREMITITES: No clubbing, cyanosis, or edema. Jaundice noted. Objective - Vital Signs Vital signs: Vital Signs Temp 97.5 F L 12/16/19 08:00 Pulse 111 H 12/16/19 08:00 Resp 18 12/16/19 08:00 BP 114/86 12/16/19 08:00 Pulse Ox 97 12/16/19 08:00 Intake & Output 12/15/19 12/16/19 12/16/19 18:59 06:59 18:59 Intake Total 500 3920 Output Total 425 Balance 500 3495 Weight 79.9 kg Intake: IV 400 1000 Sodium Chloride 0.9% 1, 400 800 000 ml @ 50 mls/hr IV . Q20H [facility] Rx#:[id number] zosyn 200 Intake, IV Titration 100 Amount Piperacillin-Tazobactam 3 100 .375 gm In Sodium Chloride 0.9% 100 ml @ 25 mls/hr IVPB Q8HR [facility] Rx# :[id number] Oral 2920 Output: Urine 425 Other: Voiding Method Bedside Commode Bedside Commode Bedside Commode Bedpan # Voids 1 1 # Bowel Movements 2 1 - Labs CBC & Chem 7: 12/16/19 04:28 12/16/19 04:28 Labs: Abnormal Lab Results - Last 24 Hours (Table) 12/16/19 12/16/19 Range/Units 04:28 04:28 WBC 10.9 H (3.8-10.6) k/uL RBC 2.41 L (3.80-5.40) m/uL Hgb 8.5 L (11.4-16.0) gm/dL Hct 27.5 L (34.0-46.0) % MCV 114.1 H (80.0-100.0) fL MCH 35.3 H (25.0-35.0) pg RDW 19.1 H (11.5-15.5) % Plt Count 145 L (150-450) k/uL Macrocytosis Marked A Sodium 134 L (137-145) mmol/L Chloride 113 H (98-107) mmol/L Carbon Dioxide 17 L (22-30) mmol/L BUN 6 L (7-17) mg/dL Creatinine 0.49 L (0.52-1.04) mg/dL Calcium 7.4 L (8.4-10.2) mg/dL Total Bilirubin 10.4 H (0.2-1.3) mg/dL AST 101 H (14-36) U/L ALT 88 H (4-34) U/L Alkaline Phosphatase 149 H (38-126) U/L Total Protein 4.7 L (6.3-8.2) g/dL Albumin 1.9 L (3.5-5.0) g/dL Microbiology - Last 24 Hours (Table) 12/10/19 04:06 Blood Culture - Final Blood No Growth after 144 hours Assessment and Plan Plan: Assessment: 1. Hypovolemic hyponatremia with component of poor solute intake. Improving with IV hydration and salt tabs. Sodium level 134 this morning. TSH normal. Cortisol ok. 2. Developing pneumonia maintained on antibiotics. 3. Acute on chronic liver disease due to alcohol abuse and history of hepatitis C. 4. Acute on chronic alcoholic pancreatitis with pseudocyst. GI following. Follow-up imaging to be done outpatient. 5. Anemia status post packed red cells related to underlying liver disease. 6. Hypomagnesemia from poor intake. Better post replacement. 7. Ejection fraction preserved. Mild to moderate MR noted. 8. Hypokalemia from poor intake. Improved post replacement. 9. Metabolic acidosis secondary to IV fluids as well as compensation for chronic respiratory alkalosis due to underlying liver disease. Plan: Hep-Lock IV fluids. Decrease salt tabs to 1 g twice daily. Encouraged oral intake, particularly protein. Add oral bicarbonate.
--- NOTE | 2019-12-16 12:29 | P.PN ---
Progress Note - Text Progress Note Date: 12/16/19 Interval History: Patient was seen today for psychiatric follow-up regarding patient's depression and anxiety. There is taking care patient states that there were no overnight complaints and patient is continuing to be on CIWA protocol and receiving when necessary Ativan for anxiety. Patient was seen at the bedside prior to engaging with physical therapy for exercise today. She appears to be more awake however continues to endorse anxiety and mild depression. She states that she had a "r ough time" sleeping last night. She mainly complained of her back pain and also other bodily discomforts and was somatically preoccupied. She was agreeable to have her medications increased. Manufacturing Electrician spoke with patient again about her medications and patient asked for another medication for anxiety. She claims that her appetite has been mildly improving. At this time patient denies any suicidal or homical ideations, intent or plan. Patient denies any auditory, visual hallucinations and denies any paranoia or delusions. Patient denies any side effects from the medications and has been compliant with meds. Mental Status Exam: General Appearance: Patient appears to be stated age is alert, less tearful today, and attempts to be cooperative. Patient appears to be debilitated and weak. She appears to be jaundiced. Patient appears to have mildly improving hygiene and grooming wearing hospital gown with fair eye contact. Behavior: Patient is calmly lying in bed without any agitated behavior. Attempts to be cooperative. Speech: Patient's speech is fluent and nonpressured. Mood/Affect: Patient reports their mood is continuing to endorse mild depression and anxiety, affect is congruent and less tearful today Suicidality/Homicidality: Patient denies having any suicidal or homicidal ideation intent or plan. Perceptions: Patient denies any visual hallucinations and denies any auditory hallucinations Though content/process: There is no evidence of any delusional thought content and thought process is linear and goal-directed. Not endorsing any delusions or paranoia. Somatically preoccupied. Memory and concentration: AOX3, grossly intact for the purposes of this session Judgment and insight: Chronically poor, improving mildly Assessment Major depressive disorder, mild Anxiety disorder unspecified, rule out PTSD Alcohol use disorder, severe, currently in withdrawal Cannabis use disorder, mild Nicotine dependence Plan: -At this time patient DOES NOT meet criteria for inpatient psychiatric admission. -Would recommend the following medication changes/additions: Increased Zoloft 50 mg daily for mood/anxiety. Increased melatonin 10 mg daily at bedtime for insomnia. Continue with acamprosate 666 mg 3 times a day starting tomorrow for alcohol cravings. Added BuSpar 7.5 mg twice a day for anxiety. -Continue with CIWA protocol with when necessary Ativan for alcohol withdrawal. Consider decreasing frequency and dose within the next 1-2 days. -Continue with treatment of underlying medical condition and continue to work with PT/OT to improve mobility and functioning. -garnett room worker to provide patient with outpatient mental health/psychiatry resources for appropriate follow up upon discharge -Manufacturing Electrician spoke with patient about substance abuse and the harmful effects on medical and mental health, patient verbally understood and agreed. -garnett room worker to provide patient substance use treatment resources including AA/NA meetings in the community. Patient declined inpatient rehab once again. -Communicated plan to patient's nurse -Will continue to follow along -Please contact with any questions.
[2019-12-16] MEDS: SODIUM BICARBONATE TAB 650 MG TAB PO SCH ×2 (14:04→20:54)
[2019-12-16] MEDS: busPIRone HCl 5 MG TAB PO SCH ×2 (14:04→20:53)
--- NOTE | 2019-12-16 17:11 | P.PN ---
Subjective Progress Note Date: 12/16/19 Principal diagnosis: Hyponatremia/hypovolemic in nature. 12/14/2019, the patient's sodium level is up to 129. The bilirubin level is also down to 11.8. She is doing well. Potassium level is being replaced. She remains on normal saline at rate of 75 mL an hour. She is awake and alert pH is lethargic. She is complaining of some vague diffuse body aches and abdominal pain. She is having some episodic nausea. No emesis. No chest pain. No fever. No chills. The chest x-ray at shown bilateral pulmonary infiltrates and today's chest x-ray essentially stable in terms of the findings and the patient was already started on possible aspiration pneumonia coverage with IV Zosyn. This may be also a manifestation of an acute lung injury secondary to pancreatitis. The patient had mild elevation in the pro-Level Which Is in 0.62. As Mentioned, Bilirubin Is down to 11.8. The AST and ALT Are down to 149 and 102 Respectively and Alkaline Phosphatase Is 147. Patient was reevaluated today on 12/15/19, patient remains in the ICU, her sodium has been correcting nicely. Patient is sedated, remains on the CIWA protocol. She has a sitter at bedside. Sleepy but arousable. And does not seem to be in any form of respiratory distress. She is on room air, O2 saturations 95%. And her IV fluid is 0.9 normal saline at 50 mL per hour. CBC is relatively normal however hemoglobin is 8.2. Sodium is 132 today. Renal profile is normal. Liver enzymes are noted to be a bit elevated/elevated bilirubin and elevated transaminases. This is related to her history of chronic alcohol liver disease Patient was seen today on 12/16/19, remains in the ICU, patient is on room air, she is on 0.9 normal saline at 50 mL/h, patient is doing great, and in no distress. Objective - Vital Signs Vital signs: Vital Signs Temp 97.6 F 12/16/19 15:00 Pulse 101 H 12/16/19 15:00 Resp 16 12/16/19 15:00 BP 99/69 12/16/19 15:00 Pulse Ox 95 12/16/19 15:00 Intake & Output 11/02/20 11/03/20 11/03/20 18:59 06:59 18:59 Intake Total 500 3920 1350 Output Total 425 Balance 500 3495 1350 Weight 79.9 kg Intake: IV 400 1000 350 Sodium Chloride 0.9% 1, 400 800 350 000 ml @ 50 mls/hr IV . Q20H [facility] Rx#:[id number] zosyn 200 Intake, IV Titration 100 100 Amount Piperacillin-Tazobactam 3 100 100 .375 gm In Sodium Chloride 0.9% 100 ml @ 25 mls/hr IVPB Q8HR [facility] Rx# :[id number] Oral 2920 500 Lipid 400 Sodium Chloride 0.9% 1, 400 000 ml @ 50 mls/hr IV . Q20H [facility] Rx#:[id number] Output: Urine 425 Other: Voiding Method Bedside Commode Bedside Commode Bedside Commode Bedpan # Voids 1 1 1 # Bowel Movements 2 1 - Exam Physical Exam: Revealed 44-year-old female in no distress. Head: Atraumatic, normocephalic. HEENT:[Neck is supple.] [No neck masses.] [No thyromegaly.] [No JVD.] Positive icterus. There, EOMI. Chest: [Clear throughout, no crackles, no rhonchi, no wheezes.] Cardiac Exam: [Normal S1 and S2, no S3 gallop, no murmur.] Abdomen: [Soft, nontender, no megaly, no rebound, no guarding, normal bowel sounds.] Extremities: [No clubbing, trace of bipedal edema, no cyanosis.] Neurological Exam: Sleepy, but arousable, follows simple instructions, no gross focal deficit otherwise. Psychiatric: Depressed mood, blunt affect, normal mental status examination. Skin: No rashes. - Labs CBC & Chem 7: 12/16/19 04:28 12/16/19 04:28 Labs: Abnormal Lab Results - Last 24 Hours (Table) 12/16/19 12/16/19 Range/Units 04:28 04:28 WBC 10.9 H (3.8-10.6) k/uL RBC 2.41 L (3.80-5.40) m/uL Hgb 8.5 L (11.4-16.0) gm/dL Hct 27.5 L (34.0-46.0) % MCV 114.1 H (80.0-100.0) fL MCH 35.3 H (25.0-35.0) pg RDW 19.1 H (11.5-15.5) % Plt Count 145 L (150-450) k/uL Macrocytosis Marked A Sodium 134 L (137-145) mmol/L Chloride 113 H (98-107) mmol/L Carbon Dioxide 17 L (22-30) mmol/L BUN 6 L (7-17) mg/dL Creatinine 0.49 L (0.52-1.04) mg/dL Calcium 7.4 L (8.4-10.2) mg/dL Total Bilirubin 10.4 H (0.2-1.3) mg/dL AST 101 H (14-36) U/L ALT 88 H (4-34) U/L Alkaline Phosphatase 149 H (38-126) U/L Total Protein 4.7 L (6.3-8.2) g/dL Albumin 1.9 L (3.5-5.0) g/dL Microbiology - Last 24 Hours (Table) 12/10/19 04:06 Blood Culture - Final Blood No Growth after 144 hours Assessment and Plan Assessment: Impression: Acute hypovolemic hyponatremia. Acute alcoholic hepatitis. Chronic alcoholism and previous signs of delirium tremens on presentation. Presently resolved. Acute on chronic pancreatitis. Pancreatic pseudocyst secondary to chronic pancreatitis. Acute kidney injury, resolved. History of rheumatoid arthritis. Questionable history of lupus. 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 History of bipolar disorder. Tobacco dependence syndrome. Acute bilateral pulmonary infiltrates, possible aspiration pneumonia, remains on Zosyn Recommendation: Continue present supportive care measures. Consider transferring the patient out of the ICU today to a regular medical floor. Continue close follow-up for potential alcohol withdrawal. Continue antibiotics empirically. Continue GI and DVT prophylaxis. Continue bedside sitter. Will follow as needed Time with Patient: Less than 30
[2019-12-16] MEDS: traMADol 50 MG TAB PO PRN (17:20)
--- NOTE | 2019-12-16 19:43 | P.PN ---
Subjective This is a pleasant 44 years old female with multiple medical problems including reflux esophagitis per EGD done on 06/20/2019. Pancreatic pseudocyst. MRI done on 06/24/2019, alcoholic liver disease with cirrhosis, multiple episodes of pancreatitis. Chronic mild hyponatremia, alcohol abuse, seizure disorder, rheumatoid arthritis and fibromyalgia, degenerative disc disease, lupus, chronic pancreatitis Presents because of fall and abdominal pain. Patient currently in the ICU, she is agitated and pulling IV tube and because of that there is a sitter at bedside, however when I went to see the patient she was lying, in bed, drowsy, she opens eyes to take Tylenol and verbalized to lyse however she goes back to sleep right away. She could not answer my questions however on examination she has abdominal tenderness and she told me she has some abdominal pain. However her abdomen looks soft Her current she will score is 15-17 Blood pressure is low normal 93/62-112/95, she's tachycardic around 120. Labs showing severe hyponatremia at 108. Leukocytosis at 30.7. Hemoglobin 10.2. Platelets slightly low at 122. INR is 1.5. Creatinine is elevated at 1.5. Lactic acid is significantly elevated at 11.2 and 10.5. Urinalysis showing 1+ protein 2+ bilirubin and WBCs 15 high. Serum alcohol less than 10. AST 59, ALT 147 Chest x-ray: No acute cardiopulmonary process. EKG shows sinus tachycardia at [address]-T changes. CT of the head and neck: No acute intracranial process, no acute fracture or subluxation. Bilateral upper groundglass opacity in the right more than left upper lobe suspicious for 12/26/2019 Patient is doing well clinically, she isn't moving out from the ICU to the general medical floor today. She does not complain from chest pain or dyspnea, however she has chronic abdominal pain related to her alcoholic pancreatitis and hepatitis, hepatitis panel was negative except for positive IgG for hep C, patient is starting diet well. She still feels generally weak, physical therapy recommended subacute rehab, geriatric social work professor consulted WBC is trending down to 10.9 K, hemoglobin is stable at 8.3, she received wanted to rule out during hospitalization but her hemoglobin has been stable, platelet is moderately low, so abdomen. 134, liver enzymes mildly elevated but trending down. Psychiatry input is appreciated, Zoloft and melatonin were increased. BuSpar is added. Possible discharge in 24-48 hours if she keeps improved Objective - Vital Signs Vital signs: Vital Signs Temp 97.6 F 12/16/19 15:00 Pulse 101 H 12/16/19 15:00 Resp 16 12/16/19 15:00 BP 99/69 12/16/19 15:00 Pulse Ox 95 12/16/19 15:00 Intake & Output 12/16/19 12/16/19 12/17/19 06:59 18:59 06:59 Intake Total 3920 1350 Output Total 425 Balance 3495 1350 Weight 79.9 kg Intake: IV 1000 350 Sodium Chloride 0.9% 1, 800 350 000 ml @ 50 mls/hr IV . Q20H [facility] Rx#:[id number] zosyn 200 Intake, IV Titration 100 Amount Piperacillin-Tazobactam 3 100 .375 gm In Sodium Chloride 0.9% 100 ml @ 25 mls/hr IVPB Q8HR [facility] Rx# :[id number] Oral 2920 500 Lipid 400 Sodium Chloride 0.9% 1, 400 000 ml @ 50 mls/hr IV . Q20H [facility] Rx#:[id number] Output: Urine 425 Other: Voiding Method Bedside Commode Bedside Commode Bedpan # Voids 1 2 # Bowel Movements 1 1 - Exam GENERAL: The patient is fully awake and oriented, calm, not in distress HEENT: Pupils are round and equally reacting to light. EOMI. No scleral icterus. No conjunctival pallor. Normocephalic, atraumatic. No pharyngeal erythema. No thyromegaly. CARDIOVASCULAR: S1 and S2 present. No murmurs, rubs, or gallops. PULMONARY: Chest is clear to auscultation, no wheezing or crackles. -ABDOMEN: Soft, less abdominal tenderness with no rebound tenderness or guarding, nondistended, normoactive bowel sounds. No palpable organomegaly. MUSCULOSKELETAL: No joint swelling or deformity. EXTREMITIES: No cyanosis, clubbing, or pedal edema. NEUROLOGICAL: Gross neurological examination did not reveal any focal deficits. SKIN: No rashes. no petechiae. - Labs CBC & Chem 7: 12/16/19 04:28 12/16/19 04:28 Labs: Abnormal Lab Results - Last 24 Hours (Table) 12/16/19 12/16/19 Range/Units 04:28 04:28 WBC 10.9 H (3.8-10.6) k/uL RBC 2.41 L (3.80-5.40) m/uL Hgb 8.5 L (11.4-16.0) gm/dL Hct 27.5 L (34.0-46.0) % MCV 114.1 H (80.0-100.0) fL MCH 35.3 H (25.0-35.0) pg RDW 19.1 H (11.5-15.5) % Plt Count 145 L (150-450) k/uL Macrocytosis Marked A Sodium 134 L (137-145) mmol/L Chloride 113 H (98-107) mmol/L Carbon Dioxide 17 L (22-30) mmol/L BUN 6 L (7-17) mg/dL Creatinine 0.49 L (0.52-1.04) mg/dL Calcium 7.4 L (8.4-10.2) mg/dL Total Bilirubin 10.4 H (0.2-1.3) mg/dL AST 101 H (14-36) U/L ALT 88 H (4-34) U/L Alkaline Phosphatase 149 H (38-126) U/L Total Protein 4.7 L (6.3-8.2) g/dL Albumin 1.9 L (3.5-5.0) g/dL Microbiology - Last 24 Hours (Table) 12/10/19 04:06 Blood Culture - Final Blood No Growth after 144 hours Assessment and Plan Assessment: Alcohol withdrawal with delirium tremens Severe hyponatremia, improved Possible sepsis with leukocytosis and tachycardia,. Improved Pancreatic pseudocyst x2 Elevated lactic acid , improved Acute on chronic pancreatitis, staple Metabolic encephalopathy secondary to above. Improved Alcoholic hepatitis, improved acute kidney injury, improved Alcohol abuse and at-risk of alcohol withdrawal Bilateral upper groundglass pulmonary opacities suspicious for covid 19 Liver cirrhosis Plan: This is a pleasant 44 years old female with multiple medical problems as above including hyponatremia, pancreatitis/hepatitis, alcohol abuse. Patient can be moved out of the ICU to the general medical floor, pulmonary team will see the p atient on an as-needed basis. Psychiatry input is appreciated and we'll follow the recommendation, Zoloft is increased as well as melatonin. BuSpar is added. PT/OT recommended subacute rehab, geriatric social work professor consulted continue with [facility] protocol and same Labs and medication were reviewed.. Continue same treatment. Continue with symptomatic treatment. Resume home medication. Monitor lytes and vitals. DVT and GI prophylaxis. Further recommendationsas per clinical course of the patient DVT prophylaxis: Subcutaneous heparin GI Prophylaxis: Ppi Possible discharge in 24-48 hours if she keeps improvement
[2019-12-16] MEDS ORDERED: MELATONIN 5 MG TABLET PO SCH (21:00)
[2019-12-17] MEDS: PIPERACILLIN-TAZOBACTAM 3.375 GM in SODIUM CHLORIDE 0.9% 100 ML IVPB SCH ×2 (00:38→07:52)
[2019-12-17] MEDS: traMADol 50 MG TAB PO PRN ×2 (06:08→11:49)
[2019-12-17 06:13] LABS: Anisocytosis Slight; HCT 25.1 % (34.0-46.0); HGB 7.9 gm/dL (11.4-16.0); Hypochromasia Marked; MCH 35.8 pg (25.0-35.0); MCHC 31.5 g/dL (31.0-37.0); MCV 113.7 fL (80.0-100.0); Macrocytosis Marked; Mean Platelet Volume 7.9; Platelet Count 143 k/uL (150-450); Poikilocytosis Moderate; RBC 2.21 m/uL (3.80-5.40); RDW 18.5 % (11.5-15.5)
[2019-12-17 06:59] LABS: Band Neutrophils % 11 %; Lymphocytes # (M) 1.16 k/uL (1.0-4.8); Metamyelocytes # (M) 0.08 k/uL (0); Metamyelocytes % 1 %; Monocytes # (M) 0.42 k/uL (0-1.0); Myelocytes # (M) 0.25 k/uL (0); Myelocytes % 3 %; Neutrophils % (M) 66 %; Nucleated Red Blood Cells 1 /100 WBC (0-0); Polychromasia Present; Total Cells Counted 200; WBC 8.3 k/uL (3.8-10.6)
[2019-12-17 07:23] VITALS: BP 109/74; PULSE 100; RESP 17; TEMP 97.5
[2019-12-17] MEDS: NICOTINE 21MG/24HR PATCH TRANSDERM SCH (07:50)
[2019-12-17] MEDS: SODIUM CHLORIDE TAB 1 GM TAB PO SCH (07:51)
[2019-12-17] MEDS: THIAMINE 100 MG TAB PO SCH (07:51)
[2019-12-17] MEDS: ACAMPROSATE CALCIUM 333 MG TABLET.DR PO SCH (07:51)
[2019-12-17] MEDS: busPIRone HCl 5 MG TAB PO SCH (07:51)
[2019-12-17] MEDS: PANTOPRAZOLE 40 MG TABLET PO SCH (07:51)
[2019-12-17] MEDS: SODIUM BICARBONATE TAB 650 MG TAB PO SCH (07:52)
[2019-12-17] MEDS: ENOXAPARIN 40 MG/0.4 ML SYRINGE SQ SCH (07:52)
[2019-12-17] MEDS ORDERED: SERTRALINE 50 MG TAB PO SCH (09:00)
--- NOTE | 2019-12-17 09:12 | P.PN ---
Subjective Progress Note Date: 12/16/19 Principal diagnosis: Alcoholic hepatitis, elevated liver enzymes, chronic pancreatitis, pancreatic pseudocyst Lying in bed, tolerating diet but reports poor oral intake. Still reporting abdominal pain. Objective - Vital Signs Vital signs: Vital Signs Temp 97.8 F 12/16/19 12:00 Pulse 107 H 12/16/19 12:00 Resp 21 12/16/19 12:00 BP 91/78 12/16/19 12:00 Pulse Ox 96 12/16/19 12:00 Intake & Output 12/15/19 12/16/19 12/16/19 18:59 06:59 18:59 Intake Total 500 3920 950 Output Total 425 Balance 500 3495 950 Weight 79.9 kg Intake: IV 400 1000 350 Sodium Chloride 0.9% 1, 400 800 350 000 ml @ 50 mls/hr IV . Q20H [facility] Rx#:[id number] zosyn 200 Intake, IV Titration 100 100 Amount Piperacillin-Tazobactam 3 100 100 .375 gm In Sodium Chloride 0.9% 100 ml @ 25 mls/hr IVPB Q8HR [facility] Rx# :[id number] Oral 2920 500 Output: Urine 425 Other: Voiding Method Bedside Commode Bedside Commode Bedside Commode Bedpan # Voids 1 1 1 # Bowel Movements 2 1 - Exam On physical examination, patient appears comfortable in no apparent distress. HEAD: Normocephalic, atraumatic. EYES: Scleral icterus. No conjunctival injection. MOUTH: No lesions, tongue midline. NECK: Trachea midline, no gross abnormalities. ABDOMEN: Soft, mildly tender. Bowel sounds are positive. No organomegaly. No guarding or rigidity. EXTREMITIES: No rashes, pallor or jaundice noted. SKIN: No rashes, jaundice. NEUROLOGIC: Alert and oriented x3. No focal deficits. - Labs CBC & Chem 7: 12/17/19 05:28 12/16/19 04:28 Labs: Abnormal Lab Results - Last 24 Hours (Table) 12/16/19 12/16/19 Range/Units 04:28 04:28 WBC 10.9 H (3.8-10.6) k/uL RBC 2.41 L (3.80-5.40) m/uL Hgb 8.5 L (11.4-16.0) gm/dL Hct 27.5 L (34.0-46.0) % MCV 114.1 H (80.0-100.0) fL MCH 35.3 H (25.0-35.0) pg RDW 19.1 H (11.5-15.5) % Plt Count 145 L (150-450) k/uL Macrocytosis Marked A Sodium 134 L (137-145) mmol/L Chloride 113 H (98-107) mmol/L Carbon Dioxide 17 L (22-30) mmol/L BUN 6 L (7-17) mg/dL Creatinine 0.49 L (0.52-1.04) mg/dL Calcium 7.4 L (8.4-10.2) mg/dL Total Bilirubin 10.4 H (0.2-1.3) mg/dL AST 101 H (14-36) U/L ALT 88 H (4-34) U/L Alkaline Phosphatase 149 H (38-126) U/L Total Protein 4.7 L (6.3-8.2) g/dL Albumin 1.9 L (3.5-5.0) g/dL Microbiology - Last 24 Hours (Table) 12/10/19 04:06 Blood Culture - Final Blood No Growth after 144 hours Assessment and Plan (1) Chronic pancreatitis Narrative/Plan: 44-year-old female with a history of chronic alcoholic pancreatitis with pseudocyst formation. CT scan on admission showed evidence of chronic dill creatitis with a pseudocyst which was slightly increased in size from prior visit. Current Visit: No Status: Acute Code(s): K86.1 - OTHER CHRONIC PANCREATITIS SNOMED Code(s): 872769137 (2) Alcoholic liver disease Current Visit: Yes Status: Acute Code(s): K70.9 - ALCOHOLIC LIVER DISEASE, UNSPECIFIED SNOMED Code(s): 14234343 (3) Hepatitis C antibody test positive Current Visit: Yes Status: Acute Code(s): R76.8 - OTHER SPECIFIED ABNORMAL IMMUNOLOGICAL FINDINGS IN SERUM SNOMED Code(s): 967580388 (4) Hyperbilirubinemia Narrative/Plan: Patient has a known history of alcohol abuse and currently suspicion for an acute alcoholic hepatitis superimposed on chronic liver disease. Evaluation with imaging is not been suggestive of biliary obstruction with no dilation noted. Current Visit: Yes Status: Acute Code(s): E80.6 - OTHER DISORDERS OF BILIRUBIN METABOLISM SNOMED Code(s): 61296842 (5) Pancreatic cyst Current Visit: No Status: Acute Code(s): K86.2 - CYST OF PANCREAS SNOMED Code(s): 19119791 Plan: Supportive care Okay for diet, suggested small frequent meals Continue Protonix twice daily Continue to monitor for any signs or symptoms of GI bleed Continue to monitor CBC, BMP, LFTs Hepatitis C virus undetectable, likely indicative of a cleared infection Thank you for allowing us to participate in the care of the patient
[2019-12-17 10:13] LABS: African American GFR (CKD) 146.8 (60.0-200.0); Albumin/Globulin Ratio 1.05 (1.60-3.17); Anion Gap 9.8 mmol/L (4.00-12.00); Calcium 6.8 mg/dL (8.7-10.3); Carbon Dioxide 18.2 mmol/L (21.6-31.8); Globulin 1.9 g/dL (1.6-3.3); Non-African American GFR(CKD) 126.7 (60.0-200.0); Potassium 3.6 mmol/L (3.5-5.5); Total Bilirubin 8.2 mg/dL (0.3-1.2); Total Protein 3.9 g/dL (6.2-8.2)
--- NOTE | 2019-12-17 11:52 | CDI ---
Documentation Clarification Form Date: 12/17/2019 11:23:54 AM From: Jelena Cerda RN CCDS Admit Date: 12/10/2019 06:04:00 AM Patient Name: Radha Hobson Visit Number: [id number] Discharge Date: ATTENTION: The Clinical Documentation Specialists (CDI) and [facility] Coding Staff appreciate your assistance in clarifying documentation. Please respond to the clarification below the line at the bottom and electronically sign. The CDI & [facility] Coding staff will review the response and follow-up if needed. Please note: Queries are made part of the Legal Health Record. If you have any questions, please contact the author of this message via ITS. Dr. Meraz E Sheet Coding guidelines do not allow coding professionals to code based on laboratory results; therefore, your input is requested. The COVID-19 test obtained on 12/09 was reported as Negative on 12/11 in the labatory results. Per the H&P 12/09 and subsequent progress notes 12/01 through 12/15: Suspicious for COVID 19 Patient history/risk factors: 44-year-old female presents to the ED with abdominal pain. Medical history: MD; RA; Alcohol dependence; Lupus and chronic pancreatitis Clinical Indicators: 12/09 CT Head and Neck Peripherally based ground glass opacity in the right more than left upper lobe. Suspicious for COVID 19 / infectious / inflammatory process. 12/09 Vital signs on admission: B/P 107/80; HR 117; Temp 97.8 F Oral; RR 18; SpO2 100% room air 12/09 WBC 27.5 Treatment: 12/09 Rocephin Iv Daily d/c 12/11; 12/12 Piperacillin Ivpb Q 8 Hrs; 12/09 0.9NS 2L bolus In order to capture the severity of condition, please clarify the COVID-19 status: COVID-19 ruled out False negative, treating for COVID-19 based on these clinical indicators: Other, please specify: (Last Form Revision: April 2019) I DO NOT SUSPECT COVID FOR THIS PT MTDD
--- NOTE | 2019-12-17 12:52 | P.PN ---
Subjective Progress Note Date: 12/17/19 Principal diagnosis: Pancreatitis, EtOH intoxication, liver disease Was seen sitting up at the bedside with physical therapy this morning. She states she still has some abdominal tenderness. She denies any nausea or vomiting at this time. She is tolerating small amounts of her meals, she is getting Ensure 3 times a day. Her LFTs are improving. Objective - Vital Signs Vital signs: Vital Signs Temp 97.5 F L 12/17/19 07:00 Pulse 100 12/17/19 07:00 Resp 17 12/17/19 07:00 BP 109/74 12/17/19 07:00 Pulse Ox 94 L 12/17/19 07:00 Intake & Output 12/16/19 12/17/19 12/17/19 18:59 06:59 18:59 Intake Total 1350 450 Balance 1350 450 Weight 79.9 kg Intake: IV 350 Sodium Chloride 0.9% 1, 350 000 ml @ 50 mls/hr IV . Q20H [facility] Rx#:[id number] Intake, IV Titration 100 250 Amount Piperacillin-Tazobactam 3 100 100 .375 gm In Sodium Chloride 0.9% 100 ml @ 25 mls/hr IVPB Q8HR [facility] Rx# :[id number] Sodium Chloride 0.9% 1, 150 000 ml @ 50 mls/hr IV . Q20H [facility] Rx#:[id number] Oral 500 200 Lipid 400 Sodium Chloride 0.9% 1, 400 000 ml @ 50 mls/hr IV . Q20H [facility]A Rx#:[id number] Other: Voiding Method Bedside Commode Bedside Commode Bedside Commode # Voids 2 1 1 # Bowel Movements 1 - Exam General appearance: The patient is alert, oriented, in no acute distress. HET: Head is normocephalic and atraumatic. Conjunctiva pink. Sclera icteric. Neck: Supple without lymphadenopathy. Abdomen: Soft, diffuse tenderness, nondistended with bowel sounds. No guarding or rigidity. Skin: Jaundiced Extremities: Normal skin color and turgor. No pedal edema Neurological: No focal deficits. Alert and oriented 3. - Labs CBC & Chem 7: 12/17/19 05:28 12/17/19 05:28 Labs: Abnormal Lab Results - Last 24 Hours (Table) 12/17/19 12/17/19 Range/Units 05:28 05:28 RBC 2.21 L (3.80-5.40) m/uL Hgb 7.9 L (11.4-16.0) gm/dL Hct 25.1 L (34.0-46.0) % MCV 113.7 H (80.0-100.0) fL MCH 35.8 H (25.0-35.0) pg RDW 18.5 H (11.5-15.5) % Plt Count 143 L (150-450) k/uL Metamyelocytes # (Man) 0.08 H (0) k/uL Myelocytes # (Manual) 0.25 H (0) k/uL Nucleated RBCs 1 H (0-0) /100 WBC Macrocytosis Marked A Carbon Dioxide 18.2 L (21.6-31.8) mmol/L BUN 8.0 L (9.0-27.0) mg/dL Creatinine 0.4 L (0.6-1.5) mg/dL Calcium 6.8 L (8.7-10.3) mg/dL Total Bilirubin 8.2 H (0.3-1.2) mg/dL AST 86 H (13-35) U/L ALT 82 H (8-44) U/L Alkaline Phosphatase 134 H (41-126) U/L Total Protein 3.9 L (6.2-8.2) g/dL Albumin 2.00 L (3.80-4.90) g/dL Albumin/Globulin Ratio 1.05 L (1.60-3.17) g/dL Assessment and Plan (1) Chronic pancreatitis Narrative/Plan: 44-year-old female with history of chronic alcoholic pancreatitis with pseudocyst formation. Computed tomography scan on admission showed evidence of chronic pancreatitis with a pseudocyst which was slightly increased in size from prior visit. Current Visit: No Status: Acute Code(s): K86.1 - OTHER CHRONIC PANCREATITIS SNOMED Code(s): 569933378 (2) Alcoholic liver disease Narrative/Plan: Acute alcoholic hepatitis superimposed on underlying alcoholic cirrhosis with decompensation. Patient's bilirubin on admission 10.9, with AST more than ALT consistent with alcoholic liver disease. Patient has a history of heavy alcohol abuse and multiple hospitalizations in the past. There is unlikely biliary obstruction, as there is no CBD dilation. Current Visit: Yes Status: Acute Code(s): K70.9 - ALCOHOLIC LIVER DISEASE, UNSPECIFIED SNOMED Code(s): 55151128 (3) Chronic anemia Narrative/Plan: Has a history of chronic anemia likely related to liver disease. Iron studies ordered. It is status post 2 units of packed red blood cells. Current Visit: No Status: Acute Code(s): D64.9 - ANEMIA, UNSPECIFIED SNOMED Code(s): 413260586 (4) Pancreatic cyst Narrative/Plan: We'll continue to follow pancreatic cysts. Patient will need repeat CT or MRI in 4-6 weeks. Alcohol abstinence discuss with patient, as this will improve the size of pancreatic cyst Current Visit: No Status: Acute Code(s): K86.2 - CYST OF PANCREAS SNOMED Code(s): 69634493 (5) Hepatitis C antibody test positive Narrative/Plan: Acute hepatitis panel completed. Patient positive for hepatitis C antibody. Hepatitis C RNA quantitative and genotype ordered. Current Visit: Yes Status: Acute Code(s): R76.8 - OTHER SPECIFIED ABNORMAL IMMUNOLOGICAL FINDINGS IN SERUM SNOMED Code(s): 749515879 (6) Hyperbilirubinemia Narrative/Plan: Has a known history of alcohol abuse and currently suspicious for an acute alcoholic hepatitis superimposed on chronic liver disease. Evaluation with imaging has not been suggestive of a biliary obstruction with no dilation noted. Current Visit: Yes Status: Acute Code(s): E80.6 - OTHER DISORDERS OF BILIRUBIN METABOLISM SNOMED Code(s): 48915383 Plan: Supportive care Okay for diet, suggest small frequent meals Protonix 40 mg twice daily Monitor for signs or symptoms of GI bleed Continue to monitor daily CBC, BMP, LFTs Hepatitis C virus undetectable likely indicative of a cleared infection Complete alcohol cessation Patient may be discharged home, recommend follow-up as an outpatient with gastroenterology The impression and plan of care has been dictated as directed. Dr. Shay I performed a history and examination of this patient, discussed the same with the dictator. I agree with the dictator's note ,documented as a scribe. Any additional findings or plans will be noted.
--- NOTE | 2019-12-17 12:53 | PN ---
PROGRESS NOTE Patient is seen for followup for hyponatremia and acute kidney injury. Her renal function has improved, creatinine now at 0.4 mg/dL. Sodium has improved as well to 136 today. Overall, patient is comfortable. She denies any significant complaints. She is upset with episodes of crying. PHYSICAL EXAMINATION: On examination today, blood pressure 109/74, heart rate 100 per minute, she is afebrile. Examination of the heart S1, S2. Examination of the lungs, bilateral breath sounds are heard. Abdomen is soft, nontender. Examination of the lower extremities shows edema 1+ bilaterally. SUPPORT STAFF exam grossly intact. LABS: Show sodium 136, potassium 3.6, chloride 108, CO2 is 18.2, BUN 8, serum creatinine 0.4 mg/dL. ASSESSMENT: 1. Acute kidney injury, prerenal, currently resolved. 2. Hyponatremia which was hypovolemic, now improved. 3. Acute pancreatitis, slowly tolerating oral intake. 4. Pneumonia, maintained on antibiotics. 5. Status post packed RBCs transfusion. 6. Acute on chronic liver disease secondary to alcohol abuse and hepatitis C. PLAN: Decrease sodium chloride tabs. Continue with the sodium bicarb and repeat labs in a.m. MMODL / IJN: [id number] /
--- NOTE | 2019-12-17 13:15 | P.PN ---
Progress Note - Text Progress Note Date: 12/17/19 Interval History: Patient was seen today for psychiatric follow-up regarding patient's depression and anxiety along with her alcohol abuse. Patient claims that she is feeling mildly better in terms of her mood and anxiety. She was attempting to eat some soup this morning with her at her bedside. She claims that her appetite has been mildly improving. She claims that she is hopeful for the acamprosate to help her stop drinking. She claims that she had a rough sleep last night due to pain which has been ongoing. She also complained of some abdominal pain and states that "it's my pancreas acting up". She mainly complained of her back pain and also other bodily discomforts and was somatically preoccupied. At this time patient denies any suicidal or homical ideations, intent or plan. Patient denies any auditory, visual hallucinations and denies any paranoia or delusions. Patient denies any side effects from the medications and has been compliant with meds. Mental Status Exam: General Appearance: Patient appears to be stated age is alert, less tearful today, and attempts to be cooperative. Patient appears to be debilitated and weak. She appears to be jaundiced. Patient appears to have improving hygiene and grooming wearing hospital gown with fair eye contact. Behavior: Patient is sitting in her chair without any agitated behavior. Attempts to be cooperative. Speech: Patient's speech is fluent and nonpressured. Mood/Affect: Patient reports their mood is improving mildly, affect is congruent and less tearful today Suicidality/Homicidality: Patient denies having any suicidal or homicidal ideation intent or plan. Perceptions: Patient denies any visual hallucinations and denies any auditory hallucinations Though content/process: There is no evidence of any delusional thought content and thought process is linear and goal-directed. Not endorsing any delusions or paranoia. Somatically preoccupied. Memory and concentration: AOX3, grossly intact for the purposes of this session Judgment and insight: Chronically poor, improving mildly Assessment Major depressive disorder, mild Anxiety disorder unspecified, rule out PTSD Alcohol use disorder, severe, currently in withdrawal Cannabis use disorder, mild Nicotine dependence Plan: -At this time patient DOES NOT meet criteria for inpatient psychiatric admission. -Would recommend the following medication changes/additions: Continue with Zoloft 50 mg daily for mood/anxiety. Continue with melatonin 10 mg daily at bedtime for insomnia. Continue with acamprosate 666 mg 3 times a day starting tomorrow for alcohol cravings. Increased BuSpar 15 mg twice a day for anxiety. -Continue with CIWA protocol with when necessary Ativan for alcohol withdrawal. Consider discontinuing either today or tomorrow. Patient may require a small dose of Ativan 0.5 mg daily when necessary for anxiety when she is discharged. -Continue with treatment of underlying medical condition and continue to work with PT/OT to improve mobility and functioning. -spinning room worker to provide patient with outpatient mental health/psychiatry resources for appropriate follow up upon discharge -Reimbursement Auditor spoke with patient about substance abuse and the harmful effects on medical and mental health, patient verbally understood and agreed. -spinning room worker to provide patient substance use treatment resources including AA/NA meetings in the community. Patient declined inpatient rehab once again. -Communicated plan to patient's nurse -Psychiatry will sign off at this time. -Please contact with any questions.
[2019-12-17] MEDS ORDERED: busPIRone HCl 5 MG TAB PO SCH (21:00)
--- NOTE | 2019-12-17 22:39 | P.DS ---
Providers Date of admission: 12/10/19 06:04 Attending physician: Omer Dao Consults: 12/10/19 06:00 Consult Physician Stat Consulting Provider: Darvin Diaz Consult Reason/Comments: intensive care management Do you want consulting provider notified?: Already Contacted Consult Physician Urgent Consulting Provider: Michelle Kumar Consult Reason/Comments: chronic liver disease. Pancreatitis Do you want consulting provider notified?: Yes 12/10/19 09:43 Consult Physician Stat Consulting Provider: Fiona Santamaria Consult Reason/Comments: hyponatermia Do you want consulting provider notified?: Yes 12/11/19 09:11 Consult Physician Stat Consulting Provider: Ludwin Powers Consult Reason/Comments: pancreatitis Do you want consulting provider notified?: Already Contacted 12/15/19 11:35 Consult Physician Urgent Consulting Provider: Marco A Shen Consult Reason/Comments: Depression, anxiety, bipolar, PTSD Do you want consulting provider notified?: Already Contacted Primary care physician: Stated None Hospital Course: Diagnoses: Severe hyponatremia, improved Alcohol withdrawal with delirium tremens Possible sepsis with leukocytosis and tachycardia,. Improved Pancreatic pseudocyst x2 Elevated lactic acid , improved Acute on chronic pancreatitis, stable Metabolic encephalopathy secondary to above. Improved Alcoholic hepatitis, improved acute kidney injury, improved Alcohol abuse Liver cirrhosis Generalized weakness and deconditioning, patient refused rehab History of reflux esophagitis History of Rheumatoid arthritis History of fibromyalgia Degenerative disc disease History of lupus Hospital course: This is a pleasant 44 years old female with multiple medical problems including reflux esophagitis per EGD done on 06/20/2019. Pancreatic pseudocyst. MRI done on 06/24/2019, alcoholic liver disease with cirrhosis, multiple episodes of pancreatitis. Chronic mild hyponatremia, alcohol abuse, seizure disorder, rheumatoid arthritis and fibromyalgia, degenerative disc disease, lupus, chronic pancreatitis Presents because of fall and abdominal pain. On the presentation patient was found to have severely hyponatremic with sodium 108, patient was admitted to the ICU and treated with IV fluid under the supervision of pulmonary/critical care team and nephrology team, sodium level gradually improved and on the day of discharge it was normal at 136. Patient had prolonged stay in the ICU, she underwent confusion and delirium tremens from her alcohol withdrawal, also she had significant abdominal pain related to her acute alcoholic pancreatitis and acute alcoholic hepatitis this is improved significantly however she still complains from some residual abdominal pain which looks related to her chronic pancreatitis problem however patient is able to tolerate diet and she finished 100% of one of her meals today. Her acute kidney injury improved and creatinine is back to normal. She has positive IgG hep C antibodies, however R and a HCV is low indicating an active hep C disease Also psychiatrist evaluated the patient he recommended (to Continue with Zoloft 50 mg daily for mood/anxiety. Continue with melatonin 10 mg daily at bedtime for insomnia. Continue with acamprosate 666 mg 3 times a day starting tomorrow for alcohol cravings. Increased BuSpar 15 mg twice a day for anxiety.Patient may require a small dose of Ativan 0.5 mg daily when necessary for anxiety when she is discharged) Psychiatrist note. On the day of discharge patient denies chest pain or dyspnea, she is fully awake and oriented, patient has chronic abdominal pain, she has regular bowel movements and tolerating diet well, mood looks appropriate. No weakness or numbness. Patient states that she is not planning to go back to drinking alcohol after counseling Patient has been followed by several consultants including pulmonary/critical care team, GI, psychiatric, glass scullion and all consultants cleared her for discharge Physical therapy recommended subacute rehab, however patient declined to go to rehab and she was adamant to go home stating that her /[place] and her mother are willing to take her home and take care of her, I explained for the patient she's has risk for complication or hospital readmission and she still wants to go home. Patient does not follow up with PCP and in order to cut home health care she was informed to make an appointment with PCP, which she did with Dr. Todd on 12/29. And with tessie Newman from GI team on 01/05. Also she was instructed to follow up with Dr. Mon, and Dr. Santamaria as an outpatient in 1-2 weeks and check risks and to call Make appointments Problems and management plan were discussed with the patient and she verbalized understanding and acceptance Patient was found stable and can be discharged home in guarded prognosis however he needs follow-up as an outpatient. See above -Gen: patient is a AAOx3, no distress. Generally weak CVS: S1-S2, RRR, no murmur Lungs: B/L CTA, no wheezing -Abdomen: soft, no distention, mild epigastric tenderness (chronic pancreatitis), positive bowel sounds Extremity: no leg edema or induration Time spent more than 35 minutes Patient Condition at Discharge: Critical Plan - Discharge Summary Discharge Rx Participant: No New Discharge Prescriptions: New LORazepam [Ativan] 0.5 mg PO DAILY PRN 3 Days #3 tab PRN Reason: Anxiety Amoxic-Pot Clav 500-125 mg [Augmentin 500-125 mg] 1 tab PO Q12HR 7 Days #14 tab busPIRone HCl [Buspar] 15 mg PO BID #180 tab Acamprosate Calcium [Campral] 666 mg PO TID 20 Days #60 tablet. Melatonin 10 mg PO HS PRN #60 tablet PRN Reason: Insomnia Pantoprazole [Protonix] 40 mg PO BID #60 tablet. Sodium Bicarbonate Tab 650 mg PO BID #60 tab traMADol HCl [Ultram] 100 mg PO QID PRN 7 Days #28 tab PRN Reason: pain Thiamine [Vitamin B-1] 100 mg PO BID-W/MEALS #60 tab Sertraline [Zoloft] 50 mg PO DAILY #30 tab Discharge Medication List Acamprosate Calcium [Campral] 666 mg PO TID 20 Days #60 tablet. 12/17/19 [Rx] Amoxic-Pot Clav 500-125 mg [Augmentin 500-125 mg] 1 tab PO Q12HR 7 Days #14 tab 12/17/19 [Rx] LORazepam [Ativan] 0.5 mg PO DAILY PRN 3 Days #3 tab 12/17/19 [Rx] Melatonin 10 mg PO HS PRN #60 tablet 12/17/19 [Rx] Pantoprazole [Protonix] 40 mg PO BID #60 tablet. 12/17/19 [Rx] Sertraline [Zoloft] 50 mg PO DAILY #30 tab 12/17/19 [Rx] Sodium Bicarbonate Tab 650 mg PO BID #60 tab 12/17/19 [Rx] Thiamine [Vitamin B-1] 100 mg PO BID-W/MEALS #60 tab 12/17/19 [Rx] busPIRone HCl [Buspar] 15 mg PO BID #180 tab 12/17/19 [Rx] traMADol HCl [Ultram] 100 mg PO QID PRN 7 Days #28 tab 12/17/19 [Rx] Follow up Appointment(s)/Referral(s): Ravinder Artis MD [STAFF PHYSICIAN] - As Needed Fiona Santamaria MD [STAFF PHYSICIAN] - As Needed Tiffanie Murillo PAC [REFERRING] - 01/06/20 8:30 am [facility], [NON-STAFF] - As Needed Mateo Todd [STAFF PHYSICIAN] - 12/30/19 3:00 pm (please arrive at 2.30pm with ID and insurance card) Patient Instructions/Handouts: Cirrhosis (DC), Alcohol Intoxication (DC), Abuse of Alcohol (DC), Medical Clearance for Substance Abuse Treatment (DC), Alcohol Dependence (DC), Alcoholic Hepatitis (DC) Activity/Diet/Wound Care/Special Instructions: activity is limited till you see your doctor regular diet Discharge Disposition: HOME SELF-CARE
--- NOTE | 2019-12-18 12:12 | CDI ---
Documentation Clarification Form Date: 12/18/19 From: Elisha Ya CCS Phone: If you have a question about this query, please contact Ofelia Don, Upholstery Instructor at [phone] between 8am and 5pm. Admit Date: 12/10/19 Discharge Date:12/17/19 Patient Name: Radha Hobson Visit Number: [id number] ATTENTION: The Clinical Documentation Specialists (CDI) and [facility] Coding Staff appreciate your assistance in clarifying documentation. Please respond to the clarification below the line at the bottom and electronically sign. The CDI & [facility] Coding staff will review the response and follow-up if needed. Please note: Queries are made part of the Legal Health Record. If you have any questions, please contact the author of this message via ITS. Dear Dr. Rosenthal, Possible sepsis with leukocytosis and tachycardia is documented in the H&P, PNs, Consult, DS. History/Risk Factors: PNA, Pancreatitis, Alcohol, Hepatitis, Cirrhosis, CAD, JACKSON Clinical Indicators: Elevated WBC, Tachycardia, JACKSON, Acidosis WBC: 27.5, 30.7, 14.2 Lactic acid: 11.2, 10.5, 4.1 Blood cultures: No growth after 144 hours C-Xray: 12/10- There may be basilar atelectasis, correlate to exclude pneumonia. Follow-up as indicated. Vitals signs on admission: BP 93/62, RR 18, IN 117, O2 Sat 97 Treatment: Rocephin IVPB, Zosyn IVPB, IV Bolus: IV Saline 999 mls/hr In your professional opinion, please clarify if the etiology of the sepsis if known: Condition Sepsis due to pneumonia Sepsis due to pancreatitis Sepsis due to hepatitis Other, please specify Unable to determine Present on Admission Yes No SIRS Criteria (2 or more of the following may indicate SIRS): -Temperature < 96.8F (36C) or > 101.0F (38.3C) -Heart Rate > 90 bpm -Respiratory Rate > 20 breaths/min or PaCO2 < 32 mmHg -White Blood Cell Count > 12,000 or < 4,000 cells/mm3 or > 10% bands -Lactate >2.0 mmol/L (>4.0 is equivalent to septic shock) please refer to my note, it has all the final diagnoses MTDD
== END 2019-12-17 15:54 | disposition home health service (06) | DRG 871 ==
LOC: EC 00:32 → 2SICU 06:04 → 4SSUR 12-16 13:10
PROVIDERS: ADMIT Hospitalist; ATTEND Hospitalist
PROC: 02HV33Z Insertion of Infusion Device into Superior Vena Cava, Percutaneous Approach (ICD-10-PCS; principal; 2019-12-10)
PROC: 30233N1 Transfusion of Nonautologous Red Blood Cells into Peripheral Vein, Percutaneous Approach (ICD-10-PCS; 2019-12-11)
DX: A41.9 Sepsis, unspecified organism (principal); K85.20 Alcohol induced acute pancreatitis without necrosis or infection; G93.41 Metabolic encephalopathy; J18.9 Pneumonia, unspecified organism; E87.1 Hypo-osmolality and hyponatremia; E87.4 Mixed disorder of acid-base balance; F10.231 Alcohol dependence with withdrawal delirium; N17.9 Acute kidney failure, unspecified; K86.0 Alcohol-induced chronic pancreatitis; F31.30 Bipolar disorder, current episode depressed, mild or moderate severity, unspecified; K86.2 Cyst of pancreas; D68.9 Coagulation defect, unspecified; Z20.828 Contact with and (suspected) exposure to other viral communicable diseases; K72.90 Hepatic failure, unspecified without coma; K70.31 Alcoholic cirrhosis of liver with ascites; D63.8 Anemia in other chronic diseases classified elsewhere; E87.8 Other disorders of electrolyte and fluid balance, not elsewhere classified; K70.11 Alcoholic hepatitis with ascites; K76.0 Fatty (change of) liver, not elsewhere classified; M32.9 Systemic lupus erythematosus, unspecified; I95.9 Hypotension, unspecified; G40.909 Epilepsy, unspecified, not intractable, without status epilepticus; M06.9 Rheumatoid arthritis, unspecified; M79.7 Fibromyalgia; M51.36 Other intervertebral disc degeneration, lumbar region; F10.220 Alcohol dependence with intoxication, uncomplicated; F43.10 Post-traumatic stress disorder, unspecified; E83.52 Hypercalcemia; F17.200 Nicotine dependence, unspecified, uncomplicated; K29.70 Gastritis, unspecified, without bleeding; K21.00 Gastro-esophageal reflux disease with esophagitis, without bleeding; I25.10 Atherosclerotic heart disease of native coronary artery without angina pectoris; E87.6 Hypokalemia; B19.20 Unspecified viral hepatitis C without hepatic coma; E83.42 Hypomagnesemia; E86.0 Dehydration; I51.7 Cardiomegaly; G47.00 Insomnia, unspecified; E86.1 Hypovolemia; F12.10 Cannabis abuse, uncomplicated; R29.6 Repeated falls; Y90.0 Blood alcohol level of less than 20 mg/100 ml; W19.XXXA Unspecified fall, initial encounter; I25.2 Old myocardial infarction; Z71.3 Dietary counseling and surveillance; Z86.14 Personal history of Methicillin resistant Staphylococcus aureus infection; Z98.890 Other specified postprocedural states; Z88.6 Allergy status to analgesic agent; Z88.8 Allergy status to other drugs, medicaments and biological substances
CPT/HCPCS: 36415; 36556; 51701; 70450; 71045; 72125; 74176; 76705; 80048; 80053; 80074; 80306; 80320; 81001; 82140; 82150; 82533; 82553; 83540; 83550; 83605; 83690; 83735; 83930; 83935; 84132; 84145; 84295; 84300; 84443; 84703; 85025; 85027; 85610; 85730; 86140; 86850; 86900; 86901; 86920; 87040; 87086; 87522; 93005; 93306; 96361; 96374; 96375; 99291

== ENCOUNTER 2019-12-27 17:53 | Inpatient (IN) | payer OTHER ==
[2019-12-27] MEDS ORDERED: LORazepam 2 MG/ML INJ IV STA (18:24)
[2019-12-27] MEDS ORDERED: ONDANSETRON 4 MG/2 ML VIAL IVP STA (18:24)
[2019-12-27] MEDS ORDERED: MORPHINE SULFATE 4 MG/ML SYRINGE IVP STA (18:24)
[2019-12-27 18:52] LABS: Anisocytosis Slight; Basophils % (A) 1 %; Eosinophils # (A) 0.1 k/uL (0-0.7); Eosinophils % (A) 1 %; HCT 29.6 % (34.0-46.0); Lymphocytes # (A) 1.9 k/uL (1.0-4.8); Lymphocytes % (A) 32 %; MCH 33.3 pg (25.0-35.0); MCHC 32.9 g/dL (31.0-37.0); Macrocytosis Slight; Mean Platelet Volume 7.3; Monocytes # (A) 0.4 k/uL (0-1.0); Monocytes % (A) 7 %; Neutrophils # (A) 3.3 k/uL (1.3-7.7); Neutrophils % (A) 57 %; Platelet Count 278 k/uL (150-450); Poikilocytosis Slight; RBC 2.92 m/uL (3.80-5.40); RDW 16.6 % (11.5-15.5); WBC 5.7 k/uL (3.8-10.6)
[2019-12-27 19:00] LABS: HGB 9.8 gm/dL (11.4-16.0); MCV 101.3 fL (80.0-100.0)
[2019-12-27 19:01] LABS: INR 1.6 (<1.2); Partial Thromboplastin Time 31.4 sec (22.0-30.0)
--- NOTE | 2019-12-27 19:01 | ED ---
Abdominal Pain HPI - General Chief Complaint: Abdominal Pain Stated Complaint: Abd pain Source: EMS Mode of arrival: EMS Limitations: no limitations - History of Present Illness Initial Comments: Patient is a 44 female past medical history of all call dependence, liver cirrhosis, fibromyalgia and seizure disorder who presents emergency Department with reported abdominal pain and fullness. Patient was recently hospitalized and discharged from our facility on the fourth. 4 that since she's been discharged home she has had no improvement in her symptoms and has been progress ively getting worse. States that she's had increased distention to her abdomen which has become more tender. She denies any fevers or chills. Does admit to nausea, vomiting and mucoid stools. Normally sees Dr. Comer from GI. States that her last paracentesis was 2 years ago and feels that she is in need of another one. Reports that her last alcoholic drink was 2 weeks ago. Denies any chest pain or shortness of breath. No other alleviating, precipitating modifying factors - Related Data Previous Rx's Medication Instructions Recorded LORazepam [Ativan] 0.5 mg PO DAILY PRN 3 Days #3 tab 12/17/19 Melatonin 10 mg PO HS PRN #60 tablet 12/17/19 Pantoprazole [Protonix] 40 mg PO BID #60 tablet. 12/17/19 Sertraline [Zoloft] 50 mg PO DAILY #30 tab 12/17/19 Sodium Bicarbonate Tab 650 mg PO BID #60 tab 12/17/19 Thiamine [Vitamin B-1] 100 mg PO BID-W/MEALS #60 tab 12/17/19 busPIRone HCl [Buspar] 15 mg PO BID #180 tab 12/17/19 Allergies Allergy/AdvReac Type Severity Reaction Status Date / Time ibuprofen [From Motrin] Allergy Unknown Verified 12/27/19 21:09 NSAIDS (Non-Steroidal Allergy Unknown Verified 12/27/19 21:09 Anti-Inflamma quetiapine [From Seroquel] Allergy Unknown Verified 12/27/19 21:09 Review of Systems ROS Statement: Those systems with pertinent positive or pertinent negative responses have been documented in the HPI. ROS Other: All systems not noted in ROS Statement are negative. Past Medical History Past Medical History: Fibromyalgia, Myocardial Infarction (VT), Rheumatoid Arthritis (RA), Seizure Disorder Additional Past Medical History / Comment(s): Alcohol dependence, 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, carsinoid syndrome, enlarge liver, lupus, chronic pancreatitis, pancreatic tumor,osteomyelitis Last Myocardial Infarction Date:: 01/2017 History of Any Multi-Drug Resistant Organisms: MRSA Date of last positivie culture/infection: 2009 MDRO Source:: finger Past Surgical History: No Surgical Hx Reported Additional Past Surgical History / Comment(s): Left hand surgery Past Anesthesia/Blood Transfusion Reactions: No Reported Reaction Past Psychological History: Anxiety, Bipolar, Depression, PTSD Smoking Status: Current every day smoker Past Alcohol Use History: Abuse, Daily, Heavy Past Drug Use History: Marijuana - Past Family History Mother Family Medical History: Unable to Obtain General Exam Limitations: no limitations Course Vital Signs 12/27/19 12/27/19 12/27/19 17:59 18:45 21:52 Temperature 98.8 F 97.9 F Pulse Rate 81 99 Pulse Rate [ 101 H Pulse Oximetery ] Respiratory 18 18 16 Rate Blood Pressure 148/100 145/92 Blood Pressure 133/90 [Right Arm] O2 Sat by Pulse 98 100 97 Oximetry Medical Decision Making - Medical Decision Making Upon arrival patient was placed into room 11. A thorough history and physical exam was performed. Peripheral IV is established. Laboratories is were conducted. I did review the patient's computed tomography scan from her last admission. Laboratory studies are remarkable for hyponatremia, hypokalemia and hypomagnesemia. Replacement was ordered. Patient was given nausea and pain medications. I did recommend laboratory studies for GI evaluation for which patient did agree to. Discussed the case with Dr. Barbosa who agreed to admit the patient. She did remain in hemolytically stable condition awaiting admission - Lab Data Result diagrams: 12/27/19 18:31 12/27/19 18:31 Lab Results 12/27/19 12/27/19 12/27/19 Range/Units 18:31 18:31 18:31 WBC 5.7 (3.8-10.6) k/uL RBC 2.92 L (3.80-5.40) m/uL Hgb 9.8 L D (11.4-16.0) gm/dL Hct 29.6 L (34.0-46.0) % MCV 101.3 H D (80.0-100.0) fL MCH 33.3 (25.0-35.0) pg MCHC 32.9 (31.0-37.0) g/dL RDW 16.6 H (11.5-15.5) % Plt Count 278 (150-450) k/uL MPV 7.3 Neutrophils % 57 % Lymphocytes % 32 % Monocytes % 7 % Eosinophils % 1 % Basophils % 1 % Neutrophils # 3.3 (1.3-7.7) k/uL Lymphocytes # 1.9 (1.0-4.8) k/uL Monocytes # 0.4 (0-1.0) k/uL Eosinophils # 0.1 (0-0.7) k/uL Basophils # 0.0 (0-0.2) k/uL Poikilocytosis Slight Anisocytosis Slight Macrocytosis Slight PT 16.0 H (9.0-12.0) sec INR 1.6 H (<1.2) APTT 31.4 H (22.0-30.0) sec Sodium 133 L (137-145) mmol/L Potassium 2.5 L* (3.5-5.1) mmol/L Chloride 105 (98-107) mmol/L Carbon Dioxide 18 L (22-30) mmol/L Anion Gap 10 mmol/L BUN <2 L (7-17) mg/dL Creatinine 0.37 L (0.52-1.04) mg/dL Est GFR (CKD-EPI)AfAm >90 (>60 ml/min/1.73 sqM) Est GFR (CKD-EPI)NonAf >90 (>60 ml/min/1.73 sqM) Glucose 98 (74-99) mg/dL Plasma Lactic Acid Nilo (0.7-2.0) mmol/L Calcium 7.5 L (8.4-10.2) mg/dL Magnesium 1.2 L (1.6-2.3) mg/dL Total Bilirubin 6.9 H (0.2-1.3) mg/dL Conjugated Bilirubin 1.3 H (0.0-0.3) mg/dL Unconjugated Bilirubin 1.1 (0.0-1.1) mg/dL Delta Bilirubin 4.5 H (0.0-0.2) mg/dL AST 115 H (14-36) U/L ALT 48 H (4-34) U/L Alkaline Phosphatase 312 H (38-126) U/L Ammonia (<30) umol/L Troponin I (0.000-0.034) ng/mL NT-Pro-B Natriuret Pep pg/mL Total Protein 5.6 L (6.3-8.2) g/dL Albumin 2.3 L (3.5-5.0) g/dL Lipase 139 (23-300) U/L Serum Alcohol <10 mg/dL 12/27/19 12/27/19 12/27/19 Range/Units 18:31 18:31 18:31 WBC (3.8-10.6) k/uL RBC (3.80-5.40) m/uL Hgb (11.4-16.0) gm/dL Hct (34.0-46.0) % MCV (80.0-100.0) fL MCH (25.0-35.0) pg MCHC (31.0-37.0) g/dL RDW (11.5-15.5) % Plt Count (150-450) k/uL MPV Neutrophils % % Lymphocytes % % Monocytes % % Eosinophils % % Basophils % % Neutrophils # (1.3-7.7) k/uL Lymphocytes # (1.0-4.8) k/uL Monocytes # (0-1.0) k/uL Eosinophils # (0-0.7) k/uL Basophils # (0-0.2) k/uL Poikilocytosis Anisocytosis Macrocytosis PT (9.0-12.0) sec INR (<1.2) APTT (22.0-30.0) sec Sodium (137-145) mmol/L Potassium (3.5-5.1) mmol/L Chloride (98-107) mmol/L Carbon Dioxide (22-30) mmol/L Anion Gap mmol/L BUN (7-17) mg/dL Creatinine (0.52-1.04) mg/dL Est GFR (CKD-EPI)AfAm (>60 ml/min/1.73 sqM) Est GFR (CKD-EPI)NonAf (>60 ml/min/1.73 sqM) Glucose (74-99) mg/dL Plasma Lactic Acid Nilo 1.3 (0.7-2.0) mmol/L Calcium (8.4-10.2) mg/dL Magnesium (1.6-2.3) mg/dL Total Bilirubin (0.2-1.3) mg/dL Conjugated Bilirubin (0.0-0.3) mg/dL Unconjugated Bilirubin (0.0-1.1) mg/dL Delta Bilirubin (0.0-0.2) mg/dL AST (14-36) U/L ALT (4-34) U/L Alkaline Phosphatase (38-126) U/L Ammonia 46 H (<30) umol/L Troponin I <0.012 (0.000-0.034) ng/mL NT-Pro-B Natriuret Pep 3470 pg/mL Total Protein (6.3-8.2) g/dL Albumin (3.5-5.0) g/dL Lipase (23-300) U/L Serum Alcohol mg/dL - EKG Data EKG Comments: EKG demonstrates sinus rhythm with occasional PVCs. Rate of 85. QRS 80. QTC of 521. No acute ST segment elevations or depressions Disposition Clinical Impression: Abdominal pain, Hypokalemia, Hypomagnesemia, Hyponatremia, Chronic alcohol abuse, Ascites Disposition: ADMITTED IP TO THIS HOSP Condition: Stable Is patient prescribed a controlled substance at d/c from ED?: No Decision to Admit Reason: Admit from EC Decision Date: 12/27/19 Decision Time: 20:09
[2019-12-27 19:03] LABS: ALT 48 U/L (4-34); AST 115 U/L (14-36); African American GFR (CKD) >90 (>60 ml/min/1.73 sqM); Albumin 2.3 g/dL (3.5-5.0); Alcohol <10 mg/dL; Alkaline Phosphatase 312 U/L (38-126); Anion Gap 10 mmol/L; Bilirubin, Conjugated 1.3 mg/dL (0.0-0.3); Bilirubin, Delta 4.5 mg/dL (0.0-0.2); Bilirubin,Unconjugated 1.1 mg/dL (0.0-1.1); Blood Urea Nitrogen <2 mg/dL (7-17); Calcium 7.5 mg/dL (8.4-10.2); Carbon Dioxide 18 mmol/L (22-30); Chloride 105 mmol/L (98-107); Glucose 98 mg/dL (74-99); Lipase 139 U/L (23-300); Magnesium 1.2 mg/dL (1.6-2.3); Non-African American GFR(CKD) >90 (>60 ml/min/1.73 sqM); Sodium 133 mmol/L (137-145); Total Bilirubin 6.9 mg/dL (0.2-1.3); Total Protein 5.6 g/dL (6.3-8.2)
[2019-12-27 19:04] LABS: Lactic Acid, Venous 1.3 mmol/L (0.7-2.0)
[2019-12-27 19:18] LABS: Potassium 2.5 mmol/L (3.5-5.1)
[2019-12-27] MEDS ORDERED: POTASSIUM CHLORIDE ER 20 MEQ TAB.ER PO STA ×2 (19:24→20:11)
[2019-12-27] MEDS ORDERED: MAGNESIUM SULFATE-D5W PMX 1 GM in DEXTROSE/WATER 1 100ML.BAG IVPB ONE (19:24)
[2019-12-27] MEDS ORDERED: POTASSIUM CHLORIDE 20 MEQ in WATER FOR INJECTION 1 100ML.BAG IVPB STA (19:24)
[2019-12-27] MEDS ORDERED: FAMOTIDINE 20 MG/2 ML VIAL IV STA (20:18)
[2019-12-27] MEDS ORDERED: NALOXONE 0.4 MG/ML 1 ML VIAL IV PRN (20:19)
[2019-12-27] MEDS ORDERED: THIAMINE 100 MG/ML 2 ML VIAL IM STA (20:29)
[2019-12-27] MEDS ORDERED: LORazepam 2 MG/ML INJ IV PRN ×3 (20:29)
[2019-12-27] MEDS: MORPHINE SULFATE 4 MG/ML SYRINGE IV PRN (23:05)
[2019-12-28 01:49] LABS: Amorphous Sediment,Urine Rare /hpf; Appearance,Urine Cloudy (Clear); Bacteria,Urine Rare /hpf; Bilirubin,Urine 1+ (Negative); Blood,Urine Small (Negative); Color,Urine Dark Yellow; Glucose,Urine (UA) Negative (Negative); Ketones,Urine Trace (Negative); Leukocyte Esterase,Urine Large (Negative); Mucus,Urine Rare /hpf; Nitrite,Urine Negative (Negative); PH, Urine 7.5 (5.0-8.0); Protein,Urine Trace (Negative); RBC,Urine 7 /hpf (0-5); Squamous Epithelial Cell,Urine 1 /hpf (0-4); Urobilinogen,Urine <2.0 mg/dL (<2.0); WBC,Urine 25 /hpf (0-5)
[2019-12-28] MEDS: MORPHINE SULFATE 4 MG/ML SYRINGE IV PRN ×5 (03:39→21:02)
[2019-12-28 06:30] LABS: Basophils % (A) 1 %; Eosinophils % (A) 1 %; HCT 27.4 % (34.0-46.0); HGB 9.1 gm/dL (11.4-16.0); Hypochromasia Slight; Lymphocytes # (A) 1.8 k/uL (1.0-4.8); Lymphocytes % (A) 38 %; MCH 34.6 pg (25.0-35.0); MCHC 33.3 g/dL (31.0-37.0); MCV 103.9 fL (80.0-100.0); Macrocytosis Moderate; Mean Platelet Volume 7.2; Monocytes # (A) 0.3 k/uL (0-1.0); Monocytes % (A) 6 %; Neutrophils # (A) 2.4 k/uL (1.3-7.7); Neutrophils % (A) 52 %; Platelet Count 251 k/uL (150-450); Poikilocytosis Slight; RBC 2.63 m/uL (3.80-5.40); RDW 15.9 % (11.5-15.5); WBC 4.7 k/uL (3.8-10.6)
[2019-12-28] MEDS: PANTOPRAZOLE 40 MG TABLET PO SCH ×2 (07:50→21:02)
[2019-12-28] MEDS: THIAMINE 100 MG TAB PO SCH ×2 (07:50→17:07)
[2019-12-28] MEDS: busPIRone HCl 5 MG TAB PO SCH ×2 (07:50→21:02)
[2019-12-28] MEDS: SERTRALINE 50 MG TAB PO SCH (07:50)
[2019-12-28] MEDS: SODIUM BICARBONATE TAB 650 MG TAB PO SCH ×2 (07:50→21:02)
[2019-12-28 08:57] LABS: Potassium 2.9 mmol/L (3.5-5.1)
[2019-12-28 09:58] LABS: ALT 47 U/L (4-34); AST 100 U/L (14-36); African American GFR (CKD) >90 (>60 ml/min/1.73 sqM); Albumin 2.4 g/dL (3.5-5.0); Albumin/Globulin Ratio 0.7; Alkaline Phosphatase 281 U/L (38-126); Anion Gap 9 mmol/L; Blood Urea Nitrogen <2 mg/dL (7-17); Calcium 7.2 mg/dL (8.4-10.2); Carbon Dioxide 17 mmol/L (22-30); Chloride 107 mmol/L (98-107); Globulin 3.4 g/dL; Glucose 90 mg/dL (74-99); Non-African American GFR(CKD) >90 (>60 ml/min/1.73 sqM); Sodium 133 mmol/L (137-145); Total Bilirubin 6.3 mg/dL (0.2-1.3); Total Protein 5.8 g/dL (6.3-8.2)
[2019-12-28] MEDS ORDERED: Potassium Replacement Protocol 1 EACH MISC MISCELLANE PRN (09:58)
[2019-12-28] MEDS ORDERED: polyethylene glycoL 3350 17 GM POWD.PACK PO PRN (10:27)
--- NOTE | 2019-12-28 10:33 | P.HPIM ---
History of Present Illness 44-year-old female with known history of alcohol abuse and alcohol cirrhosis came in with complaints of multiple episodes of nausea vomiting diarrhea patient states she still having these episodes patient is found to be hyponatremic and the hypokalemic subsequently admitted patient is also complaining of severe diffuse sharp abdominal pain. Patient doesn't have any significant tenderness patient does have significant distention of the abdomen. Patient last drink was 2 weeks ago. She does not have any fever doesn't have any leukocytosis. Review of Systems REVIEW OF SYSTEMS: CONSTITUTIONAL: No fever, no malaise, no fatigue. HEENT: No recent visual problems or hearing problems. Denied any sore throat. CARDIOVASCULAR: No chest pain, orthopnea, PND, no palpitations, no syncope. PULMONARY: No shortness of breath, no cough, no hemoptysis. GASTROINTESTINAL: She and HPI NEUROLOGICAL: No headaches, no weakness, no numbness. HEMATOLOGICAL: Denies any bleeding or petechiae. GENITOURINARY: Denies any burning micturition, frequency, or urgency. MUSCULOSKELETAL/RHEUMATOLOGICAL: Denies any joint pain, swelling, or any muscle pain. ENDOCRINE: Denies any polyuria or polydipsia. The rest of the 14-point review of systems is negative. 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, carsinoid syndrome, enlarge liver, lupus, chronic pancreatitis, pancreatic tumor,osteomyelitis Last Myocardial Infarction Date:: 01/2017 History of Any Multi-Drug Resistant Organisms: MRSA Date of last positivie culture/infection: 2009 MDRO Source:: finger Past Surgical History: No Surgical Hx Reported Additional Past Surgical History / Comment(s): Left hand surgery Past Anesthesia/Blood Transfusion Reactions: No Reported Reaction Past Psychological History: Anxiety, Bipolar, Depression, PTSD Smoking Status: Current every day smoker Past Alcohol Use History: Abuse, Daily, Heavy Past Drug Use History: Marijuana - Past Family History Mother Family Medical History: Unable to Obtain Medications and Allergies Home Medications Medication Instructions Recorded Confirmed Type LORazepam [Ativan] 0.5 mg PO DAILY PRN 3 Days #3 tab 12/17/19 12/27/19 Rx Melatonin 10 mg PO HS PRN #60 tablet 12/17/19 12/27/19 Rx Pantoprazole [Protonix] 40 mg PO BID #60 tablet. 12/17/19 12/27/19 Rx Sertraline [Zoloft] 50 mg PO DAILY #30 tab 12/17/19 12/27/19 Rx Sodium Bicarbonate Tab 650 mg PO BID #60 tab 12/17/19 12/27/19 Rx Thiamine [Vitamin B-1] 100 mg PO BID-W/MEALS #60 tab 12/17/19 12/27/19 Rx busPIRone HCl [Buspar] 15 mg PO BID #180 tab 12/17/19 12/27/19 Rx Allergies Allergy/AdvReac Type Severity Reaction Status Date / Time ibuprofen [From Motrin] Allergy Unknown Verified 12/27/19 21:09 NSAIDS (Non-Steroidal Allergy Unknown Verified 12/27/19 21:09 Anti-Inflamma quetiapine [From Seroquel] Allergy Unknown Verified 12/27/19 21:09 Physical Exam Vitals: Vital Signs Temp Pulse Pulse Resp BP BP Pulse Ox 12/28/19 04:05 97.9 F 89 16 148/96 98 12/27/19 21:52 97.9 F 101 H 16 133/90 97 12/27/19 18:45 99 18 145/92 100 12/27/19 17:59 98.8 F 81 18 148/100 98 Intake and Output 12/27/19 12/28/19 12/28/19 22:59 06:59 14:59 Intake Total 100 200 110 Output Total 300 Balance 100 200 -190 Intake: IV 10 Invasive Line 1 10 Intake, IV Titration 100 Amount Magnesium Sulfate-D5w Pmx 100 1 gm In Dextrose/Water 1 100ml.bag @ 100 mls/hr IVPB ONCE ONE Rx#: [id number] Oral 200 100 Output: Urine 300 Other: # Voids 3 # Bowel Movements 2 Weight 68.039 kg PHYSICAL EXAMINATION: GENERAL: The patient is alert and oriented x3, not in any acute distress. Well developed, well nourished. HEENT: Pupils are round and equally reacting to light. EOMI. have scleral icterus. No conjunctival pallor. Normocephalic, atraumatic. No pharyngeal erythema. No thyromegaly. CARDIOVASCULAR: S1 and S2 present. No murmurs, rubs, or gallops. PULMONARY: Chest is clear to auscultation, no wheezing or crackles. ABDOMEN: Ended, ascites, shifting dullness mild subjective tenderness does have peripheral signs of cirrhosis. MUSCULOSKELETAL: No joint swelling or deformity. EXTREMITIES: No cyanosis, clubbing, or pedal edema. NEUROLOGICAL: Gross neurological examination did not reveal any focal deficits. SKIN: No rashes. Results CBC & Chem 7: 12/28/19 05:43 12/28/19 08:17 Labs: Abnormal Lab Results - Last 24 Hours (Table) 12/27/19 12/27/19 12/27/19 Range/Units 18:31 18:31 18:31 RBC 2.92 L (3.80-5.40) m/uL Hgb 9.8 L D (11.4-16.0) gm/dL Hct 29.6 L (34.0-46.0) % MCV 101.3 H D (80.0-100.0) fL RDW 16.6 H (11.5-15.5) % PT 16.0 H (9.0-12.0) sec INR 1.6 H (<1.2) APTT 31.4 H (22.0-30.0) sec Sodium 133 L (137-145) mmol/L Potassium 2.5 L* (3.5-5.1) mmol/L Carbon Dioxide 18 L (22-30) mmol/L BUN <2 L (7-17) mg/dL Creatinine 0.37 L (0.52-1.04) mg/dL Calcium 7.5 L (8.4-10.2) mg/dL Magnesium 1.2 L (1.6-2.3) mg/dL Total Bilirubin 6.9 H (0.2-1.3) mg/dL Conjugated Bilirubin 1.3 H (0.0-0.3) mg/dL Delta Bilirubin 4.5 H (0.0-0.2) mg/dL AST 115 H (14-36) U/L ALT 48 H (4-34) U/L Alkaline Phosphatase 312 H (38-126) U/L Ammonia (<30) umol/L Total Protein 5.6 L (6.3-8.2) g/dL Albumin 2.3 L (3.5-5.0) g/dL Urine Appearance (Clear) Urine Protein (Negative) Urine Ketones (Negative) Urine Blood (Negative) Urine Bilirubin (Negative) Ur Leukocyte Esterase (Negative) Urine RBC (0-5) /hpf Urine WBC (0-5) /hpf Amorphous Sediment (None) /hpf Urine Bacteria (None) /hpf Urine Mucus (None) /hpf 12/27/19 12/28/19 12/28/19 Range/Units 18:31 01:30 05:43 RBC 2.63 L (3.80-5.40) m/uL Hgb 9.1 L (11.4-16.0) gm/dL Hct 27.4 L (34.0-46.0) % MCV 103.9 H (80.0-100.0) fL RDW 15.9 H (11.5-15.5) % PT (9.0-12.0) sec INR (<1.2) APTT (22.0-30.0) sec Sodium (137-145) mmol/L Potassium (3.5-5.1) mmol/L Carbon Dioxide (22-30) mmol/L BUN (7-17) mg/dL Creatinine (0.52-1.04) mg/dL Calcium (8.4-10.2) mg/dL Magnesium (1.6-2.3) mg/dL Total Bilirubin (0.2-1.3) mg/dL Conjugated Bilirubin (0.0-0.3) mg/dL Delta Bilirubin (0.0-0.2) mg/dL AST (14-36) U/L ALT (4-34) U/L Alkaline Phosphatase (38-126) U/L Ammonia 46 H (<30) umol/L Total Protein (6.3-8.2) g/dL Albumin (3.5-5.0) g/dL Urine Appearance Cloudy H (Clear) Urine Protein Trace H (Negative) Urine Ketones Trace H (Negative) Urine Blood Small H (Negative) Urine Bilirubin 1+ H (Negative) Ur Leukocyte Esterase Large H (Negative) Urine RBC 7 H (0-5) /hpf Urine WBC 25 H (0-5) /hpf Amorphous Sediment Rare H (None) /hpf Urine Bacteria Rare H (None) /hpf Urine Mucus Rare H (None) /hpf 12/28/19 Range/Units 08:17 RBC (3.80-5.40) m/uL Hgb (11.4-16.0) gm/dL Hct (34.0-46.0) % MCV (80.0-100.0) fL RDW (11.5-15.5) % PT (9.0-12.0) sec INR (<1.2) APTT (22.0-30.0) sec Sodium 133 L (137-145) mmol/L Potassium 2.9 L (3.5-5.1) mmol/L Carbon Dioxide 17 L (22-30) mmol/L BUN <2 L (7-17) mg/dL Creatinine 0.33 L (0.52-1.04) mg/dL Calcium 7.2 L (8.4-10.2) mg/dL Magnesium (1.6-2.3) mg/dL Total Bilirubin 6.3 H (0.2-1.3) mg/dL Conjugated Bilirubin (0.0-0.3) mg/dL Delta Bilirubin (0.0-0.2) mg/dL AST 100 H (14-36) U/L ALT 47 H (4-34) U/L Alkaline Phosphatase 281 H (38-126) U/L Ammonia (<30) umol/L Total Protein 5.8 L (6.3-8.2) g/dL Albumin 2.4 L (3.5-5.0) g/dL Urine Appearance (Clear) Urine Protein (Negative) Urine Ketones (Negative) Urine Blood (Negative) Urine Bilirubin (Negative) Ur Leukocyte Esterase (Negative) Urine RBC (0-5) /hpf Urine WBC (0-5) /hpf Amorphous Sediment (None) /hpf Urine Bacteria (None) /hpf Urine Mucus (None) /hpf Thrombosis Risk Factor Assmnt - Choose All That Apply Any of the Below Risk Factors Present?: Yes Each Factor Represents 1 point: Age 41-60 years Other Risk Factors: No Thrombosis Risk Factor Assessment Total Risk Factor Score: 1 Thrombosis Risk Factor Assessment Level: Low Risk Assessment and Plan Plan: -Alcoholic cirrhosis: Possibility of a spontaneous peritonitis is low but will be started on IV antibiotics considering her pain and the paracentesis was ordered which most probably will be done tomorrow and ordered paracentesis labs as well since her spontaneous bacterial peritonitis -Nausea vomiting, diarrhea and most probably secondary to viral illness will rule out C. diff continue with Protonix -Hyponatremia secondary to intravascular volume depletion considering her nausea vomiting diarrhea patient will not be started on any diuretics at this time -Hypokalemia secondary to nausea vomiting diarrhea: Potassium was replaced -Symptomatic bacteriuria -Coagulopathy with an INR secondary to cirrhosis -Macrocytic anemia secondary to liver disease -Alcohol abuse: Patient last drink was 2 weeks ago do not expect any withdrawals Ativan will be discontinued -Depression -Anion gap metabolic acidosis secondary to hyperchloremia. -Hypomagnesemia secondary to alcoholism which will be replaced DVT prophylaxis not needed as patient is partially anticoagulated because of cirrhosis
[2019-12-28] MEDS: POTASSIUM CHLORIDE ER 20 MEQ TAB.ER PO SCH ×6 (11:30→17:07)
--- NOTE | 2019-12-28 12:24 | CONS ---
CONSULTATION DATE OF DICTATION: December 28, 2019. REQUESTING PHYSICIAN: Dr. Dao. REASON FOR CONSULTATION: Abdominal pain and abdominal distention. HISTORY OF PRESENT ILLNESS: The patient is a 44-year-old white female with history of alcoholic liver disease, alcoholic cirrhosis of the liver, who was just discharged home from the hospital a week ago at which time she was admitted with severe hyponatremia. The patient came back to the emergency room yesterday complaining of abdominal distention, abdominal pain associated with some nausea but no emesis. She feels that she is developing ascites and is requesting for a paracentesis. She denies any fever, chills, or night sweats. She has history of alcoholic liver disease and has been a heavy drinker until recent hospitalization. She denies drinking after being discharged home from the hospital. She describes the pain mostly in the upper abdominal area and severe abdominal distention. She reports no emesis. No fever, chills, or night sweats. PAST MEDICAL HISTORY: Significant for alcoholic cirrhosis of the liver, hyponatremia, gastroesophageal reflux disease, anxiety, depression, history of fibromyalgia and rheumatoid arthritis as well as seizure disorder. PAST SURGICAL HISTORY: Left hand surgery. MEDICATIONS: Medications at home include: Ativan, melatonin, Protonix, Zoloft, sodium bicarb and thiamine. ALLERGIES: MOTRIN AND SEROQUEL. SOCIAL HISTORY: Chronic smoker. Alcohol use as mentioned above. Has been drinking heavily for the last several years, quit about 3 weeks ago. FAMILY HISTORY: Unremarkable. REVIEW OF SYSTEMS: CARDIOPULMONARY: She denies any chest pain, shortness of breath. : No dysuria or hematuria. MUSCULOSKELETAL unremarkable. SKIN unremarkable. ENDOCRINE unremarkable. PSYCHIATRIC: Anxiety, depression. ENT/VISION: Unremarkable. GI as mentioned above. HEMATOLOGY unremarkable. PHYSICAL EXAMINATION: She appears comfortable. No apparent distress. Blood pressure 148/96, pulse rate 89, temperature 97.9. HEENT examination unremarkable. Conjunctivae pink. Sclerae anicteric. Oral cavity no lesions. NECK no JVD or lymph node enlargement. CHEST was clear to auscultation. HEART: Regular rate and rhythm. ABDOMEN: Soft. It was slightly distended. There was tenderness. Liver was palpable in the epigastric area at least 3 cm below the right costal margin. There was mild hepatosplenomegaly noted. I did not appreciate any free fluid in the abdomen. EXTREMITIES: No pedal edema. NEURO: She is alert and oriented x3. No focal deficits. LABS: Labs done from yesterday, WBC 5.7, hemoglobin 9.8, platelets normal. PT/INR is 1.6. BUN is 2, creatinine 0.37, sodium 133, potassium 2.5. T-bili is 6.9, AST 115, ALT 48, alkaline phosphatase 312. Ammonia 46. Serum alcohol less than 10. CMP this morning is still pending. IMPRESSION: 1. Abdominal distention, rule out ascites. 2. Alcoholic cirrhosis of the liver. 3. Elevated LFTs secondary to acute alcoholic hepatitis superimposed on alcoholic cirrhosis of the liver. 4. Mild coagulopathy. 5. Mild hyponatremia and hyperkalemia. 6. History of heavy alcohol abuse. RECOMMENDATIONS: 1. Obtain ultrasound of the abdomen to evaluate for ascites and based on that we will decide if she needs any therapeutic paracentesis. 2. Antiemetics as needed. 3. Continue with symptomatic and supportive care. 4. We will follow with you closely. Thank you for this consultation. MMCAMELIAL / VICKYN: [id number] /
[2019-12-28] MEDS: MAGNESIUM SULFATE-D5W PMX 1 GM in DEXTROSE/WATER 1 100ML.BAG IVPB SCH ×2 (12:26→14:27)
[2019-12-28 14:04] VITALS: BMI 23.5
[2019-12-29] MEDS: MORPHINE SULFATE 4 MG/ML SYRINGE IV PRN ×4 (01:17→13:51)
[2019-12-29] MEDS: THIAMINE 100 MG TAB PO SCH ×2 (07:46→16:00)
[2019-12-29] MEDS: busPIRone HCl 5 MG TAB PO SCH (07:46)
[2019-12-29] MEDS: SODIUM BICARBONATE TAB 650 MG TAB PO SCH (07:47)
[2019-12-29] MEDS: SERTRALINE 50 MG TAB PO SCH (07:47)
[2019-12-29] MEDS: PANTOPRAZOLE 40 MG TABLET PO SCH (07:47)
[2019-12-29 09:50] LABS: ALT 53 U/L (8-44); AST 136 U/L (13-35); African American GFR (CKD) 184.4 (60.0-200.0); Albumin/Globulin Ratio 0.86 (1.60-3.17); Alkaline Phosphatase 340 U/L (41-126); Blood Urea Nitrogen <5.0 mg/dL (9.0-27.0); Calcium 7.1 mg/dL (8.7-10.3); Carbon Dioxide 19.7 mmol/L (21.6-31.8); Chloride 107 mmol/L (96-109); Globulin 2.8 g/dL (1.6-3.3); Glucose 91 mg/dL (70-110); Non-African American GFR(CKD) 159.1 (60.0-200.0); Potassium 3.8 mmol/L (3.5-5.5); Sodium 135 mmol/L (135-145); Total Bilirubin 6.3 mg/dL (0.2-1.2); Total Protein 5.2 g/dL (6.2-8.2)
[2019-12-29] MEDS: MAGNESIUM SULFATE-D5W PMX 1 GM in DEXTROSE/WATER 1 100ML.BAG IVPB SCH ×2 (11:37→13:10)
[2019-12-29 11:57] VITALS: BP 142/97; PULSE 78; RESP 16; TEMP 97.7
--- NOTE | 2019-12-29 12:11 | US ---
EXAMINATION TYPE: US abdomen limited DATE OF EXAM: 12/29/2019 COMPARISON: CT 12/11/2019 CLINICAL HISTORY: ascites . Ascites check Small amount of ascites seen on left side Limited scanning performed. IMPRESSION: Minimal ascites, limited exam
--- NOTE | 2019-12-29 16:04 | P.DS ---
Providers Date of admission: 12/27/19 20:19 Expected date of discharge: 12/29/19 Attending physician: Omer Dao Consults: 12/27/19 20:23 Consult Physician Urgent Consulting Provider: Michelle Kumar Consult Reason/Comments: abd pain, n/v/d, ascites, hx alcohol liver disease Do you want consulting provider notified?: Yes Primary care physician: Stated None Hospital Course: Final diagnosis -Alcoholic cirrhosis: Possibility of a spontaneous peritonitis ruled out -Nausea vomiting, diarrhea and most probably secondary to viral illness -Hyponatremia secondary to intravascular volume depletion considering her nausea vomiting diarrhea -Hypokalemia secondary to nausea vomiting diarrhea -Symptomatic bacteriuria -Coagulopathy with an INR secondary to cirrhosis -Macrocytic anemia secondary to liver disease -Alcohol abuse -Depression -Anion gap metabolic acidosis secondary to hyperchloremia. -Hypomagnesemia secondary to alcoholism -DVT prophylaxis not needed as patient is partially anticoagulated because of cirrhosis Discharge disposition Patient is being discharged in a stable condition with guarded prognosis to home. Patient will continue with the home care in the outpatient setting. Patient will follow-up with Dr. singh in the outpatient setting upon discharge. Patient is to continue with oral antibiotics form of Ceftin twice daily for the next 3 days to complete the course. She was also provided with lactulose as needed for bloating and constipation. Patient instructed to follow-up with GI in the outpatient setting as needed. Total time taken is greater than 35 minutes. History of present illness This is a 44-year-old female who was recently admitted with a known history of alcohol abuse with alcohol cirrhosis along with multiple episodes of nausea vomiting diarrhea with electrolyte abnormalities and was being closely monitored. She continued to have severe diffuse abdominal pain and distention with a past history of ascites. Patient was seen and evaluated by GI and underwent ultrasound showing minimal ascites. Patient continued to have some abdominal distention and will continue on lactulose in the outpatient setting. Patient also to continue on oral Ceftin is original urinalysis showed some leukocytes to complete the course. Patient instructed to follow-up with primary care provider and to continue to refrain from any alcohol intake. Currently no reports of chest pain, shortness of breath, or palpitations. Patient is afebrile. No reports of nausea or vomiting and patient is tolerating diet. On exam vital signs are stable. Temp is 97.7F, pulse is 78, respirations are 16, blood pressure is 142/97, oxygen saturation is 97% on room air. Cardio S1, S2 are muffled. Respiratory system shows diminished breath sounds at the bases with no wheezing or rhonchi noted. Abdomen is soft and nontender. Nervous system shows no focal deficits. Please refer to medication reconciliation sheet for a list of medications. Patient Condition at Discharge: Stable Plan - Discharge Summary Discharge Rx Participant: No New Discharge Prescriptions: New Cefuroxime Axetil [Ceftin] 500 mg PO BID 3 Days #6 tab Lactulose 20 gm PO TID PRN #240 ml PRN Reason: Constipation Continue LORazepam [Ativan] 0.5 mg PO DAILY PRN 3 Days #3 tab PRN Reason: Anxiety busPIRone HCl [Buspar] 15 mg PO BID #180 tab Melatonin 10 mg PO HS PRN #60 tablet PRN Reason: Insomnia Pantoprazole [Protonix] 40 mg PO BID #60 tablet. Sodium Bicarbonate Tab 650 mg PO BID #60 tab Thiamine [Vitamin B-1] 100 mg PO BID-W/MEALS #60 tab Sertraline [Zoloft] 50 mg PO DAILY #30 tab Discharge Medication List LORazepam [Ativan] 0.5 mg PO DAILY PRN 3 Days #3 tab 12/17/19 [Rx] Melatonin 10 mg PO HS PRN #60 tablet 12/17/19 [Rx] Pantoprazole [Protonix] 40 mg PO BID #60 tablet. 12/17/19 [Rx] Sertraline [Zoloft] 50 mg PO DAILY #30 tab 12/17/19 [Rx] Sodium Bicarbonate Tab 650 mg PO BID #60 tab 12/17/19 [Rx] Thiamine [Vitamin B-1] 100 mg PO BID-W/MEALS #60 tab 12/17/19 [Rx] busPIRone HCl [Buspar] 15 mg PO BID #180 tab 12/17/19 [Rx] Cefuroxime Axetil [Ceftin] 500 mg PO BID 3 Days #6 tab 12/29/19 [Rx] Lactulose 20 gm PO TID PRN #240 ml 12/29/19 [Rx] Follow up Appointment(s)/Referral(s): [facility], [NON-STAFF] - (Contact [facility] after the appointment with a primary care physician. ) Lauryn iSngh MD [STAFF PHYSICIAN] - 3 Days (patient will have to call and make own appt,patient is new to this practice) Patient Instructions/Handouts: Cirrhosis (DC), Low-Sodium Diet (DC) Activity/Diet/Wound Care/Special Instructions: Contact CM when PCP is picked by Patient. Continue soft diet and advance slowly as tolerated Continue with lactulose as needed for gas and constipation and hold if more than 3 loose bowel movements daily Follow-up with primary care provider once when one has been chosen Follow-up with GI as needed in the outpatient setting Discharge Disposition: HOME WITH HOME HEALTH SERVICES
--- NOTE | 2019-12-29 16:46 | PN ---
PROGRESS NOTE DATE OF SERVICE: 12/29/2019 Patient is a 44-year-old pleasant white female with history of heavy alcohol abuse, acute alcoholic hepatitis, admitted to the hospital with abdominal distention and abdominal pain. She had an ultrasound done yesterday that showed evidence of minimal ascites and evidence of hepatomegaly. Clinically she is doing better. She still has some abdominal distention and abdominal pain. No nausea, no vomiting. PHYSICAL EXAMINATION: Appears comfortable, vital signs are stable. Blood pressure 122/97, pulse rate 78, temperature 97.7. HEENT: Examination unremarkable. Conjunctivae are pink. Sclerae nonicteric. Oral cavity no lesions. No JVD or lymph node enlargement. Chest was clear to auscultation. HEART: Regular rate and rhythm. ABDOMEN: Soft, there was tenderness in the epigastric area. The left lobe of the liver was enlarged. There was some splenomegaly noted. EXTREMITIES: No pedal edema. SKIN: No rashes. NEUROLOGIC: Alert and oriented x3. No focal deficits. LABS: T bilirubin 6.3, AST 136, ALT 53, alkaline phosphatase 340. BUN and creatinine are within normal limits. IMPRESSION: 1. Abdominal distention and abdominal pain secondary to hepatomegaly related to acute alcoholic hepatitis. 2. Minimal ascites. 3. Heavy alcohol abuse. RECOMMENDATIONS: 1. Start on a low-salt diet. 2. Strict abstinence from alcohol. 3. Since there is clinically no significant ascites, the patient can be discharged home today on a low-salt diet and she was advised to follow up in the office in 2 weeks. MMODL / IJN: [id number] /
== END 2019-12-29 16:39 | disposition home health service (06) | DRG 433 ==
LOC: EC 17:53 → 5NMEDONC 20:19
PROVIDERS: ADMIT Hospitalist; ATTEND Hospitalist
DX: K70.31 Alcoholic cirrhosis of liver with ascites (principal); D68.9 Coagulation defect, unspecified; E87.1 Hypo-osmolality and hyponatremia; E87.2 Acidosis; K86.1 Other chronic pancreatitis; B34.9 Viral infection, unspecified; D53.9 Nutritional anemia, unspecified; E83.42 Hypomagnesemia; E86.9 Volume depletion, unspecified; E87.5 Hyperkalemia; E87.6 Hypokalemia; E87.8 Other disorders of electrolyte and fluid balance, not elsewhere classified; F10.20 Alcohol dependence, uncomplicated; I25.2 Old myocardial infarction; K70.11 Alcoholic hepatitis with ascites; F17.210 Nicotine dependence, cigarettes, uncomplicated; F43.10 Post-traumatic stress disorder, unspecified; F31.9 Bipolar disorder, unspecified; G40.909 Epilepsy, unspecified, not intractable, without status epilepticus; M06.9 Rheumatoid arthritis, unspecified; M79.7 Fibromyalgia; Z79.899 Other long term (current) drug therapy
CPT/HCPCS: 36415; 76705; 80053; 80320; 81001; 82140; 82248; 83605; 83690; 83735; 83880; 84132; 84484; 85025; 85610; 85730; 87086; 93005; 96365; 96368; 96372; 96375; 99285

== ENCOUNTER → 2020-03-01 | Outpatient (CLI) | payer OTHER ==
[2020-03-01 15:08] LABS: Basophils % (A) 1 %; Eosinophils # (A) 0.3 k/uL (0-0.7); Eosinophils % (A) 5 %; HCT 38.1 % (34.0-46.0); Lymphocytes # (A) 2.6 k/uL (1.0-4.8); Lymphocytes % (A) 38 %; MCH 29.7 pg (25.0-35.0); MCHC 31.5 g/dL (31.0-37.0); Mean Platelet Volume 7.2; Monocytes # (A) 0.3 k/uL (0-1.0); Monocytes % (A) 5 %; Neutrophils # (A) 3.4 k/uL (1.3-7.7); Neutrophils % (A) 50 %; Platelet Count 382 k/uL (150-450); RBC 4.04 m/uL (3.80-5.40); RDW 13.4 % (11.5-15.5); WBC 6.8 k/uL (3.8-10.6)
[2020-03-01 15:13] LABS: MCV 94.4 fL (80.0-100.0)
[2020-03-02 00:35] LABS: African American GFR (CKD) 127.6 (60.0-200.0); Albumin/Globulin Ratio 1.6 (1.60-3.17); Anion Gap 6.3 mmol/L (4.00-12.00); Calcium 9.1 mg/dL (8.7-10.3); Carbon Dioxide 21.7 mmol/L (21.6-31.8); Globulin 2.5 g/dL (1.6-3.3); LDL Cholesterol,Calculated 82.2 mg/dL (0.0-131.0); Non-African American GFR(CKD) 110.1 (60.0-200.0); Potassium 3.7 mmol/L (3.5-5.5); Total Bilirubin 0.5 mg/dL (0.2-1.2); Total Protein 6.5 g/dL (6.2-8.2); VLDL Calculation 29.8 mg/dL (5.00-40.00)
== END | disposition home or self-care (01) ==
LOC: LABWHC1 12:56
PROVIDERS: ATTEND Family Medicine
DX: F41.9 Anxiety disorder, unspecified (principal); F32.9 Major depressive disorder, single episode, unspecified; K72.90 Hepatic failure, unspecified without coma; E87.1 Hypo-osmolality and hyponatremia
CPT/HCPCS: 36415; 80053; 80061; 84443; 85025

== ENCOUNTER 2020-06-02 15:36 | Emergency (ER) | payer OTHER ==
[2020-06-02] MEDS ORDERED: SODIUM CHLORIDE 0.9% 1,000 ML IV STA (16:00)
[2020-06-02] MEDS ORDERED: ONDANSETRON 4 MG/2 ML VIAL IVP STA (16:00)
[2020-06-02] MEDS ORDERED: MORPHINE SULFATE 4 MG/ML SYRINGE IV STA (16:00)
--- NOTE | 2020-06-02 16:23 | ED ---
General Adult HPI - General Chief complaint: Abdominal Pain Stated complaint: Pancreatitis Time Seen by Provider: 06/02/20 16:02 Source: patient Mode of arrival: ambulatory Limitations: no limitations - History of Present Illness Initial comments: Dictation was produced using [employer] dictation software. please excuse any grammatical, word or spelling errors. This patient was cared for during a federal and state declared state of emergency secondary to Covid 19 Chief Complaint: Patient is a 45-year-old female she has past medical history of pancreatic cyst, fibromyalgia, rheumatoid arthritis seizure disorder. Presents emergency department for 3 hours of abdominal pain History of Present Illness: 45-year-old female she has past medical history of pancreatitis and pancreatic cyst. She states that over the last couple hours she is developed severe abdominal pain and nausea. She states that she has never had symptoms this severe. Patient has history of pancreatic cyst. She has history of a chronic abdominal pain. She has been having severe nausea no vomiting. Patient is a regular marijuana user. She states that symptoms are not from marijuana use. She states she does take of marijuana every day. She denies any fevers. She states that the pain is to her epigastric area without any radiation. She denies any shortness of breath. She states she is also diaphoretic. The ROS documented in this emergency department record has been reviewed and confirmed by me. Those systems with pertinent positive or negative responses have been documented in the HPI. All other systems are other negative and/or noncontributory. PHYSICAL EXAM: General Impression: Alert and oriented x3, retching, verbally aggressive HEENT: Normocephalic atraumatic, extra-ocular movements intact, pupils equal and reactive to light bilaterally, mucous membranes moist. Cardiovascular: Heart regular rate and rhythm Chest: Able to complete full sentences, no retractions, no tachypnea Abdomen: abdomen soft, palpatory tenderness to the epigastric area, non- distended, no organomegaly Musculoskeletal: Pulses present and equal in all extremities, no peripheral edema Motor: no focal deficits noted Neurological: CN II-XII grossly intact, no focal motor or sensory deficits noted Skin: Intact with no visualized rashes Psych: Anxious ED course: 45-year-old female with past medical history of pancreatic pseudocyst presents with severe nausea and epigastric tenderness. All signs upon arrival are within acceptable limits. Patient has been verbally aggressive towards staff while in the waiting room in triage. Chart review is performed. Computed tomography scan was reviewed from November 2019 that demonstrated pseudocyst and chronic pancreatitis. Laboratory evaluation obtained. CBC is unremarkable. Cardiac panel is negative. Metabolic panel is unremarkable. Lipase is 25. Urinalysis negative. Currently I is negative. Patient given IV fluids, antiemetics and analgesics. She was evaluated in emergency department at 7:08 PM states that her symptoms are significantly improved. She states she is currently asymptomatic. She was observed in emergency department for approximately 3 hours and 30 minutes. Patient is agreeable for discharge. She is advised to follow-up with her specialist. Patient given some outpatient medications for symptom control. Patient discharged. EKG interpretation: Ventricular rate 70, normal sinus rhythm, PA interval 150, QRS 82, QTc 464. No PA prolongation, no QTC prolongation, no ST or T-wave changes noted. EKG compared to 12/27/2019 showing no changes. Overall, this EKG is unremarkable - Related Data Home Medications Medication Instructions Recorded Confirmed Lactulose 10 gm PO TID PRN 06/02/20 06/02/20 Pantoprazole [Protonix] 40 mg PO DAILY 06/02/20 06/02/20 busPIRone HCL 15 mg PO BID 06/02/20 06/02/20 Previous Rx's Medication Instructions Recorded Sertraline [Zoloft] 50 mg PO DAILY #30 tab 12/17/19 Ondansetron Odt [Zofran Odt] 4 mg PO Q8HR PRN #12 tab 06/02/20 oxyCODONE HCL/ACETAMINOPHEN 1 tab PO Q6HR PRN 3 Days #9 tab 06/02/20 [Percocet 5-325 mg] Allergies Allergy/AdvReac Type Severity Reaction Status Date / Time ibuprofen [From Motrin] Allergy Unknown Verified 06/02/20 17:58 NSAIDS (Non-Steroidal Allergy Unknown Verified 06/02/20 17:58 Anti-Inflamma quetiapine [From Seroquel] Allergy Unknown Verified 06/02/20 17:58 Review of Systems ROS Statement: Those systems with pertinent positive or pertinent negative responses have been documented in the HPI. ROS Other: All systems not noted in ROS Statement are negative. 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, carsinoid syndrome, enlarge liver, lupus, chronic pancreatitis, pancreatic tumor,osteomyelitis Last Myocardial Infarction Date:: 01/2017 History of Any Multi-Drug Resistant Organisms: MRSA Date of last positivie culture/infection: 2009 MDRO Source:: finger Past Surgical History: No Surgical Hx Reported Additional Past Surgical History / Comment(s): Left hand surgery Past Anesthesia/Blood Transfusion Reactions: No Reported Reaction Past Psychological History: Anxiety, Bipolar, Depression, PTSD Smoking Status: Current every day smoker Past Alcohol Use History: Abuse, Daily, Heavy Past Drug Use History: Marijuana - Past Family History Mother Family Medical History: Unable to Obtain General Exam Limitations: no limitations Course Vital Signs 06/02/20 15:58 Temperature 98.1 F Pulse Rate 83 Respiratory 18 Rate Blood Pressure 124/77 O2 Sat by Pulse 100 Oximetry Medical Decision Making - Lab Data Result diagrams: 06/02/20 16:19 06/02/20 16:19 Lab Results 06/02/20 06/02/20 06/02/20 Range/Units 16:19 16:19 16:19 WBC 7.3 (3.8-10.6) k/uL RBC 3.86 (3.80-5.40) m/uL Hgb 12.4 (11.4-16.0) gm/dL Hct 35.9 (34.0-46.0) % MCV 93.0 (80.0-100.0) fL MCH 32.1 (25.0-35.0) pg MCHC 34.5 (31.0-37.0) g/dL RDW 12.9 (11.5-15.5) % Plt Count 231 (150-450) k/uL MPV 7.2 Neutrophils % 80 % Lymphocytes % 15 % Monocytes % 4 % Eosinophils % 0 % Basophils % 0 % Neutrophils # 5.8 (1.3-7.7) k/uL Lymphocytes # 1.1 (1.0-4.8) k/uL Monocytes # 0.3 (0-1.0) k/uL Eosinophils # 0.0 (0-0.7) k/uL Basophils # 0.0 (0-0.2) k/uL PT 10.5 (9.0-12.0) sec INR 1.0 (<1.2) APTT 24.3 (22.0-30.0) sec Sodium (137-145) mmol/L Potassium (3.5-5.1) mmol/L Chloride (98-107) mmol/L Carbon Dioxide (22-30) mmol/L Anion Gap mmol/L BUN (7-17) mg/dL Creatinine (0.52-1.04) mg/dL Est GFR (CKD-EPI)AfAm (>60 ml/min/1.73 sqM) Est GFR (CKD-EPI)NonAf (>60 ml/min/1.73 sqM) Glucose (74-99) mg/dL Plasma Lactic Acid Nilo (0.7-2.0) mmol/L Calcium (8.4-10.2) mg/dL Total Bilirubin (0.2-1.3) mg/dL AST (14-36) U/L ALT (4-34) U/L Alkaline Phosphatase (38-126) U/L Total Protein (6.3-8.2) g/dL Albumin (3.5-5.0) g/dL Lipase (23-300) U/L Urine Color Yellow Urine Appearance Clear (Clear) Urine pH 6.0 (5.0-8.0) Ur Specific [place] 1.022 (1.001-1.035) Urine Protein Negative (Negative) Urine Glucose (UA) Negative (Negative) Urine Ketones Trace H (Negative) Urine Blood Negative (Negative) Urine Nitrite Negative (Negative) Urine Bilirubin Negative (Negative) Urine Urobilinogen <2.0 (<2.0) mg/dL Ur Leukocyte Esterase Negative (Negative) Coronavirus (PCR) (Not Detectd) 06/02/20 06/02/20 06/02/20 Range/Units 16:19 16:19 16:19 WBC (3.8-10.6) k/uL RBC (3.80-5.40) m/uL Hgb (11.4-16.0) gm/dL Hct (34.0-46.0) % MCV (80.0-100.0) fL MCH (25.0-35.0) pg MCHC (31.0-37.0) g/dL RDW (11.5-15.5) % Plt Count (150-450) k/uL MPV Neutrophils % % Lymphocytes % % Monocytes % % Eosinophils % % Basophils % % Neutrophils # (1.3-7.7) k/uL Lymphocytes # (1.0-4.8) k/uL Monocytes # (0-1.0) k/uL Eosinophils # (0-0.7) k/uL Basophils # (0-0.2) k/uL PT (9.0-12.0) sec INR (<1.2) APTT (22.0-30.0) sec Sodium 136 L (137-145) mmol/L Potassium 3.9 (3.5-5.1) mmol/L Chloride 106 (98-107) mmol/L Carbon Dioxide 21 L (22-30) mmol/L Anion Gap 9 mmol/L BUN 18 H (7-17) mg/dL Creatinine 0.64 (0.52-1.04) mg/dL Est GFR (CKD-EPI)AfAm >90 (>60 ml/min/1.73 sqM) Est GFR (CKD-EPI)NonAf >90 (>60 ml/min/1.73 sqM) Glucose 125 H (74-99) mg/dL Plasma Lactic Acid Nilo 1.0 (0.7-2.0) mmol/L Calcium 9.8 (8.4-10.2) mg/dL Total Bilirubin 0.5 (0.2-1.3) mg/dL AST 23 (14-36) U/L ALT 27 (4-34) U/L Alkaline Phosphatase 143 H (38-126) U/L Total Protein 7.5 (6.3-8.2) g/dL Albumin 4.5 (3.5-5.0) g/dL Lipase 185 (23-300) U/L Urine Color Urine Appearance (Clear) Urine pH (5.0-8.0) Ur Specific [place] (1.001-1.035) Urine Protein (Negative) Urine Glucose (UA) (Negative) Urine Ketones (Negative) Urine Blood (Negative) Urine Nitrite (Negative) Urine Bilirubin (Negative) Urine Urobilinogen (<2.0) mg/dL Ur Leukocyte Esterase (Negative) Coronavirus (PCR) Not Detected (Not Detectd) Disposition Clinical Impression: Nausea Disposition: HOME SELF-CARE Condition: Good Instructions (If sedation given, give patient instructions): Acute Abdominal Pain (ED) Prescriptions: oxyCODONE HCL/ACETAMINOPHEN [Percocet 5-325 mg] 1 tab PO Q6HR PRN 3 Days #9 tab PRN Reason: Pain Ondansetron Odt [Zofran Odt] 4 mg PO Q8HR PRN #12 tab PRN Reason: Nausea Is patient prescribed a controlled substance at d/c from ED?: Yes Referrals: Mateo Todd [Primary Care Provider] - 1-2 days Time of Disposition: 19:11
[2020-06-02 16:57] LABS: Basophils % (A) 0 %; Eosinophils % (A) 0 %; HCT 35.9 % (34.0-46.0); HGB 12.4 gm/dL (11.4-16.0); Lymphocytes # (A) 1.1 k/uL (1.0-4.8); Lymphocytes % (A) 15 %; MCH 32.1 pg (25.0-35.0); MCHC 34.5 g/dL (31.0-37.0); Mean Platelet Volume 7.2; Monocytes # (A) 0.3 k/uL (0-1.0); Monocytes % (A) 4 %; Neutrophils # (A) 5.8 k/uL (1.3-7.7); Neutrophils % (A) 80 %; Platelet Count 231 k/uL (150-450); RBC 3.86 m/uL (3.80-5.40); RDW 12.9 % (11.5-15.5); WBC 7.3 k/uL (3.8-10.6)
[2020-06-02 17:06] LABS: ALT 27 U/L (4-34); AST 23 U/L (14-36); African American GFR (CKD) >90 (>60 ml/min/1.73 sqM); Albumin 4.5 g/dL (3.5-5.0); Alkaline Phosphatase 143 U/L (38-126); Anion Gap 9 mmol/L; Blood Urea Nitrogen 18 mg/dL (7-17); Calcium 9.8 mg/dL (8.4-10.2); Carbon Dioxide 21 mmol/L (22-30); Chloride 106 mmol/L (98-107); Glucose 125 mg/dL (74-99); Lipase 185 U/L (23-300); Non-African American GFR(CKD) >90 (>60 ml/min/1.73 sqM); Potassium 3.9 mmol/L (3.5-5.1); Sodium 136 mmol/L (137-145); Total Bilirubin 0.5 mg/dL (0.2-1.3); Total Protein 7.5 g/dL (6.3-8.2)
[2020-06-02 17:16] LABS: Partial Thromboplastin Time 24.3 sec (22.0-30.0); Prothrombin Time 10.5 sec (9.0-12.0)
[2020-06-02 18:22] LABS: Appearance,Urine Clear (Clear); Bilirubin,Urine Negative (Negative); Blood,Urine Negative (Negative); Color,Urine Yellow; Glucose,Urine (UA) Negative (Negative); Ketones,Urine Trace (Negative); Leukocyte Esterase,Urine Negative (Negative); Nitrite,Urine Negative (Negative); Protein,Urine Negative (Negative); Specific Gravity,Urine 1.022 (1.001-1.035); Urobilinogen,Urine <2.0 mg/dL (<2.0)
[2020-06-02 19:26] VITALS: BP 105/76; PULSE 87; RESP 16; TEMP 98.2
== END 2020-06-02 19:29 | disposition home or self-care (01) ==
LOC: EC 15:36
DX: R11.0 Nausea (principal); R10.13 Epigastric pain; R61 Generalized hyperhidrosis; M06.9 Rheumatoid arthritis, unspecified; M79.7 Fibromyalgia; G40.909 Epilepsy, unspecified, not intractable, without status epilepticus; I25.2 Old myocardial infarction; F32.9 Major depressive disorder, single episode, unspecified; F41.9 Anxiety disorder, unspecified; F17.200 Nicotine dependence, unspecified, uncomplicated; F12.90 Cannabis use, unspecified, uncomplicated; Z20.822 Contact with and (suspected) exposure to COVID-19; Z87.19 Personal history of other diseases of the digestive system; Z79.899 Other long term (current) drug therapy
CPT/HCPCS: 36415; 80053; 81003; 83605; 83690; 85025; 85610; 85730; 87635; 93005; 96374; 96375; 99284

== ENCOUNTER → 2021-01-31 | Outpatient (CLI) | payer OTHER ==
--- NOTE | 2021-01-31 13:25 | MR ---
EXAMINATION TYPE: MR lumbar spine wo con DATE OF EXAM: 01/31/2021 COMPARISON: Outside lumbar spine x-ray January 28, 2021. CT abdomen and pelvis December 11, 2019 HISTORY: Lumbar disc narrowing. TECHNIQUE: Multiplanar, multisequence imaging of the lumbar spine is performed without IV contrast. FINDINGS: Sagittal images of the lumbar spine overall straightened alignment with grade 1 retrolisthe sis L4 on L5 redemonstrated. Levoconvex scoliotic curvature centered lumbosacral junction redemonstra alexandre. There is multilevel disc desiccation with advanced disc space narrowing L3-L4 level redemonstrat ed. Some ossific fusion at this level is present confirmed CT abdomen and pelvis along left aspect. T he conus medullaris is normal in position and signal ending inferior T12 level. The bone marrow sign al intensity is within normal limits. Axial images show T12-L1 and L1-L2 levels to appear within normal limits. Axial images at L2-L3 level shows mild broad-based disc bulge and mild facet degenerative changes trina aterally. There is mild effacement of the anterior thecal sac. There is mild left-sided neural forami nal narrowing. Axial images at the L3-L4 level show right paracentral ossific protrusion effacing anterior thecal sa c. Patent bilateral neural foramina. Axial images at the L4-L5 level mild facet degenerative changes bilaterally. There is mild broad disc bulge with right lateral disc protrusion component. There is mild left-sided neural foraminal narrow ing. There is more moderate to severe right-sided neural foraminal narrowing. Axial images at L5-S1 level show mild facet arthropathy bilaterally. There is focal broad-based centr al disc protrusion. Spinal canal is preserved. Patent bilateral neural foramina. There are thin-walled cysts in the region of the head/uncinate process of pancreas measuring 2.0 cm a xial image 24 and 2.8 cm thin-walled cyst or cystic lesion in the pancreatic tail axial image 32 fair ly stable in size from prior CT presumed pancreatic pseudocysts . IMPRESSION: Marked disc space narrowing with some ossific fusion at the L3-L4 vertebra presumed relat ed to old trauma or congenital in etiology redemonstrated. Multilevel degenerative changes as detaile d above in the mid to lower lumbar spine.
== END | disposition home or self-care (01) ==
LOC: RADMRIMAIN 12:07
PROVIDERS: ATTEND Internal Medicine
DX: M51.36 Other intervertebral disc degeneration, lumbar region (principal); M43.26 Fusion of spine, lumbar region; M47.817 Spondylosis without myelopathy or radiculopathy, lumbosacral region; M51.26 Other intervertebral disc displacement, lumbar region; M43.16 Spondylolisthesis, lumbar region; M41.87 Other forms of scoliosis, lumbosacral region
CPT/HCPCS: 72148

== ENCOUNTER → 2022-07-21 | Outpatient (CLI) | payer OTHER ==
--- NOTE | 2022-07-21 11:37 | US ---
EXAMINATION TYPE: US venous doppler duplex LE LT DATE OF EXAM: 07/21/2022 11:17 AM COMPARISON: NONE CLINICAL INDICATION: Female, 47 years old with history of R25.2 LEG CRAMPING; left calf cramping for 3 weeks that has gotten worse, no h/o dvt, no known injury SIDE PERFORMED: Left TECHNIQUE: The lower extremity deep venous system is examined utilizing real time linear array sonog mary jane with graded compression, doppler sonography and color-flow sonography. VESSELS IMAGED: Common Femoral Vein Deep Femoral Vein Greater Saphenous Vein * Femoral Vein Popliteal Vein Small Saphenous Vein * Proximal Calf Veins (* superficial vessels) Left Leg: Negative for DVT, fluid collection within left calf, at area of pain, may represent a str ain or tear *left message on office voice mail with findings. Grayscale, color doppler, spectral doppler imaging performed of the deep veins of the lower extremiti es. There is normal flow, compressibility, vascular waveforms. IMPRESSION: 1. No evidence for deep vein thrombosis. 2. Fluid collection within the posterior calf without peripheral increased color Doppler flow favore d represent hematoma/seroma. This can be confirmed with MRI as clinically warranted. Correlate for mu scle strain/tear.
== END | disposition home or self-care (01) ==
LOC: RADUSWWP 10:58
PROVIDERS: ATTEND Internal Medicine
DX: R25.2 Cramp and spasm (principal)

== ENCOUNTER → 2022-09-13 | Outpatient (CLI) | payer OTHER ==
[2022-09-13 12:34] VITALS: BP 138/62; PULSE 78; RESP 15; TEMP 98.2
--- NOTE | 2022-09-13 14:23 | P.PAINPG ---
PQRS Measure Charge Sheet Comment: HISTORY OF PRESENT ILLNESS: 47 yr old female as a referral from Dr Knox presents today w severe and chronic LBP x 20 yrs secondary to DDD, spondylosis and facet arthropathy without myelopathy for evaluation. Pt states pain level is provoked at 6/10 in intensity, constant, localized in the lower lumbar spine, sharp in character w shooting pain towards the RLE. Pain is provoked by . Pain is alleviated by two 6 wk rounds of PT in 1487-0304 which were minimally effective, physician guided home exercises 5 times weekly since 2019, medications (Neurontin), heating pad use, repositioning and rest . LESIs > 10 yrs ago have been ineffective in treating pain. PMH: OA, Kyphosis, GERD PSH: Denies SH: Negative x3 FH: Non contributory All: See list Meds: See list REVIEW OF ORGAN SYSTEMS: CONSTITUTIONAL: No fevers or chills. No recent weight loss. NEUROLOGICAL: + numbness and tingling along the distal extremities. No seizure disorders or headaches. MUSCULOSKELETAL: + pain PSYCHIATRIC: Denies current depression or suicidal thoughts. Physical Examinations : Constitutional : Cooperative , not in acute distress . Neurologic : Cranial nerve II to XII intact. No focal neurological deficits. Psychiatric : alert & oriented x 3. Matching mood & appropriate affect. Judgment & insight intact. Musculoskeletal : Cervical Spine Motor strength in the deltoid and biceps: Normal right side. Normal Left side Motor strength biceps and the wrist extensors: Normal right side . Normal left side Motor strength in the triceps muscle: Normal right side. Normal left side Deep tendon reflexes: Normal at the biceps. Normal at Brachioradialis. Normal at triceps Vertebral body tenderness to deep palpation over Cervical facet loading test: positive bilaterally Spurling test: positive bilaterally Neck distraction test: positive bila terally Jerman sign: positive bilaterally Lumbar spine Motor strength lower extremities ,thigh and legs 5/5 Right side , 5/5 Left side Deep tendon reflexes : Normal Knee Jerk. Normal Ankle Jerk Vertebral body tenderness over Abbasi Test positive Lumbar facet Loading Test: positive R ight / positive Left Range of motion of the lumbar spine Flexion 30 degrees, extension 10 degrees Straight Leg Raise test: Left/ Right positive at degree Emily test: positive right / positive left. Severe tenderness over the Sacroiliac joint on the Right / Left sides Gaenslen test: positive bilaterally Seated flexion test: positive bilaterally. Sacral spine : Severe tenderness over the Sacroiliac joint: right side / left side Range of motion: Flexion of the lumbar spine <60 degrees Range of motion: Extension of the lumbar spine <20 degrees Gaenslen's Test positive Rivera's Test positive Emily test: positive right side / left side Thigh Thrust Test Sacral Thrust Test Imaging: MRI non contrast of the lumbar spine from 01/31/21 reviewed Assessment/ Plan : Lumbar DDD Recommendation of medication management. [place] 7.5/325mg #60 w 1 RF. Narcotics/ opiate agreement signed today 09/13/22. All questions answered. I have spent greater than 30 minutes on patient care today. Dr Rodriguez was available by phone for the evaluation of this patient. The time was used to review the medical records including relevant urine studies and Prescription history (MAPs), review of the available imaging, evaluation and examination of the patient, coordination of care with the medical staff and if applicable referring physicians, as well as creation of the medical record - Pain Location Bilateral Lower Back Non-Pharmacological Interventions: Physical Therapy Pharmacological Interventions: Scheduled Medication PQRS Narrative: Smoking Status Current every day smoker Hx Alcohol Use (MH) No Home Medications: Ambulatory Orders Lactulose 10 gm PO TID PRN 06/02/20 Ondansetron Odt [Zofran Odt] 4 mg PO Q8HR PRN #12 tab 06/02/20 Pantoprazole [Protonix] 40 mg PO DAILY 06/02/20 busPIRone HCL 15 mg PO BID 06/02/20 SUMAtriptan succinate [Imitrex] 25 mg PO DIRECTED PRN 05/16/21 Varenicline [Chantix Continuing Pack] 1 mg PO DIRECTED 05/16/21 HYDROcodone/APAP 7.5-325MG [[place] 7.5-325] 1 tab PO BID PRN 30 Days #60 tab 09/13/22 HYDROcodone/APAP 7.5-325MG [[place] 7.5-325] 1 tab PO BID PRN 30 Days #60 tab 09/13/22 Controlled Substance Measures - Controlled Substance Measures Is patient prescribed a controlled substance at discharge?: Yes When asked, does pt state using other controlled substances?: No If prescribed controlled substance>3 days was MAPS reviewed?: Yes If Rx opioid, was Start Talking consent form obtained?: Yes Was information provided regarding opioid addiction?: Yes
== END ==
LOC: PNWHC3 11:54
PROVIDERS: ATTEND Specialist
DX: M51.36 Other intervertebral disc degeneration, lumbar region (principal); M48.061 Spinal stenosis, lumbar region without neurogenic claudication; F17.200 Nicotine dependence, unspecified, uncomplicated; M40.209 Unspecified kyphosis, site unspecified; M19.90 Unspecified osteoarthritis, unspecified site; K21.9 Gastro-esophageal reflux disease without esophagitis; Z88.6 Allergy status to analgesic agent; Z88.8 Allergy status to other drugs, medicaments and biological substances
CPT/HCPCS: 99211

== ENCOUNTER → 2022-11-22 | Outpatient (CLI) | payer OTHER ==
[2022-11-22 13:08] VITALS: BP 135/76; PULSE 89; RESP 17; TEMP 98.4
--- NOTE | 2022-11-22 14:52 | P.PAINPG ---
PQRS Measure Charge Sheet Comment: HISTORY OF PRESENT ILLNESS: 47 yr old female presents today w severe and chronic LBP x 20 yrs secondary to DDD, spondylosis and facet arthropathy without myelopathy for medication refills. Pt states pain level is provoked at 6/10 in intensity, constant, localized in the lower lumbar spine, sharp in character w shooting pain towards the RLE. Pain is provoked by twisting. Pain is alleviated by two 6 wk rounds of PT in [id number] which were minimally effective, physician guided home exercises 5 times weekly since 2019, medications, heating pad use, repositioning and rest . Pt stated she her UDS will be negative for [place] as she's hasn't had it in 2 wks due to missing appointments for "car trouble." Also states she will be positive for THC and pt stated she will not stop taking THC products. She stated that "other physicians" fill narcotics for pt's that use THC products and demanding me to do so. Interventional procedures include LESIs > 10 yrs ago which were ineffective Medications include Neurontin, THC REVIEW OF ORGAN SYSTEMS: CONSTITUTIONAL: No fevers or chills. No recent weight loss. NEUROLOGICAL: + numbness and tingling along the distal extremities. No seizure disorders or headaches. MUSCULOSKELETAL: + pain PSYCHIATRIC: Denies current depression or suicidal thoughts. Physical Examinations : Constitutional : Cooperative , not in acute distress . Neurologic : Cranial nerve II to XII intact. No focal neurological deficits. Psychiatric : alert & oriented x 3. Matching mood & appropriate affect. Judgment & insight intact. Musculoskeletal : Cervical Spine Motor strength in the deltoid and biceps: Normal right side. Normal Left side Motor strength biceps and the wrist extensors: Normal right side . Normal left side Motor strength in the triceps muscle: Normal right side. Normal left side Deep tendon reflexes: Normal at the biceps. Normal at Brachioradialis. Normal at triceps Vertebral body tenderness to deep palpation over Cervical facet loading test: positive bilaterally Spurling test: positive bilaterally Neck distraction test: positive bilaterally Jerman sign: positive bilaterally Lumbar spine Motor strength lower extremities ,thigh and legs 5/5 Right side , 5/5 Left side Deep tendon reflexes : Normal Knee Jerk. Normal Ankle Jerk Vertebral body tenderness over Abbasi Test positive Lumbar facet Loading Test: positive Right / positive Left Range of motion of the lumbar spine Flexion 30 degrees, extension 10 degrees Straight Leg Raise test: Left/ Right positive at degree Emily test: positive right / positive left. Severe tenderness over the Sacroiliac joint on the Right / Left sides Gaenslen test: positive bilaterally Seated flexion test: positive bilaterally. Sacral spine : Severe tenderness over the Sacroiliac joint: right side / left side Range of motion: Flexion of the lumbar spine <60 degrees Range of motion: Extension of the lumbar spine <20 degrees Gaenslen's Test positive Rivera's Test positive Emily test: positive right side / left side Thigh Thrust Test Sacral Thrust Test Imaging: MRI non contrast of the lumbar spine from 01/31/21 reviewed Assessment/ Plan : Lumbar DDD Violation of opiate/ narcotic agreement as pt admits to cannabis use. Pt has a narcotic agreement with Dr Knox for Neurontin. All questions answered. I have spent greater than 30 minutes on patient care today. Dr Rodriguez was available by phone for the evaluation of this patient. The time was used to review the medical records including relevant urine studies and Prescription history (MAPs), review of the available imaging, evaluation and examination of the patient, coordination of care with the medical staff and if applicable referring physicians, as well as creation of the medical record PQRS Narrative: Smoking Status Current every day smoker Hx Alcohol Use (MH) No Home Medications: Ambulatory Orders Lactulose 10 gm PO TID PRN 06/02/20 Ondansetron Odt [Zofran Odt] 4 mg PO Q8HR PRN #12 tab 06/02/20 Pantoprazole [Protonix] 40 mg PO DAILY 06/02/20 busPIRone HCL 15 mg PO BID 06/02/20 SUMAtriptan succinate [Imitrex] 25 mg PO DIRECTED PRN 05/16/21 Varenicline [Chantix Continuing Pack] 1 mg PO DIRECTED 05/16/21 HYDROcodone/APAP 7.5-325MG [[place] 7.5-325] 1 tab PO BID PRN 30 Days #60 tab 09/13/22 HYDROcodone/APAP 7.5-325MG [[place] 7.5-325] 1 tab PO BID PRN 30 Days #60 tab 09/13/22 Controlled Substance Measures - Controlled Substance Measures Is patient prescribed a controlled substance at discharge?: No
== END ==
LOC: PNWHC3 12:05
PROVIDERS: ATTEND Specialist
DX: M51.36 Other intervertebral disc degeneration, lumbar region (principal); F17.200 Nicotine dependence, unspecified, uncomplicated; Z88.6 Allergy status to analgesic agent; Z88.8 Allergy status to other drugs, medicaments and biological substances
CPT/HCPCS: 99211

== ENCOUNTER 2023-06-09 12:55 | Inpatient (IN) | payer MEDICARE, OTHER ==
[2023-06-09] MEDS ORDERED: LORazepam 2 MG/ML INJ IV PRN (13:37)
--- NOTE | 2023-06-09 13:46 | ED ---
Alcohol HPI - General Chief Complaint: Alcohol Stated Complaint: Alcohol detox Time Seen by Provider: 06/09/23 13:10 Source: patient, family Mode of arrival: wheelchair Limitations: no limitations - History of Present Illness Initial Comments: 48-year-old female with past medical history of alcohol abuse who presents to the emergency department reporting nausea and vomiting. States that she is currently withdrawing from alcohol. States that she has been drinking 1/5 of liquor every day for the past month. Previous to that she had been sober for 2 years. Last drink was yesterday afternoon and previous to that she she drank a half a gallon of alcohol overnight. She is now nauseated, vomiting and tremulous. She does have a history of pancreatitis. She admits to a history of withdrawal seizure. She does not have any medications available for withdrawal symptoms at home. She admits to THC use and depression. No suicidal ideations. No other alleviating, precipitating modifying factors - Related Data Home Medications Medication Instructions Recorded Confirmed Pantoprazole [Protonix] 40 mg PO DAILY 06/02/20 06/09/23 busPIRone HCL 15 mg PO BID 06/02/20 06/09/23 Atorvastatin [Lipitor] 40 mg PO DAILY 06/09/23 06/09/23 Butalb/APAP/Caff 50-325-40Mg 1 tab PO BID PRN 06/09/23 06/09/23 [Fioricet 50-325-40] Gabapentin [Neurontin] 300 mg PO QID 06/09/23 06/09/23 HYDROcodone/APAP 7.5-325MG [[place] 1 tab PO TID 06/09/23 06/09/23 7.5-325] Ondansetron [Zofran] 4 mg PO TID PRN 06/09/23 06/09/23 Venlafaxine HCl ER [Effexor XR] 150 mg PO DAILY 06/09/23 06/09/23 rOPINIRole HCL [Requip] 0.25 mg PO HS 06/09/23 06/09/23 Previous Rx's Medication Instructions Recorded Magnesium Oxide [Mag-Ox] 400 mg PO BID #14 tab 06/13/23 Potassium Chloride ER [K-Dur 20] 20 meq PO DAILY #7 tab 06/13/23 Allergies Allergy/AdvReac Type Severity Reaction Status Date / Time ibuprofen [From Motrin] Allergy Unknown Verified 06/09/23 14:25 NSAIDS (Non-Steroidal Allergy Unknown Verified 06/09/23 14:25 Anti-Inflamma quetiapine [From Seroquel] Allergy Unknown Verified 06/09/23 14:25 Review of Systems ROS Statement: Those systems with pertinent positive or pertinent negative responses have been documented in the HPI. ROS Other: All systems not noted in ROS Statement are negative. Past Medical History Past Medical History: Fibromyalgia, GERD/Reflux, Myocardial Infarction ([place]), Rheumatoid Arthritis (RA), Seizure Disorder Additional Past Medical History / Comment(s): migraines,"one seizure yrs ago" 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, carsinoid syndrome, enlarged liver, lupus, chronic pancreatitis, pancreatic cysts x 3, chronic osteomyelitis , [place] X2, hx ulcers, "fibrosis in liver", anemia, "Broken back" Last Myocardial Infarction Date:: 01/2017 History of Any Multi-Drug Resistant Organisms: MRSA Date of last positivie culture/infection: 2009 MDRO Source:: finger Past Surgical History: Orthopedic Surgery Additional Past Surgical History / Comment(s): Left hand surgery Past Anesthesia/Blood Transfusion Reactions: No Reported Reaction Past Psychological History: Anxiety, Bipolar, Depression, PTSD Smoking Status: Current every day smoker Past Alcohol Use History: Abuse, Daily Past Drug Use History: Marijuana - Past Family History Mother Family Medical History: Cancer Father Family Medical History: Cancer General Exam Limitations: no limitations General appearance: alert, other (Tremulous) Head exam: Present: atraumatic, normocephalic, normal inspection Eye exam: Present: normal appearance, PERRL, EOMI. Absent: scleral icterus, conjunctival injection, periorbital swelling ENT exam: Present: normal exam, mucous membranes moist Neck exam: Present: normal inspection. Absent: tenderness, meningismus, lymphadenopathy Respiratory exam: Present: normal lung sounds bilaterally. Absent: respiratory distress, wheezes, rales, rhonchi, stridor Cardiovascular Exam: Present: tachycardia GI/Abdominal exam: Present: soft, normal bowel sounds. Absent: distended, tenderness, guarding, rebound, rigid Course Vital Signs 06/09/23 06/09/23 06/09/23 13:06 14:15 15:03 Temperature 97.4 F L 98.2 F Pulse Rate 110 H 105 H 109 H Pulse Rate [ Left Pulse Oximetery] Respiratory 18 20 17 Rate Blood Pressure 144/93 139/97 146/93 Blood Pressure [Left Arm] O2 Sat by Pulse 98 99 99 Oximetry 06/09/23 06/09/23 06/09/23 16:03 17:08 18:13 Temperature 98.5 F 98.3 F Pulse Rate 115 H 108 H 112 H Pulse Rate [ Left Pulse Oximetery] Respiratory 17 20 20 Rate Blood Pressure 142/97 119/82 130/89 Blood Pressure [Left Arm] O2 Sat by Pulse 97 97 99 Oximetry 06/09/23 06/09/23 06/10/23 20:07 22:29 02:00 Temperature Pulse Rate 112 H 114 H 112 H Pulse Rate [ Left Pulse Oximetery] Respiratory 19 20 17 Rate Blood Pressure 118/81 123/79 104/89 Blood Pressure [Left Arm] O2 Sat by Pulse 97 Oximetry 06/10/23 06/10/23 06/10/23 06:52 07:00 13:32 Temperature Pulse Rate 118 H 112 H Pulse Rate [ 118 H Left Pulse Oximetery] Respiratory 18 18 Rate Blood Pressure 100/71 132/89 Blood Pressure 119/84 [Left Arm] O2 Sat by Pulse 95 94 L 98 Oximetry 06/10/23 17:15 Temperature Pulse Rate 109 H Pulse Rate [ Left Pulse Oximetery] Respiratory 18 Rate Blood Pressure 118/81 Blood Pressure [Left Arm] O2 Sat by Pulse 99 Oximetry Medical Decision Making - Medical Decision Making Was pt. sent in by a medical professional or institution (, PA, DRAFTER ASSISTANT, urgent care, hospital, or long term...) When possible be specific @ -No Did you speak to anyone other than the patient for history (EMS, parent, family, police, friend...)? What history was obtained from this source @ -Spoke with her significant other Did you review nursing and triage notes (agree or disagree)? Why? @ -I reviewed and agree with nursing and triage notes Were old charts reviewed (outside hosp., previous admission, EMS record, old EKG, old radiological studies, urgent care reports/EKG's, long term records)? Report findings @ -I reviewed inpatient stay reports from November 2019 Differential Diagnosis (chest pain, altered mental status, abdominal pain women, abdominal pain men, vaginal bleeding, weakness, fever, dyspnea, syncope, headache, dizziness, GI bleed, back pain, seizure, CVA, palpatations, mental health, musculoskeletal)? @ -Differential Abdominal Pain Women: Appendicitis, Cholecystitis, diverticulosis, ischemic bowel, pancreatitis, hepatitis, UTI, gastroenteritis, AAA, incarcerated hernia, bowel obstruction, constipation, inflammatory bowel, hepatitis, peptic ulcer disease, splenic infarction, perforated viscus, vulvitis, ovarian torsion, PID, kidney stone, placenta abruption, this is not meant to be an all-inclusive list EKG interpreted by me (3pts min.). @ -Yes and demonstrates sinus tachycardia with a rate of 103. [place] interval 168. QRS 88. QTc of 456. No acute ST segment elevations or depressions X-rays interpreted by me (1pt min.). @ -None done CT interpreted by me (1pt min.). @ -None done U/S interpreted by me (1pt. min.). @ -None done What testing was considered but not performed or refused? (CT, X-rays, U/S, labs)? Why? @ -None What meds were considered but not given or refused? Why? @ -3% Nacl however patient is not symptomatic Did you discuss the management of the patient with other professionals (professionals i.e. , PA, DRAFTER ASSISTANT, lab, RT, psych nurse, rn social work, manager machine, teacher, plain clothes police officer, disease case manager rn)? Give summary @ -Spoke with Dr. Olea from nephrology for recommendations on fluid administration Was smoking cessation discussed for >3mins.? @ -No Was critical care preformed (if so, how long)? @ -No Were there social determinants of health that impacted care today? How? (Homelessness, low income, unemployed, alcoholism, drug addiction, transportation, low edu. Level, literacy, decrease access to med. care, fdc, rehab)? @ -EtOH abuse Was there de-escalation of care discussed even if they declined (Discuss DNR or withdrawal of care, Hospice)? DNR status @ -No What co-morbidities impacted this encounter? (DM, HTN, Smoking, COPD, CAD, Cancer, CVA, ARF, Chemo, Hep., AIDS, mental health diagnosis, sleep apnea, morbid obesity)? @ -Alcohol dependence Was patient admitted / discharged? Hospital course, mention meds given and route, prescriptions, significant lab abnormalities, going to OR and other pertinent info. @ -Upon arrival patient was seen and evaluated in room 13. Thorough history and physical exam was performed. IV was established and laboratory studies are conducted. Patient was given Ativan for suspected withdrawal and a bag of normal saline for dehydration. Laboratory studies do return and patient is markedly hyponatremic, hypokalemic and hypomagnesemic. Urine studies are sent. I did call and speak with Dr. Olea. Patient was already given a liter bolus normal saline. We will hold off on fluids at this time and recheck sodium in a few hours. I will replace the patient's potassium and magnesium. She will be admitted to [place] [facility] physicians. Patient agreeable to the plan and was admitted in stable condition Undiagnosed new problem with uncertain prognosis? @ -No Drug Therapy requiring intensive monitoring for toxicity (Heparin, Nitro, Insulin, Cardizem)? @ -No Were any procedures done? @ -No Diagnosis/symptom? @ -Acute alcohol withdrawal, acute nausea vomiting, acute hyponatremia, acute hypomagnesemia, acute hypokalemia Acute, or Chronic, or Acute on Chronic? @ -Acute Uncomplicated (without systemic symptoms) or Complicated (systemic symptoms)? @ -Complicated Side effects of treatment? @ -No Exacerbation, Progression, or Severe Exacerbation? @ -No Poses a threat to life or bodily function? How? (Chest pain, [place], [place], pneumonia, PE, COPD, DKA, ARF, appy, cholecystitis, CVA, Diverticulitis, Homicidal, Suicidal, threat to staff... and all critical care pts) @ -Yes as patient has severe electrolyte disturbances - Lab Data Result diagrams: 06/12/23 08:36 06/13/23 08:54 Lab Results 06/09/23 06/09/23 06/09/23 Range/Units 14:05 14:05 14:05 WBC 15.5 H (3.8-10.6) k/uL RBC 3.75 L (3.80-5.40) m/uL Hgb 13.7 (11.4-16.0) gm/dL Hct 36.5 (34.0-46.0) % MCV 97.4 (80.0-100.0) fL MCH 36.4 H (25.0-35.0) pg MCHC 37.4 H (31.0-37.0) g/dL RDW 13.6 (11.5-15.5) % Plt Count 187 (150-450) k/uL MPV 7.9 Neutrophils % (Manual) 89 % Band Neuts % (Manual) 3 % Lymphocytes % (Manual) 2 % Monocytes % (Manual) 6 % Metamyelocytes % 1 % Neutrophils # (Manual) 14.20 H (1.3-7.7) k/uL Lymphocytes # (Manual) 0.31 L (1.0-4.8) k/uL Monocytes # (Manual) 0.93 (0-1.0) k/uL Metamyelocytes # (Man) 0.16 H (0) k/uL Nucleated RBCs 0 (0-0) /100 WBC Manual Slide Review Performed Hyperchromasia Moderate Sodium 116 L* (137-145) mmol/L Potassium 2.8 L (3.5-5.1) mmol/L Chloride 79 L (98-107) mmol/L Carbon Dioxide 12 L (22-30) mmol/L Anion Gap 25 mmol/L BUN 13 (7-17) mg/dL Creatinine 0.82 (0.52-1.04) mg/dL Est GFR (CKD-EPI)AfAm >90 (>60 ml/min/1.73 sqM) Est GFR (CKD-EPI)NonAf 85 (>60 ml/min/1.73 sqM) Glucose 128 H (74-99) mg/dL Calcium 9.0 (8.4-10.2) mg/dL Magnesium 1.3 L (1.6-2.3) mg/dL Total Bilirubin 2.2 H (0.2-1.3) mg/dL AST 347 H (14-36) U/L ALT 64 H (4-34) U/L Alkaline Phosphatase 181 H (38-126) U/L Total Protein 7.3 (6.3-8.2) g/dL Albumin 4.6 (3.5-5.0) g/dL Lipase 1154 H (23-300) U/L Urine Color Light Yellow Urine Appearance Clear (Clear) Urine pH 6.5 (5.0-8.0) Ur Specific [place] 1.010 (1.001-1.035) Urine Protein Trace H (Negative) Urine Glucose (UA) Negative (Negative) Urine Ketones 1+ H (Negative) Urine Blood Moderate H (Negative) Urine Nitrite Negative (Negative) Urine Bilirubin Negative (Negative) Urine Urobilinogen <2.0 (<2.0) mg/dL Ur Leukocyte Esterase Negative (Negative) Urine RBC 1 (0-5) /hpf Urine WBC 1 (0-5) /hpf Ur Squamous Epith Cells 2 (0-4) /hpf Hyaline Casts 1 (0-2) /lpf Urine Mucus Rare H (None) /hpf Urine Opiates Screen Detected H (NotDetected) Ur Oxycodone Screen Not Detected (NotDetected) Urine Methadone Screen Not Detected (NotDetected) Ur Barbiturates Screen Detected H (NotDetected) U Tricyclic Antidepress Not Detected (NotDetected) Ur Phencyclidine Scrn Not Detected (NotDetected) Ur Amphetamines Screen Not Detected (NotDetected) U Methamphetamines Scrn Not Detected (NotDetected) U Benzodiazepines Scrn Not Detected (NotDetected) Urine Cocaine Screen Not Detected (NotDetected) U Marijuana (THC) Screen Not Detected (NotDetected) Serum Alcohol 40 mg/dL Disposition Clinical Impression: Dehydration, Acute pancreatitis, Alcohol withdrawal, Hyponatremia, Hypokalemia, Hypomagnesemia Disposition: ADMITTED IP TO THIS [facility] Condition: Stable Is patient prescribed a controlled substance at d/c from ED?: No Time of Disposition: 16:03 Decision to Admit Reason: Admit from EC Decision Date: 06/09/23 Decision Time: 16:03
[2023-06-09] MEDS: LORazepam 2 MG/ML INJ IV PRN ×2 (14:09→15:06)
[2023-06-09] MEDS: ONDANSETRON 4 MG/2 ML VIAL IVP STA (14:10)
[2023-06-09] MEDS: THIAMINE 100 MG/ML 2 ML VIAL IM STA (14:11)
[2023-06-09 14:24] LABS: HCT 36.5 % (34.0-46.0); HGB 13.7 gm/dL (11.4-16.0); Hyperchromasia Moderate; MCH 36.4 pg (25.0-35.0); MCHC 37.4 g/dL (31.0-37.0); MCV 97.4 fL (80.0-100.0); Mean Platelet Volume 7.9; Platelet Count 187 k/uL (150-450); RBC 3.75 m/uL (3.80-5.40); RDW 13.6 % (11.5-15.5); WBC 15.5 k/uL (3.8-10.6)
[2023-06-09 14:45] LABS: ALT 64 U/L (4-34); AST 347 U/L (14-36); African American GFR (CKD) >90 (>60 ml/min/1.73 sqM); Albumin 4.6 g/dL (3.5-5.0); Alcohol 40 mg/dL; Alkaline Phosphatase 181 U/L (38-126); Anion Gap 25 mmol/L; Blood Urea Nitrogen 13 mg/dL (7-17); Carbon Dioxide 12 mmol/L (22-30); Chloride 79 mmol/L (98-107); Glucose 128 mg/dL (74-99); Lipase 1154 U/L (23-300); Magnesium 1.3 mg/dL (1.6-2.3); Non-African American GFR(CKD) 85 (>60 ml/min/1.73 sqM); Total Bilirubin 2.2 mg/dL (0.2-1.3); Total Protein 7.3 g/dL (6.3-8.2)
[2023-06-09] MEDS: SODIUM CHLORIDE 0.9% 1,000 ML IV ONE (14:47)
[2023-06-09 15:02] LABS: Potassium 2.8 mmol/L (3.5-5.1)
[2023-06-09 15:38] LABS: Nucleated Red Blood Cells 0 /100 WBC (0-0)
[2023-06-09 15:40] LABS: Band Neutrophils % 3 %; Lymphocytes # (M) 0.31 k/uL (1.0-4.8); Metamyelocytes # (M) 0.16 k/uL (0); Metamyelocytes % 1 %; Monocytes # (M) 0.93 k/uL (0-1.0); Neutrophils % (M) 89 %; Total Cells Counted 200
[2023-06-09 15:46] LABS: Sodium 116 mmol/L (137-145)
[2023-06-09] MEDS: POTASSIUM CHLORIDE ER 20 MEQ TAB.ER PO STA (16:11)
[2023-06-09] MEDS: POTASSIUM CHLORIDE 20 MEQ in WATER FOR INJECTION 1 100ML.BAG IVPB STA (16:11)
[2023-06-09] MEDS: MAGNESIUM SULFATE-D5W PMX 1 GM in DEXTROSE/WATER 1 100ML.BAG IVPB SCH (16:17)
[2023-06-09] MEDS ORDERED: NALOXONE 0.4 MG/ML 1 ML VIAL IV PRN (16:20)
[2023-06-09] MEDS ORDERED: ONDANSETRON 4 MG/2 ML VIAL IVP PRN (16:20)
[2023-06-09] MEDS ORDERED: Potassium Replacement Protocol 1 EACH MISC MISCELLANE PRN (16:25)
[2023-06-09] MEDS ORDERED: Magnesium Replacement Protocol 1 EACH MISC MISCELLANE PRN (16:25)
[2023-06-09 17:00] LABS: Appearance,Urine Clear (Clear); Bilirubin,Urine Negative (Negative); Blood,Urine Moderate (Negative); Color,Urine Light Yellow; Glucose,Urine (UA) Negative (Negative); Hyaline Casts,Urine 1 /lpf (0-2); Ketones,Urine 1+ (Negative); Leukocyte Esterase,Urine Negative (Negative); Mucus,Urine Rare /hpf; Nitrite,Urine Negative (Negative); PH, Urine 6.5 (5.0-8.0); Protein,Urine Trace (Negative); RBC,Urine 1 /hpf (0-5); Squamous Epithelial Cell,Urine 2 /hpf (0-4); Urobilinogen,Urine <2.0 mg/dL (<2.0); WBC,Urine 1 /hpf (0-5)
[2023-06-09 17:05] LABS: African American GFR (CKD) >90 (>60 ml/min/1.73 sqM); Anion Gap 15 mmol/L; Blood Urea Nitrogen 12 mg/dL (7-17); Carbon Dioxide 17 mmol/L (22-30); Chloride 85 mmol/L (98-107); Glucose 104 mg/dL (74-99); Non-African American GFR(CKD) >90 (>60 ml/min/1.73 sqM); Potassium 2.8 mmol/L (3.5-5.1)
[2023-06-09 17:06] LABS: Amphetamine Screen,Urine Not Detected (NotDetected); Barbiturate Screen,Urine Detected (NotDetected); Benzodiazepines Screen,Urine Not Detected (NotDetected); Cocaine Screen,Urine Not Detected (NotDetected); Methadone Screen, Urine Not Detected (NotDetected); Opiate Screen,Urine Detected (NotDetected); Oxycodone Screen, Urine Not Detected (NotDetected); Phencyclidine Screen,Urine Not Detected (NotDetected); Tricyclic Antidepressant,Urine Not Detected (NotDetected); Urn Cannabinoid Scrn Not Detected (NotDetected)
[2023-06-09 17:07] LABS: Sodium 117 mmol/L (137-145)
[2023-06-09] MEDS: GABAPENTIN 300 MG CAP PO SCH (18:15)
--- NOTE | 2023-06-09 18:20 | P.HPIM ---
History of Present Illness H&P Date: 06/09/23 Patient is a 48-year-old female with history of alcohol dependence, migraine headaches, anxiety/depression, dyslipidemia, restless leg, GERD presenting with nausea vomiting. She claims that she drinks heavily, 1/5 of vodka every day. She has previously had withdrawal seizures and neuropathy in the ICU 2 years ago. She has never been to rehab. She has some epigastric pain otherwise den ies any chest pain, shortness of breath, cough, fevers, chills. She claims that she has issues with urinating on and off, and has been noticing some loose stools as well. On initial presentation, temperature was 97.4, pulse 110, respiratory rate 18, blood pressure 144/93, saturating at 98% on room air. WBC 15.5, hemoglobin 13.7, platelet 187, sodium 116, potassium 2.8, chloride 79, bicarb 12, anion gap 25, creatinine 0.82, magnesium 1.3, total bili 2.2, AST 347, ALT 64, ALP 181, lipase 1100 urine positive for opiates and barbiturates. Alcohol level 40. EKG on initial presentation showed sinus tachycardia. Patient likely received some IV Ativan, IV magnesium, IV fluids and IV potassium. Nephrology was consulted. Patient being admitted for severe hyponatremia. Pertinent positives and negatives as discussed in HPI, a complete review of systems was performed and all other systems are negative. Patient seen and examined at bedside. Vital signs reviewed General: nontoxic, no distress, appears at stated age Derm: warm, dry Head: atraumatic, normocephalic, symmetric Eyes: EOMI, no lid lag, anicteric sclera, pupils equal round reactive to light ENT: Nose and ears atraumatic Neck: No thyromegaly, supple Mouth: no lip lesion, mucus membranes moist Cardiovascular: S1S2 reg, no murmur, no edema Lungs: clear to auscultation bilateral, no rhonchi, no rales, no wheeze, no accessory muscle use Abdominal: soft, tender to palpation in epigastric region, no guarding, no appreciable organomegaly Ext: no gross muscle atrophy, muscle strength muscle strength 5 out of 5 in all 4 extremities, no contractures Neuro: CN II-XII grossly intact Psych: Alert, oriented, appropriate affect Assessment/Plan: Active: Severe hyponatremia Hypokalemia Anion gap metabolic acidosis Hypomagnesemia Alcohol intoxication Alcohol dependence with withdrawal Transaminitis Possible pancreatitis Leukocytosis, likely secondary to dehydration with band neutrophils Polysubstance use - Patient received 1 L of normal saline in the ED, needs close monitoring of sodium every 4 hours, urine osmolality, urine sodium, serum osmolality pending. - Nephrology is consulted - Telemetry, and seizure precautions - Currently holding of IV fluids - IV Ativan as needed per CIWA score, monitor for sedation - Thiamine 100 daily - Getting magnesium and potassium replacement - PT/INR ordered to calculate Madrey score -Zofran IV 4 mg as needed for nausea vomiting -lactate pending Depression/anxiety - Hold venlafaxine, and BuSpar Nicotine dependence - Counseled regarding smoking cessation Chronic: Dyslipidemia The patient is admitted with an anticipated greater than 2 midnight stay as inpatient status for evaluation of severe hyponatremia. Surrogate decision-maker: Mother CODE STATUS: Full code DVT prophylaxis: Lovenox Anticipated discharge date: Pending clinical course Anticipated discharge place: Pending clinical course A total of 55 minutes was spent on the care of this complex patient more than 50% of the time was spent in counseling and care coordination. Past Medical History Past Medical History: Fibromyalgia, GERD/Reflux, Myocardial Infarction ([place]), Rheumatoid Arthritis (RA), Seizure Disorder Additional Past Medical History / Comment(s): migraines,"one seizure yrs ago" 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, carsinoid syndrome, enlarged liver, lupus, chronic pancreatitis, pancreatic cysts x 3, chronic osteomyelitis , [place] X2, hx ulcers, "fibrosis in liver", anemia, "Broken back" Last Myocardial Infarction Date:: 01/2017 History of Any Multi-Drug Resistant Organisms: MRSA Date of last positivie culture/infection: 2009 MDRO Source:: finger Past Surgical History: Orthopedic Surgery Additional Past Surgical History / Comment(s): Left hand surgery Past Anesthesia/Blood Transfusion Reactions: No Reported Reaction Past Psychological History: Anxiety, Bipolar, Depression, PTSD Smoking Status: Current every day smoker Past Alcohol Use History: Abuse, Daily Past Drug Use History: Marijuana - Past Family History Mother Family Medical History: Cancer Father Family Medical History: Cancer Medications and Allergies Home Medications Medication Instructions Recorded Confirmed Type Pantoprazole [Protonix] 40 mg PO DAILY 06/02/20 06/09/23 History busPIRone HCL 15 mg PO BID 06/02/20 06/09/23 History Atorvastatin [Lipitor] 40 mg PO DAILY 06/09/23 06/09/23 History Butalb/APAP/Caff 50-325-40Mg 1 tab PO BID PRN 06/09/23 06/09/23 History [Fioricet 50-325-40] Gabapentin [Neurontin] 300 mg PO QID 06/09/23 06/09/23 History HYDROcodone/APAP 7.5-325MG [[place] 1 tab PO TID 06/09/23 06/09/23 History 7.5-325] Ondansetron [Zofran] 4 mg PO TID PRN 06/09/23 06/09/23 History Venlafaxine HCl ER [Effexor Xr] 150 mg PO DAILY 06/09/23 06/09/23 History rOPINIRole HCL [Requip] 0.25 mg PO HS 06/09/23 06/09/23 History Allergies Allergy/AdvReac Type Severity Reaction Status Date / Time ibuprofen [From Motrin] Allergy Unknown Verified 06/09/23 14:25 NSAIDS (Non-Steroidal Allergy Unknown Verified 06/09/23 14:25 Anti-Inflamma quetiapine [From Seroquel] Allergy Unknown Verified 06/09/23 14:25 Physical Exam Vitals: Vital Signs Temp Pulse Resp BP Pulse Ox 06/09/23 17:08 108 H 20 119/82 97 06/09/23 16:03 98.5 F 115 H 17 142/97 97 06/09/23 15:03 109 H 17 146/93 99 06/09/23 14:15 98.2 F 105 H 20 139/97 99 06/09/23 13:06 97.4 F L 110 H 18 144/93 98 Intake and Output 06/09/23 06/09/23 06/09/23 06:59 14:59 22:59 Other: Weight 63.503 kg Results CBC & Chem 7: 06/09/23 14:05 06/09/23 16:34 Labs: Abnormal Lab Results - Last 24 Hours (Table) 06/09/23 06/09/23 06/09/23 Range/Units 14:05 14:05 14:05 WBC 15.5 H (3.8-10.6) k/uL RBC 3.75 L (3.80-5.40) m/uL MCH 36.4 H (25.0-35.0) pg MCHC 37.4 H (31.0-37.0) g/dL Neutrophils # (Manual) 14.20 H (1.3-7.7) k/uL Lymphocytes # (Manual) 0.31 L (1.0-4.8) k/uL Metamyelocytes # (Man) 0.16 H (0) k/uL Sodium 116 L* (137-145) mmol/L Potassium 2.8 L (3.5-5.1) mmol/L Chloride 79 L (98-107) mmol/L Carbon Dioxide 12 L (22-30) mmol/L Glucose 128 H (74-99) mg/dL Calcium (8.4-10.2) mg/dL Magnesium 1.3 L (1.6-2.3) mg/dL Total Bilirubin 2.2 H (0.2-1.3) mg/dL AST 347 H (14-36) U/L ALT 64 H (4-34) U/L Alkaline Phosphatase 181 H (38-126) U/L Lipase 1154 H (23-300) U/L Urine Protein Trace H (Negative) Urine Ketones 1+ H (Negative) Urine Blood Moderate H (Negative) Urine Mucus Rare H (None) /hpf Urine Opiates Screen Detected H (NotDetected) Ur Barbiturates Screen Detected H (NotDetected) 06/09/23 Range/Units 16:34 WBC (3.8-10.6) k/uL RBC (3.80-5.40) m/uL MCH (25.0-35.0) pg MCHC (31.0-37.0) g/dL Neutrophils # (Manual) (1.3-7.7) k/uL Lymphocytes # (Manual) (1.0-4.8) k/uL Metamyelocytes # (Man) (0) k/uL Sodium 117 L* (137-145) mmol/L Potassium 2.8 L (3.5-5.1) mmol/L Chloride 85 L (98-107) mmol/L Carbon Dioxide 17 L (22-30) mmol/L Glucose 104 H (74-99) mg/dL Calcium 8.0 L (8.4-10.2) mg/dL Magnesium (1.6-2.3) mg/dL Total Bilirubin (0.2-1.3) mg/dL AST (14-36) U/L ALT (4-34) U/L Alkaline Phosphatase (38-126) U/L Lipase (23-300) U/L Urine Protein (Negative) Urine Ketones (Negative) Urine Blood (Negative) Urine Mucus (None) /hpf Urine Opiates Screen (NotDetected) Ur Barbiturates Screen (NotDetected)
[2023-06-09 18:28] LABS: INR 1.1 (<1.2); Prothrombin Time 12.2 sec (10.0-12.5)
[2023-06-09] MEDS ORDERED: NON FORMULARY DRUG (Buspirone Hcl [Buspirone Hcl] 15 MG Tablet) PO SCH (21:00)
[2023-06-09] MEDS: HYDROcodone/APAP 7.5-325MG 1 EACH TAB PO SCH (22:36)
[2023-06-10 05:56] LABS: Basophils % (A) 0 %; Eosinophils % (A) 0 %; HCT 30.9 % (34.0-46.0); HGB 11.2 gm/dL (11.4-16.0); Hyperchromasia Slight; Lymphocytes # (A) 0.7 k/uL (1.0-4.8); Lymphocytes % (A) 11 %; MCH 35.8 pg (25.0-35.0); MCHC 36.3 g/dL (31.0-37.0); MCV 98.7 fL (80.0-100.0); Mean Platelet Volume 7.9; Monocytes # (A) 0.3 k/uL (0-1.0); Monocytes % (A) 6 %; Neutrophils # (A) 4.8 k/uL (1.3-7.7); Neutrophils % (A) 82 %; Platelet Count 111 k/uL (150-450); RBC 3.13 m/uL (3.80-5.40); WBC 5.9 k/uL (3.8-10.6)
[2023-06-10 06:10] LABS: African American GFR (CKD) >90 (>60 ml/min/1.73 sqM); Anion Gap 11 mmol/L; Blood Urea Nitrogen 9 mg/dL (7-17); Calcium 8.2 mg/dL (8.4-10.2); Carbon Dioxide 20 mmol/L (22-30); Chloride 93 mmol/L (98-107); Glucose 95 mg/dL (74-99); Non-African American GFR(CKD) >90 (>60 ml/min/1.73 sqM); Sodium 124 mmol/L (137-145)
[2023-06-10 06:17] LABS: Potassium 2.4 mmol/L (3.5-5.1)
[2023-06-10] MEDS: DEXTROSE 5% IN WATER 1,000 ML IV ONE (10:26)
[2023-06-10] MEDS: MAGNESIUM SULFATE-D5W PMX 1 GM in DEXTROSE/WATER 1 100ML.BAG IVPB ONE (10:26)
[2023-06-10] MEDS: POTASSIUM CHLORIDE 10 MEQ in WATER FOR INJECTION 1 100ML.BAG IVPB SCH (10:26)
[2023-06-10] MEDS: POTASSIUM CHLORIDE ER 20 MEQ TAB.ER PO STA (10:27)
[2023-06-10] MEDS: THIAMINE 100 MG TAB PO SCH (10:27)
[2023-06-10] MEDS: PANTOPRAZOLE 40 MG TABLET PO SCH (10:27)
[2023-06-10] MEDS: ATORVASTATIN 40 MG TAB PO SCH (10:30)
--- NOTE | 2023-06-10 11:02 | P.NPCON ---
History of Present Illness - Reason for Consult Consult date: 06/10/23 - Chief Complaint Alcohol withdrawal - History of Present Illness Patient is a 48-year-old female with history of alcohol dependence, migraine headaches, anxiety/depression, dyslipidemia, restless leg, GERD presenting with nausea vomiting. She claims that she drinks heavily, 1/5 of vodka every day. She has previously had withdrawal seizures and neuropathy in the ICU 2 years ago. She has never been to rehab. She has some epigastric pain otherwise denies any chest pain, shortness of breath, cough, fevers, chills. Came to ED because she was concerned she was going through alcohol withdrawal. Noted to be severely hyponatremic and nephrology was consulted. Feeling better today. Vital signs are stable. General: No acute distress. HEENT: Head exam is unremarkable. LUNGS: No audible rhonchi or wheezes. HEART: Rate and Rhythm are regular. ABDOMEN: Nontender. EXTREMITITES: no edema. 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, carsinoid syndrome, enlarged liver, lupus, chronic pancreatitis, pancreatic cysts x 3, chronic osteomyelitis , NH X2, hx ulcers, "fibrosis in liver", anemia, "Broken back" Last Myocardial Infarction Date:: 01/2017 History of Any Multi-Drug Resistant Organisms: MRSA Date of last positivie culture/infection: 2009 MDRO Source:: finger Past Surgical History: Orthopedic Surgery Additional Past Surgical History / Comment(s): Left hand surgery Past Anesthesia/Blood Transfusion Reactions: No Reported Reaction Past Psychological History: Anxiety, Bipolar, Depression, PTSD Smoking Status: Current every day smoker Past Alcohol Use History: Abuse, Daily Past Drug Use History: Marijuana - Past Family History Mother Family Medical History: Cancer Father Family Medical History: Cancer Medications and Allergies Home Medications Medication Instructions Recorded Confirmed Type Pantoprazole [Protonix] 40 mg PO DAILY 06/02/20 06/09/23 History busPIRone HCL 15 mg PO BID 06/02/20 06/09/23 History Atorvastatin [Lipitor] 40 mg PO DAILY 06/09/23 06/09/23 History Butalb/APAP/Caff 50-325-40Mg 1 tab PO BID PRN 06/09/23 06/09/23 History [Fioricet 50-325-40] Gabapentin [Neurontin] 300 mg PO QID 06/09/23 06/09/23 History HYDROcodone/APAP 7.5-325MG [[place] 1 tab PO TID 06/09/23 06/09/23 History 7.5-325] Ondansetron [Zofran] 4 mg PO TID PRN 06/09/23 06/09/23 History Venlafaxine HCl ER [Effexor Xr] 150 mg PO DAILY 06/09/23 06/09/23 History rOPINIRole HCL [Requip] 0.25 mg PO HS 06/09/23 06/09/23 History Allergies Allergy/AdvReac Type Severity Reaction Status Date / Time ibuprofen [From Motrin] Allergy Unknown Verified 06/09/23 14:25 NSAIDS (Non-Steroidal Allergy Unknown Verified 06/09/23 14:25 Anti-Inflamma quetiapine [From Seroquel] Allergy Unknown Verified 06/09/23 14:25 Physical Exam Vitals: Vital Signs Temp Pulse Resp BP Pulse Ox 06/10/23 06:52 118 H 18 100/71 95 06/10/23 02:00 112 H 17 104/89 06/09/23 22:29 114 H 20 123/79 06/09/23 20:07 112 H 19 118/81 97 06/09/23 18:13 98.3 F 112 H 20 130/89 99 06/09/23 17:08 108 H 20 119/82 97 06/09/23 16:03 98.5 F 115 H 17 142/97 97 06/09/23 15:03 109 H 17 146/93 99 06/09/23 14:15 98.2 F 105 H 20 139/97 99 06/09/23 13:06 97.4 F L 110 H 18 144/93 98 Results - Lab Results Most recent lab results Calcium 8.2 mg/dL (8.4-10.2) L 06/10/23 05:16 Magnesium 1.3 mg/dL (1.6-2.3) L 06/09/23 14:05 06/10/23 05:19 06/10/23 05:16 Assessment and Plan Plan: Assessment: 1. Severe hyponatremia due to ETOH use and poor solute intake. sodium 116, improved to 124 today with IVF bolus in ED. Urine osmolality and sodium low. 2. Hypokalemia due to poor intake and renal wasting. 3. Hypomagnesemia 4. AGMA-Improving 5. Alcohol Abuse Plan: Will start gentle D5W to prevent over correction of sodium level. Potassium supplementation. Will give additional 1g magnesium IV today. Monitor sodium level every 12 hours. Goal sodium by 4pm is no more than 126.
[2023-06-10 12:22] LABS: African American GFR (CKD) >90 (>60 ml/min/1.73 sqM); Anion Gap 12 mmol/L; Blood Urea Nitrogen 7 mg/dL (7-17); Calcium 8.1 mg/dL (8.4-10.2); Carbon Dioxide 18 mmol/L (22-30); Chloride 93 mmol/L (98-107); Glucose 142 mg/dL (74-99); Magnesium 2.9 mg/dL (1.6-2.3); Non-African American GFR(CKD) >90 (>60 ml/min/1.73 sqM); Sodium 123 mmol/L (137-145)
[2023-06-10 12:25] LABS: Potassium 2.5 mmol/L (3.5-5.1)
--- NOTE | 2023-06-10 13:46 | P.PN ---
Subjective Progress Note Date: 06/10/23 Hospital Course: 48-year-old female with history of alcohol dependence, migraine headaches, anx iety/depression, dyslipidemia, restless leg, GERD presenting with nausea vomiting. On initial presentation, temperature was 97.4, pulse 110, respiratory rate 18, blood pressure 144/93, saturating at 98% on room air. WBC 15.5, hemoglobin 13.7, platelet 187, sodium 116, potassium 2.8, chloride 79, bicarb 12, anion gap 25, creatinine 0.82, magnesium 1.3, total bili 2.2, AST 347, ALT 64, ALP 181, lipase 1100 urine positive for opiates and barbiturates. Alcohol level 40. EKG on initial presentation showed sinus tachycardia. Patient likely received some IV Ativan, IV magnesium, IV fluids and IV potassium. Nephrology was consulted. Patient being admitted for severe hyponatremia. Subjective: Seen and examined at bedside. No acute events overnight. Claims that nausea vomiting has resolved. Pertinent positives and negatives as discussed above, a complete review of systems was performed and all other systems are negative. Vitals Signs Reviewed. General: Nontoxic, no distress, appears at stated age Derm: Warm, dry Head: Atraumatic, normocephalic, symmetric Eyes: EOMI, no lid lag, anicteric sclera Mouth: No lip lesion, mucus membranes moist Cardiovascular: S1S2 reg, no murmur Lungs: CTA bilateral, no rhonchi, no rales, no accessory muscle use Abdominal: Soft, nontender to palpation, no guarding, no appreciable organomegaly Ext: No gross muscle atrophy, no edema, no contractures Neuro: CN II-XI grossly intact, no focal neuro deficits Psych: Alert, oriented, appropriate affect Data Reviewed Today: Pertinent Labs: Sodium 123, potassium 2.5, bicarb 18, creatinine 0.63, magnesium 2.8, hemoglobin 11.2, platelet 111 Imaging: No new imaging Assessment and Plan: Patient is severely ill, needs close monitoring Active: Severe hyponatremia Hypokalemia Anion gap metabolic acidosis Hypomagnesemia Alcohol intoxication Alcohol dependence with withdrawal Transaminitis Thrombocytopenia, mild anemia, no active bleeding Possible pancreatitis Leukocytosis, likely secondary to dehydration with band neutrophils Polysubstance use -Nephrology note reviewed, started on D5 water to prevent overcorrection of sodium levels, additional 1 g of magnesium given today, continue potassium supplementation, given 60 mill equivalent of IV potassium, and 40 mEq oral potassium - Telemetry, and seizure precautions - IV Ativan as needed per CIWA score, monitor for sedation - Thiamine 100 daily -Zofran IV 4 mg as needed for nausea vomiting Depression/anxiety - Hold venlafaxine, and BuSpar Nicotine dependence - Counseled regarding smoking cessation Chronic: Dyslipidemia DVT ppx: Lovenox Code status: Full code Anticipated discharge place: Pending clinical course Anticipated discharge time: Pending clinical course Objective - Vital Signs Vital signs: Vital Signs Temp 98.3 F 06/09/23 18:13 Pulse 112 H 06/10/23 13:32 Resp 18 06/10/23 13:32 BP 132/89 06/10/23 13:32 Pulse Ox 98 06/10/23 13:32 FiO2 Intake & Output 06/09/23 06/10/23 06/10/23 18:59 06:59 18:59 Weight 63.503 kg - Labs CBC & Chem 7: 06/10/23 05:19 06/10/23 11:08 Labs: Abnormal Lab Results - Last 24 Hours (Table) 06/09/23 06/09/23 06/09/23 Range/Units 14:05 14:05 14:05 WBC 15.5 H (3.8-10.6) k/uL RBC 3.75 L (3.80-5.40) m/uL Hgb (11.4-16.0) gm/dL Hct (34.0-46.0) % MCH 36.4 H (25.0-35.0) pg MCHC 37.4 H (31.0-37.0) g/dL Plt Count (150-450) k/uL Neutrophils # (Manual) 14.20 H (1.3-7.7) k/uL Lymphocytes # (1.0-4.8) k/uL Lymphocytes # (Manual) 0.31 L (1.0-4.8) k/uL Metamyelocytes # (Man) 0.16 H (0) k/uL Sodium 116 L* (137-145) mmol/L Potassium 2.8 L (3.5-5.1) mmol/L Chloride 79 L (98-107) mmol/L Carbon Dioxide 12 L (22-30) mmol/L Glucose 128 H (74-99) mg/dL Osmolality (275-295) mOsm/kg Plasma Lactic Acid Nilo (0.7-2.0) mmol/L Calcium (8.4-10.2) mg/dL Magnesium 1.3 L (1.6-2.3) mg/dL Total Bilirubin 2.2 H (0.2-1.3) mg/dL AST 347 H (14-36) U/L ALT 64 H (4-34) U/L Alkaline Phosphatase 181 H (38-126) U/L Lipase 1154 H (23-300) U/L Urine Protein Trace H (Negative) Urine Ketones 1+ H (Negative) Urine Blood Moderate H (Negative) Urine Mucus Rare H (None) /hpf Urine Osmolality (400-1100) mOsm/kg Ur Random Sodium (40-220) mmol/L Urine Opiates Screen Detected H (NotDetected) Ur Barbiturates Screen Detected H (NotDetected) 06/09/23 06/09/23 06/09/23 Range/Units 16:31 16:31 16:34 WBC (3.8-10.6) k/uL RBC (3.80-5.40) m/uL Hgb (11.4-16.0) gm/dL Hct (34.0-46.0) % MCH (25.0-35.0) pg MCHC (31.0-37.0) g/dL Plt Count (150-450) k/uL Neutrophils # (Manual) (1.3-7.7) k/uL Lymphocytes # (1.0-4.8) k/uL Lymphocytes # (Manual) (1.0-4.8) k/uL Metamyelocytes # (Man) (0) k/uL Sodium 117 L* (137-145) mmol/L Potassium 2.8 L (3.5-5.1) mmol/L Chloride 85 L (98-107) mmol/L Carbon Dioxide 17 L (22-30) mmol/L Glucose 104 H (74-99) mg/dL Osmolality 257 L (275-295) mOsm/kg Plasma Lactic Acid Nilo (0.7-2.0) mmol/L Calcium 8.0 L (8.4-10.2) mg/dL Magnesium (1.6-2.3) mg/dL Total Bilirubin (0.2-1.3) mg/dL AST (14-36) U/L ALT (4-34) U/L Alkaline Phosphatase (38-126) U/L Lipase (23-300) U/L Urine Protein (Negative) Urine Ketones (Negative) Urine Blood (Negative) Urine Mucus (None) /hpf Urine Osmolality 240 L (400-1100) mOsm/kg Ur Random Sodium <20 L (40-220) mmol/L Urine Opiates Screen (NotDetected) Ur Barbiturates Screen (NotDetected) 06/09/23 06/09/23 06/10/23 Range/Units 18:42 22:29 00:19 WBC (3.8-10.6) k/uL RBC (3.80-5.40) m/uL Hgb (11.4-16.0) gm/dL Hct (34.0-46.0) % MCH (25.0-35.0) pg MCHC (31.0-37.0) g/dL Plt Count (150-450) k/uL Neutrophils # (Manual) (1.3-7.7) k/uL Lymphocytes # (1.0-4.8) k/uL Lymphocytes # (Manual) (1.0-4.8) k/uL Metamyelocytes # (Man) (0) k/uL Sodium 122 L 123 L (137-145) mmol/L Potassium (3.5-5.1) mmol/L Chloride (98-107) mmol/L Carbon Dioxide (22-30) mmol/L Glucose (74-99) mg/dL Osmolality (275-295) mOsm/kg Plasma Lactic Acid Nilo 0.6 L (0.7-2.0) mmol/L Calcium (8.4-10.2) mg/dL Magnesium (1.6-2.3) mg/dL Total Bilirubin (0.2-1.3) mg/dL AST (14-36) U/L ALT (4-34) U/L Alkaline Phosphatase (38-126) U/L Lipase (23-300) U/L Urine Protein (Negative) Urine Ketones (Negative) Urine Blood (Negative) Urine Mucus (None) /hpf Urine Osmolality (400-1100) mOsm/kg Ur Random Sodium (40-220) mmol/L Urine Opiates Screen (NotDetected) Ur Barbiturates Screen (NotDetected) 06/10/23 06/10/23 06/10/23 Range/Units 05:16 05:19 11:08 WBC (3.8-10.6) k/uL RBC 3.13 L (3.80-5.40) m/uL Hgb 11.2 L (11.4-16.0) gm/dL Hct 30.9 L (34.0-46.0) % MCH 35.8 H (25.0-35.0) pg MCHC (31.0-37.0) g/dL Plt Count 111 L (150-450) k/uL Neutrophils # (Manual) (1.3-7.7) k/uL Lymphocytes # 0.7 L (1.0-4.8) k/uL Lymphocytes # (Manual) (1.0-4.8) k/uL Metamyelocytes # (Man) (0) k/uL Sodium 124 L 123 L (137-145) mmol/L Potassium 2.4 L* 2.5 L* (3.5-5.1) mmol/L Chloride 93 L 93 L (98-107) mmol/L Carbon Dioxide 20 L 18 L (22-30) mmol/L Glucose 142 H (74-99) mg/dL Osmolality (275-295) mOsm/kg Plasma Lactic Acid Nilo (0.7-2.0) mmol/L Calcium 8.2 L 8.1 L (8.4-10.2) mg/dL Magnesium 2.9 H (1.6-2.3) mg/dL Total Bilirubin (0.2-1.3) mg/dL AST (14-36) U/L ALT (4-34) U/L Alkaline Phosphatase (38-126) U/L Lipase (23-300) U/L Urine Protein (Negative) Urine Ketones (Negative) Urine Blood (Negative) Urine Mucus (None) /hpf Urine Osmolality (400-1100) mOsm/kg Ur Random Sodium (40-220) mmol/L Urine Opiates Screen (NotDetected) Ur Barbiturates Screen (NotDetected)
[2023-06-10] MEDS: SODIUM CHLORIDE 0.9% 1,000 ML IV SCH (19:56)
[2023-06-10] MEDS: NICOTINE 14MG/24HR PATCH TRANSDERM STA (20:36)
[2023-06-10 23:31] LABS: African American GFR (CKD) >90 (>60 ml/min/1.73 sqM); Anion Gap 5 mmol/L; Blood Urea Nitrogen 5 mg/dL (7-17); Calcium 8.3 mg/dL (8.4-10.2); Carbon Dioxide 20 mmol/L (22-30); Chloride 99 mmol/L (98-107); Glucose 102 mg/dL (74-99); Magnesium 2.4 mg/dL (1.6-2.3); Non-African American GFR(CKD) >90 (>60 ml/min/1.73 sqM); Sodium 124 mmol/L (137-145)
[2023-06-10 23:35] LABS: Potassium 2.6 mmol/L (3.5-5.1)
[2023-06-10] MEDS ORDERED: Potassium Replacement Protocol 1 EACH MISC MISCELLANE PRN (23:43)
[2023-06-10] MEDS: POTASSIUM CHLORIDE ER 20 MEQ TAB.ER PO SCH (23:52)
[2023-06-11] MEDS: ENOXAPARIN 40 MG/0.4 ML SYRINGE SQ SCH (08:13)
[2023-06-11 09:45] LABS: Basophils % (A) 0 %; Eosinophils # (A) 0.2 k/uL (0-0.7); Eosinophils % (A) 2 %; HGB 10.3 gm/dL (11.4-16.0); Lymphocytes # (A) 0.9 k/uL (1.0-4.8); Lymphocytes % (A) 13 %; MCH 36.1 pg (25.0-35.0); MCHC 35.4 g/dL (31.0-37.0); MCV 102.2 fL (80.0-100.0); Macrocytosis Slight; Mean Platelet Volume 7.7; Monocytes # (A) 0.2 k/uL (0-1.0); Monocytes % (A) 3 %; Neutrophils # (A) 5.4 k/uL (1.3-7.7); Neutrophils % (A) 80 %; RBC 2.84 m/uL (3.80-5.40); RDW 14.5 % (11.5-15.5); WBC 6.8 k/uL (3.8-10.6)
[2023-06-11 10:02] LABS: African American GFR (CKD) >90 (>60 ml/min/1.73 sqM); Anion Gap 7 mmol/L; Blood Urea Nitrogen 3 mg/dL (7-17); Calcium 8.3 mg/dL (8.4-10.2); Carbon Dioxide 20 mmol/L (22-30); Chloride 100 mmol/L (98-107); Glucose 133 mg/dL (74-99); Magnesium 2.1 mg/dL (1.6-2.3); Non-African American GFR(CKD) >90 (>60 ml/min/1.73 sqM); Potassium 2.8 mmol/L (3.5-5.1); Sodium 127 mmol/L (137-145)
[2023-06-11 10:25] LABS: Platelet Count 97 k/uL (150-450)
[2023-06-11] MEDS: POTASSIUM CHLORIDE ER 20 MEQ TAB.ER PO SCH (11:05)
--- NOTE | 2023-06-11 11:25 | P.PN ---
Subjective Progress Note Date: 06/11/23 Hospital Course: 48-year-old female with history of alcohol dependence, migraine headaches, anx iety/depression, dyslipidemia, restless leg, GERD presenting with nausea vomiting. On initial presentation, temperature was 97.4, pulse 110, respiratory rate 18, blood pressure 144/93, saturating at 98% on room air. WBC 15.5, hemoglobin 13.7, platelet 187, sodium 116, potassium 2.8, chloride 79, bicarb 12, anion gap 25, creatinine 0.82, magnesium 1.3, total bili 2.2, AST 347, ALT 64, ALP 181, lipase 1100 urine positive for opiates and barbiturates. Alcohol level 40. EKG on initial presentation showed sinus tachycardia. Patient likely received some IV Ativan, IV magnesium, IV fluids and IV potassium. Nephrology was consulted. Patient being admitted for severe hyponatremia. Edema improv ing. Subjective: Seen and examined at bedside. No acute events overnight. Claims that she still has nausea, but denies any vomiting. Pertinent positives and negatives as discussed above, a complete review of systems was performed and all other systems are negative. Vitals Signs Reviewed. General: Nontoxic, no distress, appears at stated age Derm: Warm, dry Head: Atraumatic, normocephalic, symmetric Eyes: EOMI, no lid lag, anicteric sclera Mouth: No lip lesion, mucus membranes moist Cardiovascular: S1S2 reg, no murmur Lungs: CTA bilateral, no rhonchi, no rales, no accessory muscle use Abdominal: Soft, nontender to palpation, no guarding, no appreciable organomegaly Ext: No gross muscle atrophy, no edema, no contractures Neuro: CN II-XI grossly intact, no focal neuro deficits Psych: Alert, oriented, appropriate affect Data Reviewed Today: Pertinent Labs: Hemoglobin 10.3, platelet 97, sodium 127, potassium 2.8, creatinine 0.55, magnesium 2.1 Imaging: No new imaging Assessment and Plan: Patient is severely ill, needs close monitoring Active: Severe hyponatremia, improving Hypokalemia, improving Anion gap metabolic acidosis, improving Hypomagnesemia, resolved Alcohol intoxication, resolved Alcohol dependence with withdrawal Transaminitis Thrombocytopenia, mild anemia, no active bleeding Possible pancreatitis Leukocytosis, likely secondary to dehydration with band neutrophils Polysubstance use -Nephrology following, on normal saline at 50 cc an hour, given 60 mill equ ivalent of oral potassium today - Telemetry, and seizure precautions - IV Ativan as needed per CIWA score, monitor for sedation - Thiamine 100 daily -Zofran IV 4 mg as needed for nausea vomiting Depression/anxiety - Hold venlafaxine, and BuSpar Nicotine dependence - Counseled regarding smoking cessation Chronic: Dyslipidemia DVT ppx: Lovenox Code status: Full code Anticipated discharge place: Pending clinical course Anticipated discharge time: Pending clinical course Objective - Vital Signs Vital signs: Vital Signs Temp 98.3 F 06/11/23 08:03 Pulse 109 H 06/11/23 11:03 Resp 18 06/11/23 11:03 BP 118/85 06/11/23 11:03 Pulse Ox 97 06/11/23 11:03 FiO2 Intake & Output 06/10/23 06/11/23 06/11/23 18:59 06:59 18:59 Intake Total 75 248 Balance 75 248 Weight 63.503 kg Intake: IV 10 Invasive Line 2 10 Intake, IV Titration 75 Amount Dextrose 5% in Water 1, 75 000 ml @ 75 mls/hr IV . [id number] Rx#:[id number] Oral 238 Other: Voiding Method Toilet Toilet # Voids 1 - Labs CBC & Chem 7: 06/11/23 09:04 06/11/23 09:04 Labs: Abnormal Lab Results - Last 24 Hours (Table) 06/10/23 06/10/23 06/11/23 Range/Units 11:08 22:35 09:04 RBC 2.84 L (3.80-5.40) m/uL Hgb 10.3 L (11.4-16.0) gm/dL Hct 29.0 L (34.0-46.0) % MCV 102.2 H (80.0-100.0) fL MCH 36.1 H (25.0-35.0) pg Plt Count 97 L (150-450) k/uL Lymphocytes # 0.9 L (1.0-4.8) k/uL Sodium 123 L 124 L (137-145) mmol/L Potassium 2.5 L* 2.6 L* (3.5-5.1) mmol/L Chloride 93 L (98-107) mmol/L Carbon Dioxide 18 L 20 L (22-30) mmol/L BUN 5 L (7-17) mg/dL Glucose 142 H 102 H (74-99) mg/dL Calcium 8.1 L 8.3 L (8.4-10.2) mg/dL Magnesium 2.9 H 2.4 H (1.6-2.3) mg/dL 06/11/23 Range/Units 09:04 RBC (3.80-5.40) m/uL Hgb (11.4-16.0) gm/dL Hct (34.0-46.0) % MCV (80.0-100.0) fL MCH (25.0-35.0) pg Plt Count (150-450) k/uL Lymphocytes # (1.0-4.8) k/uL Sodium 127 L (137-145) mmol/L Potassium 2.8 L (3.5-5.1) mmol/L Chloride (98-107) mmol/L Carbon Dioxide 20 L (22-30) mmol/L BUN 3 L (7-17) mg/dL Glucose 133 H (74-99) mg/dL Calcium 8.3 L (8.4-10.2) mg/dL Magnesium (1.6-2.3) mg/dL
--- NOTE | 2023-06-11 11:41 | P.PN ---
Subjective patient is seen for follow-up for hyponatremia. Patient was maintained on normal saline. sodium increased to 127 today. Potassium remains low at 2.8. Overall feeling better. Objective - Vital Signs Vital signs: Vital Signs Temp 98.3 F 06/11/23 08:03 Pulse 109 H 06/11/23 11:03 Resp 18 06/11/23 11:03 BP 118/85 06/11/23 11:03 Pulse Ox 97 06/11/23 11:03 FiO2 Intake & Output 06/10/23 06/11/23 06/11/23 18:59 06:59 18:59 Intake Total 75 248 Balance 75 248 Weight 63.503 kg Intake: IV 10 Invasive Line 2 10 Intake, IV Titration 75 Amount Dextrose 5% in Water 1, 75 000 ml @ 75 mls/hr IV . [id number] Rx#:[id number] Oral 238 Other: Voiding Method Toilet Toilet # Voids 1 - Exam patient is awake, comfortable, no acute distress. Examination of the heart S1 and S2 Examination of the lungs bilateral breath sounds are heard Abdomen is soft nontender Examination of the lower extremities shows no significant edema edema ADDICTIONS RECOVERY SPECIALIST exam grossly intact - Labs CBC & Chem 7: 06/11/23 09:04 06/11/23 09:04 Labs: Abnormal Lab Results - Last 24 Hours (Table) 06/10/23 06/10/23 06/11/23 Range/Units 11:08 22:35 09:04 RBC 2.84 L (3.80-5.40) m/uL Hgb 10.3 L (11.4-16.0) gm/dL Hct 29.0 L (34.0-46.0) % MCV 102.2 H (80.0-100.0) fL MCH 36.1 H (25.0-35.0) pg Plt Count 97 L (150-450) k/uL Lymphocytes # 0.9 L (1.0-4.8) k/uL Sodium 123 L 124 L (137-145) mmol/L Potassium 2.5 L* 2.6 L* (3.5-5.1) mmol/L Chloride 93 L (98-107) mmol/L Carbon Dioxide 18 L 20 L (22-30) mmol/L BUN 5 L (7-17) mg/dL Glucose 142 H 102 H (74-99) mg/dL Calcium 8.1 L 8.3 L (8.4-10.2) mg/dL Magnesium 2.9 H 2.4 H (1.6-2.3) mg/dL 06/11/23 Range/Units 09:04 RBC (3.80-5.40) m/uL Hgb (11.4-16.0) gm/dL Hct (34.0-46.0) % MCV (80.0-100.0) fL MCH (25.0-35.0) pg Plt Count (150-450) k/uL Lymphocytes # (1.0-4.8) k/uL Sodium 127 L (137-145) mmol/L Potassium 2.8 L (3.5-5.1) mmol/L Chloride (98-107) mmol/L Carbon Dioxide 20 L (22-30) mmol/L BUN 3 L (7-17) mg/dL Glucose 133 H (74-99) mg/dL Calcium 8.3 L (8.4-10.2) mg/dL Magnesium (1.6-2.3) mg/dL Assessment and Plan Assessment: 1. Severe hyponatremia due to ETOH use and poor solute intake. sodium 116, improved to 127 today with IVF, saline. Urine osmolality and sodium low. 2. Hypokalemia due to poor intake and renal wasting. 3. Hypomagnesemia 4. Kia and gap metabolic acidosis -Improving 5. Alcohol Abuse Plan: continue with normal saline Potassium supplementation Repeat labs in a.m. Encourage increase oral intake particularly protein.
[2023-06-11 16:00] VITALS: BMI 21.9
[2023-06-11] MEDS: MORPHINE SULFATE 4 MG/ML SYRINGE IVP PRN (16:39)
[2023-06-11 17:17] LABS: African American GFR (CKD) >90 (>60 ml/min/1.73 sqM); Anion Gap 8 mmol/L; Blood Urea Nitrogen 3 mg/dL (7-17); Calcium 8.3 mg/dL (8.4-10.2); Carbon Dioxide 16 mmol/L (22-30); Chloride 102 mmol/L (98-107); Glucose 111 mg/dL (74-99); Non-African American GFR(CKD) >90 (>60 ml/min/1.73 sqM); Potassium 3.4 mmol/L (3.5-5.1); Sodium 126 mmol/L (137-145)
[2023-06-11] MEDS: SODIUM CHLORIDE TAB 1 GM TAB PO STA (18:51)
[2023-06-11] MEDS: POTASSIUM CHLORIDE ER 20 MEQ TAB.ER PO STA (21:07)
--- NOTE | 2023-06-12 08:18 | CDI ---
Documentation Clarification Form Date: 06/12/2023 From: Judy Tran Phone: [phone] Admit Date: 06/09/2023 04:20:00 PM Patient Name: Radha Hobson Visit Number: [id number] Discharge Date: ATTENTION: The Clinical Documentation Specialists (CDI) and [facility] Coding Staff appreciate your assistance in clarifying documentation. Please respond to the clarification below the line at the bottom and electronically sign. The CDI & [facility] Coding staff will review the response and follow-up if needed. Please note: Queries are made part of the Legal Health Record. If you have any questions, please contact the author of this message via ITS. Dr. Mohsen Ray: The Registered Dietitian assessment on 06/10 indicates this patient meets criteria for acute moderate malnutrition. Based on this information and the findings below, is there an additional diagnosis that is clinically appropriate for this patient? History/Risk Factors: Alcohol dependence, previous withdrawal seizures, anxiety/depression, GERD who presents with nausea and vomiting Clinical Indicators: 06/09 Nephrology Consult, Assessment and Plan: "1. Severe hyponatremia due to ETOH use and poor solute intake, 2. Hypokalemia due to poor intake and renal wasting. 3. Hypomagnesemia." 06/10 RD Assessment: "Nutrition Diagnosis, Malnutrition, acute, moderate related to ETOH abuse as evidenced by consuming <75% of EER, 12.9% weight loss x 1 month." 06/10 BMI: 21.9 Height: 5ft 7in Weight: 63.503kg MST: 3 06/08 Total Protein: 7.3 06/08-06/11 Sodium: 116, 117, 122, 123, 124, 123, 124, 127, 126 Potassium: 2.8, 2.8, 2.4, 2.5, 2.6, 2.8, 3.4 Treatment: Healthy Heart diet, Ensure Compact BID with meals RD assessment Is there an additional diagnosis that is clinically appropriate for this patient? [ x ] Moderate Protein-Calorie Malnutrition [ ] No additional diagnosis/Not clinically significant [ ] Other condition, please specify [ ] Unable to Determine MTDD
[2023-06-12 09:32] LABS: Basophils % (A) 1 %; Eosinophils # (A) 0.3 k/uL (0-0.7); Eosinophils % (A) 5 %; HCT 27.8 % (34.0-46.0); HGB 9.6 gm/dL (11.4-16.0); Lymphocytes # (A) 1.1 k/uL (1.0-4.8); Lymphocytes % (A) 19 %; MCHC 34.5 g/dL (31.0-37.0); MCV 104.3 fL (80.0-100.0); Macrocytosis Moderate; Mean Platelet Volume 8.8; Monocytes # (A) 0.4 k/uL (0-1.0); Monocytes % (A) 6 %; Neutrophils % (A) 67 %; RBC 2.66 m/uL (3.80-5.40); RDW 15.4 % (11.5-15.5); WBC 5.9 k/uL (3.8-10.6)
[2023-06-12 09:40] LABS: Platelet Count 96 k/uL (150-450)
[2023-06-12 09:54] LABS: African American GFR (CKD) >90 (>60 ml/min/1.73 sqM); Anion Gap 5 mmol/L; Blood Urea Nitrogen <2 mg/dL (7-17); Calcium 8.3 mg/dL (8.4-10.2); Carbon Dioxide 19 mmol/L (22-30); Chloride 107 mmol/L (98-107); Glucose 98 mg/dL (74-99); Lipase 413 U/L (23-300); Magnesium 1.7 mg/dL (1.6-2.3); Non-African American GFR(CKD) >90 (>60 ml/min/1.73 sqM); Potassium 3.5 mmol/L (3.5-5.1); Sodium 131 mmol/L (137-145)
--- NOTE | 2023-06-12 11:16 | P.PN ---
Subjective patient is seen for follow-up for hyponatremia. Patient was maintained on normal saline. sodium increased to 131 today. Potassium at 3.5 Overall feeling better. Objective - Vital Signs Vital signs: Vital Signs Temp 98.1 F 06/12/23 07:50 Pulse 104 H 06/12/23 07:50 Resp 18 06/12/23 07:50 BP 121/85 06/12/23 07:50 Pulse Ox 97 06/12/23 07:50 FiO2 Intake & Output 06/11/23 06/12/23 06/12/23 18:59 06:59 18:59 Intake Total 606 10 Balance 606 10 Weight 63.503 kg Intake: IV 10 10 Invasive Line 2 10 10 Oral 596 Other: Voiding Method Toilet Toilet Toilet # Voids 3 2 2 # Bowel Movements 1 - Exam patient is awake, comfortable, no acute distress. Examination of the heart S1 and S2 Examination of the lungs bilateral breath sounds are heard Abdomen is soft nontender Examination of the lower extremities shows no significant edema edema EDUCATIONAL ADVISER exam grossly intact - Labs CBC & Chem 7: 06/12/23 08:36 06/12/23 08:36 Labs: Abnormal Lab Results - Last 24 Hours (Table) 06/11/23 06/12/23 06/12/23 Range/Units 15:38 08:36 08:36 RBC 2.66 L (3.80-5.40) m/uL Hgb 9.6 L (11.4-16.0) gm/dL Hct 27.8 L (34.0-46.0) % MCV 104.3 H (80.0-100.0) fL MCH 36.0 H (25.0-35.0) pg Plt Count 96 L (150-450) k/uL Sodium 126 L 131 L (137-145) mmol/L Potassium 3.4 L (3.5-5.1) mmol/L Carbon Dioxide 16 L 19 L (22-30) mmol/L BUN 3 L <2 L (7-17) mg/dL Creatinine 0.47 L 0.49 L (0.52-1.04) mg/dL Glucose 111 H (74-99) mg/dL Calcium 8.3 L 8.3 L (8.4-10.2) mg/dL Lipase 413 H (23-300) U/L Assessment and Plan Assessment: 1. Severe hyponatremia due to ETOH use and poor solute intake. sodium 116, improved to 131 with IVF, saline. Urine osmolality and sodium low. 2. Hypokalemia due to poor intake and renal wasting. 3. Hypomagnesemia 4. Kia and gap metabolic acidosis -Improving 5. Alcohol Abuse Plan: DC saline Repeat labs in a.m. Encourage increase oral intake particularly protein.
--- NOTE | 2023-06-12 11:33 | P.PN ---
Subjective Progress Note Date: 06/12/23 Hospital Course: 48-year-old female with history of alcohol dependence, migraine headaches, anx iety/depression, dyslipidemia, restless leg, GERD presenting with nausea vomiting. On initial presentation, temperature was 97.4, pulse 110, respiratory rate 18, blood pressure 144/93, saturating at 98% on room air. WBC 15.5, hemoglobin 13.7, platelet 187, sodium 116, potassium 2.8, chloride 79, bicarb 12, anion gap 25, creatinine 0.82, magnesium 1.3, total bili 2.2, AST 347, ALT 64, ALP 181, lipase 1100 urine positive for opiates and barbiturates. Alcohol level 40. EKG on initial presentation showed sinus tachycardia. Patient likely received some IV Ativan, IV magnesium, IV fluids and IV potassium. Nephrology was consulted. Patient being admitted for severe hyponatremia. Sodium impro ving. Subjective: Seen and examined at bedside. No acute events overnight. Nausea, vomiting, di arrhea improved. Still has some mild epigastric pain. Pertinent positives and negatives as discussed above, a complete review of systems was performed and all other systems are negative. Vitals Signs Reviewed. General: Nontoxic, no distress, appears at stated age Derm: Warm, dry Head: Atraumatic, normocephalic, symmetric Eyes: EOMI, no lid lag, anicteric sclera Mouth: No lip lesion, mucus membranes moist Cardiovascular: S1S2 reg, no murmur Lungs: CTA bilateral, no rhonchi, no rales, no accessory muscle use Abdominal: Soft, tender to palpation in epigastric region, no guarding, no appreciable organomegaly Ext: No gross muscle atrophy, no edema, no contractures Neuro: CN II-XI grossly intact, no focal neuro deficits Psych: Alert, oriented, appropriate affect Data Reviewed Today: Pertinent Labs: Hemoglobin 9.6, platelet 96, sodium 131, potassium 3.5, bicarb 19, creatinine 0.49, magnesium 1.7, lipase 413 Imaging: No new imaging Assessment and Plan: Active: Severe hyponatremia, improving Hypokalemia, resolvedresolved Anion gap metabolic acidosis, improving Hypomagnesemia, resolved Alcohol intoxication, resolved Alcohol dependence with withdrawal Transaminitis Thrombocytopenia, mild anemia, no active bleeding Acute on chronic pancreatitis Leukocytosis, likely secondary to dehydration with band neutrophils Polysubstance use -Nephrology note reviewed, IV fluids discontinued, increase oral intake, repeat BMP tomorrow - Telemetry, and seizure precautions - IV Ativan as needed per CIWA score, monitor for sedation - Thiamine 100 daily -Zofran IV 4 mg as needed for nausea vomiting Pain control with oral [place] 3 times daily, and IV morphine as needed, monitor for sedation Home gabapentin 300 4 times daily restarted Depression/anxiety - continue venlafaxine, and buspar Nicotine dependence - Counseled regarding smoking cessation Chronic: Dyslipidemia DVT ppx: Lovenox Code status: Full code Anticipated discharge place: Pending clinical course Anticipated discharge time: Pending clinical course Objective - Vital Signs Vital signs: Vital Signs Temp 98.1 F 06/12/23 07:50 Pulse 104 H 06/12/23 07:50 Resp 18 06/12/23 07:50 BP 121/85 06/12/23 07:50 Pulse Ox 97 06/12/23 07:50 FiO2 Intake & Output 06/11/23 06/12/23 06/12/23 18:59 06:59 18:59 Intake Total 606 10 Balance 606 10 Weight 63.503 kg Intake: IV 10 10 Invasive Line 2 10 10 Oral 596 Other: Voiding Method Toilet Toilet Toilet # Voids 3 2 2 # Bowel Movements 1 - Labs CBC & Chem 7: 06/12/23 08:36 06/12/23 08:36 Labs: Abnormal Lab Results - Last 24 Hours (Table) 06/11/23 06/12/23 06/12/23 Range/Units 15:38 08:36 08:36 RBC 2.66 L (3.80-5.40) m/uL Hgb 9.6 L (11.4-16.0) gm/dL Hct 27.8 L (34.0-46.0) % MCV 104.3 H (80.0-100.0) fL MCH 36.0 H (25.0-35.0) pg Plt Count 96 L (150-450) k/uL Sodium 126 L 131 L (137-145) mmol/L Potassium 3.4 L (3.5-5.1) mmol/L Carbon Dioxide 16 L 19 L (22-30) mmol/L BUN 3 L <2 L (7-17) mg/dL Creatinine 0.47 L 0.49 L (0.52-1.04) mg/dL Glucose 111 H (74-99) mg/dL Calcium 8.3 L 8.3 L (8.4-10.2) mg/dL Lipase 413 H (23-300) U/L
[2023-06-12] MEDS: busPIRone HCl 5 MG TAB PO SCH (12:27)
[2023-06-12] MEDS: POTASSIUM CHLORIDE ER 20 MEQ TAB.ER PO SCH (12:27)
[2023-06-12 17:32] VITALS: RESP 16
[2023-06-13] MEDS: LABETALOL 200 MG TAB PO STA (03:31)
[2023-06-13] MEDS: VENLAFAXINE HCL ER 150 MG CAP PO SCH (09:14)
[2023-06-13 09:51] VITALS: TEMP 98.1
[2023-06-13 10:21] LABS: African American GFR (CKD) >90 (>60 ml/min/1.73 sqM); Anion Gap 6 mmol/L; Blood Urea Nitrogen 2 mg/dL (7-17); Calcium 8.4 mg/dL (8.4-10.2); Carbon Dioxide 19 mmol/L (22-30); Chloride 106 mmol/L (98-107); Glucose 153 mg/dL (74-99); Magnesium 1.5 mg/dL (1.6-2.3); Non-African American GFR(CKD) >90 (>60 ml/min/1.73 sqM); Potassium 3.1 mmol/L (3.5-5.1); Sodium 131 mmol/L (137-145)
[2023-06-13] MEDS: MAGNESIUM SULFATE-D5W PMX 1 GM in DEXTROSE/WATER 1 100ML.BAG IVPB SCH (10:42)
--- NOTE | 2023-06-13 11:07 | P.PN ---
Subjective patient is seen for follow-up for hyponatremia. Patient was maintained on normal saline. discontinued yesterday sodium staying at 131 Overall feeling better and wants to go home. Objective - Vital Signs Vital signs: Vital Signs Temp 98.1 F 06/13/23 09:09 Pulse 103 H 06/13/23 10:41 Resp 16 06/13/23 10:41 BP 139/91 06/13/23 10:41 Pulse Ox 99 06/13/23 10:41 FiO2 Intake & Output 06/12/23 06/13/23 06/13/23 18:59 06:59 18:59 Intake Total 260 358 Balance 260 358 Intake: IV 20 Invasive Line 2 20 Oral 240 358 Other: Voiding Method Toilet Toilet Toilet # Voids 3 1 1 # Bowel Movements 1 - Exam patient is awake, comfortable, no acute distress. appears euvolemic Examination of the lower extremities shows no significant edema edema EMT I/85 exam grossly intact - Labs CBC & Chem 7: 06/12/23 08:36 06/13/23 08:54 Labs: Abnormal Lab Results - Last 24 Hours (Table) 06/13/23 Range/Units 08:54 Sodium 131 L (137-145) mmol/L Potassium 3.1 L (3.5-5.1) mmol/L Carbon Dioxide 19 L (22-30) mmol/L BUN 2 L (7-17) mg/dL Creatinine 0.47 L (0.52-1.04) mg/dL Glucose 153 H (74-99) mg/dL Magnesium 1.5 L (1.6-2.3) mg/dL Assessment and Plan Assessment: 1. Severe hyponatremia due to ETOH use and poor solute intake. sodium 116, improved to 131 with IV saline. Urine osmolality and sodium low. 2. Hypokalemia due to poor intake and renal wasting. 3. Hypomagnesemia 4. [place] and gap metabolic acidosis -Improving 5. Alcohol Abuse Plan: patient can be discharged from nephrology standpoint. Replace potassium Repeat labs in 3-4 days post discharge. Avoid alcohol Encourage increase oral intake particularly protein.
[2023-06-13 11:36] VITALS: BP 139/91; PULSE 103
[2023-06-13] MEDS: MAGNESIUM OXIDE 400 MG TAB PO SCH (11:41)
--- NOTE | 2023-06-13 12:05 | P.DS ---
Providers Date of admission: 06/09/23 16:20 Expected date of discharge: 06/13/23 Attending physician: Jayda Navarrete MD Consults: 06/09/23 16:20 Consult Physician Urgent Consulting Provider: Raymond Olea Consult Reason/Comments: acute hyponatremia, hx etoh abuse Do you want consulting provider notified?: Already Contacted Primary care physician: [facility] Hospital Course: 48-year-old female with history of alcohol dependence, migraine headaches, anxiety/depression, dyslipidemia, restless leg, GERD presenting with nausea vomiting. On initial presentation, temperature was 97.4, pulse 110, respiratory rate 18, blood pressure 144/93, saturating at 98% on room air. WBC 15.5, hemoglobin 13.7, platelet 187, sodium 116, potassium 2.8, chloride 79, bicarb 12, anion gap 25, creatinine 0.82, magnesium 1.3, total bili 2.2, AST 347, ALT 64, ALP 181, lipase 1100 urine positive for opiates and barbiturates. Alcohol level 40. EKG on initial presentation showed sinus tachycardia. Patient likely received some IV Ativan, IV magnesium, IV fluids and IV potassium. Nephrology was consulted. Patient being admitted for severe hyponatremia. Nephrology consulted, hydrated with NS, sodium improved. 06/12 Patient was seen and examined. No acute events overnight. Wants to go home. Potassium is 3.1 and Mag is 1.5 which is being repalced via protocol. Discussed with Dr. Santamaria, cleared for discharge. Repeat BMP in 3 days, results to PCP. KCl 20 meq PO QD and Mag oxide 400 mg PO BID prescribed for a week. Follow up with PCP within 1-2 days of discharge. General: Nontoxic, no distress, appears at stated age Derm: Warm, dry Head: Atraumatic, normocephalic, symmetric Eyes: EOMI, no lid lag, anicteric sclera Mouth: No lip lesion, mucus membranes moist Cardiovascular: S1S2 reg, systolic murmur Lungs: CTA bilateral, no rhonchi, no rales, no accessory muscle use Ext: No gross muscle atrophy, no edema, no contractures Neuro: no focal neuro deficits Psych: Alert, oriented, appropriate affect Discharge Diagnosis: Severe hyponatremia, improving Hypokalemia Anion gap metabolic acidosis, improving Hypomagnesemia Alcohol intoxication, resolved Alcohol dependence with withdrawal Transaminitis Thrombocytopenia, macrocytic anemia, no active bleeding Acute on chronic pancreatitis Leukocytosis, resolved Polysubstance use Depression and Anxiety Nicotine abuse Dyslipidemia This complex discharge took 35 minutes to complete. Patient Condition at Discharge: Stable Plan - Discharge Summary Discharge Rx Participant: Yes New Discharge Prescriptions: New Potassium Chloride ER [K-Dur 20] 20 meq PO DAILY #7 tab Magnesium Oxide [Mag-Ox] 400 mg PO BID #14 tab Continue rOPINIRole HCL [Requip] 0.25 mg PO HS Venlafaxine HCl ER [Effexor XR] 150 mg PO DAILY Butalb/APAP/Caff 50-325-40Mg [Fioricet 50-325-40] 1 tab PO BID PRN PRN Reason: Migraine Headache Ondansetron [Zofran] 4 mg PO TID PRN PRN Reason: Nausea And Vomiting HYDROcodone/APAP 7.5-325MG [[place] 7.5-325] 1 tab PO TID Atorvastatin [Lipitor] 40 mg PO DAILY busPIRone HCL 15 mg PO BID Pantoprazole [Protonix] 40 mg PO DAILY Gabapentin [Neurontin] 300 mg PO QID Discharge Medication List Pantoprazole [Protonix] 40 mg PO DAILY 06/02/20 [History] busPIRone HCL 15 mg PO BID 06/02/20 [History] Atorvastatin [Lipitor] 40 mg PO DAILY 06/09/23 [History] Butalb/APAP/Caff 50-325-40Mg [Fioricet 50-325-40] 1 tab PO BID PRN 06/09/23 [History] Gabapentin [Neurontin] 300 mg PO QID 06/09/23 [History] HYDROcodone/APAP 7.5-325MG [[place] 7.5-325] 1 tab PO TID 06/09/23 [History] Ondansetron [Zofran] 4 mg PO TID PRN 06/09/23 [History] Venlafaxine HCl ER [Effexor XR] 150 mg PO DAILY 06/09/23 [History] rOPINIRole HCL [Requip] 0.25 mg PO HS 06/09/23 [History] Magnesium Oxide [Mag-Ox] 400 mg PO BID #14 tab 06/13/23 [Rx] Potassium Chloride ER [K-Dur 20] 20 meq PO DAILY #7 tab 06/13/23 [Rx] Follow up Appointment(s)/Referral(s): Alejo Knox DO [Primary Care Provider] - 1-2 days Ambulatory/Diagnostic Orders: Basic Metabolic Panel [LAB.AMB] Time Frame: 3 Days, Location: None Selected Discharge/Stand Alone Forms: AA Meetings [facility] - [facility], AA Meetings [place], Outpatient Counseling, In Substance Abuse Facilities Discharge Disposition: HOME SELF-CARE
[2023-06-13] MEDS: POTASSIUM CHLORIDE ER 20 MEQ TAB.ER PO STA (12:31)
== END 2023-06-13 14:26 | disposition home or self-care (01) | DRG 640 ==
LOC: EC 12:55 → 3SCARD 16:20
PROVIDERS: ADMIT Family Medicine; ATTEND Family Medicine
DX: E87.1 Hypo-osmolality and hyponatremia (principal); K85.90 Acute pancreatitis without necrosis or infection, unspecified; K86.2 Cyst of pancreas; E44.0 Moderate protein-calorie malnutrition; F10.239 Alcohol dependence with withdrawal, unspecified; K86.1 Other chronic pancreatitis; D69.6 Thrombocytopenia, unspecified; E87.20 Acidosis, unspecified; F10.229 Alcohol dependence with intoxication, unspecified; F31.9 Bipolar disorder, unspecified; M06.9 Rheumatoid arthritis, unspecified; G25.81 Restless legs syndrome; D53.9 Nutritional anemia, unspecified; Z68.21 Body mass index [BMI] 21.0-21.9, adult; Z28.310 Unvaccinated for COVID-19; E83.42 Hypomagnesemia; E87.6 Hypokalemia; Y90.2 Blood alcohol level of 40-59 mg/100 ml; G43.909 Migraine, unspecified, not intractable, without status migrainosus; F43.10 Post-traumatic stress disorder, unspecified; F41.9 Anxiety disorder, unspecified; R74.01 Elevation of levels of liver transaminase levels; I25.2 Old myocardial infarction; M79.7 Fibromyalgia; E86.0 Dehydration; E78.5 Hyperlipidemia, unspecified; F17.200 Nicotine dependence, unspecified, uncomplicated; Z71.6 Tobacco abuse counseling; K21.9 Gastro-esophageal reflux disease without esophagitis; Z79.891 Long term (current) use of opiate analgesic; Z79.899 Other long term (current) drug therapy; Z86.14 Personal history of Methicillin resistant Staphylococcus aureus infection; Z71.41 Alcohol abuse counseling and surveillance of alcoholic; Z88.6 Allergy status to analgesic agent; Z88.8 Allergy status to other drugs, medicaments and biological substances
CPT/HCPCS: 36415; 51798; 80048; 80053; 80306; 80320; 81001; 82570; 83605; 83690; 83735; 83930; 83935; 84295; 84300; 85025; 85610; 93005; 96361; 96365; 96368; 96372; 96375; 96376; 99285